=== PATIENT | female | born 1955 | race Caucasian/White ===

== ENCOUNTER 2017-11-13 07:57 | Emergency (ER) | payer MEDICAID, OTHER ==
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
[2017-11-13] MEDS ORDERED: MELOXICAM 7.5 MG TABLET PO STA (08:19)
--- NOTE | 2017-11-13 09:06 | XRAY Preliminary Report ---
Exam: XR KNEE 4 VIEW LT IMPRESSION: Normal knee radiography. [facility] SITE ID: [id number]
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
[2017-11-13 09:41] VITALS: BP 139/68
== END 2017-11-13 09:40 | disposition home or self-care (01) ==
LOC: ED 07:57
DX: S80.02XA Contusion of left knee, initial encounter (principal); V89.2XXA Person injured in unspecified motor-vehicle accident, traffic, initial encounter; F17.200 Nicotine dependence, unspecified, uncomplicated
CPT/HCPCS: 73564; 99283; A9270

== ENCOUNTER 2017-11-13 23:32 | Outpatient (CLI) | payer SELFPAY | END 2017-11-13 23:33 | disposition critical access hospital (66) | LOC: EMS 23:32 | PROVIDERS: ATTEND Surgery | DX: R11.2 Nausea with vomiting, unspecified (principal); R42 Dizziness and giddiness | CPT/HCPCS: A0425; A0429 ==

== ENCOUNTER 2017-11-13 23:51 | Emergency (ER) | payer SELFPAY ==
[2017-11-14] MEDS ORDERED: ONDANSETRON 4 MG/2 ML VIAL IVP STA (00:06)
[2017-11-14] MEDS ORDERED: SODIUM CHLORIDE 0.9% 1,000 ML IV ONE ×2 (00:06→01:03)
--- NOTE | 2017-11-14 00:06 | ED Physician Documentation ---
PD HPI NVD - Stated complaint Stated Complaint: NAUSEA - Chief complaint Chief Complaint: General - History obtained from History obtained from: Patient, EMS - History of Present Illness Timing - onset: Today Timing - details: Abrupt onset Associated symptoms: No: Fever, Abdominal pain Similar symptoms before: No diagnosis Recently seen: Not recently seen - Additonal information Additional information: patient is a 61 year old female brought in by ems for nausea and vomiting. patient states that she had an [facility] of [facility] so someone there called ems. patient had two other episode of vomiting. Patient was unsure if anyone else in the halfway was sick and denies any change in diet. Review of Systems Ten Systems: 10 systems reviewed and negative Constitutional: denies: Fever, Chills GI: reports: Abdominal Pain, Nausea, Vomiting. 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 - Present Medications Home Medications: Ambulatory Orders Medication Instructions Recorded Confirmed Meloxicam [Mobic] 15 mg PO DAILY PRN #20 tablet 11/13/17 Ondansetron Odt [Zofran] 4 mg TL Q6H PRN #14 tablet 11/14/17 - Allergies Allergies/Adverse Reactions: Allergies Allergy/AdvReac Type Severity Reaction Status Date / Time codeine Allergy Unknown Verified 11/13/17 08:06 - Social History Does the pt smoke?: Yes Smoking Status: Current every day smoker Does the pt drink ETOH?: Yes - Immunizations Immunizations are current?: No PD ED PE NORMAL - Vitals Vital signs reviewed: Yes - General General: Alert and oriented X 3 - HEENT HEENT: Atraumatic, PERRL - Neck Neck: Supple, no meningeal sign - Cardiac Cardiac: RRR - Abdomen Abdomen: Soft - Derm Derm: Normal color, Warm and dry - Extremities Extremities: No deformity - Neuro Neuro: Alert and oriented X 3, No motor deficit, Normal speech Eye Opening: Spontaneous PD ED PE EXPANDED - HEENT HEENT: Atraumatic, Dry mucous membranes - Abdomen Abdomen: Tender to palpation, Generalized/diffuse. No: Rebound, Guarding Results - Vitals Vitals: Vital Signs - 24 hr 11/13/17 23:52 Temperature 36.8 C Heart Rate 63 Respiratory 16 Rate Blood Pressure 133/84 H O2 Saturation 93 Oxygen O2 Source Room air - Labs Labs: Laboratory Tests 11/14/17 11/14/17 00:20 00:20 WBC 7.5 RBC 3.35 L Hgb 10.9 L Hct 32.5 L MCV 97.0 MCH 32.6 H MCHC 33.6 RDW 14.7 Plt Count 215 MPV 8.0 Neut # 6.0 Lymph # 0.9 L Keith # 0.5 Eos # 0.1 Baso # 0.0 Absolute Nucleated RBC 0.00 Nucleated RBC % 0.0 Sodium 138 Potassium 3.7 Chloride 96 L Carbon Dioxide 36 H Anion Gap 6.0 BUN 25 H Creatinine 1.2 H Estimated GFR (MDRD) 46 L Glucose 131 H Calcium 9.5 Total Bilirubin 0.4 AST 68 H ALT 28 Alkaline Phosphatase 60 Total Protein 8.4 H Albumin 4.5 Globulin 3.9 Albumin/Globulin Ratio 1.2 Lipase 21 L PD MEDICAL DECISION MAKING - ED course Complexity details: reviewed old records, reviewed results, re-evaluated patient , considered differential, d/w patient ED course: Patient was seen and examined at bedside. Iv access was gained and labs were drawn. Patient was treated with fluid bolus and zofran. patient had mild manas and was treated with a second liter of fluid. Patient had no episodes of emesis while in the emergency department. patient was well appearing at discharge and was stable for discharge with outpatient follow up. Departure - Departure Disposition: 01 Home, Self Care Clinical Impression: Gastroenteritis Condition: Good Instructions: ED Gastroenteritis Viral Follow-Up: primary,care provider [Other] - Within 3 Days Prescriptions: Ondansetron Odt [Zofran] 4 mg TL Q6H PRN #14 tablet PRN Reason: Nausea / Vomiting Comments: Your symptoms today are being caused by gastroenteritis. It is normally self limited meaning it will get better on its own. You should take the zofran for nausea and make sure you stay well hydrated with gatorade or other electrolyte solution. You should introduce food slowly with a bland diet. You should follow up with your doctor if symptoms persist. You may return to the emergency department at any time for new, worsening or uncontrollable symptoms.
[2017-11-14 00:29] LABS: BASOPHILS % (AUTO) 0.4 %; EOSINOPHILS # (AUTO) 0.1 10^3/uL (0.0-0.7); EOSINOPHILS % (AUTO) 1.3 %; HGB - HEMOGLOBIN 10.9 g/dL (12.0-16.0); LYMPHOCYTES # (AUTO) 0.9 10^3/uL (1.5-3.5); LYMPHOCYTES % (AUTO) 11.7 %; MEAN CORPUSCULAR HEMOGLOBIN 32.6 pg (27.0-31.0); MEAN CORPUSCULAR HGB CONC 33.6 g/dL (32.0-36.0); MONOCYTES # (AUTO) 0.5 10^3/uL (0.0-1.0); MONOCYTES % (AUTO) 6.6 %; PLT - PLATELET COUNT 215 10^3/uL (130-450); RED BLOOD COUNT 3.35 10^6/uL (4.20-5.40); RED CELL DISTRIBUTION WIDTH 14.7 % (12.0-15.0); WHITE BLOOD COUNT 7.5 x10^3/uL (4.8-10.8)
[2017-11-14 00:40] LABS: ALBUMIN 4.5 g/dL (3.2-5.5); ALBUMIN/GLOBULIN RATIO 1.2 (1.0-2.2); BILIRUBIN,TOTAL 0.4 mg/dL (0.2-1.0); CALCIUM 9.5 mg/dL (8.5-10.3); CREATININE 1.2 mg/dL (0.4-1.0); TOTAL PROTEIN 8.4 g/dL (6.7-8.2)
[2017-11-14 03:02] VITALS: BP 137/84
== END 2017-11-14 03:09 | disposition home or self-care (01) ==
LOC: EDUNIT# → ED 23:51
DX: K52.9 Noninfective gastroenteritis and colitis, unspecified (principal); N17.9 Acute kidney failure, unspecified; F17.200 Nicotine dependence, unspecified, uncomplicated; Z59.0 Homelessness
CPT/HCPCS: 36415; 80053; 83690; 85025; 96361; 96374; 99283

== ENCOUNTER 2019-01-13 10:25 | Inpatient (IN) | payer SELFPAY ==
[2019-01-13] MEDS ORDERED: IPRATROPIUM/ALBUTEROL 3 ML NEB INH STA (10:34)
--- NOTE | 2019-01-13 10:38 | ED Physician Documentation ---
History of Present Illness - Stated complaint Stated Complaint: GLF - Chief complaint Chief Complaint: Resp - History obtained from History obtained from: Patient, EMS - History of Present Illness Timing: Today Pain level max: 6 Pain level now: 6 Improved by: oxygen Worsened by: movement - Additonal information Additional information: 63 year old female fell off a bench today and hit the concrete. no LOC. no vomiting. no head, neck or back pain. Has had L elbow pain for the past several days, now entire arm is swollen and red. No fevers. nothing makes it better or worse. Denies any drug use. States Td UTD. O2 sat is 81% on RA upon arrival here. 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 - Present Medications Home Medications: Ambulatory Orders Medication Instructions Recorded Confirmed No Known Home Medications 01/13/19 01/13/19 - Allergies Allergies/Adverse Reactions: Allergies Allergy/AdvReac Type Severity Reaction Status Date / Time codeine Allergy Unknown Verified 01/13/19 10:33 - Social History Does the pt smoke?: Yes Smoking Status: Current every day smoker Does the pt drink ETOH?: Yes Does the pt have substance abuse?: No - Immunizations Immunizations are current?: No PD ED PE NORMAL - Vitals Vital signs reviewed: Yes - General General: Alert and oriented X 3, No acute distress, Well developed/nourished - HEENT HEENT: PERRL, Ears normal, Moist mucous membranes, Other (R cheek abrasion) - Neck Neck: Supple, no meningeal sign, No bony TTP, Other (FROM without pain) - Cardiac Cardiac: RRR, Strong equal pulses - Respiratory Respiratory: No respiratory distress, Clear bilaterally - Abdomen Abdomen: Soft, Non tender, Non distended - Derm Derm: Warm and dry - Extremities Extremities: Other (Swelling to the left olecranon bursa. There is also swelling and erythema from the hand to the mid bicep. Tender to palpation around the olecranon process. Also tender over the lateral epicondyle. Neurovascularly intact) - Neuro Neuro: Alert and oriented X 3, application processor 2-12 intact, No motor deficit, No sensory deficit, Normal speech Results - Vitals Vitals: Vital Signs - 24 hr 01/13/19 01/13/19 01/13/19 10:31 10:34 11:30 Temperature 36.3 C L Heart Rate 72 66 Respiratory 22 16 Rate Blood Pressure 121/69 O2 Saturation 81 L 92 01/13/19 01/13/19 01/13/19 11:47 12:27 12:30 Temperature 36.5 C Heart Rate 56 L 63 65 Respiratory 12 17 20 Rate Blood Pressure 118/84 H 130/92 H 132/70 H O2 Saturation 98 92 92 Oxygen O2 Source Nasal cannula Oxygen Flow Rate 6 - Labs Labs: Microbiology 01/13/19 12:00 Wound Culture - Preliminary Elbow - Left Laboratory Tests 01/13/19 01/13/19 01/13/19 01:40 10:48 10:48 WBC 15.4 H RBC 2.78 L Hgb 9.0 L Hct 28.3 L MCV 101.8 H MCH 32.4 H MCHC 31.8 L RDW 14.6 Plt Count 202 MPV 9.8 Neut # (Auto) 13.0 H Lymph # (Auto) 0.8 L Hale # (Auto) 0.9 Eos # (Auto) 0.6 Baso # (Auto) 0.0 Absolute Nucleated RBC 0.00 Nucleated RBC % 0.0 Sodium 139 Potassium 3.9 Chloride 97 L Carbon Dioxide 29 Anion Gap 13.0 BUN 23 H Creatinine 1.2 H Estimated GFR (MDRD) 46 L Glucose 96 Lactic Acid 0.7 Calcium 9.3 Total Bilirubin 0.7 AST 53 H ALT 36 Alkaline Phosphatase 79 Total Protein 7.9 Albumin 3.8 Globulin 4.1 Albumin/Globulin Ratio 0.9 L Lipase 27 - Rads (name of study) cxr Radiology: Prelim report reviewed, EMP read contemporaneously, See rad report (No evidence for acute cardiothoracic process. ) L elbow xray Radiology: Prelim report reviewed, EMP read contemporaneously, See rad report (No visualized fractures. Joint effusion and soft tissue swelling over olecranon process. Consider CT elbow for further evaluation. ) PD MEDICAL DECISION MAKING - ED course Complexity details: reviewed results, re-evaluated patient, considered differential, d/w patient, d/w sustainability consultant ED course: 63-year-old female presents to the emergency department with what appears to be bilateral bursitis of the elbow, much worse on the left. She appears to have attempted to drain this and created a secondary infection and have significant cellulitis over the left upper extremity. Also has COPD and significant hypoxia. Given steroids and IV antibiotics. An 18-gauge needle was placed into the area and purulent material removed. Sent for culture. This was done on the left elbow. Discussed the case with the hospitalist, Dr. Kim who accepts. This document was made in part using voice recognition software. While efforts are made to proofread this document, sound alike and grammatical errors may occur. Departure - Departure Disposition: 66 [facility] DC/Xfer Clinical Impression: Hypoxia, COPD with exacerbation, Left arm cellulitis, Mite infestation Bursitis of left elbow Qualifiers: Elbow bursitis location: olecranon bursitis Qualified Code(s): M70.22 - Olecranon bursitis, left elbow Condition: Stable Discharge Date/Time: 01/13/19 14:07
[2019-01-13 10:51] LABS: BASOPHILS % (AUTO) 0.2 %; EOSINOPHILS # (AUTO) 0.6 10^3/uL (0.0-0.7); EOSINOPHILS % (AUTO) 3.6 %; LYMPHOCYTES # (AUTO) 0.8 10^3/uL (1.5-3.5); LYMPHOCYTES % (AUTO) 4.9 %; MEAN CORPUSCULAR HEMOGLOBIN 32.4 pg (27.0-31.0); MEAN CORPUSCULAR HGB CONC 31.8 g/dL (32.0-36.0); MEAN CORPUSCULAR VOLUME 101.8 fL (81.0-99.0); MEAN PLATELET VOLUME 9.8 fL (7.9-10.8); MONOCYTES # (AUTO) 0.9 10^3/uL (0.0-1.0); MONOCYTES % (AUTO) 5.6 %; NEUTROPHILS % (AUTO) 84.7 %; PLT - PLATELET COUNT 202 10^3/uL (130-450); RED BLOOD COUNT 2.78 10^6/uL (4.20-5.40); RED CELL DISTRIBUTION WIDTH 14.6 % (12.0-15.0); WHITE BLOOD COUNT 15.4 x10^3/uL (4.8-10.8)
[2019-01-13 11:05] LABS: ALBUMIN 3.8 g/dL (3.2-5.5); ALBUMIN/GLOBULIN RATIO 0.9 (1.0-2.2); BILIRUBIN,TOTAL 0.7 mg/dL (0.2-1.0); CALCIUM 9.3 mg/dL (8.5-10.3); CREATININE 1.2 mg/dL (0.4-1.0); TOTAL PROTEIN 7.9 g/dL (6.7-8.2)
[2019-01-13] MEDS ORDERED: LIDOCAINE-EPINEPH-TETRACAINE 3 ML SYRINGE TOP STA (11:38)
--- NOTE | 2019-01-13 11:44 | XRAY Report ---
Reason: fall, L elbow pain Procedure Date: 01/13/2019 Accession Number: [id number] / [id number] Procedure: XR - Elbow 3 View LT CPT Code: FULL RESULT: EXAM: LEFT ELBOW RADIOGRAPHY EXAM DATE: 01/13/2019 11:21 AM. CLINICAL HISTORY: Fall, L elbow pain. COMPARISON: None. TECHNIQUE: 3 views. FINDINGS: Bones: No visualized fractures or bone lesions. Joints: Elevation of the anterior fat pad. No subluxation. Soft Tissues: Soft tissue swelling over olecranon process. IMPRESSION: 1. No visualized fractures. 2. Joint effusion and soft tissue swelling over olecranon process. Consider CT elbow for further evaluation. [facility]
--- NOTE | 2019-01-13 11:46 | XRAY Report ---
Reason: cough Procedure Date: 01/13/2019 Accession Number: [id number] / [id number] Procedure: XR - Chest 2 View X-Ray CPT Code: 80693 FULL RESULT: EXAM: CHEST RADIOGRAPHY EXAM DATE: 01/13/2019 11:21 AM. CLINICAL HISTORY: Cough. COMPARISON: XR CHEST PA AND LAT 07/20/2009 3:40 AM. TECHNIQUE: 2 views. FINDINGS: Lungs/Pleura: No focal opacities evident. No pleural effusion. No pneumothorax. Normal volumes. Mediastinum: Stable cardiomediastinal silhouette. Other: None. IMPRESSION: No evidence for acute cardiothoracic process. [facility]
[2019-01-13] MEDS ORDERED: PIPERACILLIN/TAZOBACTAM 3.375 GM in SODIUM CHLORIDE 0.9% MINIBAG 100 ML IV STA (11:51)
[2019-01-13] MEDS ORDERED: VANCOMYCIN INJ 1 GM in SODIUM CHLORIDE 0.9% 500 ML IV STA (11:51)
[2019-01-13] MEDS ORDERED: methylPREDNISolone SUCCINATE 125 MG/2 ML VIAL IVP STA (11:51)
[2019-01-13] MEDS ORDERED: LIDOCAINE 2%-EPI 1:100000 20 ML MDV SUBQ STA (11:54)
[2019-01-13] MEDS ORDERED: LIDOCAINE MPF 2%-EPI 1:200000 20 ML VIAL ONE (12:05)
[2019-01-13] MEDS ORDERED: oxyCODONE 5 MG TABLET PO PRN (12:52)
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
[2019-01-13] MEDS ORDERED: PERMETHRIN 5% CREAM 60 GM TUBE TOP ONE (14:00)
[2019-01-13] MEDS ORDERED: PERMETHRIN 5% CREAM 60 GM TUBE TOP SCH (14:00)
[2019-01-13 14:45] LABS: BILIRUBIN,URINE NEGATIVE (NEGATIVE); GLUCOSE, URINE (UA) NEGATIVE (NEGATIVE); KETONES,URINE (UA) NEGATIVE (NEGATIVE); LEUKOCYTE ESTERASE, URINE NEGATIVE (NEGATIVE); NITRITE,URINE NEGATIVE (NEGATIVE); OCCULT BLOOD,URINE TRACE-LYSE (NEGATIVE); PROTEIN,URINE 100 mg/dL (NEGATIVE); UROBILINOGEN,URINE 0.2 (NORMAL) E.U./dL (NORMAL)
[2019-01-13 14:46] LABS: CLARITY,URINE CLEAR (CLEAR)
[2019-01-13 14:50] LABS: BACTERIA,URINE None Seen /HPF (None Seen); RBC,URINE None Seen /HPF (0-5); SQUAMOUS EPITHELIAL CELL,UR RARE Squamous (<= Few)
[2019-01-13] MEDS: SODIUM CHLORIDE 0.9% 1,000 ML IV SCH (14:57)
--- NOTE | 2019-01-13 15:49 | CONSULTATION NOTE ---
DATE OF SERVICE: 01/13/2019 Physician: Silver Manjarrez MD REFERRING PROVIDER: Divine Mccarty, Nurse Practitioner, inpatient service. CHIEF COMPLAINT: "My elbow has been swollen for days." HISTORY OF PRESENT ILLNESS: Patient is a 63-year-old, right-hand dominant, female, homeless, who apparently has had bilateral, left worse than right, swollen elbows for several days. She denies any preceding trauma or other situations. She did pick off a scab off her right elbow, however, over the last few days. The left side is worse than the right. She has noted some redness, warmth and swelling. No particularly painful motion to the elbow, however. Associated with the elbow lesion has been diffuse swelling and redness and warmth involving her whole left upper extremity, extending down to her hand. There have been no open lesions or active drainage noted. No distal weakness or numbness has been noted. PHYSICAL EXAMINATION: On exam today, patient was noted to be afebrile in the emergency room. Examination of her left elbow today did show some diffuse swelling, but no real fluctuance overlying her olecranon bursa to the left elbow. She has about 45-50 degrees of easy motion at the elbow today, without any obvious pain, and a soft limit in her range of motion noted. She does have some generalized swelling and erythema involving the majority of her left upper extremity. No fluctuance was noted. Elbow apparently had her olecranon bursa aspirated in the emergency room, so right now there is no big collection at the olecranon bursal area. Patient neurovascularly appears to be intact distally. IMAGING: X-rays of the left elbow were taken and there were no obvious fractures or bony lesions seen. There was a suggestion there might be an anterior fat pad sign. ASSESSMENT: Left olecranon bursitis--does not appear to be septic, though there is associated cellulitis that probably involves the other portions of her left upper extremity. PLAN: So as to be able to follow her cellulitis in her upper extremity more closely, we will just keep her with limited voluntary active motion to her elbow over the next few days while she is started on her antibiotics. If the olecranon bursitis does not seem to be improving after being on antibiotics for a few days, we will suggest having her go in a long-arm posterior splint to the upper extremity to immobilize the elbow. TD: 01/13/2019 14:20 ISABELLA
[2019-01-13 16:14] LABS: MUDS CUTOFF CONCENTRATIONS CUTOFF CONC BELOW:
[2019-01-13] MEDS: SODIUM CHLORIDE FLUSH 0.9% 10 ML SYRINGE IVP SCH (16:16)
[2019-01-13 16:25] LABS: AMPHETAMINE SCREEN,URINE NEGATIVE (NEGATIVE); BENZODIAZEPINES SCREEN, URINE NEGATIVE (NEGATIVE); COCAINE SCREEN URINE NEGATIVE (NEGATIVE); METHADONE SCREEN, URINE NEGATIVE (NEGATIVE); METHAMPHETAMINES SCREEN, URINE NEGATIVE (NEGATIVE); OPIATE SCREEN, URINE NEGATIVE (NEGATIVE); OXYCODONE SCREEN, URINE NEGATIVE (NEGATIVE); PROPOXYPHENE SCREEN, URINE NEGATIVE (NEGATIVE); TRICYCLIC ANTIDEPRESSANT,URINE NEGATIVE (NEGATIVE)
[2019-01-13] MEDS ORDERED: VANCOMYCIN PER PHARMACY 100 GM in SODIUM CHLORIDE 0.9% 250 ML IV SCH (17:00)
[2019-01-13 17:02] LABS: ABG BASE EXCESS 1.9 mmol/L (-2.0-3.0); ABG HCO3 28.5 mmol/L (22.0-26.0); ABG PCO2 55 mmHg (34-45); ABG PH 7.34 (7.35-7.45); ABG PO2 56 mmHg (80-100); ABG TCO2 30.2 MMOL/L (21.0-29.0)
[2019-01-13 17:03] LABS: ALLEN TEST POSITIVE
[2019-01-13 17:06] LABS: ABG OXYGEN SATURATION 84 % (94-98)
[2019-01-13] MEDS: ACETAMINOPHEN 325 MG TABLET PO PRN (20:34)
[2019-01-13] MEDS: CEFEPIME 2 GM in SODIUM CHLORIDE 0.9% MINIBAG 100 ML IV SCH (20:34)
[2019-01-14] MEDS: SODIUM CHLORIDE FLUSH 0.9% 10 ML SYRINGE IVP SCH ×3 (00:12→17:03)
[2019-01-14] MEDS: VANCOMYCIN INJ 1 GM in SODIUM CHLORIDE 0.9% 250 ML IV SCH ×2 (01:02→12:59)
[2019-01-14] MEDS: SODIUM CHLORIDE 0.9% 1,000 ML IV SCH ×2 (01:02→12:16)
[2019-01-14] MEDS: ACETAMINOPHEN 325 MG TABLET PO PRN ×3 (02:27→21:49)
[2019-01-14] MEDS: PANTOPRAZOLE 40 MG TABLET PO SCH (06:31)
[2019-01-14] MEDS: ENOXAPARIN 40 MG/0.4 ML SYRINGE SUBQ SCH (08:34)
[2019-01-14] MEDS: POLYETHYLENE GLYCOL 3350 17 GM PACKET PO SCH (08:34)
[2019-01-14] MEDS: NICOTINE 14 MG PATCH TOP SCH (12:16)
[2019-01-14] MEDS: methylPREDNISolone SUCCINATE 40 MG/ML VIAL IVP SCH ×2 (13:04→21:49)
[2019-01-14] MEDS: SODIUM CHLORIDE FLUSH 0.9% 10 ML SYRINGE IVP PRN ×2 (13:04→21:49)
[2019-01-14] MEDS: guaiFENesin 600 MG TABLET PO SCH ×2 (13:04→20:48)
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
[2019-01-14 19:26] LABS: EOSINOPHILS % (AUTO) 0.2 %; HGB - HEMOGLOBIN 9.5 g/dL (12.0-16.0); MEAN CORPUSCULAR HGB CONC 30.7 g/dL (32.0-36.0)
[2019-01-14 19:29] LABS: BASOPHILS % (AUTO) 0.2 %; MEAN CORPUSCULAR HEMOGLOBIN 32.2 pg (27.0-31.0); MEAN CORPUSCULAR VOLUME 104.7 fL (81.0-99.0); MEAN PLATELET VOLUME 10.1 fL (7.9-10.8); MONOCYTES % (AUTO) 2.4 %; NEUTROPHILS % (AUTO) 92.1 %; PLT - PLATELET COUNT 255 10^3/uL (130-450); RED BLOOD COUNT 2.95 10^6/uL (4.20-5.40); RED CELL DISTRIBUTION WIDTH 14.4 % (12.0-15.0); WHITE BLOOD COUNT 19.9 x10^3/uL (4.8-10.8)
[2019-01-14 19:34] LABS: ABNORMAL LYMPHS % (MANUAL) 0 %
[2019-01-14 19:41] LABS: CREATININE 1.1 mg/dL (0.4-1.0)
[2019-01-14 19:42] LABS: ALBUMIN 3.3 g/dL (3.2-5.5); ALBUMIN/GLOBULIN RATIO 0.7 (1.0-2.2); BILIRUBIN,TOTAL 0.7 mg/dL (0.2-1.0); CALCIUM 8.8 mg/dL (8.5-10.3); MAGNESIUM 2.1 mg/dL (1.7-2.8); TOTAL PROTEIN 7.8 g/dL (6.7-8.2)
[2019-01-14 19:49] LABS: BAND NEUTROPHILS % (MANUAL) 6 %; LYMPHOCYTES # (MANUAL) 0.4 10^3/uL (1.5-3.5); LYMPHOCYTES % (MANUAL) 2 %; MONOCYTES # (MANUAL) 0.4 10^3/uL (0.0-1.0)
[2019-01-14 19:56] LABS: PLATELET ESTIMATE, MANUAL NORMAL (130-450,000) (NORMAL); PLATELET MORPHOLOGY NORMAL APPEARANCE (NORMAL)
[2019-01-14 19:57] LABS: DIFFERENTIAL COMMENT MANUAL DIFFERENTIAL
[2019-01-14] MEDS: CEFEPIME 2 GM in SODIUM CHLORIDE 0.9% MINIBAG 100 ML IV SCH (20:48)
[2019-01-15 01:20] LABS: VANCOMYCIN,TROUGH 18.7 ug/mL (10.0-20.0)
[2019-01-15] MEDS: SODIUM CHLORIDE FLUSH 0.9% 10 ML SYRINGE IVP SCH ×3 (02:09→20:24)
[2019-01-15] MEDS: VANCOMYCIN INJ 1 GM in SODIUM CHLORIDE 0.9% 250 ML IV SCH (02:09)
[2019-01-15] MEDS: PANTOPRAZOLE 40 MG TABLET PO SCH (06:26)
[2019-01-15] MEDS ORDERED: SODIUM CHLORIDE 0.9% 500 ML IV PRN (07:34)
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
[2019-01-15] MEDS: guaiFENesin 600 MG TABLET PO SCH ×2 (09:09→20:26)
[2019-01-15] MEDS: NICOTINE 14 MG PATCH TOP SCH (09:09)
[2019-01-15] MEDS: predniSONE 20 MG TABLET PO SCH (09:09)
[2019-01-15] MEDS: POLYETHYLENE GLYCOL 3350 17 GM PACKET PO SCH (09:09)
[2019-01-15] MEDS: ENOXAPARIN 40 MG/0.4 ML SYRINGE SUBQ SCH (09:09)
[2019-01-15] MEDS ORDERED: ceFAZolin 2 GM in SODIUM CHLORIDE 0.9% 100ML 100 ML IV SCH (10:00)
[2019-01-15] MEDS ORDERED: MULTIVITAMIN W/MINERALS TABLET PO SCH (11:00)
[2019-01-15] MEDS: ASCORBIC ACID CHEW 500 MG TABLET PO SCH (11:01)
--- NOTE | 2019-01-15 11:37 | PROVIDER PROGRESS NOTE ---
Subjective - Prog Note Date Prog Note Date: 01/15/19 Prog Note Time: 11:35 - Subjective Pt reports feeling: Improved (Less swelling and pain. Better motion. No distal weakness or numbness) Objective - Vital Signs/Intake & Output Vital Signs: Vital Signs x48h Temp Pulse Resp BP Pulse Ox 01/15/19 10:58 18 91 L 01/15/19 09:10 18 94 01/15/19 08:27 36.4 C L 62 18 120/72 99 Intake & Output: Intake & Output 01/12/19 01/13/19 01/14/19 01/15/19 23:59 23:59 23:59 23:59 Intake Total 1120 4753.333 1730.0 Output Total 250 1700 2000 Balance 870 3053.333 -270.0 - Lab Results Fish Bones: 01/14/19 19:20 01/14/19 19:20 Other Labs: Lab Results x24hrs 01/15/19 01/14/19 01/14/19 Range/Units 00:50 19:20 19:20 WBC (4.8-10.8) x10^3/uL RBC (4.20-5.40) 10^6/uL Hgb (12.0-16.0) g/dL Hct (37.0-47.0) % MCV (81.0-99.0) fL MCH (27.0-31.0) pg MCHC (32.0-36.0) g/dL RDW (12.0-15.0) % Plt Count (130-450) 10^3/uL MPV (7.9-10.8) fL Neut # (Auto) Lymph # (Auto) [place] # (Auto) Eos # (Auto) Baso # (Auto) Absolute Nucleated RBC Total Counted Band Neuts % (Manual) (0 - 10) % Abnorm Lymph % (Manual) % Nucleated RBC % Neutrophils # (Manual) (1.5-6.6) 10^3/uL Lymphocytes # (Manual) (1.5-3.5) 10^3/uL Monocytes # (Manual) (0.0-1.0) 10^3/uL Eosinophils # (Manual) (0-0.7) 10^3/uL Basophils # (Manual) (0-0.1) 10^3/uL Differential Comment Manual Slide Review Platelet Estimate (NORMAL) Platelet Morphology (NORMAL) RBC Morph Micro Appear (NORMAL) Sodium 139 (135-145) mmol/L Potassium 4.3 (3.5-5.0) mmol/L Chloride 100 L (101-111) mmol/L Carbon Dioxide 27 (21-32) mmol/L Anion Gap 12.0 (6-13) BUN 19 (6-20) mg/dL Creatinine 1.1 H (0.4-1.0) mg/dL Estimated GFR (MDRD) 50 L (>89) Glucose 187 H (70-100) mg/dL Lactic Acid 1.5 (0.5-2.2) mmol/L Calcium 8.8 (8.5-10.3) mg/dL Magnesium 2.1 (1.7-2.8) mg/dL Total Bilirubin 0.7 (0.2-1.0) mg/dL AST 32 (10-42) IU/L ALT 30 (10-60) IU/L Alkaline Phosphatase 74 (42-121) IU/L Total Protein 7.8 (6.7-8.2) g/dL Albumin 3.3 (3.2-5.5) g/dL Globulin 4.5 H (2.1-4.2) g/dL Albumin/Globulin Ratio 0.7 L (1.0-2.2) Last Dose Date UNKNOWN Last Dose Time UNKNOWN Vancomycin Trough 18.7 (10.0-20.0) ug/mL 01/14/19 Range/Units 19:20 WBC 19.9 H (4.8-10.8) x10^3/uL RBC 2.95 L (4.20-5.40) 10^6/uL Hgb 9.5 L (12.0-16.0) g/dL Hct 30.9 L (37.0-47.0) % MCV 104.7 H (81.0-99.0) fL MCH 32.2 H (27.0-31.0) pg MCHC 30.7 L (32.0-36.0) g/dL RDW 14.4 (12.0-15.0) % Plt Count 255 (130-450) 10^3/uL MPV 10.1 (7.9-10.8) fL Neut # (Auto) Not Reportable Lymph # (Auto) Not Reportable [place] # (Auto) Not Reportable Eos # (Auto) Not Reportable Baso # (Auto) Not Reportable Absolute Nucleated RBC Not Reportable Total Counted 100 Band Neuts % (Manual) 6 (0 - 10) % Abnorm Lymph % (Manual) 0 % Nucleated RBC % Not Reportable Neutrophils # (Manual) 19.1 H (1.5-6.6) 10^3/uL Lymphocytes # (Manual) 0.4 L (1.5-3.5) 10^3/uL Monocytes # (Manual) 0.4 (0.0-1.0) 10^3/uL Eosinophils # (Manual) 0.0 (0-0.7) 10^3/uL Basophils # (Manual) 0.0 (0-0.1) 10^3/uL Differential Comment MANUAL DIFFERENTIAL Manual Slide Review Indicated Platelet Estimate NORMAL (130-450,000) (NORMAL) Platelet Morphology NORMAL APPEARANCE (NORMAL) RBC Morph Micro Appear 1+ SCHISTOCYTES (NORMAL) Sodium (135-145) mmol/L Potassium (3.5-5.0) mmol/L Chloride (101-111) mmol/L Carbon Dioxide (21-32) mmol/L Anion Gap (6-13) BUN (6-20) mg/dL Creatinine (0.4-1.0) mg/dL Estimated GFR (MDRD) (>89) Glucose (70-100) mg/dL Lactic Acid (0.5-2.2) mmol/L Calcium (8.5-10.3) mg/dL Magnesium (1.7-2.8) mg/dL Total Bilirubin (0.2-1.0) mg/dL AST (10-42) IU/L ALT (10-60) IU/L Alkaline Phosphatase (42-121) IU/L Total Protein (6.7-8.2) g/dL Albumin (3.2-5.5) g/dL Globulin (2.1-4.2) g/dL Albumin/Globulin Ratio (1.0-2.2) Last Dose Date Last Dose Time Vancomycin Trough (10.0-20.0) ug/mL - Other Results/Comments Other Results/Comments: EXAM: Left arm_ less swelling and minimal erythema. Left olecranon bursa is much less swelling and less tender. Only minimal bursal fluid palpable. Good elbow ROM without pain. N/V ok distally Assessment/Plan - Problem List (1) Bursitis of left elbow Impression: Improved. Cultures are growing MSSA. PLAN: Switch to oral antibiotic, if possible for 2 weeks. Sling prn to limit elbow motion. Follow up with PCP for clinical follow up in 10 days to see if reconsultation or additional antibiotics are indicated. Qualifiers: Elbow bursitis location: olecranon bursitis Qualified Code(s): M70.22 - Olecranon bursitis, left elbow
[2019-01-15] MEDS: diphenhydrAMINE 25 MG CAPSULE PO PRN ×2 (11:44→20:32)
[2019-01-15] MEDS: SULFAMETH/TRIMETH DS 800/160 MG TABLET PO SCH ×2 (11:45→20:30)
[2019-01-15] MEDS ORDERED: SACCHAROMYCES BOULARDII 250 MG CAPSULE PO SCH (17:00)
[2019-01-16] MEDS: SODIUM CHLORIDE FLUSH 0.9% 10 ML SYRINGE IVP SCH ×2 (05:21→09:00)
[2019-01-16] MEDS: PANTOPRAZOLE 40 MG TABLET PO SCH (06:07)
[2019-01-16] MEDS: POLYETHYLENE GLYCOL 3350 17 GM PACKET PO SCH (09:00)
[2019-01-16] MEDS: NICOTINE 14 MG PATCH TOP SCH (09:00)
[2019-01-16] MEDS: SULFAMETH/TRIMETH DS 800/160 MG TABLET PO SCH (09:00)
[2019-01-16] MEDS: ASCORBIC ACID CHEW 500 MG TABLET PO SCH (09:00)
[2019-01-16] MEDS: predniSONE 20 MG TABLET PO SCH (09:00)
[2019-01-16] MEDS: ENOXAPARIN 40 MG/0.4 ML SYRINGE SUBQ SCH (09:00)
[2019-01-16] MEDS: guaiFENesin 600 MG TABLET PO SCH (09:00)
[2019-01-16] MEDS ORDERED: PERMETHRIN 5% CREAM 60 GM TUBE TOP ONE ×2 (09:06→10:15)
[2019-01-16 10:26] LABS: BILIRUBIN,TOTAL 0.6 mg/dL (0.2-1.0)
[2019-01-16 10:27] LABS: ALBUMIN 3.2 g/dL (3.2-5.5); ALBUMIN/GLOBULIN RATIO 0.8 (1.0-2.2); TOTAL PROTEIN 7.3 g/dL (6.7-8.2)
[2019-01-16 10:30] LABS: BASOPHILS % (AUTO) 0.2 %; EOSINOPHILS % (AUTO) 0.1 %; HGB - HEMOGLOBIN 10.1 g/dL (12.0-16.0); LYMPHOCYTES % (AUTO) 5.8 %; MEAN CORPUSCULAR HEMOGLOBIN 32.5 pg (27.0-31.0); MEAN CORPUSCULAR HGB CONC 31.8 g/dL (32.0-36.0); MEAN CORPUSCULAR VOLUME 102.3 fL (81.0-99.0); MEAN PLATELET VOLUME 11.2 fL (7.9-10.8); MONOCYTES % (AUTO) 4.6 %; PLT - PLATELET COUNT 260 10^3/uL (130-450); RED BLOOD COUNT 3.11 10^6/uL (4.20-5.40); RED CELL DISTRIBUTION WIDTH 14.2 % (12.0-15.0); WHITE BLOOD COUNT 14.3 x10^3/uL (4.8-10.8)
[2019-01-16] MEDS ORDERED: PIPERONYL BUTOXIDE/PYRETHRINS 59 ML BOTTLE TOP ONE (10:30)
[2019-01-16 10:35] LABS: ABNORMAL LYMPHS % (MANUAL) 0 %
[2019-01-16 10:36] LABS: BAND NEUTROPHILS % (MANUAL) 4 %; LYMPHOCYTES % (MANUAL) 7 %; METAMYELOCYTES % (MANUAL) 1 %; MONOCYTES # (MANUAL) 1.3 10^3/uL (0.0-1.0); MYELOCYTES % (MANUAL) 1 %; PLATELET ESTIMATE, MANUAL NORMAL (130-450,000) (NORMAL); PLATELET MORPHOLOGY NORMAL APPEARANCE (NORMAL)
[2019-01-16 10:37] LABS: DIFFERENTIAL COMMENT MANUAL DIFFERENTIAL
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
[2019-01-16 16:24] VITALS: BP 150/70
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
== END 2019-01-16 16:25 | disposition home or self-care (01) | DRG 603 ==
LOC: EDBD → EDUNIT# → ED 10:25 → MS2 12:52
PROVIDERS: ADMIT Nurse Practitioner; ATTEND Nurse Practitioner
DX: L03.114 Cellulitis of left upper limb (principal); J44.1 Chronic obstructive pulmonary disease with (acute) exacerbation; B95.61 Methicillin susceptible Staphylococcus aureus infection as the cause of diseases classified elsewhere; R09.02 Hypoxemia; M70.22 Olecranon bursitis, left elbow; M70.21 Olecranon bursitis, right elbow; B85.4 Mixed pediculosis and phthiriasis; L27.1 Localized skin eruption due to drugs and medicaments taken internally; T36.1X5A Adverse effect of cephalosporins and other beta-lactam antibiotics, initial encounter; Y92.230 Patient room in hospital as the place of occurrence of the external cause; S00.83XA Contusion of other part of head, initial encounter; W17.89XA Other fall from one level to another, initial encounter; Y92.511 Restaurant or cafe as the place of occurrence of the external cause; I10 Essential (primary) hypertension; F03.90 Unspecified dementia, unspecified severity, without behavioral disturbance, psychotic disturbance, mood disturbance, and anxiety; F12.280 Cannabis dependence with cannabis-induced anxiety disorder; F12.288 Cannabis dependence with other cannabis-induced disorder; F17.218 Nicotine dependence, cigarettes, with other nicotine-induced disorders; K02.9 Dental caries, unspecified; K08.89 Other specified disorders of teeth and supporting structures; Z59.0 Homelessness
CPT/HCPCS: 10060; 36415; 36600; 71046; 73080; 80053; 80202; 80306; 81001; 82803; 83605; 83690; 83735; 85025; 87040; 87070; 87181; 87205; 94640; 96365; 96375; 99284; 99285; A9270; J1650; J3370; J7512; 20605; 81003; 87086

== ENCOUNTER 2019-01-16 18:49 | Outpatient (CLI) | payer SELFPAY | END 2019-01-16 18:50 | disposition critical access hospital (66) | LOC: EMS 18:49 | PROVIDERS: ATTEND Surgery | DX: Z59.0 Homelessness (principal) | CPT/HCPCS: A0425; A0429 ==

== ENCOUNTER 2019-01-16 19:09 | Emergency (ER) | payer MEDICAID ==
--- NOTE | 2019-01-16 19:15 | ED Physician Documentation ---
PD HPI SKIN - Stated complaint Stated Complaint: HOMELESS - History obtained from History obtained from: Patient, EMS - History of Present Illness Timing - onset: Other (She had a recent admission for fall off a bench without serious injuries but scrapes and was admitted to the hospital for some social issues as well as body lice and olecranon bursitis. They would not take her at the snf tonight and she really does not have any place to go. 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 : Incontinence, Nocturia, Frequency HEENT: Chronic vision loss, Chronic sinusitis, Chronic hearing loss Psych: Depression, Anxiety, Bipolar disorder, Post traumatic stress disorder Musculoskeletal: Chronic back pain Derm: Other (acute scabies infection) - Past Surgical History Past Surgical History: Yes General: Appendectomy /RECREATIONAL VEHICLE REPAIRER: section - Present Medications Home Medications: Ambulatory Orders Medication Instructions Recorded Confirmed Sulfamethox/Trimeth 800/160 1 tab PO BID 10 Days #20 tablet 01/16/19 [Bactrim Ds] - Allergies Allergies/Adverse Reactions: Allergies Allergy/AdvReac Type Severity Reaction Status Date / Time cefazolin Allergy Hives Verified 01/15/19 11:33 codeine Allergy Unknown Verified 01/13/19 10:33 - Social History Does the pt smoke?: Yes Smoking Status: Current every day smoker Does the pt drink ETOH?: Yes Does the pt have substance abuse?: No - Immunizations Immunizations are current?: No - POLST Patient has POLST: No POLST Status: Full Code PD ED PE NORMAL - Vitals Vital signs reviewed: Yes - General General: Alert and oriented X 3, No acute distress - HEENT HEENT: Other (Healing scrapes on the right side of the face) - Neck Neck: Supple, no meningeal sign, No bony TTP - Extremities Extremities: Other (Left arm in sling, full range of motion of right arm, normal gait) - Neuro Neuro: Alert and oriented X 3, Normal speech Results - Vitals Vitals: Oxygen O2 Source Room air PD MEDICAL DECISION MAKING - ED course ED course: This is a 63-year-old woman who presents by ambulance with no medical emergency, but mostly social issues including homelessness. No mental health social worker available at this hour and she is invited to stay in the hospital waiting room until she can get into the snf tomorrow. Departure - Departure Disposition: 01 Home, Self Care Clinical Impression: Homelessness Condition: Good Record reviewed to determine appropriate education?: Yes Comments: Follow the instructions and take the prescriptions were given earlier in the day. You can stay in the hospital waiting room tonight if you would like to be able to get into the snf tomorrow.
[2019-01-16 19:28] VITALS: BP 169/106
== END 2019-01-16 19:50 | disposition home or self-care (01) ==
LOC: EDUNIT# → ED 19:09
DX: Z76.89 Persons encountering health services in other specified circumstances (principal); I10 Essential (primary) hypertension; F03.90 Unspecified dementia, unspecified severity, without behavioral disturbance, psychotic disturbance, mood disturbance, and anxiety; F17.200 Nicotine dependence, unspecified, uncomplicated; Z59.0 Homelessness
CPT/HCPCS: 99281; 99283

== ENCOUNTER 2019-02-05 18:31 | Outpatient (CLI) | payer SELFPAY | END 2019-02-05 18:32 | disposition critical access hospital (66) | LOC: EMS 18:31 | PROVIDERS: ATTEND Surgery | DX: M25.572 Pain in left ankle and joints of left foot (principal); W18.39XA Other fall on same level, initial encounter; Y92.89 Other specified places as the place of occurrence of the external cause | CPT/HCPCS: A0425; A0429 ==

== ENCOUNTER 2019-02-05 18:49 | Inpatient (IN) | payer MEDICAID ==
[2019-02-05] MEDS ORDERED: IBUPROFEN 600 MG TABLET PO STA (20:03)
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
--- NOTE | 2019-02-05 20:55 | XRAY Report ---
Reason: pain; fall Procedure Date: 02/05/2019 Accession Number: [id number] / [id number] Procedure: XR - Wrist 3 View LT CPT Code: FULL RESULT: EXAM: LEFT WRIST RADIOGRAPHY EXAM DATE: 02/05/2019 08:30 PM. CLINICAL HISTORY: Left wrist pain after fall. COMPARISON: None. TECHNIQUE: 3 views. FINDINGS: Bones: No acute fracture. No suspicious osseous lesion. Joints: No dislocation. No significant joint space narrowing. Soft Tissues: Unremarkable. IMPRESSION: No acute osseous abnormality. RADIA
--- NOTE | 2019-02-05 20:58 | XRAY Report ---
Reason: pain; fall Procedure Date: 02/05/2019 Accession Number: [id number] / [id number] Procedure: XR - Ankle 3 View LT CPT Code: FULL RESULT: EXAM: LEFT ANKLE RADIOGRAPHY EXAM DATE: 02/05/2019 08:30 PM. CLINICAL HISTORY: Pain; fall. COMPARISON: None. TECHNIQUE: 3 views. FINDINGS: Bones: --Acute displaced oblique fracture of the lateral malleolus above the level of the tibial plafond. --Acute transverse fracture of the medial malleolus which appears to be slightly comminuted and minimally displaced. --Acute displaced intra-articular vertical fracture of the posterior malleolus. -- No suspicious osseous lesion. Joints: No dislocation. No significant joint space narrowing. Soft Tissues: Diffuse soft tissue swelling. IMPRESSION: 1. Trimalleolar ankle fracture, detailed above. No dislocation. Recommend Orthopedic Surgery consultation. RADIA
[2019-02-05] MEDS ORDERED: oxyCODONE 5 MG TABLET PO STA (21:06)
[2019-02-05] MEDS: LIDOCAINE 2%-EPI 1:100000 20 ML MDV SUBQ STA ×2 (21:53→21:58)
[2019-02-06 01:27] LABS: BASOPHILS % (AUTO) 0.6 %; EOSINOPHILS # (AUTO) 0.4 10^3/uL (0.0-0.7); EOSINOPHILS % (AUTO) 7.3 %; HGB - HEMOGLOBIN 7.7 g/dL (12.0-16.0); LYMPHOCYTES # (AUTO) 0.5 10^3/uL (1.5-3.5); MEAN CORPUSCULAR HEMOGLOBIN 31.7 pg (27.0-31.0); MEAN CORPUSCULAR HGB CONC 30.1 g/dL (32.0-36.0); MEAN CORPUSCULAR VOLUME 105.3 fL (81.0-99.0); MEAN PLATELET VOLUME 9.4 fL (7.9-10.8); MONOCYTES # (AUTO) 0.6 10^3/uL (0.0-1.0); NEUTROPHILS # (AUTO) 3.7 10^3/uL (1.5-6.6); NEUTROPHILS % (AUTO) 70.7 %; PLT - PLATELET COUNT 198 10^3/uL (130-450); RED BLOOD COUNT 2.43 10^6/uL (4.20-5.40); RED CELL DISTRIBUTION WIDTH 15.2 % (12.0-15.0); WHITE BLOOD COUNT 5.2 x10^3/uL (4.8-10.8)
[2019-02-06 01:36] LABS: CALCIUM 8.6 mg/dL (8.5-10.3); CREATININE 3.6 mg/dL (0.4-1.0)
--- NOTE | 2019-02-06 01:44 | XRAY Report ---
Reason: chest pain Procedure Date: 02/06/2019 Accession Number: [id number] / [id number] Procedure: XR - Chest 1 View X-Ray CPT Code: 84450 FULL RESULT: EXAM: CHEST RADIOGRAPHY EXAM DATE: 02/06/2019 01:34 AM. CLINICAL HISTORY: Chest pain. COMPARISON: CHEST 2 VIEW 01/13/2019 10:43 AM. TECHNIQUE: 1 view. FINDINGS: Lungs/Pleura: Bibasilar infiltrates. No effusion or pneumothorax. Mediastinum: Cardiomegaly. Other: None. IMPRESSION: Cardiomegaly and bibasilar infiltrates, new from previous. RADIA
[2019-02-06] MEDS ORDERED: levoFLOXacin 500 MG/100 ML 500 MG/100 ML BAG IV ONE (01:57)
[2019-02-06] MEDS ORDERED: ALBUTEROL NEB 2.5 MG/3 ML INH STA (01:57)
[2019-02-06] MEDS ORDERED: SODIUM CHLORIDE 0.9% 1,000 ML IV SCH (03:00)
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
[2019-02-06 05:33] LABS: BASOPHILS % (AUTO) 0.2 %; EOSINOPHILS # (AUTO) 0.3 10^3/uL (0.0-0.7); EOSINOPHILS % (AUTO) 7.3 %; HGB - HEMOGLOBIN 7.3 g/dL (12.0-16.0); LYMPHOCYTES # (AUTO) 0.5 10^3/uL (1.5-3.5); LYMPHOCYTES % (AUTO) 10.3 %; MEAN CORPUSCULAR HEMOGLOBIN 30.9 pg (27.0-31.0); MEAN CORPUSCULAR HGB CONC 30.2 g/dL (32.0-36.0); MEAN CORPUSCULAR VOLUME 102.5 fL (81.0-99.0); MEAN PLATELET VOLUME 10.4 fL (7.9-10.8); MONOCYTES # (AUTO) 0.6 10^3/uL (0.0-1.0); MONOCYTES % (AUTO) 13.3 %; NEUTROPHILS % (AUTO) 68.4 %; PLT - PLATELET COUNT 163 10^3/uL (130-450); RED BLOOD COUNT 2.36 10^6/uL (4.20-5.40); RED CELL DISTRIBUTION WIDTH 15.3 % (12.0-15.0); WHITE BLOOD COUNT 4.4 x10^3/uL (4.8-10.8)
[2019-02-06 05:41] LABS: CALCIUM 8.4 mg/dL (8.5-10.3); CREATININE 3.5 mg/dL (0.4-1.0)
[2019-02-06 06:01] LABS: % IRON SATURATION 9 % (20-50); IRON 25 ug/dL (28-170); TOTAL IRON BINDING CAPACITY 277 ug/dL (250-450); TRANSFERRIN 198 mg/dL (192-382)
[2019-02-06 06:20] LABS: FOLATE 9.86 ng/mL (5.90 - >24.8)
[2019-02-06] MEDS ORDERED: HEPARIN 5,000 UNIT/ML VIAL SUBQ SCH (09:00)
[2019-02-06] MEDS ORDERED: levoFLOXacin 500 MG/100 ML 500 MG/100 ML BAG IV SCH (09:00)
[2019-02-06] MEDS: POLYETHYLENE GLYCOL 3350 17 GM PACKET PO SCH (09:14)
[2019-02-06] MEDS: FERROUS SULFATE 325 MG TABLET PO SCH (09:14)
[2019-02-06] MEDS: oxyCODONE 5 MG TABLET PO PRN ×2 (09:16→21:24)
[2019-02-06] MEDS: SODIUM CHLORIDE FLUSH 0.9% 10 ML SYRINGE IVP SCH ×2 (09:56→17:24)
[2019-02-06] MEDS: cefTRIAXone 1 GM in SODIUM CHLORIDE 0.9% MINIBAG 100 ML IV SCH (09:56)
[2019-02-06] MEDS ORDERED: AZITHROMYCIN 250 MG TABLET PO ONE (11:00)
[2019-02-06] MEDS: predniSONE 20 MG TABLET PO SCH (12:07)
[2019-02-06] MEDS: MULTIVITAMIN W/MINERALS TABLET PO SCH (12:10)
[2019-02-06] MEDS: SACCHAROMYCES BOULARDII 250 MG CAPSULE PO SCH ×2 (12:10→18:46)
[2019-02-06] MEDS: SODIUM CHLORIDE 0.9% 1,000 ML IV SCH (12:11)
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
[2019-02-06] MEDS: IPRATROPIUM/ALBUTEROL 3 ML NEB INH SCH ×3 (12:23→19:25)
[2019-02-06] MEDS: TAMSULOSIN 0.4 MG CAPSULE PO SCH (18:46)
[2019-02-06 21:43] LABS: BILIRUBIN,URINE NEGATIVE (NEGATIVE); GLUCOSE, URINE (UA) NEGATIVE (NEGATIVE); KETONES,URINE (UA) NEGATIVE (NEGATIVE); LEUKOCYTE ESTERASE, URINE TRACE (NEGATIVE); NITRITE,URINE NEGATIVE (NEGATIVE); OCCULT BLOOD,URINE SMALL (NEGATIVE); PROTEIN,URINE 100 mg/dL (NEGATIVE); UROBILINOGEN,URINE 0.2 (NORMAL) E.U./dL (NORMAL)
[2019-02-06 21:47] LABS: CLARITY,URINE HAZY (CLEAR)
[2019-02-06 21:48] LABS: BACTERIA,URINE Moderate /HPF (None Seen); CASTS, URINE 3-5 Hyaline Casts /LPF; MUCUS,URINE Few Strands; SQUAMOUS EPITHELIAL CELL,UR RARE Squamous (<= Few); WBC CLUMPS,URINE PRESENT
[2019-02-06] MEDS: ACETAMINOPHEN 325 MG TABLET PO PRN (23:46)
[2019-02-07] MEDS: SODIUM CHLORIDE 0.9% 1,000 ML IV SCH ×2 (00:45→15:36)
[2019-02-07] MEDS: SODIUM CHLORIDE FLUSH 0.9% 10 ML SYRINGE IVP SCH ×4 (00:46→16:30)
--- NOTE | 2019-02-07 02:32 | Ultrasound Report ---
Reason: urinary retention, hydronephrosis? Procedure Date: 02/07/2019 Accession Number: [id number] / [id number] Procedure: US - Retroperitoneal CPT Code: FULL RESULT: EXAM: RENAL ULTRASOUND EXAM DATE: 02/07/2019 01:10 AM CLINICAL HISTORY: Urinary retention, hydronephrosis?. COMPARISON: None. TECHNIQUE: Real-time scanning was performed with static images obtained. FINDINGS: Right Kidney: 12.0 x 4.7 x 5.2 cm. Normal parenchymal thickness and echogenicity noted. There is a right mid kidney stone measuring 6.5 mm. There is no hydronephrosis. No definite suspicious renal mass. Nonspecific trace perinephric fluid. Left Kidney: 10.2 x 4.9 x 4.7 cm. There is trace nonspecific amount of perinephric fluid. No suspicious renal mass. Normal parenchymal thickness and echogenicity. No hydronephrosis or kidney stone. Bladder: Decompressed, precluding assessment. Other: None. IMPRESSION: 1. No hydronephrosis. 2. Possible 6.5 mm right mid kidney stone. 3. Nonspecific trace bilateral perinephric fluid. RADIA
[2019-02-07] MEDS: oxyCODONE 5 MG TABLET PO PRN ×4 (03:55→22:34)
[2019-02-07 04:51] LABS: BASOPHILS % (AUTO) 0.2 %; HGB - HEMOGLOBIN 9.4 g/dL (12.0-16.0); LYMPHOCYTES # (AUTO) 0.3 10^3/uL (1.5-3.5); LYMPHOCYTES % (AUTO) 4.5 %; MEAN CORPUSCULAR HEMOGLOBIN 31.2 pg (27.0-31.0); MEAN CORPUSCULAR HGB CONC 31.6 g/dL (32.0-36.0); MEAN CORPUSCULAR VOLUME 98.7 fL (81.0-99.0); MEAN PLATELET VOLUME 10.3 fL (7.9-10.8); MONOCYTES # (AUTO) 0.2 10^3/uL (0.0-1.0); MONOCYTES % (AUTO) 2.8 %; NEUTROPHILS # (AUTO) 5.2 10^3/uL (1.5-6.6); NEUTROPHILS % (AUTO) 91.5 %; PLT - PLATELET COUNT 197 10^3/uL (130-450); RED BLOOD COUNT 3.01 10^6/uL (4.20-5.40); RED CELL DISTRIBUTION WIDTH 17.1 % (12.0-15.0); WHITE BLOOD COUNT 5.7 x10^3/uL (4.8-10.8)
[2019-02-07 05:04] LABS: CALCIUM 8.4 mg/dL (8.5-10.3)
[2019-02-07] MEDS: IPRATROPIUM/ALBUTEROL 3 ML NEB INH SCH ×4 (07:40→20:51)
[2019-02-07] MEDS: ACETAMINOPHEN 325 MG TABLET PO PRN (08:21)
[2019-02-07] MEDS: predniSONE 20 MG TABLET PO SCH (08:22)
[2019-02-07] MEDS: AZITHROMYCIN 250 MG TABLET PO SCH (08:22)
[2019-02-07] MEDS: MULTIVITAMIN W/MINERALS TABLET PO SCH (08:23)
[2019-02-07] MEDS: TAMSULOSIN 0.4 MG CAPSULE PO SCH ×2 (08:23→08:24)
[2019-02-07] MEDS: POLYETHYLENE GLYCOL 3350 17 GM PACKET PO SCH (08:23)
[2019-02-07] MEDS: FERROUS SULFATE 325 MG TABLET PO SCH (08:24)
[2019-02-07] MEDS: cefTRIAXone 1 GM in SODIUM CHLORIDE 0.9% MINIBAG 100 ML IV SCH (08:24)
[2019-02-07] MEDS: SACCHAROMYCES BOULARDII 250 MG CAPSULE PO SCH ×2 (08:25→16:30)
[2019-02-07] MEDS ORDERED: CLINDAMYCIN 600 MG/50 ML 50 ML IV SCH (09:00)
--- NOTE | 2019-02-07 09:07 | ANESTHESIA ---
Pre-Anesthesia VS, & Labs - Diagnosis Left ankle fracture - Procedure ORIF left ankle fracture Vital Signs: Temp Pulse Resp BP Pulse Ox 36.3 C L 62 18 106/72 94 02/07/19 08:06 02/07/19 08:06 02/07/19 08:06 02/07/19 08:06 02/07/19 08:06 Height 5 ft 2 in Weight (kg) 74 kg Body Mass Index 29.8 - NPO >8 hours - Is Patient ?: No - Lab Results Current Lab Results: Laboratory Tests 02/07/19 04:20: Sodium 138, Potassium 4.9, Chloride 103, Carbon Dioxide 25, Anion Gap 10.0, BUN 40 H, Creatinine 3.0 H, Estimated GFR (MDRD) 16 L, Glucose 150 H, Calcium 8.4 L 02/07/19 04:20: WBC 5.7, RBC 3.01 L, Hgb 9.4 L, Hct 29.7 L, MCV 98.7, MCH 31.2 H , MCHC 31.6 L, RDW 17.1 H, Plt Count 197, MPV 10.3, Neut # (Auto) 5.2, Lymph # ( Auto) 0.3 L, [place] # (Auto) 0.2, Eos # (Auto) 0.0, Baso # (Auto) 0.0, Absolute Nucleated RBC 0.00, Nucleated RBC % 0.0 02/06/19 12:12: Blood Type A POSITIVE, Antibody Screen NEGATIVE, Crossmatch IS Only See Detail 02/06/19 08:30: Blood Type Recheck A POSITIVE 02/06/19 08:14: Lactic Acid 0.6 02/06/19 08:14: Magnesium 2.1 02/06/19 08:14: B-Natriuretic Peptide 222 H 02/06/19 04:40: Iron 25 L, TIBC 277, % Saturation 9 L, Transferrin 198 02/06/19 04:40: Vitamin B12 442, Folate 9.86 02/06/19 04:40: Sodium 140, Potassium 4.1, Chloride 101, Carbon Dioxide 29, Anion Gap 10.0, BUN 40 H, Creatinine 3.5 H, Estimated GFR (MDRD) 13 L, Glucose 83, Calcium 8.4 L 02/06/19 04:40: WBC 4.4 L, RBC 2.36 L, Hgb 7.3 L, Hct 24.2 L, MCV 102.5 H, MCH 30.9, MCHC 30.2 L, RDW 15.3 H, Plt Count 163, MPV 10.4, Neut # (Auto) 3.0, Lymph # (Auto) 0.5 L, [place] # (Auto) 0.6, Eos # (Auto) 0.3, Baso # (Auto) 0.0, Absolute Nucleated RBC 0.00, Nucleated RBC % 0.0 02/06/19 01:23: Sodium 136, Potassium 3.8, Chloride 99 L, Carbon Dioxide 26, Anion Gap 11.0, BUN 40 H, Creatinine 3.6 H, Estimated GFR (MDRD) 13 L, Glucose 98, Calcium 8.6 02/06/19 01:23: WBC 5.2, RBC 2.43 L, Hgb 7.7 L, Hct 25.6 L, MCV 105.3 H, MCH 31.7 H, MCHC 30.1 L, RDW 15.2 H, Plt Count 198, MPV 9.4, Neut # (Auto) 3.7, Lymph # (Auto) 0.5 L, [place] # (Auto) 0.6, Eos # (Auto) 0.4, Baso # (Auto) 0.0, Absolute Nucleated RBC 0.00, Nucleated RBC % 0.0 Fish Bones: 02/07/19 04:20 02/07/19 04:20 Home Medications and Allergies Home Medications: Ambulatory Orders No Known Home Medications 02/06/19 Active Medications Acetaminophen (Tylenol) 650 mg PO Q4HR PRN PRN Reason: Pain 1 to 4 Last Admin: 02/07/19 08:21 Dose: 650 mg Albuterol/Ipratropium (Duoneb) 3 ml INH RTQID [facility] Last Admin: 02/07/19 07:40 Dose: 3 ml Azithromycin (Zithromax) 250 mg PO DAILY [facility] Last Admin: 02/07/19 08:22 Dose: 250 mg Ferrous Sulfate (Feosol) 325 mg PO DAILYWM [facility] Last Admin: 02/07/19 08:24 Dose: 325 mg Ceftriaxone Sodium 1 gm/ (Sodium Chloride) 100 mls @ 200 mls/hr IV DAILY [facility] Last Admin: 02/07/19 08:24 Dose: 100 mls/hr Clindamycin Phosphate (Cleocin 600 Mg/50 Ml) 50 mls @ 100 mls/hr IV ONCE [facility] Stop: 02/07/19 11:00 Multivitamins/Minerals (Theragran M) 1 tab PO DAILYWM [facility] Last Admin: 02/07/19 08:23 Dose: 1 tab Oxycodone HCl (Roxicodone) 5 mg PO Q4HR PRN PRN Reason: Pain 5 to 7 Last Admin: 02/07/19 08:23 Dose: 5 mg Polyethylene Glycol (Miralax) 17 gm PO DAILY [facility] Last Admin: 02/07/19 08:23 Dose: 17 gm Prednisone (Deltasone) 30 mg PO DAILYWM [facility] Last Admin: 02/07/19 08:22 Dose: 30 mg Saccharomyces Boulardii (Florastor) 250 mg PO BIDWM [facility] Last Admin: 02/07/19 08:25 Dose: 250 mg Sodium Chloride (Normal Saline Flush 0.9%) 10 ml IVP PRN PRN PRN Reason: NEEDED PER PROVIDER ORDERS Sodium Chloride (Normal Saline Flush 0.9%) 10 ml IVP 0100,0900,1700 [facility] Last Admin: 02/07/19 08:32 Dose: Not Given Tamsulosin HCl (Flomax) 0.4 mg PO DAILY [facility] Last Admin: 02/07/19 08:24 Dose: 0.4 mg No Known Home Medications 02/06/19 Allergies/Adverse Reactions: Allergies Allergy/AdvReac Type Severity Reaction Status Date / Time cefazolin Allergy Hives Verified 01/16/19 19:28 codeine Allergy Unknown Verified 01/16/19 19:28 Anes History & Medical History - Anesthetic History Anesthesia Complications: reports: No previous complications - Medical History Cardiovascular: reports: Hypertension, High cholesterol, Coronary artery disease (patient denies any cardiac history), Peripheral Vascular Disease Pulmonary: reports: COPD, Pneumonia, Shortness of breath, Other (hoarse) Gastrointestinal: reports: GERD, Other Urinary: reports: Incontinence, Renal insuffiency, Nocturia, Frequency Neuro: reports: Dementia, Headaches, Peripheral neuropathy, Tremors, Other (reports she had a brain bleed and was tranfered to [place]) Musculoskeletal: reports: Chronic back pain (Patient reports she was in [place] for fractured back) Endocrine/Autoimmune: reports: None Blood Disorders: reports: None Skin: reports: Other Smoking Status: Current every day smoker - Surgical History General: Appendectomy Gynecologic: section Results - EKG Results EKG Comparison: Reviewed EKG Exam General: Alert, Oriented x3, Cooperative, No acute distress Dental: Poor dentition (multiple loose teeth.) Mouth Openin Fingerbreadth Neck Mobility: Reduced Mallampati classification: III Thyromental Distance: 4-6 cm Respiratory: Lungs clear, Normal breath sounds, No respiratory distress, No accessory muscle use Cardiovascular: Regular rate, Normal S1, Normal S2, No murmurs Mental/Cognitive Status: Alert/Oriented X3, Normal for patient Plan Anesthesia Type: General Consent for Procedure(s) Verified and Reviewed: Yes Code Status: Attempt Resuscitation ASA classification: 3-Severe systemic disease Is this case an emergency?: No
--- NOTE | 2019-02-07 11:31 | PROVIDER PROGRESS NOTE ---
Subjective - Prog Note Date Prog Note Date: 02/07/19 Prog Note Time: 11:30 - Subjective Pt reports feeling: No change Objective - Vital Signs/Intake & Output Vital Signs: Vital Signs x48h Temp Pulse Pulse Resp BP Pulse Ox 02/07/19 08:06 36.3 C L 62 18 106/72 94 02/07/19 07:57 64 16 02/07/19 04:08 36.2 C L 57 L 16 107/64 94 Intake & Output: Intake & Output 02/04/19 02/05/19 02/06/19 02/07/19 23:59 23:59 23:59 23:59 Intake Total 3860 358.333 Output Total 1600 350 Balance 2260 8.333 - Lab Results Fish Bones: 02/07/19 04:20 02/07/19 04:20 Other Labs: Lab Results x24hrs 02/07/19 02/07/19 02/06/19 Range/Units 04:20 04:20 21:13 WBC 5.7 (4.8-10.8) x10^3/uL RBC 3.01 L (4.20-5.40) 10^6/uL Hgb 9.4 L (12.0-16.0) g/dL Hct 29.7 L (37.0-47.0) % MCV 98.7 (81.0-99.0) fL MCH 31.2 H (27.0-31.0) pg MCHC 31.6 L (32.0-36.0) g/dL RDW 17.1 H (12.0-15.0) % Plt Count 197 (130-450) 10^3/uL MPV 10.3 (7.9-10.8) fL Neut # (Auto) 5.2 (1.5-6.6) 10^3/uL Lymph # (Auto) 0.3 L (1.5-3.5) 10^3/uL [place] # (Auto) 0.2 (0.0-1.0) 10^3/uL Eos # (Auto) 0.0 (0.0-0.7) 10^3/uL Baso # (Auto) 0.0 (0.0-0.1) 10^3/uL Absolute Nucleated RBC 0.00 x10^3/uL Nucleated RBC % 0.0 /100WBC Sodium 138 (135-145) mmol/L Potassium 4.9 (3.5-5.0) mmol/L Chloride 103 (101-111) mmol/L Carbon Dioxide 25 (21-32) mmol/L Anion Gap 10.0 (6-13) BUN 40 H (6-20) mg/dL Creatinine 3.0 H (0.4-1.0) mg/dL Estimated GFR (MDRD) 16 L (>89) Glucose 150 H (70-100) mg/dL Calcium 8.4 L (8.5-10.3) mg/dL Urine Color YELLOW Urine Clarity HAZY (CLEAR) Urine pH 6.0 (5.0-7.5) PH Ur Specific [place] 1.020 (1.002-1.030) Urine Protein 100 H (NEGATIVE) mg/dL Urine Glucose (UA) NEGATIVE (NEGATIVE) mg/dL Urine Ketones NEGATIVE (NEGATIVE) mg/dL Urine Occult Blood SMALL H (NEGATIVE) Urine Nitrite NEGATIVE (NEGATIVE) Urine Bilirubin NEGATIVE (NEGATIVE) Urine Urobilinogen 0.2 (NORMAL) (NORMAL) E.U./dL Ur Leukocyte Esterase TRACE H (NEGATIVE) Urine RBC 6-10 H (0-5) /HPF Urine WBC >25 H (0-5) /HPF Urine WBC Clumps PRESENT Ur Squamous Epith Cells RARE Squamous (<= Few) Urine Bacteria Moderate H (None Seen) /HPF Urine Casts 3-5 Hyaline Casts /LPF Urine Mucus Few Strands Urine Culture Comments INDICATED Blood Type Blood Type Recheck Antibody Screen Crossmatch IS Only 02/06/19 02/06/19 Range/Units 12:12 08:30 WBC (4.8-10.8) x10^3/uL RBC (4.20-5.40) 10^6/uL Hgb (12.0-16.0) g/dL Hct (37.0-47.0) % MCV (81.0-99.0) fL MCH (27.0-31.0) pg MCHC (32.0-36.0) g/dL RDW (12.0-15.0) % Plt Count (130-450) 10^3/uL MPV (7.9-10.8) fL Neut # (Auto) (1.5-6.6) 10^3/uL Lymph # (Auto) (1.5-3.5) 10^3/uL [place] # (Auto) (0.0-1.0) 10^3/uL Eos # (Auto) (0.0-0.7) 10^3/uL Baso # (Auto) (0.0-0.1) 10^3/uL Absolute Nucleated RBC x10^3/uL Nucleated RBC % /100WBC Sodium (135-145) mmol/L Potassium (3.5-5.0) mmol/L Chloride (101-111) mmol/L Carbon Dioxide (21-32) mmol/L Anion Gap (6-13) BUN (6-20) mg/dL Creatinine (0.4-1.0) mg/dL Estimated GFR (MDRD) (>89) Glucose (70-100) mg/dL Calcium (8.5-10.3) mg/dL Urine Color Urine Clarity (CLEAR) Urine pH (5.0-7.5) PH Ur Specific [place] (1.002-1.030) Urine Protein (NEGATIVE) mg/dL Urine Glucose (UA) (NEGATIVE) mg/dL Urine Ketones (NEGATIVE) mg/dL Urine Occult Blood (NEGATIVE) Urine Nitrite (NEGATIVE) Urine Bilirubin (NEGATIVE) Urine Urobilinogen (NORMAL) E.U./dL Ur Leukocyte Esterase (NEGATIVE) Urine RBC (0-5) /HPF Urine WBC (0-5) /HPF Urine WBC Clumps Ur Squamous Epith Cells (<= Few) Urine Bacteria (None Seen) /HPF Urine Casts /LPF Urine Mucus Urine Culture Comments Blood Type A POSITIVE Blood Type Recheck A POSITIVE Antibody Screen NEGATIVE Crossmatch IS Only See Detail Assessment/Plan - Problem List (1) Trimalleolar fracture of left ankle Impression: Stable PLAN: no change in exam or indications. Will proceed with ORIF of left ankle fracture later today, as planned. Qualifiers: Encounter type: initial encounter Fracture type: closed Qualified Code(s): S82.852A - Displaced trimalleolar fracture of left lower leg, initial encounter for closed fracture
[2019-02-07] MEDS ORDERED: BUPIVACAINE 0.25% PF 30 ML VIAL ONE (11:37)
[2019-02-07] MEDS ORDERED: MIDAZOLAM 2 MG/2 ML VIAL IVP ONE (11:45)
[2019-02-07] MEDS ORDERED: LIDOCAINE-MPF 2% 5 ML VIAL IM ONE (11:45)
[2019-02-07] MEDS ORDERED: fentaNYL 100 MCG/2 ML VIAL IVP ONE (11:45)
[2019-02-07] MEDS ORDERED: SEVOFLURANE 250 ML LIQUID INH ONE (11:45)
[2019-02-07] MEDS ORDERED: ONDANSETRON 4 MG/2 ML VIAL IVP ONE (11:45)
[2019-02-07] MEDS ORDERED: PROPOFOL 200 MG/20 ML VIAL IVP ONE (11:45)
[2019-02-07] MEDS ORDERED: ePHEDrine 50 MG/ML VIAL IVP ONE (11:45)
[2019-02-07] MEDS ORDERED: DEXAMETHASONE 4 MG/ML VIAL IVP ONE (11:45)
[2019-02-07] MEDS ORDERED: BUPIVACAINE 0.25% PF 30 ML VIAL SUBQ ONE (12:17)
[2019-02-07] MEDS ORDERED: LACTATED RINGERS 1,000 ML IV ONE (12:21)
--- NOTE | 2019-02-07 13:59 | PROVIDER PROGRESS NOTE ---
Subjective - Subjective Pt reports feeling: Improved Subjective: pt report she feel better. she denies fever, chill, chest pain. she agreed to have Guidry for urinary retention. she will have surgery today. Current Medications - Current Medications Current Medications: Active Medications Acetaminophen (Tylenol) 650 mg PO Q4HR PRN PRN Reason: Pain 1 to 4 Last Admin: 02/07/19 08:21 Dose: 650 mg Albuterol/Ipratropium (Duoneb) 3 ml INH RTQID [facility] Last Admin: 02/07/19 07:40 Dose: 3 ml Azithromycin (Zithromax) 250 mg PO DAILY [facility] Last Admin: 02/07/19 08:22 Dose: 250 mg Ferrous Sulfate (Feosol) 325 mg PO DAILYWM [facility] Last Admin: 02/07/19 08:24 Dose: 325 mg Ceftriaxone Sodium 1 gm/ (Sodium Chloride) 100 mls @ 200 mls/hr IV DAILY [facility] Last Infusion: 02/07/19 09:00 Dose: 0 mls/hr Multivitamins/Minerals (Theragran M) 1 tab PO DAILYWM [facility] Last Admin: 02/07/19 08:23 Dose: 1 tab Oxycodone HCl (Roxicodone) 5 mg PO Q4HR PRN PRN Reason: Pain 5 to 7 Last Admin: 02/07/19 08:23 Dose: 5 mg Polyethylene Glycol (Miralax) 17 gm PO DAILY [facility] Last Admin: 02/07/19 08:23 Dose: 17 gm Prednisone (Deltasone) 30 mg PO DAILYWM [facility] Last Admin: 02/07/19 08:22 Dose: 30 mg Saccharomyces Boulardii (Florastor) 250 mg PO BIDWM [facility] Last Admin: 02/07/19 08:25 Dose: 250 mg Sodium Chloride (Normal Saline Flush 0.9%) 10 ml IVP PRN PRN PRN Reason: NEEDED PER PROVIDER ORDERS Sodium Chloride (Normal Saline Flush 0.9%) 10 ml IVP 0100,0900,1700 [facility] Last Admin: 02/07/19 08:32 Dose: Not Given Tamsulosin HCl (Flomax) 0.4 mg PO DAILY [facility] Last Admin: 02/07/19 08:24 Dose: 0.4 mg No Known Home Medications 02/06/19 Objective - Vital Signs/Intake & Output Reviewed Vital Signs: Yes Vital Signs: Vital Signs x48h Temp Pulse Pulse Resp BP Pulse Ox 02/07/19 08:06 36.3 C L 62 18 106/72 94 02/07/19 07:57 64 16 Intake & Output: Intake & Output 02/04/19 02/05/19 02/06/19 02/07/19 23:59 23:59 23:59 23:59 Intake Total 3860 1358.333 Output Total 1600 350 Balance 2260 1008.333 - Objective General Appearance: positive: No acute distress, Alert. negative: Lethargic Eyes Bilateral: positive: Normal inspection, PERRL, No lid inflammation, Conjunctivae nml ENT: positive: ENT inspection nml, Pharynx nml, No signs of dehydration. ne gative: Purulent nasal drainage, Pharyngeal erythema, Oral lesions Neck: positive: Nml inspection, Thyroid nml, No JVD, Trachea midline. negative: Thyromegaly, Lymphadenopathy (R), Lymphadenopathy (L), Stiff neck, Swelling/bruising, Tracheal deviation Respiratory: positive: Chest non-tender, No respiratory distress. negative: Wheezes, Rales, Rhonchi Cardiovascular: positive: Regular rate & rhythm, No murmur, No gallop. negative: Irregularly irregular, Extrasystoles, Tachycardia, Bradycardia, JVD present, Systolic murmur, Diastolic murmur Peripheral Pulses: 2+ Radial (R), 2+ Radial (L), 2+ Dorsalis pedis (R), 2+ Dorsalis pedis (L) Abdomen: positive: Non-tender, No organomegaly, Nml bowel sounds, No distention. negative: Tenderness, Guarding, Rebound Back: positive: Nml inspection. negative: CVA tenderness (R), CVA tenderness (L) Skin: positive: Color nml, No rash, Warm, Dry. negative: Cyanosis, Diaphoresis, Pallor Extremities: positive: Non-tender. negative: Calf tenderness, Joint swelling, Rashaad's sign/cords Neurologic/Psychiatric: positive: Sensation nml, Mood/affect nml. negative: Weakness, Sensory loss, Facial droop, Slurred/abnml speech, Depressed mood/affect - Lab Results Fish Bones: 02/07/19 04:20 02/07/19 04:20 Other Labs: Lab Results x24hrs 02/07/19 02/07/19 02/06/19 Range/Units 04:20 04:20 21:13 WBC 5.7 (4.8-10.8) x10^3/uL RBC 3.01 L (4.20-5.40) 10^6/uL Hgb 9.4 L (12.0-16.0) g/dL Hct 29.7 L (37.0-47.0) % MCV 98.7 (81.0-99.0) fL MCH 31.2 H (27.0-31.0) pg MCHC 31.6 L (32.0-36.0) g/dL RDW 17.1 H (12.0-15.0) % Plt Count 197 (130-450) 10^3/uL MPV 10.3 (7.9-10.8) fL Neut # (Auto) 5.2 (1.5-6.6) 10^3/uL Lymph # (Auto) 0.3 L (1.5-3.5) 10^3/uL [place] # (Auto) 0.2 (0.0-1.0) 10^3/uL Eos # (Auto) 0.0 (0.0-0.7) 10^3/uL Baso # (Auto) 0.0 (0.0-0.1) 10^3/uL Absolute Nucleated RBC 0.00 x10^3/uL Nucleated RBC % 0.0 /100WBC Sodium 138 (135-145) mmol/L Potassium 4.9 (3.5-5.0) mmol/L Chloride 103 (101-111) mmol/L Carbon Dioxide 25 (21-32) mmol/L Anion Gap 10.0 (6-13) BUN 40 H (6-20) mg/dL Creatinine 3.0 H (0.4-1.0) mg/dL Estimated GFR (MDRD) 16 L (>89) Glucose 150 H (70-100) mg/dL Calcium 8.4 L (8.5-10.3) mg/dL Urine Color YELLOW Urine Clarity HAZY (CLEAR) Urine pH 6.0 (5.0-7.5) PH Ur Specific [place] 1.020 (1.002-1.030) Urine Protein 100 H (NEGATIVE) mg/dL Urine Glucose (UA) NEGATIVE (NEGATIVE) mg/dL Urine Ketones NEGATIVE (NEGATIVE) mg/dL Urine Occult Blood SMALL H (NEGATIVE) Urine Nitrite NEGATIVE (NEGATIVE) Urine Bilirubin NEGATIVE (NEGATIVE) Urine Urobilinogen 0.2 (NORMAL) (NORMAL) E.U./dL Ur Leukocyte Esterase TRACE H (NEGATIVE) Urine RBC 6-10 H (0-5) /HPF Urine WBC >25 H (0-5) /HPF Urine WBC Clumps PRESENT Ur Squamous Epith Cells RARE Squamous (<= Few) Urine Bacteria Moderate H (None Seen) /HPF Urine Casts 3-5 Hyaline Casts /LPF Urine Mucus Few Strands Urine Culture Comments INDICATED Blood Type Antibody Screen Crossmatch IS Only 02/06/19 Range/Units 12:12 WBC (4.8-10.8) x10^3/uL RBC (4.20-5.40) 10^6/uL Hgb (12.0-16.0) g/dL Hct (37.0-47.0) % MCV (81.0-99.0) fL MCH (27.0-31.0) pg MCHC (32.0-36.0) g/dL RDW (12.0-15.0) % Plt Count (130-450) 10^3/uL MPV (7.9-10.8) fL Neut # (Auto) (1.5-6.6) 10^3/uL Lymph # (Auto) (1.5-3.5) 10^3/uL [place] # (Auto) (0.0-1.0) 10^3/uL Eos # (Auto) (0.0-0.7) 10^3/uL Baso # (Auto) (0.0-0.1) 10^3/uL Absolute Nucleated RBC x10^3/uL Nucleated RBC % /100WBC Sodium (135-145) mmol/L Potassium (3.5-5.0) mmol/L Chloride (101-111) mmol/L Carbon Dioxide (21-32) mmol/L Anion Gap (6-13) BUN (6-20) mg/dL Creatinine (0.4-1.0) mg/dL Estimated GFR (MDRD) (>89) Glucose (70-100) mg/dL Calcium (8.5-10.3) mg/dL Urine Color Urine Clarity (CLEAR) Urine pH (5.0-7.5) PH Ur Specific [place] (1.002-1.030) Urine Protein (NEGATIVE) mg/dL Urine Glucose (UA) (NEGATIVE) mg/dL Urine Ketones (NEGATIVE) mg/dL Urine Occult Blood (NEGATIVE) Urine Nitrite (NEGATIVE) Urine Bilirubin (NEGATIVE) Urine Urobilinogen (NORMAL) E.U./dL Ur Leukocyte Esterase (NEGATIVE) Urine RBC (0-5) /HPF Urine WBC (0-5) /HPF Urine WBC Clumps Ur Squamous Epith Cells (<= Few) Urine Bacteria (None Seen) /HPF Urine Casts /LPF Urine Mucus Urine Culture Comments Blood Type A POSITIVE Antibody Screen NEGATIVE Crossmatch IS Only See Detail ABX Reporting Has patient been on IV antibiotics over the past 48 hours?: Yes Sepsis Event Note (H) - Evaluation Current Stage of Sepsis: Ruled out Assessment/Plan - Problem List (1) Respiratory failure with hypoxia Impression: 02/07 pt need 4 liter of O2 to remain 94% sats now. pt has likely PNA, COPD continue antibiotics continue albuterol and Duoneb PRN supplement of O2 PRN (2) Acute kidney injury 02/07 improved. creatinine is down to 3.0 from 3.5 continue hydration, daily lab monitor hold nephrological toxical agents (3) Trimalleolar fracture of left ankle 02/07 pt had Closed left trimalleolar ankle fracture Dr. Manjarrez plan to have surgery for pt continue pain control PT/OT after surgery (4) COPD (chronic obstructive pulmonary disease) Conclusion/Plan: continue albuterol and Duoneb PRN supplement of O2 PRN (5) History of scabies Conclusion/Plan: Patient was placed on permetrin cream during last admission Non seen currently (6) Macrocytic anemia Conclusion/Plan: 02/07 pt had one unit of blood. her HGB is 9.4 after one unit of blood before operation. iron is low, pt is prescribed iron pill (7) pneumonia pt present respiratory failure, cough, CXR reveals bibasilar pneumonia treat with Azithyomycin and Rocephin continue breath treatment supplement of O2 (8) UTI UA analysis is positive continue Rocephin UA culture is pending (9) urinary retention pt present urinary retention, she can not urinate and nurse let pt try and pt is prescribed Flomax, but pt is still unsuccessful. Guidry is prescribed for pt.
[2019-02-07] MEDS ORDERED: MORPHINE 2 MG/ML CARPUJECT IVP PRN (14:13)
[2019-02-07] MEDS ORDERED: SODIUM CHLORIDE FLUSH 0.9% 10 ML SYRINGE IVP PRN (14:13)
[2019-02-07] MEDS ORDERED: PROCHLORPERAZINE 10 MG/2 ML VIAL IVP PRN (14:13)
--- NOTE | 2019-02-07 14:13 | OPERATIVE REPORT ---
Operative Report - General Admit Date: 02/06/19 Procedure Date: 02/07/19 Planned Procedure: ORIF left ankle fracture Pre-Op Diagnosis: Closed left trimalleolar ankle fracture Procedure Performed: ORIF of left ankle fracture Post Op Diagnosis: Same - Procedure Note Primary Surgeon: Anoop Manjarrez MD Anesthesia Provider: Max Adams CRNA Anesthesia Technique: General ET tube IV Fluids (mL): 800 Estimated Blood Loss (mL): 75 Complications: None
[2019-02-07] MEDS ORDERED: SENNA 8.6 MG TABLET PO PRN (14:33)
[2019-02-07] MEDS ORDERED: SODIUM CHLORIDE 0.9% 1,000 ML IV SCH ×2 (15:00)
--- NOTE | 2019-02-07 15:25 | XRAY Report ---
Reason: FX ANKLE Procedure Date: 02/07/2019 Accession Number: [id number] / [id number] Procedure: [place] - OR C-Arm Procedure CPT Code: FULL RESULT: EXAM: FLUOROSCOPIC GUIDANCE EXAM DATE: 02/07/2019 01:55 PM. CLINICAL HISTORY: ORIF of left ankle fracture COMPARISON: ANKLE 2 VIEW LT 02/07/2019 1:01 PM ANKLE 3 VIEW LT 02/05/2019 8:08 PM. TECHNIQUE: 2 fluoroscopic spot images were submitted. FINDINGS/ IMPRESSION: Videofluoroscopic guidance provided for the patient's ankle ORIF. Fluoroscopy time was approximately 0.5 minutes. The procedure is reported by the patient's physician/surgeon in the procedure report, included in the patient's medical record. Briefly, ORIF of a lateral malleolar fracture with partially imaged plate and screw fixation. ORIF of a medial malleolar fracture with 2 cannulated screws and K wires extending through the screws. There is a screw posterior to the lower aspect of the plate at the level of the 6-7 hole from the bottom which may be within the fibula. The posterior malleolus fracture is not well seen on this study. RADIA
--- NOTE | 2019-02-07 15:25 | XRAY Report ---
Reason: LEFT ANKLE ORIF Procedure Date: 02/07/2019 Accession Number: [id number] / [id number] Procedure: XR - Ankle 2 View LT CPT Code: FULL RESULT: EXAM: FLUOROSCOPIC GUIDANCE EXAM DATE: 02/07/2019 01:55 PM. CLINICAL HISTORY: ORIF of left ankle fracture COMPARISON: ANKLE 2 VIEW LT 02/07/2019 1:01 PM ANKLE 3 VIEW LT 02/05/2019 8:08 PM. TECHNIQUE: 2 fluoroscopic spot images were submitted. FINDINGS/ IMPRESSION: Videofluoroscopic guidance provided for the patient's ankle ORIF. Fluoroscopy time was approximately 0.5 minutes. The procedure is reported by the patient's physician/surgeon in the procedure report, included in the patient's medical record. Briefly, ORIF of a lateral malleolar fracture with partially imaged plate and screw fixation. ORIF of a medial malleolar fracture with 2 cannulated screws and K wires extending through the screws. There is a screw posterior to the lower aspect of the plate at the level of the 6-7 hole from the bottom which may be within the fibula. The posterior malleolus fracture is not well seen on this study. [facility]
[2019-02-07] MEDS: ASPIRIN 325 MG TABLET PO SCH (16:30)
[2019-02-07] MEDS ORDERED: HEPARIN 5,000 UNIT/ML VIAL SUBQ SCH (21:00)
[2019-02-08] MEDS: SODIUM CHLORIDE FLUSH 0.9% 10 ML SYRINGE IVP SCH ×4 (00:52→17:22)
[2019-02-08] MEDS: SODIUM CHLORIDE 0.9% 1,000 ML IV SCH ×2 (01:10→09:27)
[2019-02-08 05:50] LABS: BASOPHILS % (AUTO) 0.1 %; HGB - HEMOGLOBIN 8.6 g/dL (12.0-16.0); LYMPHOCYTES # (AUTO) 0.5 10^3/uL (1.5-3.5); LYMPHOCYTES % (AUTO) 5.2 %; MEAN CORPUSCULAR HEMOGLOBIN 30.7 pg (27.0-31.0); MEAN CORPUSCULAR HGB CONC 30.4 g/dL (32.0-36.0); MEAN CORPUSCULAR VOLUME 101.1 fL (81.0-99.0); MONOCYTES # (AUTO) 0.4 10^3/uL (0.0-1.0); MONOCYTES % (AUTO) 4.9 %; NEUTROPHILS # (AUTO) 7.4 10^3/uL (1.5-6.6); NEUTROPHILS % (AUTO) 85.3 %; PLT - PLATELET COUNT 201 10^3/uL (130-450); RED CELL DISTRIBUTION WIDTH 16.5 % (12.0-15.0); WHITE BLOOD COUNT 8.7 x10^3/uL (4.8-10.8)
[2019-02-08 06:00] LABS: CALCIUM 8.2 mg/dL (8.5-10.3); CREATININE 2.7 mg/dL (0.4-1.0)
[2019-02-08] MEDS: IPRATROPIUM/ALBUTEROL 3 ML NEB INH SCH ×4 (07:30→19:49)
[2019-02-08] MEDS: SACCHAROMYCES BOULARDII 250 MG CAPSULE PO SCH ×2 (09:25→17:21)
[2019-02-08] MEDS: oxyCODONE 5 MG TABLET PO PRN ×2 (09:25→21:58)
[2019-02-08] MEDS: AZITHROMYCIN 250 MG TABLET PO SCH (09:26)
[2019-02-08] MEDS: predniSONE 20 MG TABLET PO SCH (09:26)
[2019-02-08] MEDS: ASPIRIN 325 MG TABLET PO SCH ×2 (09:26→17:21)
[2019-02-08] MEDS: MULTIVITAMIN W/MINERALS TABLET PO SCH (09:26)
[2019-02-08] MEDS: DOCUSATE SODIUM 100 MG CAPSULE PO PRN (09:26)
[2019-02-08] MEDS: SENNA 8.6 MG TABLET PO SCH (09:26)
[2019-02-08] MEDS: TAMSULOSIN 0.4 MG CAPSULE PO SCH (09:26)
[2019-02-08] MEDS: FERROUS SULFATE 325 MG TABLET PO SCH (09:26)
[2019-02-08] MEDS: cefTRIAXone 1 GM in SODIUM CHLORIDE 0.9% MINIBAG 100 ML IV SCH (09:27)
[2019-02-08] MEDS: POLYETHYLENE GLYCOL 3350 17 GM PACKET PO SCH (09:27)
--- NOTE | 2019-02-08 10:00 | XRAY Report ---
Reason: SOB, hypoxia Procedure Date: 02/08/2019 Accession Number: [id number] / [id number] Procedure: XR - Chest 1 View X-Ray CPT Code: 01875 FULL RESULT: EXAM: CHEST RADIOGRAPHY EXAM DATE: 02/08/2019 09:48 AM. CLINICAL HISTORY: SOB, hypoxia. COMPARISON: CHEST 1 VIEW 02/06/2019 1:20 AM. TECHNIQUE: 1 view. FINDINGS: Lungs/Pleura: Mild edema. Lung volumes are low. Progression of bibasilar opacities. There are small pleural effusions. No pneumothorax. Mediastinum: Cardiomegaly. Mild aortic tortuosity. Other: Gaseous distention of bowel in the upper abdomen. IMPRESSION: 1. Vascular congestion. 2. Progression of bibasilar consolidation/atelectasis and pleural effusions. RADIA
[2019-02-08] MEDS ORDERED: PERMETHRIN 5% CREAM 60 GM TUBE TOP PRN (10:41)
[2019-02-08] MEDS ORDERED: [UNRECOGNIZED DRUG - OTHER] TOP SCH (12:30)
--- NOTE | 2019-02-08 12:48 | PROVIDER PROGRESS NOTE ---
Subjective - Prog Note Date Prog Note Date: 02/08/19 Prog Note Time: 12:47 - Subjective Pt reports feeling: Improved Objective - Vital Signs/Intake & Output Vital Signs: Vital Signs x48h Temp Pulse Pulse Resp BP Pulse Ox 02/08/19 11:45 35.8 C L 61 18 93/48 L 92 02/08/19 11:10 64 16 02/08/19 08:13 36.2 C L 59 L 18 101/59 L 92 02/08/19 07:36 88 16 02/08/19 05:00 35.6 C L 54 L 18 98/55 L 93 Intake & Output: Intake & Output 02/05/19 02/06/19 02/07/19 02/08/19 23:59 23:59 23:59 23:59 Intake Total 3860 2352.794 6067.000 Output Total 1600 800 300 Balance 2260 604.221 5154.000 - Lab Results Fish Bones: 02/08/19 05:20 02/08/19 05:20 Other Labs: Lab Results x24hrs 02/08/19 02/08/19 Range/Units 05:20 05:20 WBC 8.7 (4.8-10.8) x10^3/uL RBC 2.80 L (4.20-5.40) 10^6/uL Hgb 8.6 L (12.0-16.0) g/dL Hct 28.3 L (37.0-47.0) % MCV 101.1 H (81.0-99.0) fL MCH 30.7 (27.0-31.0) pg MCHC 30.4 L (32.0-36.0) g/dL RDW 16.5 H (12.0-15.0) % Plt Count 201 (130-450) 10^3/uL MPV 10.0 (7.9-10.8) fL Neut # (Auto) 7.4 H (1.5-6.6) 10^3/uL Lymph # (Auto) 0.5 L (1.5-3.5) 10^3/uL [place] # (Auto) 0.4 (0.0-1.0) 10^3/uL Eos # (Auto) 0.0 (0.0-0.7) 10^3/uL Baso # (Auto) 0.0 (0.0-0.1) 10^3/uL Absolute Nucleated RBC 0.00 x10^3/uL Nucleated RBC % 0.0 /100WBC Sodium 138 (135-145) mmol/L Potassium 4.8 (3.5-5.0) mmol/L Chloride 103 (101-111) mmol/L Carbon Dioxide 25 (21-32) mmol/L Anion Gap 10.0 (6-13) BUN 40 H (6-20) mg/dL Creatinine 2.7 H (0.4-1.0) mg/dL Estimated GFR (MDRD) 18 L (>89) Glucose 121 H (70-100) mg/dL Calcium 8.2 L (8.5-10.3) mg/dL - Other Results/Comments Other Results/Comments: EXAM: Splint ok. N/V ok distally. Moving toes ok Sepsis Event Note (H) - Evaluation Current Stage of Sepsis: Ruled out Assessment/Plan - Problem List (1) Trimalleolar fracture of left ankle Impression: Satis post op PLAN: Mobilize as tolerated. Transfers bed to chair - NWB on left. Qualifiers: Encounter type: initial encounter Fracture type: closed Qualified Code(s): S82.852A - Displaced trimalleolar fracture of left lower leg, initial encounter for closed fracture
[2019-02-08] MEDS: FUROSEMIDE 20 MG TABLET PO SCH (12:50)
[2019-02-08] MEDS: SODIUM CHLORIDE FLUSH 0.9% 10 ML SYRINGE IVP PRN (12:52)
--- NOTE | 2019-02-08 17:04 | PROVIDER PROGRESS NOTE ---
Subjective - Prog Note Date Prog Note Date: 02/08/19 - Subjective Pt reports feeling: Improved Subjective: pt report she feel better. her ankle's pain is better. she denies fever, chill, chest pain, shortness of breath. Current Medications - Current Medications Current Medications: Active Medications Acetaminophen (Tylenol) 650 - 975 mg PO Q4HR PRN PRN Reason: PAIN Albuterol/Ipratropium (Duoneb) 3 ml INH RTQID [facility] Last Admin: 02/08/19 15:39 Dose: 3 ml Aspirin (Levi) 325 mg PO BIDWM [facility] Last Admin: 02/08/19 09:26 Dose: 325 mg Azithromycin (Zithromax) 250 mg PO DAILY [facility] Last Admin: 02/08/19 09:26 Dose: 250 mg Docusate Sodium (Colace 100mg Capsule) 100 mg PO BID PRN PRN Reason: Constipation Last Admin: 02/08/19 09:26 Dose: 100 mg Ferrous Sulfate (Feosol) 325 mg PO DAILYWM [facility] Last Admin: 02/08/19 09:26 Dose: 325 mg Furosemide (Lasix) 20 mg PO DAILY [facility] Last Admin: 02/08/19 12:50 Dose: 20 mg Ceftriaxone Sodium 1 gm/ (Sodium Chloride) 100 mls @ 200 mls/hr IV DAILY [facility] Last Infusion: 02/08/19 10:44 Dose: Infused Morphine Sulfate (Morphine (Carpuject)) 2 mg IVP Q2HR PRN PRN Reason: PAIN Multivitamins/Minerals (Theragran M) 1 tab PO DAILYWM [facility] Last Admin: 02/08/19 09:26 Dose: 1 tab Oxycodone HCl (Roxicodone) 5 mg PO Q4HR PRN PRN Reason: PAIN Last Admin: 02/08/19 09:25 Dose: 5 mg Permethrin () 60 applic TOP ONCE PRN PRN Reason: lice and scabies Stop: 02/08/19 23:00 Polyethylene Glycol (Miralax) 17 gm PO DAILY [facility] Last Admin: 02/08/19 09:27 Dose: 17 gm Prednisone (Deltasone) 30 mg PO DAILYWM [facility] Last Admin: 02/08/19 09:26 Dose: 30 mg Prochlorperazine Edisylate (Compazine Inj) 10 mg IVP Q6HR PRN PRN Reason: Nausea / Vomiting Last Admin: 02/08/19 09:26 Dose: 10 mg Saccharomyces Boulardii (Florastor) 250 mg PO BIDWM [facility] Last Admin: 02/08/19 09:25 Dose: 250 mg Senna (Senokot) 8.6 - 17.2 mg PO DAILY [facility] Last Admin: 02/08/19 09:26 Dose: 8.6 mg Sodium Chloride (Normal Saline Flush 0.9%) 10 ml IVP PRN PRN PRN Reason: NEEDED PER PROVIDER ORDERS Last Admin: 02/08/19 12:52 Dose: 10 ml Sodium Chloride (Normal Saline Flush 0.9%) 10 ml IVP 0100,0900,1700 [facility] Last Admin: 02/08/19 09:27 Dose: 10 ml Sodium Chloride (Normal Saline Flush 0.9%) 10 ml IVP PRN PRN PRN Reason: NEEDED PER PROVIDER ORDERS Tamsulosin HCl (Flomax) 0.4 mg PO DAILY [facility] Last Admin: 02/08/19 09:26 Dose: 0.4 mg No Known Home Medications 02/06/19 Objective - Vital Signs/Intake & Output Vital Signs: Vital Signs x48h Temp Pulse Pulse Resp BP Pulse Ox 02/08/19 15:40 68 16 02/08/19 11:45 35.8 C L 61 18 93/48 L 92 02/08/19 11:10 64 16 Intake & Output: Intake & Output 02/05/19 02/06/19 02/07/19 02/08/19 23:59 23:59 23:59 23:59 Intake Total 3860 2540.806 2695.000 Output Total 1600 800 750 Balance 2260 144.920 0354.000 - Objective General Appearance: positive: No acute distress, Alert. negative: Lethargic Eyes Bilateral: positive: Normal inspection, PERRL, No lid inflammation, Con junctivae nml ENT: positive: ENT inspection nml, Pharynx nml, No signs of dehydration. negative: Purulent nasal drainage, Pharyngeal erythema, Oral lesions Neck: positive: Nml inspection, Thyroid nml, No JVD, Trachea midline. negative: Thyromegaly, Lymphadenopathy (R), Lymphadenopathy (L), Stiff neck, Swelling/bruising, Tracheal deviation Respiratory: positive: Chest non-tender, No respiratory distress. negative: Wheezes, Rales, Rhonchi Cardiovascular: positive: Regular rate & rhythm, No murmur, No gallop. negative: Irregularly irregular, Extrasystoles, Tachycardia, Bradycardia, JVD present, Systolic murmur, Diastolic murmur Peripheral Pulses: 2+ Radial (R), 2+ Radial (L), 2+ Dorsalis pedis (R), 2+ Dorsalis pedis (L) Abdomen: positive: Non-tender, No organomegaly, Nml bowel sounds, No distention. negative: Tenderness, Guarding, Rebound Back: positive: Nml inspection. negative: CVA tenderness (R), CVA tenderness (L) Skin: positive: Color nml, No rash, Warm, Dry. negative: Cyanosis, Diaphoresis, Pallor Extremities: positive: Non-tender. negative: Calf tenderness, Rashaad's sign/cords Neurologic/Psychiatric: positive: Oriented x3, Sensation nml, Mood/affect nml. negative: Weakness, Sensory loss, Facial droop, Slurred/abnml speech, Depressed mood/affect - Lab Results Fish Bones: 02/08/19 05:20 02/08/19 05:20 Other Labs: Lab Results x24hrs 02/08/19 02/08/19 Range/Units 05:20 05:20 WBC 8.7 (4.8-10.8) x10^3/uL RBC 2.80 L (4.20-5.40) 10^6/uL Hgb 8.6 L (12.0-16.0) g/dL Hct 28.3 L (37.0-47.0) % MCV 101.1 H (81.0-99.0) fL MCH 30.7 (27.0-31.0) pg MCHC 30.4 L (32.0-36.0) g/dL RDW 16.5 H (12.0-15.0) % Plt Count 201 (130-450) 10^3/uL MPV 10.0 (7.9-10.8) fL Neut # (Auto) 7.4 H (1.5-6.6) 10^3/uL Lymph # (Auto) 0.5 L (1.5-3.5) 10^3/uL [place] # (Auto) 0.4 (0.0-1.0) 10^3/uL Eos # (Auto) 0.0 (0.0-0.7) 10^3/uL Baso # (Auto) 0.0 (0.0-0.1) 10^3/uL Absolute Nucleated RBC 0.00 x10^3/uL Nucleated RBC % 0.0 /100WBC Sodium 138 (135-145) mmol/L Potassium 4.8 (3.5-5.0) mmol/L Chloride 103 (101-111) mmol/L Carbon Dioxide 25 (21-32) mmol/L Anion Gap 10.0 (6-13) BUN 40 H (6-20) mg/dL Creatinine 2.7 H (0.4-1.0) mg/dL Estimated GFR (MDRD) 18 L (>89) Glucose 121 H (70-100) mg/dL Calcium 8.2 L (8.5-10.3) mg/dL ABX Reporting Has patient been on IV antibiotics over the past 48 hours?: Yes Sepsis Event Note (H) - Evaluation Current Stage of Sepsis: Ruled out Assessment/Plan - Problem List (1) Respiratory failure with hypoxia Impression: pt report she's breath improved. new CXR reveals vascular congestion, prog ression of consolidation and pleural effusion continue antibiotics continue albuterol and Duoneb PRN supplement of O2 PRN start on low dosage of lasix 02/07 pt need 4 liter of O2 to remain 94% sats now. pt has likely PNA, COPD continue antibiotics continue albuterol and Duoneb PRN supplement of O2 PRN (2) Acute kidney injury 02/08 improved, creatinine is 2.7 today continue gently IVF, and lab monitor 02/07 improved. creatinine is down to 3.0 from 3.5 continue hydration, daily lab monitor hold nephrological toxical agents (3) Trimalleolar fracture of left ankle 02/08, pt is s/p of operation, day1, continue PT/OT followup orthopedics 02/07 pt had Closed left trimalleolar ankle fracture Dr. Manjarrez plan to have surgery for pt continue pain control PT/OT after surgery (4) COPD (chronic obstructive pulmonary disease) Conclusion/Plan: continue albuterol and Duoneb PRN supplement of O2 PRN (5) History of scabies Conclusion/Plan: 8/15 pr is on isolation until proved not continue TOP permetrin Patient was placed on permetrin cream during last admission Non seen currently (6) Macrocytic anemia Conclusion/Plan: 02/07 pt had one unit of blood. her HGB is 9.4 after one unit of blood before operation. iron is low, pt is prescribed iron pill (7) pneumonia pt present respiratory failure, cough, CXR reveals bibasilar pneumonia treat with Azithyomycin and Rocephin continue breath treatment supplement of O2 (8) UTI UA analysis is positive continue Rocephin UA culture is pending (9) urinary retention pt present urinary retention, she can not urinate and nurse let pt try and pt is prescribed Flomax, but pt is still unsuccessful. Guidry is prescribed for pt.
[2019-02-09] MEDS: SODIUM CHLORIDE FLUSH 0.9% 10 ML SYRINGE IVP SCH ×3 (00:23→17:14)
[2019-02-09] MEDS: IPRATROPIUM/ALBUTEROL 3 ML NEB INH SCH ×4 (07:44→19:30)
[2019-02-09] MEDS ORDERED: predniSONE 20 MG TABLET PO SCH (08:00)
[2019-02-09] MEDS: MULTIVITAMIN W/MINERALS TABLET PO SCH (08:17)
[2019-02-09] MEDS: ASPIRIN 325 MG TABLET PO SCH ×2 (08:17→17:14)
[2019-02-09] MEDS: FERROUS SULFATE 325 MG TABLET PO SCH (08:17)
[2019-02-09] MEDS: SACCHAROMYCES BOULARDII 250 MG CAPSULE PO SCH ×2 (08:17→17:14)
[2019-02-09] MEDS ORDERED: PIPERONYL BUTOXIDE/PYRETHRINS 59 ML BOTTLE TOP ONE (09:15)
[2019-02-09] MEDS: SENNA 8.6 MG TABLET PO SCH (10:03)
[2019-02-09] MEDS: FUROSEMIDE 20 MG TABLET PO SCH (10:03)
[2019-02-09] MEDS: oxyCODONE 5 MG TABLET PO PRN ×3 (10:03→21:04)
[2019-02-09] MEDS: cefTRIAXone 1 GM in SODIUM CHLORIDE 0.9% MINIBAG 100 ML IV SCH (10:03)
[2019-02-09] MEDS: POLYETHYLENE GLYCOL 3350 17 GM PACKET PO SCH (10:03)
[2019-02-09] MEDS: AZITHROMYCIN 250 MG TABLET PO SCH (10:04)
[2019-02-09] MEDS: ACETAMINOPHEN 325 MG TABLET PO PRN ×3 (10:04→21:04)
--- NOTE | 2019-02-09 11:22 | PROVIDER PROGRESS NOTE ---
Subjective - Prog Note Date Prog Note Date: 02/09/19 Prog Note Time: 11:21 - Subjective Pt reports feeling: Improved (Less pain today) Objective - Vital Signs/Intake & Output Vital Signs: Vital Signs x48h Temp Pulse Pulse Resp BP Pulse Ox 02/09/19 08:00 35.8 C L 62 15 98/53 L 95 02/09/19 07:48 60 18 Intake & Output: Intake & Output 02/06/19 02/07/19 02/08/19 02/09/19 23:59 23:59 23:59 23:59 Intake Total 3860 4623.647 2416.000 300 Output Total 3945 218 7040 500 Balance 2260 071.577 3647.000 -200 - Lab Results Fish Bones: 02/08/19 05:20 02/08/19 05:20 - Other Results/Comments Other Results/Comments: EXAM: Splint ok. Moves toes well. N/V ok distally. Sitting up in chair without problems Sepsis Event Note (H) - Evaluation Current Stage of Sepsis: Ruled out Assessment/Plan - Problem List (1) Trimalleolar fracture of left ankle Qualifiers: Encounter type: initial encounter Fracture type: closed Qualified Code(s): S82.852A - Displaced trimalleolar fracture of left lower leg, initial encounter for closed fracture
--- NOTE | 2019-02-09 11:46 | PROVIDER PROGRESS NOTE ---
Subjective - Prog Note Date Prog Note Date: 02/09/19 Prog Note Time: 10:30 - Subjective Pt reports feeling: Improved Subjective: Genet complains of positional pain near her surgical LLE ankle. She denies chest pain, nausea, vomiting, rashes, itching, or increased shortness of breath. She remains on supplemental oxygen with no changes in her cough. Current Medications - Current Medications Current Medications: Active Medications: Acetaminophen (Tylenol) 650 - 975 mg PO Q4HR PRN Albuterol/Ipratropium (Duoneb) 3 ml INH RTQID [facility] Aspirin (Levi) 325 mg PO BIDWM [facility] Azithromycin (Zithromax) 250 mg PO DAILY [facility] Docusate Sodium ([id number] Capsule) 100 mg PO BID PRN Ferrous Sulfate (Feosol) 325 mg PO DAILYWM [facility] Furosemide (Lasix) 20 mg PO DAILY [facility] Ceftriaxone Sodium 1 gm/ (Sodium Chloride) 100 mls @ 200 mls/hr IV DAILY [facility] Morphine Sulfate (Morphine (Carpuject) 2 mg IVP Q2HR PRN Multivitamins/Minerals (Theragran M) 1 tab PO DAILYWM [facility] Oxycodone HCl (Roxicodone) 5 mg PO Q4HR PRN Polyethylene Glycol (Miralax) 17 gm PO DAILY [facility] Prednisone (Deltasone) 20 mg PO DAILYWM [facility] Prochlorperazine Edisylate (Compazine Inj) 10 mg IVP Q6HR PRN Saccharomyces Boulardii (Florastor) 250 mg PO BIDWM [facility] Senna (Senokot) 8.6 - 17.2 mg PO DAILY [facility] Tamsulosin HCl (Flomax) 0.4 mg PO DAILY [facility] HOME meds: No Known Home Medications 02/06/19 Objective - Vital Signs/Intake & Output Vital Signs: Vital Signs x48h Temp Pulse Pulse Resp BP Pulse Ox 02/09/19 08:00 35.8 C L 62 15 98/53 L 95 02/09/19 07:48 60 18 Intake & Output: Intake & Output 02/06/19 02/07/19 02/08/19 02/09/19 23:59 23:59 23:59 23:59 Intake Total 3860 4919.099 0806.000 300 Output Total 9782 504 7457 500 Balance 2260 519.677 4285.000 -200 - Objective General Appearance: positive: Alert, Mild distress, Lethargic Eyes Bilateral: positive: PERRL Eyes: OU Conjunctivae pale ENT: positive: Pharynx nml, Dry mucous membranes Neck: positive: No JVD, Trachea midline, Lymphadenopathy (R), Lymphadenopathy (L) Respiratory: positive: Chest non-tender, No respiratory distress, Breath sounds nml Cardiovascular: positive: Regular rate & rhythm, No gallop, Systolic murmur, Decreased pulse(s) Peripheral Pulses: 1+ Radial (R), 1+ Radial (L), 1+ Popliteal (R), 1+ Popliteal (L) Abdomen: positive: Non-tender, Nml bowel sounds, Hepatomegaly (rounded, soft) Back: positive: Nml inspection Skin: positive: No rash, Warm, Dry, Other (bronze toned skin from the sun) Neurologic/Psychiatric: positive: Oriented x3, CN's nml (2-12), Weakness, Sensory loss, Slurred/abnml speech (due to poor dentitian), Depressed mood/affect Reflexes: 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 IMPRESSION: No acute osseous abnormality. EXAM: LEFT ANKLE RADIOGRAPHY EXAM DATE: 02/05/2019 08:30 PM. IMPRESSION: 1. Trimalleolar ankle fracture, detailed above. No dislocation. Recommend Orthopedic Surgery consultation. EXAM: CHEST RADIOGRAPHY EXAM DATE: 02/06/2019 01:34 AM IMPRESSION: Cardiomegaly and bibasilar infiltrates, new from previous. EXAM: RENAL ULTRASOUND EXAM DATE: 02/07/2019 01:10 AM FINDINGS: Right Kidney: 12.0 x 4.7 x 5.2 cm. Normal parenchymal thickness and echogenicity noted. There is a right mid kidney stone measuring 6.5 mm. There is no hydronephrosis. No definite suspicious renal mass. Nonspecific trace perinephric fluid. Left Kidney: 10.2 x 4.9 x 4.7 cm. There is trace nonspecific amount of perinephric fluid. No suspicious renal mass. Normal parenchymal thickness and echogenicity. No hydronephrosis or kidney stone. Bladder: Decompressed, precluding assessment. Other: None. IMPRESSION: 1. No hydronephrosis. 2. Possible 6.5 mm right mid kidney stone. 3. Nonspecific trace bilateral perinephric fluid. EXAM: FLUOROSCOPIC GUIDANCE EXAM DATE: 02/07/2019 01:55 PM. IMPRESSION: Videofluoroscopic guidance provided for the patient's ankle ORIF. Fluoroscopy time was approximately 0.5 minutes. The procedure is reported by the patient's physician/surgeon in the procedure report, included in the patient's medical record. Briefly, ORIF of a lateral malleolar fracture with partially imaged plate and screw fixation. ORIF of a medial malleolar fracture with 2 cannulated screws and K wires extending through the screws. There is a screw posterior to the lower aspect of the plate at the level of the 6-7 hole from the bottom which may be within the fibula. The posterior malleolus fracture is not well seen on this study. EXAM: CHEST RADIOGRAPHY EXAM DATE: 02/08/2019 09:48 AM. IMPRESSION: 1. Vascular congestion. 2. Progression of bibasilar consolidation/atelectasis and pleural effusions. Echocardiogram 02/07/2019 Final read by Adal Orr MD: 1. The LV is normal. LV wall thickness is normal. Overall LV systolic function is normal with an EF of 65-70%. 2. The RV is normal in size and function. 3. There is mild mitral regurgitation. ABX Reporting Has patient been on IV antibiotics over the past 48 hours?: Yes Assessment/Plan - Problem List (1) Trimalleolar fracture of left ankle Impression: - Initial reports of the patient walking on street, tripped over her walker, then subsequently had pain to her left ankle and left wrist Qualifiers: Encounter type: initial encounter Fracture type: closed Qualified Code(s): S82.852A - Displaced trimalleolar fracture of left lower leg, initial encounter for closed fracture (2) Fall Impression: - Multiple falls since being homeless Qualifiers: Encounter type: subsequent encounter Qualified Code(s): W19.XXXD - Unspecified fall, subsequent encounter (3) UTI (urinary tract infection) Impression: - Initial urinalysis was positive for acute UTI - No hydronephrosis on imaging, but 6.2 mm right stone is likely - Patient admits to prior kidney stones Plan: Continue IV rocephin, await final culture results Qualifiers: Encounter type: subsequent encounter (4) Pneumonia Impression: - Imaging shows bilateral infiltrates with a chest x-ray - Patient continues to be hypoxic- requiring 2-3L nasal cannula - Underlying COPD- not treated with long acting inhalers at home, no prior oxygen at home Plan: Continue treatment of Azithromycin and Rocephin, continue oxygen supplementation Qualifiers: Pneumonia type: due to unspecified organism Laterality: right Lung locat ion: lower lobe of lung Qualified Code(s): J18.1 - Lobar pneumonia, unspecified organism (5) Acute kidney injury Impression: - Baseline creatinine was 1.2 - Admission creatinine was 3.6, now down to 2.7 - Status post IVFs, still treating UTI - Since having surgery, has had an indwelling smith for her known urinary re tention - Orders to remove today, also for post void residual bladder scans Plan: continue to monitor labs, I/O, and IV antibiotics, avoid hypotension, NSAIDs, and nephrotoxins (6) Urinary retention Impression: - Risk factors include; aging, neurological disorder, and new narcotics being used post-op - Started on Flomax ( a grade 2C recommendation), smith has remained in since surgical repair of left ankle - Patient also notes that 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 in the past - This probably contributed to her JENNIFER during this hospital stay Plan: Orders to remove the smith, post void residuals, today (7) COPD (chronic obstructive pulmonary disease) Impression: - The patient has had recurrent pneumonia and now has bilateral pneumonia - She is prescribed no long acting inhalers Plan: Continue respiratory care, monitor for improvement, anticipate transfer to SNF with supplemental oxygen (8) Homelessness Impression: - The patient admits to at least 2 years of homelessness Plan: Anticipate discharge to SNF for this injury, which may lead to permanent placement at a later date (9) Edema of both upper extremities Impression: - 3rd spacing to BUEs on exam - Also with JENNIFER - Echo shows no HF or pulmonary hypertension Plan: Resume lasix when JENNIFER is improved, elevate extremities (10) Macrocytic anemia Impression: - H/H is reduced from 9.4/29.7 to 8.6/28.3 today - Likely JENNIFER is a contributing factor Plan: Continue to trend labs, evaluate iron studies
[2019-02-09] MEDS: DOCUSATE SODIUM 250 MG CAPSULE PO SCH (17:16)
[2019-02-10] MEDS: MORPHINE 2 MG/ML CARPUJECT IVP PRN (00:16)
[2019-02-10] MEDS: SODIUM CHLORIDE FLUSH 0.9% 10 ML SYRINGE IVP SCH ×3 (00:18→16:31)
[2019-02-10] MEDS: SODIUM CHLORIDE FLUSH 0.9% 10 ML SYRINGE IVP PRN ×3 (00:18→11:14)
[2019-02-10 05:11] LABS: BASOPHILS % (AUTO) 0.2 %; HGB - HEMOGLOBIN 9.8 g/dL (12.0-16.0); LYMPHOCYTES % (AUTO) 7.9 %; MEAN CORPUSCULAR HEMOGLOBIN 31.9 pg (27.0-31.0); MEAN CORPUSCULAR HGB CONC 31.4 g/dL (32.0-36.0); MEAN CORPUSCULAR VOLUME 101.6 fL (81.0-99.0); MEAN PLATELET VOLUME 10.4 fL (7.9-10.8); MONOCYTES % (AUTO) 7.2 %; NEUTROPHILS % (AUTO) 73.2 %; PLT - PLATELET COUNT 271 10^3/uL (130-450); RED BLOOD COUNT 3.07 10^6/uL (4.20-5.40); WHITE BLOOD COUNT 9.2 x10^3/uL (4.8-10.8)
[2019-02-10 05:17] LABS: ABNORMAL LYMPHS % (MANUAL) 0 %
[2019-02-10 05:22] LABS: ALBUMIN 2.7 g/dL (3.2-5.5); ALBUMIN/GLOBULIN RATIO 0.7 (1.0-2.2); BILIRUBIN,TOTAL 0.5 mg/dL (0.2-1.0); CALCIUM 8.7 mg/dL (8.5-10.3); CREATININE 2.1 mg/dL (0.4-1.0); MAGNESIUM 2.4 mg/dL (1.7-2.8); TOTAL PROTEIN 6.6 g/dL (6.7-8.2)
[2019-02-10 05:38] LABS: BAND NEUTROPHILS % (MANUAL) 3 %; DIFFERENTIAL COMMENT MANUAL DIFFERENTIAL; LYMPHOCYTES # (MANUAL) 1.1 10^3/uL (1.5-3.5); LYMPHOCYTES % (MANUAL) 12 %; METAMYELOCYTES % (MANUAL) 3 %; MONOCYTES # (MANUAL) 0.5 10^3/uL (0.0-1.0); MYELOCYTES % (MANUAL) 3 %; PLATELET ESTIMATE, MANUAL NORMAL (130-450,000) (NORMAL); RBC MORPHOLOGY (MULTIPLE) NORMAL APPEARANCE (NORMAL)
[2019-02-10] MEDS: IPRATROPIUM/ALBUTEROL 3 ML NEB INH SCH ×4 (07:34→19:17)
[2019-02-10] MEDS ORDERED: SODIUM CHLORIDE 0.65% NASAL SPRAY NAS PRN (08:12)
[2019-02-10] MEDS ORDERED: FUROSEMIDE 40 MG/4 ML VIAL IVP SCH (10:04)
--- NOTE | 2019-02-10 10:04 | PROVIDER PROGRESS NOTE ---
Subjective - Prog Note Date Prog Note Date: 02/10/19 Prog Note Time: 10:01 - Subjective Pt reports feeling: Improved Subjective: Genet complains of ongoing pain to her LLE, which becomes worse with ambulation. She also complains of feeling more tired today, but not because she is being kept up at night. She admits to mild improvement in her nasal congestion since starting her nasal sprays today. She denies chest pain, naus ea, vomiting, a new rash or a worsening productive cough. She has increased abdominal distension. Current Medications - Current Medications Current Medications: Active Medications: Acetaminophen (Tylenol) 650 - 975 mg PO Q4HR PRN Albuterol/Ipratropium (Duoneb) 3 ml INH RTQID [facility] Aspirin (Levi) 325 mg PO BIDWM BILLIE Docusate Sodium (Colace 100mg Capsule) 100 mg PO BID PRN Docusate Sodium (Colace 250mg Capsule) 250 - 500 mg PO DAILY BILLIE Ferrous Sulfate (Feosol) 325 mg PO DAILYWM [facility] Furosemide 40 mg IV x1 Morphine Sulfate (Morphine (Carpuject)) 2 mg IVP Q2HR PRN Multivitamins/Minerals (Theragran M) 1 tab PO DAILYWM [facility] Oxycodone HCl (Roxicodone) 5 mg PO Q4HR PRN Oxymetazoline HCl (Afrin) 1 sprays ELINOR BID BILLIE Polyethylene Glycol (Miralax) 17 gm PO DAILY BILLIE Prednisone (Deltasone) 20 mg PO DAILYWM [facility] Prochlorperazine Edisylate (Compazine Inj) 10 mg IVP Q6HR PRN Saccharomyces Boulardii (Florastor) 250 mg PO BIDWM [facility] Senna (Senokot) 8.6 - 17.2 mg PO DAILY [facility] Sodium Chloride (Harrison) 2 sprays ELINOR Q4HR PRN Tamsulosin HCl (Flomax) 0.4 mg PO DAILY [facility] Mag citrate 296 mL PO x1 billie Zosyn IV 3.75 Q6H scheduled HOME meds: No Known Home Medications 02/06/19 Objective - Vital Signs/Intake & Output Reviewed Vital Signs: Yes Vital Signs: Vital Signs x48h Temp Pulse Pulse Resp BP Pulse Ox 02/10/19 08:21 36.3 C L 60 16 119/69 91 L 02/10/19 07:34 54 L 12 Intake & Output: Intake & Output 02/07/19 02/08/19 02/09/19 02/10/19 23:59 23:59 23:59 23:59 Intake Total 3133.185 5993.000 540 200 Output Total 800 1100 1700 1200 Balance 381.911 5701.000 -1160 -1000 - Objective General Appearance: positive: No acute distress Eyes Bilateral: positive: PERRL ENT: positive: Pharynx nml, No signs of dehydration Neck: positive: Thyroid nml, No JVD Respiratory: positive: Chest non-tender, Rhonchi Cardiovascular: positive: Regular rate & rhythm, No gallop, Systolic murmur, Decreased pulse(s) Peripheral Pulses: 1+ Radial (R), 1+ Radial (L) Abdomen: positive: Non-tender, Nml bowel sounds, Hepatomegaly Back: positive: Nml inspection Skin: positive: No rash, Warm, Dry, Pallor, Other (bronze toned skin from the sun, no rashes or scabies lesions) Extremities: positive: Non-tender, Pedal edema (BLE chronic, dependent), Joint swelling Neurologic/Psychiatric: positive: Oriented x3, CN's nml (2-12), Motor nml, We akness, Sensory loss, Slurred/abnml speech (due to poor dentitian), Depressed mood/affect Reflexes: Bicep (R): 2+, Bicep (L): 2+ - Lab Results Fish Bones: 02/10/19 04:35 02/10/19 04:35 Other Labs: Lab Results x24hrs 02/10/19 02/10/19 Range/Units 04:35 04:35 WBC 9.2 (4.8-10.8) x10^3/uL RBC 3.07 L (4.20-5.40) 10^6/uL Hgb 9.8 L (12.0-16.0) g/dL Hct 31.2 L (37.0-47.0) % MCV 101.6 H (81.0-99.0) fL MCH 31.9 H (27.0-31.0) pg MCHC 31.4 L (32.0-36.0) g/dL RDW 16.0 H (12.0-15.0) % Plt Count 271 (130-450) 10^3/uL MPV 10.4 (7.9-10.8) fL Neut # (Auto) Not Reportable Lymph # (Auto) Not Reportable [place] # (Auto) Not Reportable Eos # (Auto) Not Reportable Baso # (Auto) Not Reportable Absolute Nucleated RBC Not Reportable Total Counted 100 Band Neuts % (Manual) 3 (0 - 10) % Abnorm Lymph % (Manual) 0 % Metamyelocytes % 3 H ( - 0) % Myelocytes % 3 H ( - 0) % Nucleated RBC % Not Reportable Neutrophils # (Manual) 7.1 H (1.5-6.6) 10^3/uL Lymphocytes # (Manual) 1.1 L (1.5-3.5) 10^3/uL Monocytes # (Manual) 0.5 (0.0-1.0) 10^3/uL Eosinophils # (Manual) 0.0 (0-0.7) 10^3/uL Basophils # (Manual) 0.0 (0-0.1) 10^3/uL Differential Comment MANUAL DIFFERENTIAL Platelet Estimate NORMAL (130-450,000) (NORMAL) RBC Morph Micro Appear NORMAL APPEARANCE (NORMAL) Sodium 136 (135-145) mmol/L Potassium 5.4 H (3.5-5.0) mmol/L Chloride 99 L (101-111) mmol/L Carbon Dioxide 28 (21-32) mmol/L Anion Gap 9.0 (6-13) BUN 44 H (6-20) mg/dL Creatinine 2.1 H (0.4-1.0) mg/dL Estimated GFR (MDRD) 24 L (>89) Glucose 99 (70-100) mg/dL Calcium 8.7 (8.5-10.3) mg/dL Magnesium 2.4 (1.7-2.8) mg/dL Total Bilirubin 0.5 (0.2-1.0) mg/dL AST 17 (10-42) IU/L ALT 15 (10-60) IU/L Alkaline Phosphatase 88 (42-121) IU/L Total Protein 6.6 L (6.7-8.2) g/dL Albumin 2.7 L (3.2-5.5) g/dL Globulin 3.9 (2.1-4.2) g/dL Albumin/Globulin Ratio 0.7 L (1.0-2.2) ABX Reporting Has patient been on IV antibiotics over the past 48 hours?: Yes Sepsis Event Note (H) - Evaluation Current Stage of Sepsis: Ruled out Assessment/Plan - Problem List (1) Trimalleolar fracture of left ankle Impression: - Initial reports of the patient walking on street, tripped over her walker, th en subsequently had pain to her left ankle and left wrist - Now post-op day #[address] Manjarrez from an ORIF left ankle fracture for her Closed left trimalleolar ankle fracture - NO surgical complications, still treating PNA and JENNIFER - Orders for non-weight bearing to LLE - Using IV morphine with some pain control Plan: Continue daily PT, anticipate discharge to rehab Qualifiers: Encounter type: initial encounter Fracture type: closed Qualified Code(s): S82.852A - Displaced trimalleolar fracture of left lower leg, initial encounter for closed fracture (2) Fall Impression: - Multiple falls since being homeless - Continued on fall precautions - Activity restrictions are non-weight bearing to LLE Plan: Continue to treat illnesses, and PT for daily sessions Qualifiers: Encounter type: subsequent encounter Qualified Code(s): W19.XXXD - Unspecified fall, subsequent encounter (3) UTI (urinary tract infection) Impression: - Initial urinalysis was positive for acute UTI- NGTD for urine culture - Ongoing urinary retention- so remains with an indwelling smith - No hydronephrosis on imaging, but 6.2 mm right stone is likely - Patient admits to prior kidney stones Plan: Continue IV Zosyn, maintain indwelling smith, await final culture results Qualifiers: Encounter type: subsequent encounter (4) Pneumonia Impression: - Imaging shows bilateral infiltrates with a chest x-ray - Patient continues to be hypoxic- requiring 2-3L nasal cannula - Underlying COPD- not treated with long acting inhalers at home, no prior oxygen at home - No sputum sample- now ordered - Keep oxygen between 88-90% per orders - Titrating oxygen based on spot checking oxygen - Nasal congestion was preventing the patient from breathing through her nose- started on Afrin x6 doses scheduled BID - Chest x-ray now to evaluate for improvement of her PNA - Status post Azithromycin and Rocephin Plan: Start Zosyn in exchange for previous treatment for lack of improvement, continue oxygen supplementation, obtain a sputum sample, continue nasal sprays Qualifiers: Pneumonia type: due to unspecified organism Laterality: right Lung location: lower lobe of lung Qualified Code(s): J18.1 - Lobar pneumonia, unspecified organism (5) Acute kidney injury Impression: - Baseline creatinine was 1.2 - Admission creatinine was 3.6, now down to 2.0 - Status post IVFs, still treating UTI & PNA - Since having surgery, has had an indwelling smith for her known urinary retention - Patient failed a voiding trail yesterday, so indwelling smith was replaced to ensure good kidney function - IV lasix x1 today Plan: continue to monitor labs, I/O, and IV antibiotics, avoid hypotension, NSA IDs, and nephrotoxins (6) Urinary retention Impression: - Risk factors include; aging, neurological disorder, and new narcotics being used post-op - Started on Flomax ( a grade 2C recommendation), smith has remained in since surgical repair of left ankle - Also with a known kidney stone - Patient also notes that 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 in the past - This probably contributed to her JENNIFER during this hospital stay - Failed a voiding trial yesterday (02/09) Plan: Continue indwelling smith (7) COPD (chronic obstructive pulmonary disease) Impression: - The patient has had recurrent pneumonia and now has bilateral pneumonia - She is prescribed no long acting inhalers - Last day of oral steroid - Starting in Zosyn for lack of improvement, stopped Azithromycin and Rocephin Plan: Continue respiratory care, monitor for improvement, anticipate transfer to SNF with supplemental oxygen (8) Homelessness Impression: - The patient admits to at least 2 years of homelessness Plan: Anticipate discharge to SNF for this injury, which may lead to permanent placement at a later date (9) Edema of both upper extremities Impression: - 3rd spacing to BUEs on exam - Also with JENNIFER - IV lasix x1 given today - Echo shows no HF or pulmonary hypertension Plan: Resume lasix when JENNIFER is improved, elevate extremities (10) Macrocytic anemia Impression: - H/H is reduced from 9.4/29.7 to 8.6/28.3 - Likely JENNIFER is a contributing factor Plan: Continue to trend labs, evaluate iron studies (11) Constipation by delayed colonic transit Impression: - No charted BM since 02/05 - Daily meds; dejan powell, now adding mag citrate Plan: continue to monitor, give suppository if no improvement
[2019-02-10] MEDS: cefTRIAXone 1 GM in SODIUM CHLORIDE 0.9% MINIBAG 100 ML IV SCH (10:06)
[2019-02-10] MEDS: POLYETHYLENE GLYCOL 3350 17 GM PACKET PO SCH (10:07)
[2019-02-10] MEDS: SENNA 8.6 MG TABLET PO SCH (10:08)
[2019-02-10] MEDS: DOCUSATE SODIUM 250 MG CAPSULE PO SCH (10:08)
[2019-02-10] MEDS: TAMSULOSIN 0.4 MG CAPSULE PO SCH (10:08)
[2019-02-10] MEDS: SACCHAROMYCES BOULARDII 250 MG CAPSULE PO SCH ×2 (10:08→16:30)
[2019-02-10] MEDS: MULTIVITAMIN W/MINERALS TABLET PO SCH (10:08)
[2019-02-10] MEDS: ASPIRIN 325 MG TABLET PO SCH ×2 (10:09→16:30)
[2019-02-10] MEDS: AZITHROMYCIN 250 MG TABLET PO SCH (10:09)
[2019-02-10] MEDS: FERROUS SULFATE 325 MG TABLET PO SCH (10:09)
[2019-02-10] MEDS: OXYMETAZOLINE HCL 100 SPRAYS BOTTLE NAS SCH ×2 (10:12→20:48)
[2019-02-10] MEDS: oxyCODONE 5 MG TABLET PO PRN ×3 (11:08→20:48)
--- NOTE | 2019-02-10 14:16 | PROVIDER PROGRESS NOTE ---
Subjective - Prog Note Date Prog Note Date: 02/10/19 Prog Note Time: 14:15 - Subjective Pt reports feeling: Improved (Less pain) Objective - Vital Signs/Intake & Output Vital Signs: Vital Signs x48h Temp Pulse Pulse Resp BP Pulse Ox 02/10/19 11:39 36.3 C L 61 12 92 02/10/19 11:31 61 12 02/10/19 08:21 36.3 C L 60 16 119/69 91 L 02/10/19 07:34 54 L 12 Intake & Output: Intake & Output 02/07/19 02/08/19 02/09/19 02/10/19 23:59 23:59 23:59 23:59 Intake Total 5404.733 4996.000 540 780 Output Total 800 1100 1700 2325 Balance 682.805 0553.000 -1160 -1545 - Lab Results Fish Bones: 02/10/19 04:35 02/10/19 04:35 Other Labs: Lab Results x24hrs 02/10/19 02/10/19 Range/Units 04:35 04:35 WBC 9.2 (4.8-10.8) x10^3/uL RBC 3.07 L (4.20-5.40) 10^6/uL Hgb 9.8 L (12.0-16.0) g/dL Hct 31.2 L (37.0-47.0) % MCV 101.6 H (81.0-99.0) fL MCH 31.9 H (27.0-31.0) pg MCHC 31.4 L (32.0-36.0) g/dL RDW 16.0 H (12.0-15.0) % Plt Count 271 (130-450) 10^3/uL MPV 10.4 (7.9-10.8) fL Neut # (Auto) Not Reportable Lymph # (Auto) Not Reportable [place] # (Auto) Not Reportable Eos # (Auto) Not Reportable Baso # (Auto) Not Reportable Absolute Nucleated RBC Not Reportable Total Counted 100 Band Neuts % (Manual) 3 (0 - 10) % Abnorm Lymph % (Manual) 0 % Metamyelocytes % 3 H ( - 0) % Myelocytes % 3 H ( - 0) % Nucleated RBC % Not Reportable Neutrophils # (Manual) 7.1 H (1.5-6.6) 10^3/uL Lymphocytes # (Manual) 1.1 L (1.5-3.5) 10^3/uL Monocytes # (Manual) 0.5 (0.0-1.0) 10^3/uL Eosinophils # (Manual) 0.0 (0-0.7) 10^3/uL Basophils # (Manual) 0.0 (0-0.1) 10^3/uL Differential Comment MANUAL DIFFERENTIAL Platelet Estimate NORMAL (130-450,000) (NORMAL) RBC Morph Micro Appear NORMAL APPEARANCE (NORMAL) Sodium 136 (135-145) mmol/L Potassium 5.4 H (3.5-5.0) mmol/L Chloride 99 L (101-111) mmol/L Carbon Dioxide 28 (21-32) mmol/L Anion Gap 9.0 (6-13) BUN 44 H (6-20) mg/dL Creatinine 2.1 H (0.4-1.0) mg/dL Estimated GFR (MDRD) 24 L (>89) Glucose 99 (70-100) mg/dL Calcium 8.7 (8.5-10.3) mg/dL Magnesium 2.4 (1.7-2.8) mg/dL Total Bilirubin 0.5 (0.2-1.0) mg/dL AST 17 (10-42) IU/L ALT 15 (10-60) IU/L Alkaline Phosphatase 88 (42-121) IU/L Total Protein 6.6 L (6.7-8.2) g/dL Albumin 2.7 L (3.2-5.5) g/dL Globulin 3.9 (2.1-4.2) g/dL Albumin/Globulin Ratio 0.7 L (1.0-2.2) - Other Results/Comments Other Results/Comments: EXAM: Left posterior splint: ok. N/V ok distally Sepsis Event Note (H) - Evaluation Current Stage of Sepsis: Ruled out Assessment/Plan - Problem List (1) Trimalleolar fracture of left ankle Impression: Satis post op PLAN: Mobilize as tolerated. Qualifiers: Encounter type: initial encounter Fracture type: closed Qualified Code(s): S82.852A - Displaced trimalleolar fracture of left lower leg, initial encounter for closed fracture
[2019-02-10] MEDS ORDERED: MAGNESIUM CITRATE 296 ML BOTTLE PO SCH (16:19)
[2019-02-10] MEDS: ACETAMINOPHEN 325 MG TABLET PO PRN (16:30)
[2019-02-10] MEDS: PIPERACILLIN/TAZOBACTAM 3.375 GM in SODIUM CHLORIDE 0.9% MINIBAG 100 ML IV SCH ×2 (16:48→23:56)
--- NOTE | 2019-02-10 17:26 | XRAY Report ---
Reason: hypoxia, Pneumonia Procedure Date: 02/10/2019 Accession Number: [id number] / [id number] Procedure: XR - Chest 1 View X-Ray CPT Code: 75455 FULL RESULT: EXAM: CHEST RADIOGRAPHY EXAM DATE: 02/10/2019 04:27 PM. CLINICAL HISTORY: Hypoxia, Pneumonia. COMPARISON: CHEST 1 VIEW 02/08/2019 9:27 AM. TECHNIQUE: 1 view. FINDINGS: LUNGS: The lungs are hypoventilatory with compressive changes. Retrocardiac opacity and haziness of the right lower lung zone. PLEURA: No significant pleural effusion. No clinically significant pneumothorax. MEDIASTINUM: The cardiomediastinal silhouette is unremarkable. BONES: No displaced acute fracture. No suspicious osseous lesions. Other: Several gas-filled segments of bowel in the upper abdomen. IMPRESSION: Expiratory chest x-ray. Retrocardiac opacity may represent compressive atelectasis, infection or aspiration. RADIA
[2019-02-10 17:32] LABS: ABG BASE EXCESS 5.4 mmol/L (-2.0-3.0); ABG HCO3 31.4 mmol/L (22.0-26.0); ABG OXYGEN SATURATION 91 % (94-98); ABG PCO2 53 mmHg (34-45); ABG PH 7.39 (7.35-7.45); ABG PO2 64 mmHg (80-100); ALLEN TEST POSITIVE
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
[2019-02-10] MEDS ORDERED: METHYLNALTREXONE 12 MG/0.6 ML VIAL SUBQ ONE (17:54)
[2019-02-10 18:18] LABS: BASOPHILS % (AUTO) 0.3 %; EOSINOPHILS % (AUTO) 0.1 %; HGB - HEMOGLOBIN 9.9 g/dL (12.0-16.0); LYMPHOCYTES % (AUTO) 5.6 %; MEAN CORPUSCULAR HEMOGLOBIN 30.8 pg (27.0-31.0); MEAN CORPUSCULAR HGB CONC 30.7 g/dL (32.0-36.0); MEAN CORPUSCULAR VOLUME 100.3 fL (81.0-99.0); MONOCYTES % (AUTO) 5.9 %; NEUTROPHILS % (AUTO) 76.8 %; PLT - PLATELET COUNT 302 10^3/uL (130-450); RED BLOOD COUNT 3.21 10^6/uL (4.20-5.40); WHITE BLOOD COUNT 9.8 x10^3/uL (4.8-10.8)
[2019-02-10] MEDS ORDERED: BISACODYL 10 MG SUPP PR PRN (18:23)
[2019-02-10 18:25] LABS: CALCIUM 9.1 mg/dL (8.5-10.3); CREATININE 2.1 mg/dL (0.4-1.0)
[2019-02-10 18:41] LABS: ABNORMAL LYMPHS % (MANUAL) 0 %
[2019-02-10 18:44] LABS: BAND NEUTROPHILS % (MANUAL) 14 %; LYMPHOCYTES # (MANUAL) 0.6 10^3/uL (1.5-3.5); LYMPHOCYTES % (MANUAL) 6 %; METAMYELOCYTES % (MANUAL) 1 %; MONOCYTES # (MANUAL) 0.6 10^3/uL (0.0-1.0)
[2019-02-10 18:46] LABS: DIFFERENTIAL COMMENT MANUAL DIFFERENTIAL; PLATELET ESTIMATE, MANUAL NORMAL (130-450,000) (NORMAL); PLATELET MORPHOLOGY NORMAL APPEARANCE (NORMAL); RBC MORPHOLOGY (MULTIPLE) NORMAL APPEARANCE (NORMAL)
[2019-02-10] MEDS ORDERED: guaiFENesin 600 MG TABLET PO SCH (21:00)
[2019-02-11] MEDS: oxyCODONE 5 MG TABLET PO PRN ×2 (01:19→18:05)
[2019-02-11] MEDS: ACETAMINOPHEN 325 MG TABLET PO PRN ×3 (01:20→22:30)
[2019-02-11] MEDS: SODIUM CHLORIDE FLUSH 0.9% 10 ML SYRINGE IVP PRN ×3 (01:24→06:16)
[2019-02-11] MEDS: SODIUM CHLORIDE FLUSH 0.9% 10 ML SYRINGE IVP SCH ×3 (01:24→22:30)
[2019-02-11] MEDS: PIPERACILLIN/TAZOBACTAM 3.375 GM in SODIUM CHLORIDE 0.9% MINIBAG 100 ML IV SCH ×4 (05:23→23:39)
[2019-02-11] MEDS: IPRATROPIUM/ALBUTEROL 3 ML NEB INH SCH ×4 (07:38→19:39)
[2019-02-11 09:38] LABS: BASOPHILS % (AUTO) 0.2 %; EOSINOPHILS % (AUTO) 0.8 %; HGB - HEMOGLOBIN 9.4 g/dL (12.0-16.0); LYMPHOCYTES % (AUTO) 10.4 %; MEAN CORPUSCULAR HEMOGLOBIN 31.4 pg (27.0-31.0); MEAN CORPUSCULAR VOLUME 101.3 fL (81.0-99.0); MEAN PLATELET VOLUME 9.8 fL (7.9-10.8); MONOCYTES % (AUTO) 7.5 %; NEUTROPHILS % (AUTO) 67.5 %; PLT - PLATELET COUNT 290 10^3/uL (130-450); RED BLOOD COUNT 2.99 10^6/uL (4.20-5.40); RED CELL DISTRIBUTION WIDTH 15.9 % (12.0-15.0); WHITE BLOOD COUNT 8.8 x10^3/uL (4.8-10.8)
[2019-02-11 09:44] LABS: ABNORMAL LYMPHS % (MANUAL) 0 %
[2019-02-11 09:50] LABS: ALBUMIN 2.8 g/dL (3.2-5.5); ALBUMIN/GLOBULIN RATIO 0.7 (1.0-2.2); BILIRUBIN,TOTAL 0.3 mg/dL (0.2-1.0); CALCIUM 8.9 mg/dL (8.5-10.3); CREATININE 1.8 mg/dL (0.4-1.0); MAGNESIUM 2.5 mg/dL (1.7-2.8); TOTAL PROTEIN 6.8 g/dL (6.7-8.2)
[2019-02-11] MEDS: TAMSULOSIN 0.4 MG CAPSULE PO SCH (10:20)
[2019-02-11] MEDS: MULTIVITAMIN W/MINERALS TABLET PO SCH (10:20)
[2019-02-11] MEDS: ASPIRIN 325 MG TABLET PO SCH ×2 (10:20→17:02)
[2019-02-11] MEDS: SACCHAROMYCES BOULARDII 250 MG CAPSULE PO SCH ×2 (10:20→17:03)
[2019-02-11 10:26] LABS: BAND NEUTROPHILS % (MANUAL) 3 %; EOSINOPHILS # (MANUAL) 0.2 10^3/uL (0-0.7); LYMPHOCYTES # (MANUAL) 2.1 10^3/uL (1.5-3.5); LYMPHOCYTES % (MANUAL) 17 %; MONOCYTES # (MANUAL) 0.3 10^3/uL (0.0-1.0); MYELOCYTES % (MANUAL) 2 %; PROMYELOCYTES % (MANUAL) 3 %
[2019-02-11 10:27] LABS: PLATELET MORPHOLOGY NORMAL APPEARANCE (NORMAL)
[2019-02-11 10:28] LABS: DIFFERENTIAL COMMENT MANUAL DIFFERENTIAL; PLATELET ESTIMATE, MANUAL NORMAL (130-450,000) (NORMAL)
[2019-02-11] MEDS: DOCUSATE SODIUM 250 MG CAPSULE PO SCH (10:32)
[2019-02-11] MEDS: SENNA 8.6 MG TABLET PO SCH (10:33)
[2019-02-11] MEDS: OXYMETAZOLINE HCL 100 SPRAYS BOTTLE NAS SCH ×2 (10:33→22:31)
[2019-02-11] MEDS: POLYETHYLENE GLYCOL 3350 17 GM PACKET PO SCH (10:33)
[2019-02-11] MEDS: LACTULOSE 10 GM /15 ML UDC PO SCH (11:36)
--- NOTE | 2019-02-11 11:53 | PROVIDER PROGRESS NOTE ---
Subjective - Prog Note Date Prog Note Date: 02/11/19 Prog Note Time: 11:52 - Subjective Pt reports feeling: Improved (Less complaints) Objective - Vital Signs/Intake & Output Vital Signs: Vital Signs x48h Temp Pulse Pulse Resp BP Pulse Ox 02/11/19 11:12 63 14 02/11/19 08:51 36.4 C L 60 16 114/62 93 02/11/19 07:38 59 L 12 02/11/19 05:35 16 95 02/11/19 05:30 16 100 Intake & Output: Intake & Output 02/08/19 02/09/19 02/10/19 02/11/19 23:59 23:59 23:59 23:59 Intake Total 4178.167 753 3234 300 Output Total 1100 1700 3425 1300 Balance 3078.000 -1160 -1945 -1000 - Lab Results Fish Bones: 02/11/19 09:28 02/11/19 09:28 Other Labs: Lab Results x24hrs 02/11/19 02/11/19 02/11/19 Range/Units 09:28 09:28 09:28 WBC 8.8 (4.8-10.8) x10^3/uL RBC 2.99 L (4.20-5.40) 10^6/uL Hgb 9.4 L (12.0-16.0) g/dL Hct 30.3 L (37.0-47.0) % MCV 101.3 H (81.0-99.0) fL MCH 31.4 H (27.0-31.0) pg MCHC 31.0 L (32.0-36.0) g/dL RDW 15.9 H (12.0-15.0) % Plt Count 290 (130-450) 10^3/uL MPV 9.8 (7.9-10.8) fL Neut # (Auto) Not Reportable Lymph # (Auto) Not Reportable [place] # (Auto) Not Reportable Eos # (Auto) Not Reportable Baso # (Auto) Not Reportable Absolute Nucleated RBC Not Reportable Total Counted 100 Band Neuts % (Manual) 3 (0 - 10) % Reactive Lymphs % (Man) 7 % Abnorm Lymph % (Manual) 0 % Metamyelocytes % ( - 0) % Myelocytes % 2 H ( - 0) % Promyelocytes % 3 H ( - 0) % Nucleated RBC % Not Reportable Neutrophils # (Manual) 5.8 (1.5-6.6) 10^3/uL Lymphocytes # (Manual) 2.1 (1.5-3.5) 10^3/uL Monocytes # (Manual) 0.3 (0.0-1.0) 10^3/uL Eosinophils # (Manual) 0.2 (0-0.7) 10^3/uL Basophils # (Manual) 0.0 (0-0.1) 10^3/uL Nucleated RBCs 1 % Differential Comment MANUAL DIFFERENTIAL WBC Morphology 1+ REACTIVE LYMPHS (NORMAL) Platelet Estimate NORMAL (130-450,000) (NORMAL) Platelet Morphology NORMAL APPEARANCE (NORMAL) RBC Morph Micro Appear 1+ OVALOCYTES (NORMAL) Bld Gas Analysis Time Sample Site ABG pH (7.35-7.45) ABG pCO2 (34-45) mmHg ABG pO2 (80-100) mmHg ABG HCO3 (22.0-26.0) mmol/L ABG Total CO2 (21.0-29.0) MMOL/L ABG O2 Saturation (94-98) % ABG Oximetry Spot Check % ABG Base Excess (-2.0-3.0) mmol/L Lon Test Respiration Rate b/min O2 Delivery Device O2 Liters/Min LPM Sodium 137 (135-145) mmol/L Potassium 4.7 (3.5-5.0) mmol/L Chloride 95 L (101-111) mmol/L Carbon Dioxide 30 (21-32) mmol/L Anion Gap 12.0 (6-13) BUN 43 H (6-20) mg/dL Creatinine 1.8 H (0.4-1.0) mg/dL Estimated GFR (MDRD) 29 L (>89) Glucose 83 (70-100) mg/dL Calcium 8.9 (8.5-10.3) mg/dL Magnesium 2.5 (1.7-2.8) mg/dL Total Bilirubin 0.3 (0.2-1.0) mg/dL AST 19 (10-42) IU/L ALT 16 (10-60) IU/L Alkaline Phosphatase 80 (42-121) IU/L Troponin I High Sens (2.3-14.8) pg/mL B-Natriuretic Peptide 148 H (5-100) pg/mL Total Protein 6.8 (6.7-8.2) g/dL Albumin 2.8 L (3.2-5.5) g/dL Globulin 4.0 (2.1-4.2) g/dL Albumin/Globulin Ratio 0.7 L (1.0-2.2) Stl Occult Blood (IFOB) (NEGATIVE) 02/10/19 02/10/19 02/10/19 Range/Units 20:30 18:08 18:08 WBC 9.8 (4.8-10.8) x10^3/uL RBC 3.21 L (4.20-5.40) 10^6/uL Hgb 9.9 L (12.0-16.0) g/dL Hct 32.2 L (37.0-47.0) % MCV 100.3 H (81.0-99.0) fL MCH 30.8 (27.0-31.0) pg MCHC 30.7 L (32.0-36.0) g/dL RDW 16.0 H (12.0-15.0) % Plt Count 302 (130-450) 10^3/uL MPV 10.0 (7.9-10.8) fL Neut # (Auto) Not Reportable Lymph # (Auto) Not Reportable [place] # (Auto) Not Reportable Eos # (Auto) Not Reportable Baso # (Auto) Not Reportable Absolute Nucleated RBC Not Reportable Total Counted 100 Band Neuts % (Manual) 14 H (0 - 10) % Reactive Lymphs % (Man) % Abnorm Lymph % (Manual) 0 % Metamyelocytes % 1 H ( - 0) % Myelocytes % ( - 0) % Promyelocytes % ( - 0) % Nucleated RBC % Not Reportable Neutrophils # (Manual) 8.5 H (1.5-6.6) 10^3/uL Lymphocytes # (Manual) 0.6 L (1.5-3.5) 10^3/uL Monocytes # (Manual) 0.6 (0.0-1.0) 10^3/uL Eosinophils # (Manual) 0.0 (0-0.7) 10^3/uL Basophils # (Manual) 0.0 (0-0.1) 10^3/uL Nucleated RBCs % Differential Comment MANUAL DIFFERENTIAL WBC Morphology (NORMAL) Platelet Estimate NORMAL (130-450,000) (NORMAL) Platelet Morphology NORMAL APPEARANCE (NORMAL) RBC Morph Micro Appear NORMAL APPEARANCE (NORMAL) Bld Gas Analysis Time Sample Site ABG pH (7.35-7.45) ABG pCO2 (34-45) mmHg ABG pO2 (80-100) mmHg ABG HCO3 (22.0-26.0) mmol/L ABG Total CO2 (21.0-29.0) MMOL/L ABG O2 Saturation (94-98) % ABG Oximetry Spot Check % ABG Base Excess (-2.0-3.0) mmol/L Lon Test Respiration Rate b/min O2 Delivery Device O2 Liters/Min LPM Sodium (135-145) mmol/L Potassium (3.5-5.0) mmol/L Chloride (101-111) mmol/L Carbon Dioxide (21-32) mmol/L Anion Gap (6-13) BUN (6-20) mg/dL Creatinine (0.4-1.0) mg/dL Estimated GFR (MDRD) (>89) Glucose (70-100) mg/dL Calcium (8.5-10.3) mg/dL Magnesium (1.7-2.8) mg/dL Total Bilirubin (0.2-1.0) mg/dL AST (10-42) IU/L ALT (10-60) IU/L Alkaline Phosphatase (42-121) IU/L Troponin I High Sens 5.9 (2.3-14.8) pg/mL B-Natriuretic Peptide (5-100) pg/mL Total Protein (6.7-8.2) g/dL Albumin (3.2-5.5) g/dL Globulin (2.1-4.2) g/dL Albumin/Globulin Ratio (1.0-2.2) Stl Occult Blood (IFOB) NEGATIVE (NEGATIVE) 02/10/19 02/10/19 Range/Units 18:08 17:24 WBC (4.8-10.8) x10^3/uL RBC (4.20-5.40) 10^6/uL Hgb (12.0-16.0) g/dL Hct (37.0-47.0) % MCV (81.0-99.0) fL MCH (27.0-31.0) pg MCHC (32.0-36.0) g/dL RDW (12.0-15.0) % Plt Count (130-450) 10^3/uL MPV (7.9-10.8) fL Neut # (Auto) Lymph # (Auto) [place] # (Auto) Eos # (Auto) Baso # (Auto) Absolute Nucleated RBC Total Counted Band Neuts % (Manual) (0 - 10) % Reactive Lymphs % (Man) % Abnorm Lymph % (Manual) % Metamyelocytes % ( - 0) % Myelocytes % ( - 0) % Promyelocytes % ( - 0) % Nucleated RBC % Neutrophils # (Manual) (1.5-6.6) 10^3/uL Lymphocytes # (Manual) (1.5-3.5) 10^3/uL Monocytes # (Manual) (0.0-1.0) 10^3/uL Eosinophils # (Manual) (0-0.7) 10^3/uL Basophils # (Manual) (0-0.1) 10^3/uL Nucleated RBCs % Differential Comment WBC Morphology (NORMAL) Platelet Estimate (NORMAL) Platelet Morphology (NORMAL) RBC Morph Micro Appear (NORMAL) Bld Gas Analysis Time 1732 Sample Site LEFT RADIAL ABG pH 7.39 (7.35-7.45) ABG pCO2 53 H (34-45) mmHg ABG pO2 64 L (80-100) mmHg ABG HCO3 31.4 H (22.0-26.0) mmol/L ABG Total CO2 33.0 H (21.0-29.0) MMOL/L ABG O2 Saturation 91 L (94-98) % ABG Oximetry Spot Check 93 % ABG Base Excess 5.4 H (-2.0-3.0) mmol/L Lon Test POSITIVE Respiration Rate 14 b/min O2 Delivery Device OXYMIZER O2 Liters/Min 12.00 LPM Sodium 138 (135-145) mmol/L Potassium 5.3 H (3.5-5.0) mmol/L Chloride 95 L (101-111) mmol/L Carbon Dioxide 30 (21-32) mmol/L Anion Gap 13.0 (6-13) BUN 47 H (6-20) mg/dL Creatinine 2.1 H (0.4-1.0) mg/dL Estimated GFR (MDRD) 24 L (>89) Glucose 141 H (70-100) mg/dL Calcium 9.1 (8.5-10.3) mg/dL Magnesium (1.7-2.8) mg/dL Total Bilirubin (0.2-1.0) mg/dL AST (10-42) IU/L ALT (10-60) IU/L Alkaline Phosphatase (42-121) IU/L Troponin I High Sens (2.3-14.8) pg/mL B-Natriuretic Peptide (5-100) pg/mL Total Protein (6.7-8.2) g/dL Albumin (3.2-5.5) g/dL Globulin (2.1-4.2) g/dL Albumin/Globulin Ratio (1.0-2.2) Stl Occult Blood (IFOB) (NEGATIVE) - Other Results/Comments Other Results/Comments: EXAM: Splint ok. N/V ok distally Up in chair Sepsis Event Note (H) - Evaluation Current Stage of Sepsis: Ruled out Assessment/Plan - Problem List (1) Trimalleolar fracture of left ankle Impression: satis post op PLAN: NWB on left in splint or cast x 6 weeks. Follow up in clinic in 2 weeks for charlie out and xr plus cast. Qualifiers: Encounter type: initial encounter Fracture type: closed Qualified Code(s): S82.852A - Displaced trimalleolar fracture of left lower leg, initial encounter for closed fracture
--- NOTE | 2019-02-11 12:21 | PROVIDER PROGRESS NOTE ---
Subjective - Prog Note Date Prog Note Date: 02/11/19 Prog Note Time: 12:19 - Subjective Pt reports feeling: Improved Subjective: Genet states that she is not hungry but has had more relief of her abdominal distension since moving her bowels last evening. She denies chest pain, nausea, vomiting, a new rash, itching, itchy scalp, or a worsening cough. She notes improvement in her nasal passage clearance since starting the nasal sprays. Current Medications - Current Medications Current Medications: Active Medications: Acetaminophen (Tylenol) 650 - 975 mg PO Q4HR PRN Albuterol/Ipratropium (Duoneb) 3 ml INH RTQID ADAN Aspirin (Levi) 325 mg PO BIDWM ADAN Bisacodyl (Dulcolax Supp) 10 mg MA DAILY PRN Docusate Sodium (Colace 100mg Capsule) 100 mg PO BID PRN Docusate Sodium (Colace 250mg Capsule) 250 - 500 mg PO DAILY ADAN Ferrous Gluconate (Fergon) 324 mg PO DAILYWM ADAN Furosemide (Lasix) 40 mg PO BIDWM ADAN Guaifenesin (Mucinex) 300 mg PO BID ADAN Piperacillin Sod/Tazobactam (Sod 3.375 gm/ Sodium Chloride) 100 mls @ 200 mls/hr IV Q6H ADAN Lactulose (Enulose) 10 gm PO DAILY ADAN Morphine Sulfate (Morphine (Carpuject) 2 mg IVP Q2HR PRN Multivitamins/Minerals (Theragran M) 1 tab PO DAILYWM ADAN Oxycodone HCl (Roxicodone) 5 mg PO Q4HR PRN Oxymetazoline HCl (Afrin) 1 sprays ELINOR BID ADAN Polyethylene Glycol (Miralax) 17 gm PO DAILY ADAN Prochlorperazine Edisylate (Compazine Inj) 10 mg IVP Q6HR PRN Saccharomyces Boulardii (Florastor) 250 mg PO BIDWM ADAN Senna (Senokot) 8.6 - 17.2 mg PO DAILY ADAN Sodium Chloride (Parmer) 2 sprays ELINOR Q4HR PRN Spironolactone (Aldactone) 25 mg PO DAILY ADAN Tamsulosin HCl (Flomax) 0.4 mg PO DAILY ADAN No Known Home Medications 02/06/19 Objective - Vital Signs/Intake & Output Reviewed Vital Signs: Yes Vital Signs: Vital Signs x48h Temp Pulse Pulse Resp BP Pulse Ox 02/11/19 11:12 63 14 02/11/19 08:51 36.4 C L 60 16 114/62 93 02/11/19 07:38 59 L 12 02/11/19 05:35 16 95 02/11/19 05:30 16 100 Intake & Output: Intake & Output 02/08/19 02/09/19 02/10/19 02/11/19 23:59 23:59 23:59 23:59 Intake Total 4178.838 334 7434 300 Output Total 1100 1700 3425 1300 Balance 3078.000 -1160 -1945 -1000 - Objective General Appearance: positive: Alert, Mild distress, Anxious, Lethargic Eyes Bilateral: positive: PERRL Eyes: OU Lid inflammation (chronic, stable) ENT: positive: Pharyngeal erythema, Dry mucous membranes Neck: positive: Thyroid nml, No JVD, Trachea midline, Lymphadenopathy (R), Lymphadenopathy (L), Stiff neck Respiratory: positive: Chest non-tender, No respiratory distress, Rhonchi Cardiovascular: positive: Regular rate & rhythm, No gallop, Systolic murmur, Decreased pulse(s) Peripheral Pulses: 1+ Radial (R), 1+ Radial (L), 1+ Popliteal (R), 1+ Popliteal (L) Abdomen: positive: Nml bowel sounds, Hepatomegaly, Other (rounded, soft) Back: positive: Nml inspection Skin: positive: Color nml, No rash, Warm, Dry, Other (tanned to sun exposed skin) Extremities: positive: Pedal edema, Joint swelling (bilateral knee swelling, probable left ankle swelling) Neurologic/Psychiatric: positive: Oriented x3, CN's nml (2-12), Motor nml, Weakness, Sensory loss, Slurred/abnml speech (due to poor dentitian), Depressed mood/affect Reflexes: Bicep (R): 3+, Bicep (L): 3+ - Lab Results Fish Bones: 02/11/19 09:28 02/11/19 09:28 Other Labs: Lab Results x24hrs 02/11/19 02/11/19 02/11/19 Range/Units 09:28 09:28 09:28 WBC 8.8 (4.8-10.8) x10^3/uL RBC 2.99 L (4.20-5.40) 10^6/uL Hgb 9.4 L (12.0-16.0) g/dL Hct 30.3 L (37.0-47.0) % MCV 101.3 H (81.0-99.0) fL MCH 31.4 H (27.0-31.0) pg MCHC 31.0 L (32.0-36.0) g/dL RDW 15.9 H (12.0-15.0) % Plt Count 290 (130-450) 10^3/uL MPV 9.8 (7.9-10.8) fL Neut # (Auto) Not Reportable Lymph # (Auto) Not Reportable [place] # (Auto) Not Reportable Eos # (Auto) Not Reportable Baso # (Auto) Not Reportable Absolute Nucleated RBC Not Reportable Total Counted 100 Band Neuts % (Manual) 3 (0 - 10) % Reactive Lymphs % (Man) 7 % Abnorm Lymph % (Manual) 0 % Metamyelocytes % ( - 0) % Myelocytes % 2 H ( - 0) % Promyelocytes % 3 H ( - 0) % Nucleated RBC % Not Reportable Neutrophils # (Manual) 5.8 (1.5-6.6) 10^3/uL Lymphocytes # (Manual) 2.1 (1.5-3.5) 10^3/uL Monocytes # (Manual) 0.3 (0.0-1.0) 10^3/uL Eosinophils # (Manual) 0.2 (0-0.7) 10^3/uL Basophils # (Manual) 0.0 (0-0.1) 10^3/uL Nucleated RBCs 1 % Differential Comment MANUAL DIFFERENTIAL WBC Morphology 1+ REACTIVE LYMPHS (NORMAL) Platelet Estimate NORMAL (130-450,000) (NORMAL) Platelet Morphology NORMAL APPEARANCE (NORMAL) RBC Morph Micro Appear 1+ OVALOCYTES (NORMAL) Bld Gas Analysis Time Sample Site ABG pH (7.35-7.45) ABG pCO2 (34-45) mmHg ABG pO2 (80-100) mmHg ABG HCO3 (22.0-26.0) mmol/L ABG Total CO2 (21.0-29.0) MMOL/L ABG O2 Saturation (94-98) % ABG Oximetry Spot Check % ABG Base Excess (-2.0-3.0) mmol/L Lon Test Respiration Rate b/min O2 Delivery Device O2 Liters/Min LPM Sodium 137 (135-145) mmol/L Potassium 4.7 (3.5-5.0) mmol/L Chloride 95 L (101-111) mmol/L Carbon Dioxide 30 (21-32) mmol/L Anion Gap 12.0 (6-13) BUN 43 H (6-20) mg/dL Creatinine 1.8 H (0.4-1.0) mg/dL Estimated GFR (MDRD) 29 L (>89) Glucose 83 (70-100) mg/dL Calcium 8.9 (8.5-10.3) mg/dL Magnesium 2.5 (1.7-2.8) mg/dL Total Bilirubin 0.3 (0.2-1.0) mg/dL AST 19 (10-42) IU/L ALT 16 (10-60) IU/L Alkaline Phosphatase 80 (42-121) IU/L Troponin I High Sens (2.3-14.8) pg/mL B-Natriuretic Peptide 148 H (5-100) pg/mL Total Protein 6.8 (6.7-8.2) g/dL Albumin 2.8 L (3.2-5.5) g/dL Globulin 4.0 (2.1-4.2) g/dL Albumin/Globulin Ratio 0.7 L (1.0-2.2) Stl Occult Blood (IFOB) (NEGATIVE) 02/10/19 02/10/19 02/10/19 Range/Units 20:30 18:08 18:08 WBC 9.8 (4.8-10.8) x10^3/uL RBC 3.21 L (4.20-5.40) 10^6/uL Hgb 9.9 L (12.0-16.0) g/dL Hct 32.2 L (37.0-47.0) % MCV 100.3 H (81.0-99.0) fL MCH 30.8 (27.0-31.0) pg MCHC 30.7 L (32.0-36.0) g/dL RDW 16.0 H (12.0-15.0) % Plt Count 302 (130-450) 10^3/uL MPV 10.0 (7.9-10.8) fL Neut # (Auto) Not Reportable Lymph # (Auto) Not Reportable [place] # (Auto) Not Reportable Eos # (Auto) Not Reportable Baso # (Auto) Not Reportable Absolute Nucleated RBC Not Reportable Total Counted 100 Band Neuts % (Manual) 14 H (0 - 10) % Reactive Lymphs % (Man) % Abnorm Lymph % (Manual) 0 % Metamyelocytes % 1 H ( - 0) % Myelocytes % ( - 0) % Promyelocytes % ( - 0) % Nucleated RBC % Not Reportable Neutrophils # (Manual) 8.5 H (1.5-6.6) 10^3/uL Lymphocytes # (Manual) 0.6 L (1.5-3.5) 10^3/uL Monocytes # (Manual) 0.6 (0.0-1.0) 10^3/uL Eosinophils # (Manual) 0.0 (0-0.7) 10^3/uL Basophils # (Manual) 0.0 (0-0.1) 10^3/uL Nucleated RBCs % Differential Comment MANUAL DIFFERENTIAL WBC Morphology (NORMAL) Platelet Estimate NORMAL (130-450,000) (NORMAL) Platelet Morphology NORMAL APPEARANCE (NORMAL) RBC Morph Micro Appear NORMAL APPEARANCE (NORMAL) Bld Gas Analysis Time Sample Site ABG pH (7.35-7.45) ABG pCO2 (34-45) mmHg ABG pO2 (80-100) mmHg ABG HCO3 (22.0-26.0) mmol/L ABG Total CO2 (21.0-29.0) MMOL/L ABG O2 Saturation (94-98) % ABG Oximetry Spot Check % ABG Base Excess (-2.0-3.0) mmol/L Lon Test Respiration Rate b/min O2 Delivery Device O2 Liters/Min LPM Sodium (135-145) mmol/L Potassium (3.5-5.0) mmol/L Chloride (101-111) mmol/L Carbon Dioxide (21-32) mmol/L Anion Gap (6-13) BUN (6-20) mg/dL Creatinine (0.4-1.0) mg/dL Estimated GFR (MDRD) (>89) Glucose (70-100) mg/dL Calcium (8.5-10.3) mg/dL Magnesium (1.7-2.8) mg/dL Total Bilirubin (0.2-1.0) mg/dL AST (10-42) IU/L ALT (10-60) IU/L Alkaline Phosphatase (42-121) IU/L Troponin I High Sens 5.9 (2.3-14.8) pg/mL B-Natriuretic Peptide (5-100) pg/mL Total Protein (6.7-8.2) g/dL Albumin (3.2-5.5) g/dL Globulin (2.1-4.2) g/dL Albumin/Globulin Ratio (1.0-2.2) Stl Occult Blood (IFOB) NEGATIVE (NEGATIVE) 02/10/19 02/10/19 Range/Units 18:08 17:24 WBC (4.8-10.8) x10^3/uL RBC (4.20-5.40) 10^6/uL Hgb (12.0-16.0) g/dL Hct (37.0-47.0) % MCV (81.0-99.0) fL MCH (27.0-31.0) pg MCHC (32.0-36.0) g/dL RDW (12.0-15.0) % Plt Count (130-450) 10^3/uL MPV (7.9-10.8) fL Neut # (Auto) Lymph # (Auto) [place] # (Auto) Eos # (Auto) Baso # (Auto) Absolute Nucleated RBC Total Counted Band Neuts % (Manual) (0 - 10) % Reactive Lymphs % (Man) % Abnorm Lymph % (Manual) % Metamyelocytes % ( - 0) % Myelocytes % ( - 0) % Promyelocytes % ( - 0) % Nucleated RBC % Neutrophils # (Manual) (1.5-6.6) 10^3/uL Lymphocytes # (Manual) (1.5-3.5) 10^3/uL Monocytes # (Manual) (0.0-1.0) 10^3/uL Eosinophils # (Manual) (0-0.7) 10^3/uL Basophils # (Manual) (0-0.1) 10^3/uL Nucleated RBCs % Differential Comment WBC Morphology (NORMAL) Platelet Estimate (NORMAL) Platelet Morphology (NORMAL) RBC Morph Micro Appear (NORMAL) Bld Gas Analysis Time 1732 Sample Site LEFT RADIAL ABG pH 7.39 (7.35-7.45) ABG pCO2 53 H (34-45) mmHg ABG pO2 64 L (80-100) mmHg ABG HCO3 31.4 H (22.0-26.0) mmol/L ABG Total CO2 33.0 H (21.0-29.0) MMOL/L ABG O2 Saturation 91 L (94-98) % ABG Oximetry Spot Check 93 % ABG Base Excess 5.4 H (-2.0-3.0) mmol/L Lon Test POSITIVE Respiration Rate 14 b/min O2 Delivery Device OXYMIZER O2 Liters/Min 12.00 LPM Sodium 138 (135-145) mmol/L Potassium 5.3 H (3.5-5.0) mmol/L Chloride 95 L (101-111) mmol/L Carbon Dioxide 30 (21-32) mmol/L Anion Gap 13.0 (6-13) BUN 47 H (6-20) mg/dL Creatinine 2.1 H (0.4-1.0) mg/dL Estimated GFR (MDRD) 24 L (>89) Glucose 141 H (70-100) mg/dL Calcium 9.1 (8.5-10.3) mg/dL Magnesium (1.7-2.8) mg/dL Total Bilirubin (0.2-1.0) mg/dL AST (10-42) IU/L ALT (10-60) IU/L Alkaline Phosphatase (42-121) IU/L Troponin I High Sens (2.3-14.8) pg/mL B-Natriuretic Peptide (5-100) pg/mL Total Protein (6.7-8.2) g/dL Albumin (3.2-5.5) g/dL Globulin (2.1-4.2) g/dL Albumin/Globulin Ratio (1.0-2.2) Stl Occult Blood (IFOB) (NEGATIVE) ABX Reporting Has patient been on IV antibiotics over the past 48 hours?: Yes Assessment/Plan - Problem List (1) Trimalleolar fracture of left ankle Impression: - Initial reports of the patient walking on street, tripped over her walker, then subsequently had pain to her left ankle and left wrist - Now post-op day #[address] Manjarrez from an ORIF left ankle fracture for her Closed left trimalleolar ankle fracture - NO surgical complications, still treating PNA and JENNIFER - Orders for non-weight bearing to LLE - Using IV morphine or PO oxycodone with some pain control Plan: Continue daily PT, anticipate discharge to rehab Qualifiers: Encounter type: initial encounter Fracture type: closed Qualified Code(s): S82.852A - Displaced trimalleolar fracture of left lower leg, initial encounter for closed fracture (2) Fall Impression: - Multiple falls since being homeless - Continued on fall precautions - Activity restrictions are non-weight bearing to LLE Plan: Continue to treat illnesses, and PT for daily sessions Qualifiers: Encounter type: subsequent encounter Qualified Code(s): W19.XXXD - Unspecified fall, subsequent encounter (3) UTI (urinary tract infection) Impression: - Initial urinalysis was positive for acute UTI- NGTD for urine culture - Ongoing urinary retention- so remains with an indwelling smith - No hydronephrosis on imaging, but 6.2 mm right stone is likely - Patient admits to prior kidney stones Plan: Continue IV Zosyn, maintain indwelling smtih, await final culture results Qualifiers: Encounter type: subsequent encounter (4) Pneumonia Impression: - Imaging shows bilateral infiltrates with a chest x-ray - Patient continues to be hypoxic- requiring 2-3L nasal cannula - Underlying COPD- not treated with long acting inhalers at home, no prior oxygen at home - No sputum sample- now ordered - Keep oxygen between 88-90% per orders - Titrating oxygen based on spot checking oxygen - Nasal congestion was preventing the patient from breathing through her nose- started on Afrin x6 doses scheduled BID - Chest x-ray now to evaluate for improvement of her PNA- shows hypoventilation due to bowel impingement - Status post Azithromycin and Rocephin - Continue expectorants - Still requires oxygen at 2-3L per oxymask verses nasal cannula Plan: Continue Zosyn in exchange for previous treatment for lack of improvement, continue oxygen supplementation, obtain a sputum sample, continue nasal sprays Qualifiers: Pneumonia type: due to unspecified organism Laterality: right Lung location: lower lobe of lung Qualified Code(s): J18.1 - Lobar pneumonia, unspecified organism (5) Acute kidney injury Impression: - Baseline creatinine was 1.2 - Admission creatinine was 3.6, now down to 1.8, current GFR is 29 - Status post IVFs, still treating UTI & PNA - Since having surgery, has had an indwelling smith for her known urinary retention - Patient failed a voiding trail on 02/09, so indwelling smith was replaced to ensure good kidney function - Starting PO lasix/spironolactone today - BNP was 148 today Plan: continue to monitor labs, I/O, and IV antibiotics, treat acute illnesses, avoid hypotension, NSAIDs, and nephrotoxins (6) COPD (chronic obstructive pulmonary disease) Impression: - The patient has had recurrent pneumonia and now has bilateral pneumonia - She is prescribed no long acting inhalers - Status post oral steroids - Continues on Zosyn for lack of improvement, stopped Azithromycin and Rocephin - Also on scheduled expectorants Plan: Continue respiratory care, monitor for improvement, anticipate transfer to SNF with supplemental oxygen (7) Constipation by delayed colonic transit Impression: - No charted BM since 02/05- now had a moderate BM late last night 02/10 - Daily meds; miralax, senna, now lactulose - Was given mag citrate x1 last night Plan: continue to monitor, give suppository if no improvement (8) Edema of both upper extremities Impression: - 3rd spacing to BUEs on exam - Also with JENNIFER - IV lasix x1 given 02/11 - Echo shows no HF or pulmonary hypertension Plan: Resumed lasix & spironolactone since JENNIFER is improved, elevate extremities (9) Homelessness Impression: - The patient admits to at least 2 years of homelessness Plan: Anticipate discharge to SNF for this injury, which may lead to permanent placement at a later date (10) Macrocytic anemia Impression: - H/H is stable at 9.4/30.3, MCV 101.3 - Likely JENNIFER is a contributing factor - Iron studies were done on 02/06 showing low iron, low iron % - Starting iron supplement today - Poor PO intake, refusing meals but likely due to slow transit constipation Plan: Continue to trend labs, give iron supplement (11) Urinary retention Impression: - Risk factors include; aging, neurological disorder, and new narcotics being used post-op - Started on Flomax ( a grade 2C recommendation), smith has remained in since surgical repair of left ankle - Also with a known kidney stone - Patient also notes that 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 in the past - This probably contributed to her JENNIFER during this hospital stay - Failed a voiding trial (02/09) Plan: Continue indwelling smith
[2019-02-11] MEDS: SPIRONOLACTONE 25 MG TABLET PO SCH (13:09)
[2019-02-11] MEDS: FUROSEMIDE 40 MG TABLET PO SCH ×2 (13:10→17:03)
[2019-02-11] MEDS: DOCUSATE SODIUM 100 MG CAPSULE PO PRN (18:05)
[2019-02-11] MEDS: guaiFENesin 600 MG TABLET PO SCH (22:28)
[2019-02-12] MEDS: SODIUM CHLORIDE FLUSH 0.9% 10 ML SYRINGE IVP SCH ×3 (01:53→17:19)
[2019-02-12] MEDS: PIPERACILLIN/TAZOBACTAM 3.375 GM in SODIUM CHLORIDE 0.9% MINIBAG 100 ML IV SCH ×4 (04:25→22:02)
[2019-02-12] MEDS: IPRATROPIUM/ALBUTEROL 3 ML NEB INH SCH ×3 (07:20→15:19)
[2019-02-12] MEDS: LACTULOSE 10 GM /15 ML UDC PO SCH (08:24)
[2019-02-12] MEDS: MULTIVITAMIN W/MINERALS TABLET PO SCH (08:24)
[2019-02-12] MEDS: FERROUS GLUCONATE 324 MG TABLET PO SCH (08:24)
[2019-02-12] MEDS: TAMSULOSIN 0.4 MG CAPSULE PO SCH (08:26)
[2019-02-12] MEDS: SACCHAROMYCES BOULARDII 250 MG CAPSULE PO SCH ×2 (08:26→16:56)
[2019-02-12] MEDS: guaiFENesin 600 MG TABLET PO SCH ×2 (08:26→21:55)
[2019-02-12] MEDS: DOCUSATE SODIUM 250 MG CAPSULE PO SCH (08:27)
[2019-02-12] MEDS: POLYETHYLENE GLYCOL 3350 17 GM PACKET PO SCH (08:27)
[2019-02-12] MEDS: SENNA 8.6 MG TABLET PO SCH (08:27)
[2019-02-12] MEDS: OXYMETAZOLINE HCL 100 SPRAYS BOTTLE NAS SCH ×2 (08:28→21:56)
[2019-02-12] MEDS: ASPIRIN 325 MG TABLET PO SCH ×2 (08:29→16:57)
[2019-02-12 09:31] LABS: BASOPHILS % (AUTO) 0.4 %; EOSINOPHILS % (AUTO) 2.4 %; HGB - HEMOGLOBIN 9.2 g/dL (12.0-16.0); LYMPHOCYTES % (AUTO) 8.3 %; MEAN CORPUSCULAR HEMOGLOBIN 30.6 pg (27.0-31.0); MEAN CORPUSCULAR HGB CONC 30.5 g/dL (32.0-36.0); MEAN CORPUSCULAR VOLUME 100.3 fL (81.0-99.0); MEAN PLATELET VOLUME 9.7 fL (7.9-10.8); MONOCYTES % (AUTO) 4.3 %; NEUTROPHILS % (AUTO) 72.3 %; PLT - PLATELET COUNT 269 10^3/uL (130-450); RED BLOOD COUNT 3.01 10^6/uL (4.20-5.40); RED CELL DISTRIBUTION WIDTH 15.9 % (12.0-15.0)
[2019-02-12 09:45] LABS: CALCIUM 9.1 mg/dL (8.5-10.3); CREATININE 1.8 mg/dL (0.4-1.0); MAGNESIUM 2.2 mg/dL (1.7-2.8)
[2019-02-12 10:16] LABS: ABNORMAL LYMPHS % (MANUAL) 0 %
[2019-02-12 10:17] LABS: BAND NEUTROPHILS % (MANUAL) 3 %; EOSINOPHILS # (MANUAL) 0.2 10^3/uL (0-0.7); LYMPHOCYTES # (MANUAL) 1.4 10^3/uL (1.5-3.5); LYMPHOCYTES % (MANUAL) 13 %; METAMYELOCYTES % (MANUAL) 3 %; MONOCYTES # (MANUAL) 0.4 10^3/uL (0.0-1.0)
[2019-02-12 10:19] LABS: DIFFERENTIAL COMMENT MANUAL DIFFERENTIAL; PLATELET ESTIMATE, MANUAL NORMAL (130-450,000) (NORMAL)
[2019-02-12] MEDS: SPIRONOLACTONE 25 MG TABLET PO SCH (10:24)
[2019-02-12] MEDS: FUROSEMIDE 40 MG TABLET PO SCH ×2 (10:24→16:57)
[2019-02-12] MEDS: oxyCODONE 5 MG TABLET PO PRN (12:19)
[2019-02-12] MEDS: SODIUM CHLORIDE FLUSH 0.9% 10 ML SYRINGE IVP PRN (12:19)
--- NOTE | 2019-02-12 12:42 | PROVIDER PROGRESS NOTE ---
Subjective - Prog Note Date Prog Note Date: 02/12/19 Prog Note Time: 12:42 - Subjective Pt reports feeling: Improved Subjective: Genet complains of food textures being troublesome. She otherwise notes no new symptoms and notes her breathing to be easier. She states that her ankle pain is still intolerable and the IV morphine has helped. Current Medications - Current Medications Current Medications: Active Medications: Acetaminophen (Tylenol) 650 - 975 mg PO Q4HR PRN Albuterol/Ipratropium (Duoneb) 3 ml INH RTQID [facility] Aspirin (Levi) 325 mg PO BIDWM [facility] Bisacodyl (Dulcolax Supp) 10 mg [place] DAILY PRN Docusate Sodium (Colace 100mg Capsule) 100 mg PO BID PRN Docusate Sodium (Colace 250mg Capsule) 250 - 500 mg PO DAILY [facility] Ferrous Gluconate (Fergon) 324 mg PO DAILYWM [facility] Furosemide (Lasix) 40 mg PO BIDWM [facility] Guaifenesin (Mucinex) 300 mg PO BID [facility] Piperacillin Sod/Tazobactam (Sod 3.375 gm/ Sodium Chloride) 100 mls @ 200 mls/hr IV Q6H [facility] Lactulose (Enulose) 10 gm PO DAILY [facility] Morphine Sulfate (Morphine (Carpuject) 2 mg IVP Q2HR PRN Multivitamins/Minerals (Theragran M) 1 tab PO DAILYWM [facility] Oxycodone HCl (Roxicodone) 5 mg PO Q4HR PRN Oxymetazoline HCl (Afrin) 1 sprays [place]OR BID [facility] Polyethylene Glycol (Miralax) 17 gm PO DAILY [facility] Prochlorperazine Edisylate (Compazine Inj) 10 mg IVP Q6HR PRN Saccharomyces Boulardii (Florastor) 250 mg PO BIDWM [facility] Senna (Senokot) 8.6 - 17.2 mg PO DAILY [facility] Sodium Chloride ([place]) 2 sprays ELINOR Q4HR PRN Spironolactone (Aldactone) 25 mg PO DAILY [facility] Tamsulosin HCl (Flomax) 0.4 mg PO DAILY [facility] No Known Home Medications 02/06/19 Objective - Vital Signs/Intake & Output Reviewed Vital Signs: Yes Vital Signs: Vital Signs x48h Temp Pulse Pulse Resp BP BP Pulse Ox 02/12/19 11:20 66 16 02/12/19 10:23 103/57 L 02/12/19 08:15 36.3 C L 67 16 86/53 L 89 L 02/12/19 07:22 64 16 Intake & Output: Intake & Output 02/09/19 02/10/19 02/11/19 02/12/19 23:59 23:59 23:59 23:59 Intake Total 540 9706 064 6838 Output Total 1700 3425 3610 3850 Balance -1160 -1945 -3610 -2585 - Objective General Appearance: positive: Alert, Mild distress, Lethargic Eyes Bilateral: positive: PERRL Eyes: OU Lid inflammation ENT: positive: Pharynx nml, Dry mucous membranes Neck: positive: Thyroid nml, No JVD, Trachea midline, Lymphadenopathy (R), Lymphadenopathy (L), Stiff neck Respiratory: positive: Chest non-tender, No respiratory distress, Wheezes, Rhonchi Cardiovascular: positive: Regular rate & rhythm, No gallop, Systolic murmur, Decreased pulse(s) Peripheral Pulses: 1+ Radial (R), 1+ Radial (L) Abdomen: positive: Nml bowel sounds, Hepatomegaly, Other (rounded, soft) Back: positive: Nml inspection Skin: positive: No rash, Warm, Dry, Pallor, Other (dry scalp with flaking, fragile skin overall, tanned sun exposed skin) Neurologic/Psychiatric: positive: Oriented x3, CN's nml (2-12), Motor nml, Sen sation nml, Weakness, Sensory loss, Slurred/abnml speech (baseline due to poor dentitian), Depressed mood/affect Reflexes: Bicep (R): 2+, Bicep (L): 2+, Ankle (R): 2+, Ankle (L): 0 - Lab Results Fish Bones: 02/12/19 09:22 02/12/19 09:22 Other Labs: Lab Results x24hrs 02/12/19 02/12/19 Range/Units 09:22 09:22 WBC 11.0 H (4.8-10.8) x10^3/uL RBC 3.01 L (4.20-5.40) 10^6/uL Hgb 9.2 L (12.0-16.0) g/dL Hct 30.2 L (37.0-47.0) % MCV 100.3 H (81.0-99.0) fL MCH 30.6 (27.0-31.0) pg MCHC 30.5 L (32.0-36.0) g/dL RDW 15.9 H (12.0-15.0) % Plt Count 269 (130-450) 10^3/uL MPV 9.7 (7.9-10.8) fL Neut # (Auto) Not Reportable Lymph # (Auto) Not Reportable [place] # (Auto) Not Reportable Eos # (Auto) Not Reportable Baso # (Auto) Not Reportable Absolute Nucleated RBC Not Reportable Total Counted 100 Band Neuts % (Manual) 3 (0 - 10) % Abnorm Lymph % (Manual) 0 % Metamyelocytes % 3 H ( - 0) % Nucleated RBC % Not Reportable Neutrophils # (Manual) 8.6 H (1.5-6.6) 10^3/uL Lymphocytes # (Manual) 1.4 L (1.5-3.5) 10^3/uL Monocytes # (Manual) 0.4 (0.0-1.0) 10^3/uL Eosinophils # (Manual) 0.2 (0-0.7) 10^3/uL Basophils # (Manual) 0.0 (0-0.1) 10^3/uL Differential Comment MANUAL DIFFERENTIAL Manual Slide Review Indicated Platelet Estimate NORMAL (130-450,000) (NORMAL) Platelet Morphology (NORMAL) RBC Morph Micro Appear 1+ HYPOCHROMASIA (NORMAL) Sodium 138 (135-145) mmol/L Potassium 4.1 (3.5-5.0) mmol/L Chloride 88 L (101-111) mmol/L Carbon Dioxide 37 H (21-32) mmol/L Anion Gap 13.0 (6-13) BUN 41 H (6-20) mg/dL Creatinine 1.8 H (0.4-1.0) mg/dL Estimated GFR (MDRD) 29 L (>89) Glucose 131 H (70-100) mg/dL Calcium 9.1 (8.5-10.3) mg/dL Magnesium 2.2 (1.7-2.8) mg/dL ABX Reporting Has patient been on IV antibiotics over the past 48 hours?: Yes Assessment/Plan - Problem List (1) Respiratory failure with hypoxia Impression: - Contributing factors of moderate to severe COPD -Takes no home inhalers or Singular -Requires up to 8L oxymask with lying flat or with activity -Currently on 2-4L oxymizer Plan: Continue respiratory cares, continue treatment of pneumonia, nebulizers, expectorants, nasal sprays for 6 doses, then Flonase, anticipate walking oxygen desaturation test prior to discharge Qualifiers: Chronicity: acute on chronic Qualified Code(s): J96.21 - Acute and chronic respiratory failure with hypoxia (2) Trimalleolar fracture of left ankle Impression: - Initial reports of the patient walking on street, tripped over her walker, then subsequently had pain to her left ankle and left wrist - Now post-op day #[address] Manjarrez from an ORIF left ankle fracture for her Closed left trimalleolar ankle fracture - NO surgical complications, still treating PNA and JENNIFER - Orders for non-weight bearing to LLE - Using IV morphine or PO oxycodone with some pain control Plan: Continue daily PT, anticipate discharge to rehab Qualifiers: Encounter type: initial encounter Fracture type: closed Qualified Code(s): S82.852A - Displaced trimalleolar fracture of left lower leg, initial encounter for closed fracture (3) Fall Impression: - Multiple falls since being homeless - Continued on fall precautions - Activity restrictions are non-weight bearing to LLE Plan: Continue to treat illnesses, and PT for daily sessions Qualifiers: Encounter type: subsequent encounter Qualified Code(s): W19.XXXD - Unspecified fall, subsequent encounter (4) UTI (urinary tract infection) Impression: - Initial urinalysis was positive for acute UTI- NGTD for urine culture - Ongoing urinary retention- so remains with an indwelling smith - No hydronephrosis on imaging, but 6.2 mm right stone is likely - Patient admits to prior kidney stones Plan: Continue IV Zosyn, maintain indwelling smith, await final culture results Qualifiers: Encounter type: subsequent encounter (5) Pneumonia Impression: - Imaging shows bilateral infiltrates with a chest x-ray - Patient continues to be hypoxic- requiring 2-3L nasal cannula - Underlying COPD- not treated with long acting inhalers at home, no prior oxygen at home - No sputum sample- now ordered - Keep oxygen between 88-90% per orders - Titrating oxygen based on spot checking oxygen - Nasal congestion was preventing the patient from breathing through her nose- started on Afrin x6 doses scheduled BID - Chest x-ray now to evaluate for improvement of her PNA- shows hypoventilation due to bowel impingement - Status post Azithromycin and Rocephin - Continue expectorants - Still requires oxygen at 2-3L per oxymask verses nasal cannula - Now with an elevated WBC count of 11 on 02/12 - Anticipate transition to oral antibiotics tomorrow Plan: Continue Zosyn in exchange for previous treatment for lack of improvement, continue oxygen supplementation, obtain a sputum sample, continue nasal sprays Qualifiers: Pneumonia type: due to unspecified organism Laterality: right Lung location: lower lobe of lung Qualified Code(s): J18.1 - Lobar pneumonia, unspecified organism (6) Acute kidney injury Impression: - Baseline creatinine was 1.2 - Admission creatinine was 3.6, now down to 1.8, current GFR is 29 - Status post IVFs, still treating UTI & PNA - Since having surgery, has had an indwelling smith for her known urinary retention - Patient failed a voiding trail on 02/09, so indwelling smith was replaced to ensure good kidney function - Continue PO lasix/spironolactone - BNP was 148 Plan: continue to monitor labs, I/O, and IV antibiotics, treat acute illnesses, avoid hypotension, NSAIDs, and nephrotoxins (7) COPD (chronic obstructive pulmonary disease) Impression: - The patient has had recurrent pneumonia and now has bilateral pneumonia - She is prescribed no long acting inhalers - Status post oral steroids - Continues on Zosyn for lack of improvement, stopped Azithromycin and Rocephin - Also on scheduled expectorants Plan: Continue respiratory care, monitor for improvement, anticipate transfer to SNF with supplemental oxygen (8) Constipation by delayed colonic transit Impression: - No charted BM since 02/05- now had a moderate improvement in her daily BMs - Daily meds; miralax, senna, now lactulose - Was given mag citrate x1 last night Plan: continue to monitor, give suppository if no improvement (9) Edema of both upper extremities Impression: - 3rd spacing to BUEs on exam - Also with JENNIFER - IV lasix x1 given 02/11, now on oral lasix/spironolactone - Echo shows no HF or pulmonary hypertension Plan: Continue lasix & spironolactone since JENNIFER is improved, elevate extremities (10) Homelessness Impression: - The patient admits to at least 2 years of homelessness Plan: Anticipate discharge to SNF for this injury, which may lead to permanent placement at a later date (11) Macrocytic anemia Impression: - H/H is stable at 9.4/30.3, MCV 101.3 - Likely JENNIFER is a contributing factor - Iron studies were done on 02/06 showing low iron, low iron % - Continues on daily iron supplement - Poor PO intake, refusing meals but likely due to slow transit constipation Plan: Continue to trend labs, give iron supplement (12) Urinary retention Impression: - Risk factors include; aging, neurological disorder, and new narcotics being used post-op - Started on Flomax ( a grade 2C recommendation), smith has remained in since surgical repair of left ankle - Also with a known kidney stone - Patient also notes that she has had spinal cord impingement leading to BUE num bness and tingling in the past - This probably contributed to her JENNIFER during this hospital stay - Failed a voiding trial (02/09) Plan: Continue indwelling smith
[2019-02-13] MEDS: SODIUM CHLORIDE FLUSH 0.9% 10 ML SYRINGE IVP SCH ×3 (00:37→17:16)
[2019-02-13] MEDS: PIPERACILLIN/TAZOBACTAM 3.375 GM in SODIUM CHLORIDE 0.9% MINIBAG 100 ML IV SCH ×4 (04:22→22:25)
[2019-02-13] MEDS: SODIUM CHLORIDE FLUSH 0.9% 10 ML SYRINGE IVP PRN (04:23)
[2019-02-13] MEDS: oxyCODONE 5 MG TABLET PO PRN ×4 (04:28→20:13)
[2019-02-13 05:41] LABS: BASOPHILS % (AUTO) 0.3 %; EOSINOPHILS # (AUTO) 0.3 10^3/uL (0.0-0.7); EOSINOPHILS % (AUTO) 2.6 %; HGB - HEMOGLOBIN 8.8 g/dL (12.0-16.0); LYMPHOCYTES # (AUTO) 0.8 10^3/uL (1.5-3.5); LYMPHOCYTES % (AUTO) 7.6 %; MEAN CORPUSCULAR HEMOGLOBIN 31.5 pg (27.0-31.0); MEAN CORPUSCULAR HGB CONC 31.2 g/dL (32.0-36.0); MEAN CORPUSCULAR VOLUME 101.1 fL (81.0-99.0); MEAN PLATELET VOLUME 9.5 fL (7.9-10.8); MONOCYTES # (AUTO) 0.6 10^3/uL (0.0-1.0); MONOCYTES % (AUTO) 5.5 %; NEUTROPHILS # (AUTO) 7.4 10^3/uL (1.5-6.6); NEUTROPHILS % (AUTO) 70.5 %; PLT - PLATELET COUNT 253 10^3/uL (130-450); RED BLOOD COUNT 2.79 10^6/uL (4.20-5.40); RED CELL DISTRIBUTION WIDTH 15.7 % (12.0-15.0); WHITE BLOOD COUNT 10.5 x10^3/uL (4.8-10.8)
[2019-02-13 05:54] LABS: ALBUMIN 2.9 g/dL (3.2-5.5); ALBUMIN/GLOBULIN RATIO 0.8 (1.0-2.2); BILIRUBIN,TOTAL 0.3 mg/dL (0.2-1.0); CREATININE 1.6 mg/dL (0.4-1.0); MAGNESIUM 2.2 mg/dL (1.7-2.8); TOTAL PROTEIN 6.6 g/dL (6.7-8.2)
[2019-02-13] MEDS: IPRATROPIUM/ALBUTEROL 3 ML NEB INH SCH ×5 (06:48→20:05)
[2019-02-13] MEDS ORDERED: FUROSEMIDE 40 MG TABLET PO SCH (08:00)
[2019-02-13] MEDS: FERROUS GLUCONATE 324 MG TABLET PO SCH (10:46)
[2019-02-13] MEDS: ASPIRIN 325 MG TABLET PO SCH ×2 (10:46→17:16)
[2019-02-13] MEDS: PANTOPRAZOLE 40 MG TABLET PO SCH (10:50)
[2019-02-13] MEDS: DOCUSATE SODIUM 250 MG CAPSULE PO SCH (10:50)
[2019-02-13] MEDS: SACCHAROMYCES BOULARDII 250 MG CAPSULE PO SCH ×2 (10:50→17:15)
[2019-02-13] MEDS: MULTIVITAMIN W/MINERALS TABLET PO SCH (10:50)
[2019-02-13] MEDS: LACTULOSE 10 GM /15 ML UDC PO SCH (10:50)
[2019-02-13] MEDS: guaiFENesin 600 MG TABLET PO SCH ×2 (10:50→20:17)
[2019-02-13] MEDS: POLYETHYLENE GLYCOL 3350 17 GM PACKET PO SCH (10:51)
[2019-02-13] MEDS: SENNA 8.6 MG TABLET PO SCH (10:51)
[2019-02-13] MEDS: SPIRONOLACTONE 25 MG TABLET PO SCH (10:52)
[2019-02-13] MEDS: TAMSULOSIN 0.4 MG CAPSULE PO SCH (10:52)
--- NOTE | 2019-02-13 14:53 | PROVIDER PROGRESS NOTE ---
Subjective - Prog Note Date Prog Note Date: 02/13/19 - Subjective Pt reports feeling: No change Subjective: pt feel a little dizziness in the morning, otherwise she did not have complaints. pt is comfortable laying at bed. pt is pending with placement Current Medications - Current Medications Current Medications: Active Medications Acetaminophen (Tylenol) 650 - 975 mg PO Q4HR PRN PRN Reason: PAIN Last Admin: 02/11/19 22:30 Dose: 325 mg Albuterol/Ipratropium (Duoneb) 3 ml INH RTQID [facility] Last Admin: 02/13/19 13:20 Dose: 3 ml Aspirin (Levi) 325 mg PO BIDWM [facility] Last Admin: 02/13/19 10:46 Dose: 325 mg Bisacodyl (Dulcolax Supp) 10 mg IN DAILY PRN PRN Reason: Constipation Last Admin: 02/10/19 19:47 Dose: 10 mg Docusate Sodium (Colace 250mg Capsule) 250 - 500 mg PO DAILY [facility] Last Admin: 02/13/19 10:50 Dose: 250 mg Ferrous Gluconate (Fergon) 324 mg PO DAILYWM [facility] Last Admin: 02/13/19 10:46 Dose: 324 mg Furosemide (Lasix) 20 mg PO DAILY [facility] Guaifenesin (Mucinex) 300 mg PO BID [facility] Last Admin: 02/13/19 10:50 Dose: 300 mg Piperacillin Sod/Tazobactam (Sod 3.375 gm/ Sodium Chloride) 100 mls @ 200 mls/hr IV Q6H [facility] Last Admin: 02/13/19 12:04 Dose: 200 mls/hr Lactulose (Enulose) 10 gm PO DAILY [facility] Last Admin: 02/13/19 10:50 Dose: 10 gm Morphine Sulfate (Morphine (Carpuject)) 2 mg IVP Q2HR PRN PRN Reason: PAIN Last Admin: 02/10/19 00:16 Dose: 2 mg Multivitamins/Minerals (Theragran M) 1 tab PO DAILYWM [facility] Last Admin: 02/13/19 10:50 Dose: 1 tab Oxycodone HCl (Roxicodone) 5 mg PO Q4HR PRN PRN Reason: PAIN Last Admin: 02/13/19 12:03 Dose: 5 mg Pantoprazole Sodium (Protonix) 40 mg PO QDAC [facility] Last Admin: 02/13/19 10:50 Dose: 40 mg Polyethylene Glycol (Miralax) 17 gm PO DAILY [facility] Last Admin: 02/13/19 10:51 Dose: 17 gm Prochlorperazine Edisylate (Compazine Inj) 10 mg IVP Q6HR PRN PRN Reason: Nausea / Vomiting Last Admin: 02/08/19 09:26 Dose: 10 mg Saccharomyces Boulardii (Florastor) 250 mg PO BIDWM [facility] Last Admin: 02/13/19 10:50 Dose: 250 mg Senna (Senokot) 8.6 - 17.2 mg PO DAILY [facility] Last Admin: 02/13/19 10:51 Dose: 8.6 mg Sodium Chloride (Normal Saline Flush 0.9%) 10 ml IVP PRN PRN PRN Reason: NEEDED PER PROVIDER ORDERS Last Admin: 02/13/19 04:23 Dose: 10 ml Sodium Chloride (Normal Saline Flush 0.9%) 10 ml IVP 0100,0900,1700 [facility] Last Admin: 02/13/19 10:52 Dose: 10 ml Sodium Chloride (Normal Saline Flush 0.9%) 10 ml IVP PRN PRN PRN Reason: NEEDED PER PROVIDER ORDERS Sodium Chloride ([place]) 2 sprays ELINOR Q4HR PRN PRN Reason: Nasal Congestion Spironolactone (Aldactone) 12.5 mg PO DAILY [facility] Last Admin: 02/13/19 10:52 Dose: 12.5 mg Tamsulosin HCl (Flomax) 0.4 mg PO DAILY [facility] Last Admin: 02/13/19 10:52 Dose: 0.4 mg No Known Home Medications 02/06/19 Objective - Vital Signs/Intake & Output Reviewed Vital Signs: Yes Vital Signs: Vital Signs x48h Temp Pulse Pulse Resp BP Pulse Ox 02/13/19 14:46 71 16 101/59 L 02/13/19 13:20 70 12 02/13/19 09:30 67 16 02/13/19 08:00 36.1 C L 63 16 82/42 L 93 Intake & Output: Intake & Output 02/10/19 02/11/19 02/12/19 02/13/19 23:59 23:59 23:59 23:59 Intake Total 9225 139 9157 440 Output Total 9225 3930 6118 1000 Balance -6634 -3690 -4225 -560 - Objective General Appearance: positive: No acute distress, Alert. negative: Lethargic Eyes Bilateral: positive: Normal inspection, PERRL, No lid inflammation, Conjunctivae nml ENT: positive: ENT inspection nml, Pharynx nml, No signs of dehydration. negative: Purulent nasal drainage, Pharyngeal erythema, Oral lesions Neck: positive: Nml inspection, Thyroid nml, No JVD, Trachea midline. negative: Thyromegaly, Lymphadenopathy (R), Lymphadenopathy (L), Stiff neck, Swelling/br uising, Tracheal deviation Respiratory: positive: Chest non-tender, No respiratory distress. negative: Wheezes, Rales, Rhonchi Cardiovascular: positive: Regular rate & rhythm, No murmur, No gallop. negative: Irregularly irregular, Extrasystoles, Tachycardia, Bradycardia, JVD present, Systolic murmur, Diastolic murmur Peripheral Pulses: 2+ Radial (R), 2+ Radial (L), 2+ Dorsalis pedis (R), 2+ Dorsalis pedis (L) Abdomen: positive: Non-tender, No organomegaly, Nml bowel sounds, No distention. negative: Tenderness, Guarding, Rebound Back: positive: Nml inspection. negative: CVA tenderness (R), CVA tenderness (L) Skin: positive: Color nml, No rash, Warm, Dry. negative: Cyanosis, Diaphoresis, Pallor Extremities: positive: Non-tender. negative: Calf tenderness, Joint swelling, Rashaad's sign/cords Neurologic/Psychiatric: positive: Oriented x3, Sensation nml, Mood/affect nml. negative: Weakness, Sensory loss, Facial droop, Slurred/abnml speech, Depressed mood/affect - Lab Results Fish Bones: 02/13/19 05:25 02/13/19 05:25 Other Labs: Lab Results x24hrs 02/13/19 02/13/19 Range/Units 05:25 05:25 WBC 10.5 (4.8-10.8) x10^3/uL RBC 2.79 L (4.20-5.40) 10^6/uL Hgb 8.8 L (12.0-16.0) g/dL Hct 28.2 L (37.0-47.0) % MCV 101.1 H (81.0-99.0) fL MCH 31.5 H (27.0-31.0) pg MCHC 31.2 L (32.0-36.0) g/dL RDW 15.7 H (12.0-15.0) % Plt Count 253 (130-450) 10^3/uL MPV 9.5 (7.9-10.8) fL Neut # (Auto) 7.4 H (1.5-6.6) 10^3/uL Lymph # (Auto) 0.8 L (1.5-3.5) 10^3/uL [place] # (Auto) 0.6 (0.0-1.0) 10^3/uL Eos # (Auto) 0.3 (0.0-0.7) 10^3/uL Baso # (Auto) 0.0 (0.0-0.1) 10^3/uL Absolute Nucleated RBC 0.04 x10^3/uL Nucleated RBC % 0.4 /100WBC Sodium 138 (135-145) mmol/L Potassium 4.0 (3.5-5.0) mmol/L Chloride 86 L (101-111) mmol/L Carbon Dioxide 37 H (21-32) mmol/L Anion Gap 15.0 H (6-13) BUN 43 H (6-20) mg/dL Creatinine 1.6 H (0.4-1.0) mg/dL Estimated GFR (MDRD) 33 L (>89) Glucose 96 (70-100) mg/dL Calcium 9.0 (8.5-10.3) mg/dL Magnesium 2.2 (1.7-2.8) mg/dL Total Bilirubin 0.3 (0.2-1.0) mg/dL AST 22 (10-42) IU/L ALT 21 (10-60) IU/L Alkaline Phosphatase 75 (42-121) IU/L Total Protein 6.6 L (6.7-8.2) g/dL Albumin 2.9 L (3.2-5.5) g/dL Globulin 3.7 (2.1-4.2) g/dL Albumin/Globulin Ratio 0.8 L (1.0-2.2) ABX Reporting Has patient been on IV antibiotics over the past 48 hours?: Yes Sepsis Event Note (H) - Evaluation Current Stage of Sepsis: Ruled out Assessment/Plan - Problem List (1) Respiratory failure with hypoxia Impression: (1) Respiratory failure with hypoxia Impression: 02/13 main contribute to her hypoxia, seems COPD. pt has historic interpreter hx of smoking, pt is homeless status. pt took 4 liter of o2 to remain of 90-92 sats. clinically pt has no acute respiratory distress continue breath treatment supplement of O2 PRN (2) Trimalleolar fracture of left ankle Impression: 02/13 pt tripped over her walker, then she had pain to her left ankle and had injury pt is P/S day #[address] Manjarrez from an ORIF left ankle fracture for her Closed left trimalleolar ankle fracture continue the orders for non-weight bearing to LLE Using IV morphine plus PO oxycodone for pain control Continue daily PT discharge is pending (3) Fall Impression: Multiple falls since being homeless, Continued on fall precautions and non- weight bearing to LLE continue PT for daily sessions (4) UTI (urinary tract infection) Continue IV Zosyn, maintain indwelling smith (5) Pneumonia Impression: CXR reveals bilateral infiltrate, pt present hypoxia and need O2 support. Pt had no sputum for culture. pt's WBC is slight elevated. continue Zosyn, will switch to oral after she is stable (6) Acute kidney injury Impression: great improved. today her creatinine is 1.6 from 3.6 at the admission continue to monitor labs, I/O, treat acute illnesses, avoid hypotension, NSAIDs, and nephrotoxins (7) COPD (chronic obstructive pulmonary disease) Impression: Status post oral steroids, continue breath treatment Continue respiratory care, anticipate transfer to SNF with supplemental oxygen (8) Constipation by delayed colonic transit Impression: had improvement in her daily BMs continue: miralax, senna, now lactulose (9) Edema of both upper extremities Impression: Improved edema, 3rd spacing to BUEs on exam. Because of low BP, now lasix and Spironolactone dosage are reduced (10) Homelessness Impression: Anticipate discharge to SNF or nurse facility for this injury, which may lead to permanent placement at a later date. (11) Macrocytic anemia Impression: Poor PO intake, refusing meals.Iron studies were done on 02/06 showing low iron, low iron %. pt has normal B12/folic acid Continues on daily iron supplement (12) Urinary retention pt was prescribed flomax but pt still Failed a voiding trial (02/09), Continue indwelling smith, Anticipate discharge to SNF or nurse facility for smith care as well
[2019-02-13] MEDS: ACETAMINOPHEN 325 MG TABLET PO PRN (15:53)
[2019-02-13] MEDS ORDERED: A & D OINTMENT 5 GM PACKET TOP PRN (16:01)
[2019-02-14] MEDS: oxyCODONE 5 MG TABLET PO PRN ×5 (00:30→20:34)
[2019-02-14] MEDS: SODIUM CHLORIDE FLUSH 0.9% 10 ML SYRINGE IVP SCH ×3 (01:18→16:19)
[2019-02-14] MEDS: PIPERACILLIN/TAZOBACTAM 3.375 GM in SODIUM CHLORIDE 0.9% MINIBAG 100 ML IV SCH ×4 (05:31→22:00)
[2019-02-14 05:41] LABS: BASOPHILS % (AUTO) 0.3 %; EOSINOPHILS % (AUTO) 2.1 %; HGB - HEMOGLOBIN 8.5 g/dL (12.0-16.0); MEAN CORPUSCULAR HEMOGLOBIN 31.4 pg (27.0-31.0); MEAN CORPUSCULAR HGB CONC 30.8 g/dL (32.0-36.0); MEAN CORPUSCULAR VOLUME 101.8 fL (81.0-99.0); MEAN PLATELET VOLUME 9.7 fL (7.9-10.8); MONOCYTES % (AUTO) 6.1 %; NEUTROPHILS % (AUTO) 68.8 %; PLT - PLATELET COUNT 242 10^3/uL (130-450); RED BLOOD COUNT 2.71 10^6/uL (4.20-5.40); RED CELL DISTRIBUTION WIDTH 15.7 % (12.0-15.0); WHITE BLOOD COUNT 10.1 x10^3/uL (4.8-10.8)
[2019-02-14 05:53] LABS: CALCIUM 8.9 mg/dL (8.5-10.3); CREATININE 1.6 mg/dL (0.4-1.0)
[2019-02-14 05:55] LABS: ABNORMAL LYMPHS % (MANUAL) 0 %; BAND NEUTROPHILS % (MANUAL) 0 %
[2019-02-14] MEDS: PANTOPRAZOLE 40 MG TABLET PO SCH (06:18)
[2019-02-14 06:28] LABS: EOSINOPHILS # (MANUAL) 0.3 10^3/uL (0-0.7); LYMPHOCYTES # (MANUAL) 1.5 10^3/uL (1.5-3.5); LYMPHOCYTES % (MANUAL) 15 %; MONOCYTES # (MANUAL) 0.4 10^3/uL (0.0-1.0); MYELOCYTES % (MANUAL) 7 %
[2019-02-14 06:31] LABS: DIFFERENTIAL COMMENT MANUAL DIFFERENTIAL; PLATELET ESTIMATE, MANUAL NORMAL (130-450,000) (NORMAL); PLATELET MORPHOLOGY NORMAL APPEARANCE (NORMAL); RBC MORPHOLOGY (MULTIPLE) 1+ HYPOCHROMASIA (NORMAL)
[2019-02-14] MEDS ORDERED: ALBUTEROL NEB 2.5 MG/3 ML INH PRN (07:24)
[2019-02-14] MEDS: SODIUM CHLORIDE FLUSH 0.9% 10 ML SYRINGE IVP PRN (08:32)
[2019-02-14] MEDS: MORPHINE 2 MG/ML CARPUJECT IVP PRN (08:32)
[2019-02-14] MEDS: FERROUS GLUCONATE 324 MG TABLET PO SCH (09:11)
[2019-02-14] MEDS: MULTIVITAMIN W/MINERALS TABLET PO SCH (09:11)
[2019-02-14] MEDS: FUROSEMIDE 20 MG TABLET PO SCH (09:11)
[2019-02-14] MEDS: SPIRONOLACTONE 25 MG TABLET PO SCH (09:11)
[2019-02-14] MEDS: ASPIRIN 325 MG TABLET PO SCH ×2 (09:11→16:18)
[2019-02-14] MEDS: SACCHAROMYCES BOULARDII 250 MG CAPSULE PO SCH ×2 (09:11→16:18)
[2019-02-14] MEDS: guaiFENesin 600 MG TABLET PO SCH ×2 (09:12→20:33)
[2019-02-14] MEDS: SENNA 8.6 MG TABLET PO SCH (09:12)
[2019-02-14] MEDS: POLYETHYLENE GLYCOL 3350 17 GM PACKET PO SCH (09:12)
[2019-02-14] MEDS: DOCUSATE SODIUM 250 MG CAPSULE PO SCH (09:12)
[2019-02-14] MEDS: IPRATROPIUM/ALBUTEROL 3 ML NEB INH SCH ×4 (09:33→19:31)
--- NOTE | 2019-02-14 15:16 | PROVIDER PROGRESS NOTE ---
Subjective - Prog Note Date Prog Note Date: 02/14/19 - Subjective Pt reports feeling: No change Subjective: pt report she has no complaints. she is comfort to set at bed for breakfast. pt is pending for placement. Current Medications - Current Medications Current Medications: Active Medications Acetaminophen (Tylenol) 650 - 975 mg PO Q4HR PRN PRN Reason: PAIN Last Admin: 02/13/19 15:53 Dose: 650 mg Albuterol () 2.5 mg INH RTQ4H PRN PRN Reason: Wheezing Albuterol/Ipratropium (Duoneb) 3 ml INH RTQID [facility] Last Admin: 02/14/19 16:02 Dose: 3 ml Aspirin (Levi) 325 mg PO BIDWM [facility] Last Admin: 02/14/19 16:18 Dose: 325 mg Bisacodyl (Dulcolax Supp) 10 mg [place] DAILY PRN PRN Reason: Constipation Last Admin: 02/10/19 19:47 Dose: 10 mg Docusate Sodium (Colace 250mg Capsule) 250 - 500 mg PO DAILY [facility] Last Admin: 02/14/19 09:12 Dose: Not Given Ferrous Gluconate (Fergon) 324 mg PO DAILYWM [facility] Last Admin: 02/14/19 09:11 Dose: 324 mg Furosemide (Lasix) 20 mg PO DAILY [facility] Last Admin: 02/14/19 09:11 Dose: 20 mg Guaifenesin (Mucinex) 300 mg PO BID [facility] Last Admin: 02/14/19 09:12 Dose: 300 mg Piperacillin Sod/Tazobactam (Sod 3.375 gm/ Sodium Chloride) 100 mls @ 200 mls/hr IV Q6H [facility] Last Admin: 02/14/19 16:19 Dose: 200 mls/hr Morphine Sulfate (Morphine (Carpuject)) 2 mg IVP Q2HR PRN PRN Reason: PAIN Last Admin: 02/14/19 08:32 Dose: 2 mg Multivitamins/Minerals (Theragran M) 1 tab PO DAILYWM [facility] Last Admin: 02/14/19 09:11 Dose: 1 tab Oxycodone HCl (Roxicodone) 5 mg PO Q4HR PRN PRN Reason: PAIN Last Admin: 02/14/19 16:18 Dose: 5 mg Pantoprazole Sodium (Protonix) 40 mg PO QDAC [facility] Last Admin: 02/14/19 06:18 Dose: 40 mg Polyethylene Glycol (Miralax) 17 gm PO DAILY [facility] Last Admin: 02/14/19 09:12 Dose: Not Given Prochlorperazine Edisylate (Compazine Inj) 10 mg IVP Q6HR PRN PRN Reason: Nausea / Vomiting Last Admin: 02/08/19 09:26 Dose: 10 mg Saccharomyces Boulardii (Florastor) 250 mg PO BIDWM [facility] Last Admin: 02/14/19 16:18 Dose: 250 mg Senna (Senokot) 8.6 - 17.2 mg PO DAILY [facility] Last Admin: 02/14/19 09:12 Dose: Not Given Sodium Chloride (Normal Saline Flush 0.9%) 10 ml IVP PRN PRN PRN Reason: NEEDED PER PROVIDER ORDERS Last Admin: 02/14/19 08:32 Dose: 10 ml Sodium Chloride (Normal Saline Flush 0.9%) 10 ml IVP 0100,0900,1700 [facility] Last Admin: 02/14/19 16:19 Dose: 10 ml Sodium Chloride (Normal Saline Flush 0.9%) 10 ml IVP PRN PRN PRN Reason: NEEDED PER PROVIDER ORDERS Sodium Chloride (Fallon) 2 sprays ELINOR Q4HR PRN PRN Reason: Nasal Congestion Spironolactone (Aldactone) 12.5 mg PO DAILY [facility] Last Admin: 02/14/19 09:11 Dose: 12.5 mg Vitamin A/Vitamin D (Vitamin A & D Ointment) 1 applic TOP PRN PRN PRN Reason: Skin Care Last Admin: 02/13/19 16:25 Dose: 1 applic No Known Home Medications 02/06/19 Objective - Vital Signs/Intake & Output Reviewed Vital Signs: Yes Vital Signs: Vital Signs x48h Temp Pulse Pulse Resp BP Pulse Ox 02/14/19 11:34 60 14 02/14/19 11:19 36.4 C L 58 L 16 103/62 93 Intake & Output: Intake & Output 02/11/19 02/12/19 02/13/19 02/14/19 23:59 23:59 23:59 23:59 Intake Total 640 1925 1090 450 Output Total 3610 6150 1600 2900 Balance -4596 -4225 -510 -8810 - Objective General Appearance: positive: No acute distress, Alert. negative: Lethargic Eyes Bilateral: positive: Normal inspection, PERRL, No lid inflammation, Conjunctivae nml ENT: positive: ENT inspection nml, Pharynx nml, No signs of dehydration. negative: Purulent nasal drainage, Pharyngeal erythema, Oral lesions Neck: positive: Nml inspection, Thyroid nml, No JVD, Trachea midline. negative: Thyromegaly, Lymphadenopathy (R), Lymphadenopathy (L), Stiff neck, Swelling/bruising, Tracheal deviation Respiratory: positive: Chest non-tender, No respiratory distress, Breath sounds nml. negative: Wheezes, Rales, Rhonchi Cardiovascular: positive: Regular rate & rhythm, No murmur, No gallop. negative: Irregularly irregular, Extrasystoles, Tachycardia, Bradycardia, JVD present, Systolic murmur, Diastolic murmur Peripheral Pulses: 2+ Radial (R), 2+ Radial (L), 2+ Dorsalis pedis (R), 2+ Dorsalis pedis (L) Abdomen: positive: Non-tender, No organomegaly, Nml bowel sounds, No distention. negative: Tenderness, Guarding, Rebound Back: positive: Nml inspection. negative: CVA tenderness (R), CVA tenderness (L) Skin: positive: Color nml, No rash, Warm, Dry. negative: Cyanosis, Diaphoresis, Pallor Extremities: positive: Other (intact neurovascular examination on left distal toes). negative: Calf tenderness, Joint swelling, Rashaad's sign/cords Neurologic/Psychiatric: positive: Sensation nml, Mood/affect nml. negative: Weakness, Sensory loss, Facial droop, Slurred/abnml speech, Depressed mood/affec t - Lab Results Fish Bones: 02/14/19 05:25 02/14/19 05:25 Other Labs: Lab Results x24hrs 02/14/19 02/14/19 Range/Units 05:25 05:25 WBC 10.1 (4.8-10.8) x10^3/uL RBC 2.71 L (4.20-5.40) 10^6/uL Hgb 8.5 L (12.0-16.0) g/dL Hct 27.6 L (37.0-47.0) % MCV 101.8 H (81.0-99.0) fL MCH 31.4 H (27.0-31.0) pg MCHC 30.8 L (32.0-36.0) g/dL RDW 15.7 H (12.0-15.0) % Plt Count 242 (130-450) 10^3/uL MPV 9.7 (7.9-10.8) fL Neut # (Auto) Not Reportable Lymph # (Auto) Not Reportable Spink # (Auto) Not Reportable Eos # (Auto) Not Reportable Baso # (Auto) Not Reportable Absolute Nucleated RBC Not Reportable Total Counted 100 Band Neuts % (Manual) 0 (0 - 10) % Abnorm Lymph % (Manual) 0 % Myelocytes % 7 H ( - 0) % Nucleated RBC % Not Reportable Neutrophils # (Manual) 7.2 H (1.5-6.6) 10^3/uL Lymphocytes # (Manual) 1.5 (1.5-3.5) 10^3/uL Monocytes # (Manual) 0.4 (0.0-1.0) 10^3/uL Eosinophils # (Manual) 0.3 (0-0.7) 10^3/uL Basophils # (Manual) 0.0 (0-0.1) 10^3/uL Differential Comment MANUAL DIFFERENTIAL WBC Morphology NORMAL APPEARANCE (NORMAL) Platelet Estimate NORMAL (130-450,000) (NORMAL) Platelet Morphology NORMAL APPEARANCE (NORMAL) RBC Morph Micro Appear 1+ HYPOCHROMASIA (NORMAL) Sodium 134 L (135-145) mmol/L Potassium 3.9 (3.5-5.0) mmol/L Chloride 86 L (101-111) mmol/L Carbon Dioxide 36 H (21-32) mmol/L Anion Gap 12.0 (6-13) BUN 41 H (6-20) mg/dL Creatinine 1.6 H (0.4-1.0) mg/dL Estimated GFR (MDRD) 33 L (>89) Glucose 84 (70-100) mg/dL Calcium 8.9 (8.5-10.3) mg/dL ABX Reporting Has patient been on IV antibiotics over the past 48 hours?: Yes Sepsis Event Note (H) - Evaluation Current Stage of Sepsis: Ruled out Assessment/Plan - Problem List (1) Respiratory failure with hypoxia Impression: 02/14, stable, pt continue request 5-6 liter of O2 support, continue breath treatment 02/13 main contribute to her hypoxia, seems COPD. pt has detention hx of smoking, pt is homeless status. pt took 4 liter of o2 to remain of 90-92 sats. clinically pt has no acute respiratory distress continue breath treatment supplement of O2 PRN Pt is pending for placement (2) Trimalleolar fracture of left ankle Impression: 02/14, intact distal neurovascular examination on left toe 02/13 pt tripped over her walker, then she had pain to her left ankle and had in jury pt is P/S day #[address] Manjarrez from an ORIF left ankle fracture for her Closed left trimalleolar ankle fracture continue the orders for non-weight bearing to LLE Using IV morphine plus PO oxycodone for pain control Continue daily PT discharge is pending (3) Fall Impression: Multiple falls since being homeless, Continued on fall precautions and non- weight bearing to LLE continue PT for daily sessions (4) UTI (urinary tract infection) Continue IV Zosyn, maintain indwelling smith (5) Pneumonia Impression: 02/14 plan switch to oral antibiotics on tomorrow since pt had fiver days of IV of antibiotics CXR reveals bilateral infiltrate, pt present hypoxia and need O2 support. Pt had no sputum for culture. pt's WBC is slight elevated. continue Zosyn, will switch to oral after she is stable (6) Acute kidney injury Impression: great improved. today her creatinine is 1.6 from 3.6 at the admission continue to monitor labs, I/O, treat acute illnesses, avoid hypotension, NSAIDs, and nephrotoxins (7) COPD (chronic obstructive pulmonary disease) Impression: Status post oral steroids, continue breath treatment Continue respiratory care, anticipate transfer to SNF with supplemental oxygen (8) Constipation by delayed colonic transit Impression: had improvement in her daily BMs continue: miralax, senna, now lactulose (9) Edema of both upper extremities Impression: Improved edema, 3rd spacing to BUEs on exam. Because of low BP, now lasix and Spironolactone dosage are reduced (10) Homelessness Impression: Anticipate discharge to SNF or nurse facility for this injury, which may lead to permanent placement at a later date. (11) Macrocytic anemia Impression: Poor PO intake, refusing meals.Iron studies were done on 02/06 showing low iron, low iron %. pt has normal B12/folic acid Continues on daily iron supplement (12) Urinary retention 02/14, pt still has smith, she can not urinate by her self. pt was prescribed flomax but pt still Failed a voiding trial (02/09), Continue indwelling smith, Anticipate discharge to SNF or nurse facility for smith care as well
[2019-02-15] MEDS: oxyCODONE 5 MG TABLET PO PRN ×5 (00:16→20:50)
[2019-02-15] MEDS: SODIUM CHLORIDE FLUSH 0.9% 10 ML SYRINGE IVP SCH ×4 (01:22→23:58)
[2019-02-15] MEDS: PIPERACILLIN/TAZOBACTAM 3.375 GM in SODIUM CHLORIDE 0.9% MINIBAG 100 ML IV SCH (04:54)
[2019-02-15 05:21] LABS: BASOPHILS % (AUTO) 0.4 %; EOSINOPHILS % (AUTO) 2.3 %; HGB - HEMOGLOBIN 8.1 g/dL (12.0-16.0); LYMPHOCYTES % (AUTO) 9.2 %; MEAN CORPUSCULAR HEMOGLOBIN 30.2 pg (27.0-31.0); MEAN CORPUSCULAR HGB CONC 29.6 g/dL (32.0-36.0); MEAN CORPUSCULAR VOLUME 102.2 fL (81.0-99.0); MEAN PLATELET VOLUME 9.7 fL (7.9-10.8); MONOCYTES % (AUTO) 5.8 %; NEUTROPHILS % (AUTO) 68.1 %; PLT - PLATELET COUNT 232 10^3/uL (130-450); RED BLOOD COUNT 2.68 10^6/uL (4.20-5.40); RED CELL DISTRIBUTION WIDTH 15.8 % (12.0-15.0); WHITE BLOOD COUNT 9.8 x10^3/uL (4.8-10.8)
[2019-02-15 05:28] LABS: CALCIUM 9.1 mg/dL (8.5-10.3); CREATININE 1.5 mg/dL (0.4-1.0)
[2019-02-15 05:37] LABS: ABNORMAL LYMPHS % (MANUAL) 0 %
[2019-02-15 05:58] LABS: BAND NEUTROPHILS % (MANUAL) 5 %; DIFFERENTIAL COMMENT MANUAL DIFFERENTIAL; LYMPHOCYTES # (MANUAL) 1.7 10^3/uL (1.5-3.5); LYMPHOCYTES % (MANUAL) 17 %; METAMYELOCYTES % (MANUAL) 3 %; MONOCYTES # (MANUAL) 0.6 10^3/uL (0.0-1.0); MYELOCYTES % (MANUAL) 3 %; PLATELET ESTIMATE, MANUAL NORMAL (130-450,000) (NORMAL); RBC MORPHOLOGY (MULTIPLE) NORMAL APPEARANCE (NORMAL)
[2019-02-15] MEDS: PANTOPRAZOLE 40 MG TABLET PO SCH (06:38)
[2019-02-15] MEDS: IPRATROPIUM/ALBUTEROL 3 ML NEB INH SCH ×4 (07:17→19:28)
[2019-02-15] MEDS ORDERED: AMOX/CLAV 875 MG/125 MG TABLET PO SCH (09:00)
[2019-02-15] MEDS: ASPIRIN 325 MG TABLET PO SCH ×2 (09:04→18:05)
[2019-02-15] MEDS: FERROUS GLUCONATE 324 MG TABLET PO SCH (09:05)
[2019-02-15] MEDS: FUROSEMIDE 20 MG TABLET PO SCH (09:05)
[2019-02-15] MEDS: guaiFENesin 600 MG TABLET PO SCH ×2 (09:05→20:46)
[2019-02-15] MEDS: SACCHAROMYCES BOULARDII 250 MG CAPSULE PO SCH ×2 (09:06→18:05)
[2019-02-15] MEDS: MULTIVITAMIN W/MINERALS TABLET PO SCH (09:06)
[2019-02-15] MEDS: SPIRONOLACTONE 25 MG TABLET PO SCH (09:06)
[2019-02-15] MEDS: AMOX/CLAV 875 MG/125 MG TABLET PO SCH ×2 (09:06→20:46)
[2019-02-15] MEDS: SENNA 8.6 MG TABLET PO SCH (09:07)
[2019-02-15] MEDS: POLYETHYLENE GLYCOL 3350 17 GM PACKET PO SCH (09:07)
[2019-02-15] MEDS: DOCUSATE SODIUM 250 MG CAPSULE PO SCH (09:07)
--- NOTE | 2019-02-15 11:35 | PROVIDER PROGRESS NOTE ---
Subjective - Prog Note Date Prog Note Date: 02/15/19 - Subjective Pt reports feeling: Improved Subjective: pt is comfortable siting at the bed, has no complaint. pt is pending for placement. Current Medications - Current Medications Current Medications: Active Medications Acetaminophen (Tylenol) 650 - 975 mg PO Q4HR PRN PRN Reason: PAIN Last Admin: 02/13/19 15:53 Dose: 650 mg Albuterol () 2.5 mg INH RTQ4H PRN PRN Reason: Wheezing Albuterol/Ipratropium (Duoneb) 3 ml INH RTQID [facility] Last Admin: 02/15/19 07:17 Dose: 3 ml Amoxicillin/Clavulanate Potassium (Augmentin 875/125) 1 tab PO BID [facility] Last Admin: 02/15/19 09:06 Dose: 1 tab Aspirin (Levi) 325 mg PO BIDWM [facility] Last Admin: 02/15/19 09:04 Dose: 325 mg Bisacodyl (Dulcolax Supp) 10 mg [place] DAILY PRN PRN Reason: Constipation Last Admin: 02/10/19 19:47 Dose: 10 mg Docusate Sodium (Colace 250mg Capsule) 250 - 500 mg PO DAILY [facility] Last Admin: 02/15/19 09:07 Dose: Not Given Ferrous Gluconate (Fergon) 324 mg PO DAILYWM [facility] Last Admin: 02/15/19 09:05 Dose: 324 mg Furosemide (Lasix) 20 mg PO DAILY [facility] Last Admin: 02/15/19 09:05 Dose: 20 mg Guaifenesin (Mucinex) 300 mg PO BID [facility] Last Admin: 02/15/19 09:05 Dose: 300 mg Morphine Sulfate (Morphine (Carpuject)) 2 mg IVP Q2HR PRN PRN Reason: PAIN Last Admin: 02/14/19 08:32 Dose: 2 mg Multivitamins/Minerals (Theragran M) 1 tab PO DAILYWM [facility] Last Admin: 02/15/19 09:06 Dose: 1 tab Oxycodone HCl (Roxicodone) 5 mg PO Q4HR PRN PRN Reason: PAIN Last Admin: 02/15/19 09:04 Dose: 5 mg Pantoprazole Sodium (Protonix) 40 mg PO QDAC [facility] Last Admin: 02/15/19 06:38 Dose: 40 mg Polyethylene Glycol (Miralax) 17 gm PO DAILY [facility] Last Admin: 02/15/19 09:07 Dose: Not Given Prochlorperazine Edisylate (Compazine Inj) 10 mg IVP Q6HR PRN PRN Reason: Nausea / Vomiting Last Admin: 02/08/19 09:26 Dose: 10 mg Saccharomyces Boulardii (Florastor) 250 mg PO BIDWM [facility] Last Admin: 02/15/19 09:06 Dose: 250 mg Senna (Senokot) 8.6 - 17.2 mg PO DAILY [facility] Last Admin: 02/15/19 09:07 Dose: Not Given Sodium Chloride (Normal Saline Flush 0.9%) 10 ml IVP PRN PRN PRN Reason: NEEDED PER PROVIDER ORDERS Last Admin: 02/14/19 08:32 Dose: 10 ml Sodium Chloride (Normal Saline Flush 0.9%) 10 ml IVP 0100,0900,1700 [facility] Last Admin: 02/15/19 09:04 Dose: 10 ml Sodium Chloride (Normal Saline Flush 0.9%) 10 ml IVP PRN PRN PRN Reason: NEEDED PER PROVIDER ORDERS Last Admin: 02/15/19 05:33 Dose: 10 ml Sodium Chloride (Gonzales) 2 sprays ELINOR Q4HR PRN PRN Reason: Nasal Congestion Spironolactone (Aldactone) 12.5 mg PO DAILY [facility] Last Admin: 02/15/19 09:06 Dose: 12.5 mg Vitamin A/Vitamin D (Vitamin A & D Ointment) 1 applic TOP PRN PRN PRN Reason: Skin Care Last Admin: 02/13/19 16:25 Dose: 1 applic No Known Home Medications 02/06/19 Objective - Vital Signs/Intake & Output Reviewed Vital Signs: Yes Vital Signs: Vital Signs x48h Temp Pulse Resp BP Pulse Ox 02/15/19 08:42 36.3 C L 58 L 16 113/64 96 Intake & Output: Intake & Output 02/12/19 02/13/19 02/14/19 02/15/19 23:59 23:59 23:59 23:59 Intake Total 1925 1090 890 340 Output Total 6122 8759 4050 1575 Balance -4225 -510 -3160 -1235 - Objective General Appearance: positive: No acute distress, Alert. negative: Lethargic Eyes Bilateral: positive: Normal inspection, PERRL, No lid inflammation, Conjunctivae nml ENT: positive: ENT inspection nml, Pharynx nml, No signs of dehydration. negative: Purulent nasal drainage, Pharyngeal erythema, Oral lesions Neck: positive: Nml inspection, Thyroid nml, No JVD, Trachea midline. negative: Thyromegaly, Lymphadenopathy (R), Lymphadenopathy (L), Stiff neck, Swelling/bruising, Tracheal deviation Respiratory: positive: Chest non-tender, No respiratory distress. negative: Wheezes, Rales, Rhonchi Cardiovascular: positive: Regular rate & rhythm, No murmur, No gallop. negative: Irregularly irregular, Extrasystoles, Tachycardia Peripheral Pulses: 2+ Radial (R), 2+ Radial (L), 2+ Dorsalis pedis (R), 2+ Dorsalis pedis (L) Abdomen: positive: Non-tender, No organomegaly, No distention. negative: Tenderness, Guarding, Rebound Back: positive: Nml inspection. negative: CVA tenderness (R), CVA tenderness (L) Skin: positive: Color nml, No rash, Warm, Dry. negative: Cyanosis, Diaphoresis, Pallor Extremities: positive: Non-tender, Other (intact neurovascular status on left distal toes). negative: Calf tenderness, Joint swelling, Rashaad's sign/cords Neurologic/Psychiatric: positive: Sensation nml. negative: Weakness, Sensory loss, Facial droop, Slurred/abnml speech, Depressed mood/affect - Lab Results Fish Bones: 02/15/19 04:45 02/15/19 04:45 Other Labs: Lab Results x24hrs 02/15/19 02/15/19 Range/Units 04:45 04:45 WBC 9.8 (4.8-10.8) x10^3/uL RBC 2.68 L (4.20-5.40) 10^6/uL Hgb 8.1 L (12.0-16.0) g/dL Hct 27.4 L (37.0-47.0) % MCV 102.2 H (81.0-99.0) fL MCH 30.2 (27.0-31.0) pg MCHC 29.6 L (32.0-36.0) g/dL RDW 15.8 H (12.0-15.0) % Plt Count 232 (130-450) 10^3/uL MPV 9.7 (7.9-10.8) fL Neut # (Auto) Not Reportable Lymph # (Auto) Not Reportable Bennett # (Auto) Not Reportable Eos # (Auto) Not Reportable Baso # (Auto) Not Reportable Absolute Nucleated RBC Not Reportable Total Counted 100 Band Neuts % (Manual) 5 (0 - 10) % Abnorm Lymph % (Manual) 0 % Metamyelocytes % 3 H ( - 0) % Myelocytes % 3 H ( - 0) % Nucleated RBC % Not Reportable Neutrophils # (Manual) 7.0 H (1.5-6.6) 10^3/uL Lymphocytes # (Manual) 1.7 (1.5-3.5) 10^3/uL Monocytes # (Manual) 0.6 (0.0-1.0) 10^3/uL Eosinophils # (Manual) 0.0 (0-0.7) 10^3/uL Basophils # (Manual) 0.0 (0-0.1) 10^3/uL Differential Comment MANUAL DIFFERENTIAL Platelet Estimate NORMAL (130-450,000) (NORMAL) RBC Morph Micro Appear NORMAL APPEARANCE (NORMAL) Sodium 136 (135-145) mmol/L Potassium 4.5 (3.5-5.0) mmol/L Chloride 90 L (101-111) mmol/L Carbon Dioxide 37 H (21-32) mmol/L Anion Gap 9.0 (6-13) BUN 35 H (6-20) mg/dL Creatinine 1.5 H (0.4-1.0) mg/dL Estimated GFR (MDRD) 35 L (>89) Glucose 73 (70-100) mg/dL Calcium 9.1 (8.5-10.3) mg/dL ABX Reporting Has patient been on IV antibiotics over the past 48 hours?: Yes Sepsis Event Note (H) - Evaluation Current Stage of Sepsis: Ruled out Assessment/Plan - Problem List (1) Respiratory failure with hypoxia Impression: 02/15 stable, continue O2 supplement as needed, and breath treatment PRN 02/14, stable, pt continue request 5-6 liter of O2 support, continue breath treatment 02/13 main contribute to her hypoxia, seems COPD. 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 pt took 4 liter of o2 to remain of 90-92 sats. clinically pt has no acute respiratory distress continue breath treatment supplement of O2 PRN Pt is pending for placement (2) Trimalleolar fracture of left ankle Impression: 02/15 followup orthopedics, and pt has intact distal neurovascular examination on left toes in my examination. 02/14, intact distal neurovascular examination on left toe 02/13 pt tripped over her walker, then she had pain to her left ankle and had injury pt is P/S day #[address] Manjarrez from an ORIF left ankle fracture for her Closed left trimalleolar ankle fracture continue the orders for non-weight bearing to LLE Using IV morphine plus PO oxycodone for pain control Continue daily PT discharge is pending (3) Fall Impression: Multiple falls since being homeless, Continued on fall precautions and non- weight bearing to LLE continue PT for daily sessions (4) UTI (urinary tract infection) Continue IV Zosyn, maintain indwelling smith (5) Pneumonia Impression: 02/15 pt had 6 days IV of antibiotics for pneumonia in hospital, stable now, WBC is normal, no fever. Switch to oral antibiotics 02/14 plan switch to oral antibiotics on tomorrow since pt had fiver days of IV of antibiotics CXR reveals bilateral infiltrate, pt present hypoxia and need O2 support. Pt had no sputum for culture. pt's WBC is slight elevated. continue Zosyn, will switch to oral after she is stable (6) Acute kidney injury Impression: great improved. today her creatinine is 1.6 from 3.6 at the admission continue to monitor labs, I/O, treat acute illnesses, avoid hypotension, NSAIDs, and nephrotoxins (7) COPD (chronic obstructive pulmonary disease) Impression: Status post oral steroids, continue breath treatment Continue respiratory care, anticipate transfer to SNF with supplemental oxygen (8) Constipation by delayed colonic transit Impression: had improvement in her daily BMs continue: miralax, senna, now lactulose (9) Edema of both upper extremities Impression: Improved edema, 3rd spacing to BUEs on exam. Because of low BP, now lasix and Spironolactone dosage are reduced (10) Homelessness Impression: Anticipate discharge to SNF or nurse facility for this injury, which may lead to permanent placement at a later date. (11) Macrocytic anemia Impression: Poor PO intake, refusing meals.Iron studies were done on 02/06 showing low iron, low iron %. pt has normal B12/folic acid Continues on daily iron supplement (12) Urinary retention 02/15, stable, continue [facility] care. 02/14, pt still has smith, she can not urinate by her self. pt was prescribed flomax but pt still Failed a voiding trial (02/09), Continue indwelling smith, Anticipate discharge to SNF or nurse facility for smith care as well
[2019-02-15] MEDS: MORPHINE 2 MG/ML CARPUJECT IVP PRN (16:04)
[2019-02-16 05:09] LABS: BASOPHILS % (AUTO) 0.4 %; EOSINOPHILS % (AUTO) 2.4 %; HGB - HEMOGLOBIN 8.1 g/dL (12.0-16.0); LYMPHOCYTES % (AUTO) 8.3 %; MEAN CORPUSCULAR HEMOGLOBIN 30.5 pg (27.0-31.0); MEAN CORPUSCULAR HGB CONC 29.6 g/dL (32.0-36.0); MEAN PLATELET VOLUME 10.1 fL (7.9-10.8); MONOCYTES % (AUTO) 5.3 %; NEUTROPHILS % (AUTO) 70.4 %; PLT - PLATELET COUNT 223 10^3/uL (130-450); RED BLOOD COUNT 2.66 10^6/uL (4.20-5.40); RED CELL DISTRIBUTION WIDTH 15.7 % (12.0-15.0); WHITE BLOOD COUNT 10.2 x10^3/uL (4.8-10.8)
[2019-02-16 05:19] LABS: ABNORMAL LYMPHS % (MANUAL) 0 %
[2019-02-16 05:20] LABS: CALCIUM 9.3 mg/dL (8.5-10.3); CREATININE 1.5 mg/dL (0.4-1.0)
[2019-02-16 05:34] LABS: BAND NEUTROPHILS % (MANUAL) 10 %; DIFFERENTIAL COMMENT MANUAL DIFFERENTIAL; LYMPHOCYTES # (MANUAL) 1.2 10^3/uL (1.5-3.5); LYMPHOCYTES % (MANUAL) 12 %; METAMYELOCYTES % (MANUAL) 3 %; MONOCYTES # (MANUAL) 1.2 10^3/uL (0.0-1.0); MYELOCYTES % (MANUAL) 3 %; PLATELET ESTIMATE, MANUAL NORMAL (130-450,000) (NORMAL); RBC MORPHOLOGY (MULTIPLE) NORMAL APPEARANCE (NORMAL)
[2019-02-16] MEDS: PANTOPRAZOLE 40 MG TABLET PO SCH (06:07)
[2019-02-16] MEDS: ASPIRIN 325 MG TABLET PO SCH ×2 (08:26→16:42)
[2019-02-16] MEDS: SODIUM CHLORIDE FLUSH 0.9% 10 ML SYRINGE IVP SCH ×2 (08:26→16:43)
[2019-02-16] MEDS: guaiFENesin 600 MG TABLET PO SCH ×2 (08:26→20:37)
[2019-02-16] MEDS: SPIRONOLACTONE 25 MG TABLET PO SCH (08:26)
[2019-02-16] MEDS: SACCHAROMYCES BOULARDII 250 MG CAPSULE PO SCH ×2 (08:26→16:42)
[2019-02-16] MEDS: MULTIVITAMIN W/MINERALS TABLET PO SCH (08:26)
[2019-02-16] MEDS: FUROSEMIDE 20 MG TABLET PO SCH (08:27)
[2019-02-16] MEDS: FERROUS GLUCONATE 324 MG TABLET PO SCH (08:27)
[2019-02-16] MEDS: AMOX/CLAV 875 MG/125 MG TABLET PO SCH ×2 (08:28→20:37)
[2019-02-16] MEDS: oxyCODONE 5 MG TABLET PO PRN ×4 (08:38→20:38)
[2019-02-16] MEDS: POLYETHYLENE GLYCOL 3350 17 GM PACKET PO SCH (08:47)
[2019-02-16] MEDS: SENNA 8.6 MG TABLET PO SCH (08:47)
[2019-02-16] MEDS: DOCUSATE SODIUM 250 MG CAPSULE PO SCH (08:47)
--- NOTE | 2019-02-16 10:49 | PROVIDER PROGRESS NOTE ---
Subjective - Subjective Pt reports feeling: No change Subjective: pt is stable, is ready for D/C. she has no complaints. pt is pending on placement Current Medications - Current Medications Current Medications: Active Medications Acetaminophen (Tylenol) 650 - 975 mg PO Q4HR PRN PRN Reason: PAIN Last Admin: 02/13/19 15:53 Dose: 650 mg Albuterol () 2.5 mg INH RTQ4H PRN PRN Reason: Wheezing Albuterol/Ipratropium (Duoneb) 3 ml INH Q4HR PRN PRN Reason: Wheezing Amoxicillin/Clavulanate Potassium (Augmentin 875/125) 1 tab PO BID [facility] Last Admin: 02/16/19 08:28 Dose: 1 tab Aspirin (Levi) 325 mg PO BIDWM [facility] Last Admin: 02/16/19 08:26 Dose: 325 mg Bisacodyl (Dulcolax Supp) 10 mg ID DAILY PRN PRN Reason: Constipation Last Admin: 02/10/19 19:47 Dose: 10 mg Docusate Sodium (Colace 250mg Capsule) 250 - 500 mg PO DAILY [facility] Last Admin: 02/16/19 08:47 Dose: Not Given Ferrous Gluconate (Fergon) 324 mg PO DAILYWM [facility] Last Admin: 02/16/19 08:27 Dose: 324 mg Furosemide (Lasix) 20 mg PO DAILY [facility] Last Admin: 02/16/19 08:27 Dose: 20 mg Guaifenesin (Mucinex) 300 mg PO BID [facility] Last Admin: 02/16/19 08:26 Dose: 300 mg Morphine Sulfate (Morphine (Carpuject)) 2 mg IVP Q2HR PRN PRN Reason: PAIN Last Admin: 02/15/19 16:04 Dose: 2 mg Multivitamins/Minerals (Theragran M) 1 tab PO DAILYWM [facility] Last Admin: 02/16/19 08:26 Dose: 1 tab Oxycodone HCl (Roxicodone) 5 mg PO Q4HR PRN PRN Reason: PAIN Last Admin: 02/16/19 08:38 Dose: 5 mg Pantoprazole Sodium (Protonix) 40 mg PO QDAC [facility] Last Admin: 02/16/19 06:07 Dose: 40 mg Polyethylene Glycol (Miralax) 17 gm PO DAILY [facility] Last Admin: 02/16/19 08:47 Dose: Not Given Prochlorperazine Edisylate (Compazine Inj) 10 mg IVP Q6HR PRN PRN Reason: Nausea / Vomiting Last Admin: 02/08/19 09:26 Dose: 10 mg Saccharomyces Boulardii (Florastor) 250 mg PO BIDWM [facility] Last Admin: 02/16/19 08:26 Dose: 250 mg Senna (Senokot) 8.6 - 17.2 mg PO DAILY [facility] Last Admin: 02/16/19 08:47 Dose: Not Given Sodium Chloride (Normal Saline Flush 0.9%) 10 ml IVP PRN PRN PRN Reason: NEEDED PER PROVIDER ORDERS Last Admin: 02/14/19 08:32 Dose: 10 ml Sodium Chloride (Normal Saline Flush 0.9%) 10 ml IVP 0100,0900,1700 [facility] Last Admin: 02/16/19 08:26 Dose: 10 ml Sodium Chloride (Normal Saline Flush 0.9%) 10 ml IVP PRN PRN PRN Reason: NEEDED PER PROVIDER ORDERS Last Admin: 02/15/19 05:33 Dose: 10 ml Sodium Chloride (Sublette) 2 sprays ELINOR Q4HR PRN PRN Reason: Nasal Congestion Spironolactone (Aldactone) 12.5 mg PO DAILY [facility] Last Admin: 02/16/19 08:26 Dose: 12.5 mg Vitamin A/Vitamin D (Vitamin A & D Ointment) 1 applic TOP PRN PRN PRN Reason: Skin Care Last Admin: 02/13/19 16:25 Dose: 1 applic No Known Home Medications 02/06/19 Objective - Vital Signs/Intake & Output Vital Signs: Vital Signs x48h Temp Pulse Resp BP Pulse Ox 02/16/19 07:41 36.3 C L 57 L 18 94/53 L 95 Intake & Output: Intake & Output 02/13/19 02/14/19 02/15/19 02/16/19 23:59 23:59 23:59 23:59 Intake Total 3523 152 6662 350 Output Total 1600 4050 2225 250 Balance -179 -3160 -1056 100 - Objective General Appearance: positive: No acute distress, Alert. negative: Lethargic Eyes Bilateral: positive: Normal inspection, PERRL, No lid inflammation, Conjunctivae nml ENT: positive: ENT inspection nml, Pharynx nml, No signs of dehydration. negative: Purulent nasal drainage, Pharyngeal erythema, Oral lesions Neck: positive: Nml inspection, Thyroid nml, No JVD, Trachea midline. negative: Thyromegaly, Lymphadenopathy (R), Lymphadenopathy (L), Stiff neck, Swelling/bruising, Tracheal deviation Respiratory: positive: Chest non-tender, No respiratory distress, Breath sounds nml. negative: Wheezes, Rales, Rhonchi Cardiovascular: positive: Regular rate & rhythm, No murmur, No gallop. negative: Irregularly irregular, Extrasystoles, Tachycardia, Bradycardia, JVD present, Systolic murmur, Diastolic murmur Peripheral Pulses: 2+ Radial (R), 2+ Radial (L), 2+ Dorsalis pedis (R), 2+ Dorsalis pedis (L) Abdomen: positive: Non-tender, No organomegaly, Nml bowel sounds, No distention. negative: Tenderness, Guarding, Rebound Back: positive: Nml inspection. negative: CVA tenderness (R), CVA tenderness (L) Skin: positive: Color nml, No rash, Warm, Dry. negative: Cyanosis, Diaphoresis, Pallor Extremities: positive: Non-tender, Other (intact neurovasclar examination on left distal toes). negative: Calf tenderness, Joint swelling, Rashaad's sign/cords Neurologic/Psychiatric: positive: Sensation nml, Mood/affect nml. negative: Weakness, Sensory loss, Facial droop, Slurred/abnml speech, Depressed mood/affect - Lab Results Fish Bones: 02/16/19 04:50 02/16/19 04:50 Other Labs: Lab Results x24hrs 02/16/19 02/16/19 Range/Units 04:50 04:50 WBC 10.2 (4.8-10.8) x10^3/uL RBC 2.66 L (4.20-5.40) 10^6/uL Hgb 8.1 L (12.0-16.0) g/dL Hct 27.4 L (37.0-47.0) % MCV 103.0 H (81.0-99.0) fL MCH 30.5 (27.0-31.0) pg MCHC 29.6 L (32.0-36.0) g/dL RDW 15.7 H (12.0-15.0) % Plt Count 223 (130-450) 10^3/uL MPV 10.1 (7.9-10.8) fL Neut # (Auto) Not Reportable Lymph # (Auto) Not Reportable [place] # (Auto) Not Reportable Eos # (Auto) Not Reportable Baso # (Auto) Not Reportable Absolute Nucleated RBC Not Reportable Total Counted 100 Band Neuts % (Manual) 10 (0 - 10) % Abnorm Lymph % (Manual) 0 % Metamyelocytes % 3 H ( - 0) % Myelocytes % 3 H ( - 0) % Nucleated RBC % Not Reportable Neutrophils # (Manual) 7.1 H (1.5-6.6) 10^3/uL Lymphocytes # (Manual) 1.2 L (1.5-3.5) 10^3/uL Monocytes # (Manual) 1.2 H (0.0-1.0) 10^3/uL Eosinophils # (Manual) 0.0 (0-0.7) 10^3/uL Basophils # (Manual) 0.0 (0-0.1) 10^3/uL Differential Comment MANUAL DIFFERENTIAL Platelet Estimate NORMAL (130-450,000) (NORMAL) RBC Morph Micro Appear NORMAL APPEARANCE (NORMAL) Sodium 135 (135-145) mmol/L Potassium 4.7 (3.5-5.0) mmol/L Chloride 90 L (101-111) mmol/L Carbon Dioxide 38 H (21-32) mmol/L Anion Gap 7.0 (6-13) BUN 33 H (6-20) mg/dL Creatinine 1.5 H (0.4-1.0) mg/dL Estimated GFR (MDRD) 35 L (>89) Glucose 92 (70-100) mg/dL Calcium 9.3 (8.5-10.3) mg/dL ABX Reporting Has patient been on IV antibiotics over the past 48 hours?: Yes Sepsis Event Note (H) - Evaluation Current Stage of Sepsis: Ruled out Assessment/Plan - Problem List (1) Respiratory failure with hypoxia Impression: 02/16. pt is stable, no respiratory distress. continue O2 supplement as needed, and breath treatment PRN 02/15 stable, continue O2 supplement as needed, and breath treatment PRN 02/14, stable, pt continue request 5-6 liter of O2 support, continue breath treatment 02/13 main contribute to her hypoxia, seems COPD. 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 pt took 4 liter of o2 to remain of 90-92 sats. clinically pt has no acute respiratory distress continue breath treatment supplement of O2 PRN Pt is pending for placement (2) Trimalleolar fracture of left ankle Impression: 02/16 followup orthopedics, and pt has intact distal neurovascular on the examination on left toes. 02/15 followup orthopedics, and pt has intact distal neurovascular examination on left toes in my examination. 02/14, intact distal neurovascular examination on left toe 02/13 pt tripped over her walker, then she had pain to her left ankle and had injury pt is P/S day #[address] Manjarrez from an ORIF left ankle fracture for her Closed left trimalleolar ankle fracture continue the orders for non-weight bearing to LLE Using IV morphine plus PO oxycodone for pain control Continue daily PT discharge is pending (3) Fall Impression: Multiple falls since being homeless, Continued on fall precautions and non- weight bearing to LLE continue PT for daily sessions (4) UTI (urinary tract infection) Continue IV Zosyn, maintain indwelling smith (5) Pneumonia Impression: 02/15 pt had 6 days IV of antibiotics for pneumonia in hospital, stable now, WBC is normal, no fever. Switch to oral antibiotics 02/14 plan switch to oral antibiotics on tomorrow since pt had fiver days of IV of antibiotics CXR reveals bilateral infiltrate, pt present hypoxia and need O2 support. Pt had no sputum for culture. pt's WBC is slight elevated. continue Zosyn, will switch to oral after she is stable (6) Acute kidney injury Impression: great improved. today her creatinine is 1.6 from 3.6 at the admission continue to monitor labs, I/O, treat acute illnesses, avoid hypotension, NSAIDs, and nephrotoxins (7) COPD (chronic obstructive pulmonary disease) Impression: Status post oral steroids, continue breath treatment Continue respiratory care, anticipate transfer to SNF with supplemental oxygen (8) Constipation by delayed colonic transit Impression: had improvement in her daily BMs continue: miralax, senna, now lactulose (9) Edema of both upper extremities Impression: Improved edema, 3rd spacing to BUEs on exam. Because of low BP, now lasix and Spironolactone dosage are reduced (10) Homelessness Impression: Anticipate discharge to SNF or nurse facility for this injury, which may lead to permanent placement at a later date. (11) Macrocytic anemia Impression: Poor PO intake, refusing meals.Iron studies were done on 02/06 showing low iron, low iron %. pt has normal B12/folic acid Continues on daily iron supplement (12) Urinary retention 02/15, stable, continue Smith and Smith care. 02/14, pt still has smith, she can not urinate by her self. pt was prescribed flomax but pt still Failed a voiding trial (02/09), Continue indwelling smith, Anticipate discharge to SNF or nurse facility for smith care as well
[2019-02-16] MEDS: ACETAMINOPHEN 325 MG TABLET PO PRN (11:55)
[2019-02-17] MEDS: SODIUM CHLORIDE FLUSH 0.9% 10 ML SYRINGE IVP SCH ×3 (01:11→15:49)
[2019-02-17 05:45] LABS: BASOPHILS % (AUTO) 0.4 %; EOSINOPHILS # (AUTO) 0.3 10^3/uL (0.0-0.7); EOSINOPHILS % (AUTO) 2.5 %; HGB - HEMOGLOBIN 8.7 g/dL (12.0-16.0); LYMPHOCYTES # (AUTO) 0.9 10^3/uL (1.5-3.5); LYMPHOCYTES % (AUTO) 8.6 %; MEAN CORPUSCULAR HEMOGLOBIN 31.8 pg (27.0-31.0); MEAN CORPUSCULAR HGB CONC 30.7 g/dL (32.0-36.0); MEAN CORPUSCULAR VOLUME 103.3 fL (81.0-99.0); MEAN PLATELET VOLUME 10.5 fL (7.9-10.8); MONOCYTES # (AUTO) 0.7 10^3/uL (0.0-1.0); MONOCYTES % (AUTO) 6.6 %; NEUTROPHILS # (AUTO) 7.4 10^3/uL (1.5-6.6); NEUTROPHILS % (AUTO) 70.3 %; PLT - PLATELET COUNT 209 10^3/uL (130-450); RED BLOOD COUNT 2.74 10^6/uL (4.20-5.40); RED CELL DISTRIBUTION WIDTH 15.6 % (12.0-15.0); WHITE BLOOD COUNT 10.5 x10^3/uL (4.8-10.8)
[2019-02-17 05:51] LABS: CALCIUM 9.5 mg/dL (8.5-10.3); CREATININE 1.2 mg/dL (0.4-1.0)
[2019-02-17] MEDS: PANTOPRAZOLE 40 MG TABLET PO SCH (06:33)
[2019-02-17] MEDS: SPIRONOLACTONE 25 MG TABLET PO SCH (08:36)
[2019-02-17] MEDS: FERROUS GLUCONATE 324 MG TABLET PO SCH (08:36)
[2019-02-17] MEDS: FUROSEMIDE 20 MG TABLET PO SCH (08:36)
[2019-02-17] MEDS: MULTIVITAMIN W/MINERALS TABLET PO SCH (08:36)
[2019-02-17] MEDS: ASPIRIN 325 MG TABLET PO SCH (08:37)
[2019-02-17] MEDS: POLYETHYLENE GLYCOL 3350 17 GM PACKET PO SCH (08:37)
[2019-02-17] MEDS: SENNA 8.6 MG TABLET PO SCH (08:37)
[2019-02-17] MEDS: DOCUSATE SODIUM 250 MG CAPSULE PO SCH (08:37)
[2019-02-17] MEDS: guaiFENesin 600 MG TABLET PO SCH ×2 (08:37→20:19)
[2019-02-17] MEDS: AMOX/CLAV 875 MG/125 MG TABLET PO SCH ×2 (08:37→20:20)
[2019-02-17] MEDS: SACCHAROMYCES BOULARDII 250 MG CAPSULE PO SCH ×2 (08:37→15:49)
[2019-02-17] MEDS: oxyCODONE 5 MG TABLET PO PRN ×3 (08:41→20:19)
--- NOTE | 2019-02-17 09:37 | PROVIDER PROGRESS NOTE ---
Subjective - General Admit Date: 02/08/19 Procedure Date: 02/07/19 Post Op Days: 10 - Review of Systems Wound/Incisions: positive: Healing well Musculoskeletal: positive: Joint pain Psychiatric: positive: Confusion Objective - Patient Data Reviewed Vital Signs: Yes Vital Signs: Vital Signs x48h Temp Pulse Resp BP Pulse Ox 02/17/19 07:35 36.3 C L 61 18 98/55 L 95 Intake & Output: Intake and Output Totals x24h 02/15/19 02/16/19 02/17/19 23:59 23:59 23:59 Intake Total 1170 1450 Output Total 2225 1900 725 Balance -1055 -450 -725 - Lab Results Lab Results: 02/17/19 05:18 02/17/19 05:18 Other Lab Results: Lab Results x24hrs 02/17/19 02/17/19 Range/Units 05:18 05:18 WBC 10.5 (4.8-10.8) x10^3/uL RBC 2.74 L (4.20-5.40) 10^6/uL Hgb 8.7 L (12.0-16.0) g/dL Hct 28.3 L (37.0-47.0) % MCV 103.3 H (81.0-99.0) fL MCH 31.8 H (27.0-31.0) pg MCHC 30.7 L (32.0-36.0) g/dL RDW 15.6 H (12.0-15.0) % Plt Count 209 (130-450) 10^3/uL MPV 10.5 (7.9-10.8) fL Neut # (Auto) 7.4 H (1.5-6.6) 10^3/uL Lymph # (Auto) 0.9 L (1.5-3.5) 10^3/uL [place] # (Auto) 0.7 (0.0-1.0) 10^3/uL Eos # (Auto) 0.3 (0.0-0.7) 10^3/uL Baso # (Auto) 0.0 (0.0-0.1) 10^3/uL Absolute Nucleated RBC 0.00 x10^3/uL Nucleated RBC % 0.0 /100WBC Sodium 137 (135-145) mmol/L Potassium 4.9 (3.5-5.0) mmol/L Chloride 91 L (101-111) mmol/L Carbon Dioxide 37 H (21-32) mmol/L Anion Gap 9.0 (6-13) BUN 36 H (6-20) mg/dL Creatinine 1.2 H (0.4-1.0) mg/dL Estimated GFR (MDRD) 46 L (>89) Glucose 90 (70-100) mg/dL Calcium 9.5 (8.5-10.3) mg/dL - Current Medications Current Medications: Current Medications Generic Name Dose Route Start Last Admin Trade Name Freq PRN Reason Stop Dose Admin Acetaminophen 650 - 975 mg 02/07/19 14:28 02/16/19 11:55 Tylenol PO 650 mg Q4HR PRN Administration PAIN Amoxicillin/Clavulanate Potassium 1 tab 02/15/19 09:00 02/17/19 08:37 Augmentin 875/125 PO 1 tab BID ADAN Administration Aspirin 325 mg 02/07/19 17:00 02/17/19 08:37 Levi PO 325 mg BIDWM ADAN Administration Bisacodyl 10 mg 02/10/19 18:23 02/10/19 19:47 Dulcolax Supp [place] 10 mg DAILY PRN Administration Constipation Docusate Sodium 250 - 500 mg 02/09/19 16:16 02/17/19 08:37 Colace 250mg Capsule PO Not Given DAILY ADAN Ferrous Gluconate 324 mg 02/12/19 08:00 02/17/19 08:36 Fergon PO 324 mg DAILYWM ADAN Administration Furosemide 20 mg 02/14/19 09:00 02/17/19 08:36 Lasix PO 20 mg DAILY ADAN Administration Guaifenesin 300 mg 02/11/19 21:00 02/17/19 08:37 Mucinex PO 300 mg BID ADAN Administration Morphine Sulfate 2 mg 02/09/19 13:30 02/15/19 16:04 Morphine (Carpuject) IVP 2 mg Q2HR PRN Administration PAIN Multivitamins/Minerals 1 tab 02/06/19 12:00 02/17/19 08:36 Theragran M PO 1 tab DAILYWM ADAN Administration Oxycodone HCl 5 mg 02/07/19 15:59 02/17/19 08:41 Roxicodone PO 5 mg Q4HR PRN Administration PAIN Pantoprazole Sodium 40 mg 02/13/19 08:00 02/17/19 06:33 Protonix PO 40 mg QDAC ADAN Administration Polyethylene Glycol 17 gm 02/06/19 09:00 02/17/19 08:37 Miralax PO Not Given DAILY ADAN Prochlorperazine Edisylate 10 mg 02/07/19 14:13 02/08/19 09:26 Compazine Inj IVP 10 mg Q6HR PRN Administration Nausea / Vomiting Saccharomyces Boulardii 250 mg 02/06/19 12:00 02/17/19 08:37 Florastor PO 250 mg BIDWM ADAN Administration Senna 8.6 - 17.2 mg 02/08/19 09:00 02/17/19 08:37 Senokot PO Not Given DAILY ADAN Sodium Chloride 10 ml 02/06/19 02:53 02/14/19 08:32 Normal Saline Flush 0.9% IVP 10 ml PRN PRN Administration NEEDED PER PROVIDER ORDERS Sodium Chloride 10 ml 02/06/19 09:00 02/17/19 08:38 Normal Saline Flush 0.9% IVP 10 ml 0100,0900,1700 ADAN Administration Sodium Chloride 10 ml 02/07/19 14:13 02/15/19 05:33 Normal Saline Flush 0.9% IVP 10 ml PRN PRN Administration NEEDED PER PROVIDER ORDERS Spironolactone 12.5 mg 02/13/19 09:00 02/17/19 08:36 Aldactone PO 12.5 mg DAILY ADAN Administration Vitamin A/Vitamin D 1 applic 02/13/19 16:01 02/13/19 16:25 Vitamin A & D Ointment TOP 1 applic PRN PRN Administration Skin Care - Physical Exam Wound/Incisions: positive: Healing well Extremities: positive: Joint swelling (mild) Neurologic/Psychiatric: positive: Motor nml, Sensation nml, Slurred/abnml speech Impression/Plan - Problem List Problem List: POD #10. Pt's charlie removed from incisions that are healed. Silver dressings applied and to be left untouched for next 10 days. To be kept dry. Pt. will be fitted into [employer]. She will remain NWB on the LLE. Office f/u to be in 3 weeks with xray. Care center can receive further care orders by calling the office.
--- NOTE | 2019-02-17 12:02 | PROVIDER PROGRESS NOTE ---
Subjective - Prog Note Date Prog Note Date: 02/17/19 - Subjective Pt reports feeling: Improved Subjective: pt is comfortable siting for her breakfast. pt's staple was removed by Dr. Mchugh. Per Jeison's note, pt's incision is healed. D/c pt's Aspirin 325mg bid, instead of Lovenox. Current Medications - Current Medications Current Medications: Active Medications Acetaminophen (Tylenol) 650 - 975 mg PO Q4HR PRN PRN Reason: PAIN Last Admin: 02/16/19 11:55 Dose: 650 mg Albuterol () 2.5 mg INH RTQ4H PRN PRN Reason: Wheezing Albuterol/Ipratropium (Duoneb) 3 ml INH Q4HR PRN PRN Reason: Wheezing Amoxicillin/Clavulanate Potassium (Augmentin 875/125) 1 tab PO BID [facility] Last Admin: 02/17/19 08:37 Dose: 1 tab Bisacodyl (Dulcolax Supp) 10 mg [place] DAILY PRN PRN Reason: Constipation Last Admin: 02/10/19 19:47 Dose: 10 mg Docusate Sodium (Colace 250mg Capsule) 250 - 500 mg PO DAILY [facility] Last Admin: 02/17/19 08:37 Dose: Not Given Enoxaparin Sodium (Lovenox) 40 mg SUBQ DAILY [facility] Ferrous Gluconate (Fergon) 324 mg PO DAILYWM [facility] Last Admin: 02/17/19 08:36 Dose: 324 mg Furosemide (Lasix) 20 mg PO DAILY [facility] Last Admin: 02/17/19 08:36 Dose: 20 mg Guaifenesin (Mucinex) 300 mg PO BID [facility] Last Admin: 02/17/19 08:37 Dose: 300 mg Morphine Sulfate (Morphine (Carpuject)) 2 mg IVP Q2HR PRN PRN Reason: PAIN Last Admin: 02/15/19 16:04 Dose: 2 mg Multivitamins/Minerals (Theragran M) 1 tab PO DAILYWM [facility] Last Admin: 02/17/19 08:36 Dose: 1 tab Oxycodone HCl (Roxicodone) 5 mg PO Q4HR PRN PRN Reason: PAIN Last Admin: 02/17/19 08:41 Dose: 5 mg Pantoprazole Sodium (Protonix) 40 mg PO QDAC [facility] Last Admin: 02/17/19 06:33 Dose: 40 mg Polyethylene Glycol (Miralax) 17 gm PO DAILY [facility] Last Admin: 02/17/19 08:37 Dose: Not Given Prochlorperazine Edisylate (Compazine Inj) 10 mg IVP Q6HR PRN PRN Reason: Nausea / Vomiting Last Admin: 02/08/19 09:26 Dose: 10 mg Saccharomyces Boulardii (Florastor) 250 mg PO BIDWM [facility] Last Admin: 02/17/19 08:37 Dose: 250 mg Senna (Senokot) 8.6 - 17.2 mg PO DAILY [facility] Last Admin: 02/17/19 08:37 Dose: Not Given Sodium Chloride (Normal Saline Flush 0.9%) 10 ml IVP PRN PRN PRN Reason: NEEDED PER PROVIDER ORDERS Last Admin: 02/14/19 08:32 Dose: 10 ml Sodium Chloride (Normal Saline Flush 0.9%) 10 ml IVP 0100,0900,1700 [facility] Last Admin: 02/17/19 08:38 Dose: 10 ml Sodium Chloride (Normal Saline Flush 0.9%) 10 ml IVP PRN PRN PRN Reason: NEEDED PER PROVIDER ORDERS Last Admin: 02/15/19 05:33 Dose: 10 ml Sodium Chloride ([place]) 2 sprays ELINOR Q4HR PRN PRN Reason: Nasal Congestion Spironolactone (Aldactone) 12.5 mg PO DAILY [facility] Last Admin: 02/17/19 08:36 Dose: 12.5 mg Vitamin A/Vitamin D (Vitamin A & D Ointment) 1 applic TOP PRN PRN PRN Reason: Skin Care Last Admin: 02/13/19 16:25 Dose: 1 applic No Known Home Medications 02/06/19 Objective - Vital Signs/Intake & Output Reviewed Vital Signs: Yes Vital Signs: Vital Signs x48h Temp Pulse Resp BP Pulse Ox 02/17/19 07:35 36.3 C L 61 18 98/55 L 95 Intake & Output: Intake & Output 02/14/19 02/15/19 02/16/19 02/17/19 23:59 23:59 23:59 23:59 Intake Total 890 1170 1450 720 Output Total 4050 2225 1900 1325 Balance -3160 -1055 -450 -605 - Objective General Appearance: positive: No acute distress, Alert. negative: Lethargic Eyes Bilateral: positive: Normal inspection, PERRL, No lid inflammation, Con junctivae nml ENT: positive: ENT inspection nml, Pharynx nml, No signs of dehydration. negative: Purulent nasal drainage, Pharyngeal erythema, Oral lesions Neck: positive: Nml inspection, Thyroid nml, No JVD, Trachea midline. negative: Thyromegaly, Lymphadenopathy (R), Lymphadenopathy (L), Stiff neck, Swelling/bruising, Tracheal deviation Respiratory: positive: Chest non-tender, No respiratory distress, Breath sounds nml. negative: Wheezes, Rales, Rhonchi Cardiovascular: positive: Regular rate & rhythm, No murmur, No gallop. negative: Irregularly irregular, Extrasystoles, Tachycardia, Bradycardia, JVD present, Systolic murmur, Diastolic murmur Peripheral Pulses: 2+ Radial (R), 2+ Radial (L), 2+ Dorsalis pedis (R), 2+ Dorsalis pedis (L) Abdomen: positive: Non-tender, No organomegaly, Nml bowel sounds, No distention. negative: Tenderness, Guarding, Rebound Back: positive: Nml inspection. negative: CVA tenderness (R), CVA tenderness (L) Skin: positive: Color nml, No rash, Warm, Dry. negative: Cyanosis, Diaphoresis, Pallor Extremities: positive: Non-tender. negative: Calf tenderness, Rashaad's sign/cords Neurologic/Psychiatric: positive: Sensation nml, Mood/affect nml. negative: Weakness, Sensory loss, Facial droop, Slurred/abnml speech, Depressed mood/affect - Lab Results Fish Bones: 02/17/19 05:18 02/17/19 05:18 Other Labs: Lab Results x24hrs 02/17/19 02/17/19 Range/Units 05:18 05:18 WBC 10.5 (4.8-10.8) x10^3/uL RBC 2.74 L (4.20-5.40) 10^6/uL Hgb 8.7 L (12.0-16.0) g/dL Hct 28.3 L (37.0-47.0) % MCV 103.3 H (81.0-99.0) fL MCH 31.8 H (27.0-31.0) pg MCHC 30.7 L (32.0-36.0) g/dL RDW 15.6 H (12.0-15.0) % Plt Count 209 (130-450) 10^3/uL MPV 10.5 (7.9-10.8) fL Neut # (Auto) 7.4 H (1.5-6.6) 10^3/uL Lymph # (Auto) 0.9 L (1.5-3.5) 10^3/uL [place] # (Auto) 0.7 (0.0-1.0) 10^3/uL Eos # (Auto) 0.3 (0.0-0.7) 10^3/uL Baso # (Auto) 0.0 (0.0-0.1) 10^3/uL Absolute Nucleated RBC 0.00 x10^3/uL Nucleated RBC % 0.0 /100WBC Sodium 137 (135-145) mmol/L Potassium 4.9 (3.5-5.0) mmol/L Chloride 91 L (101-111) mmol/L Carbon Dioxide 37 H (21-32) mmol/L Anion Gap 9.0 (6-13) BUN 36 H (6-20) mg/dL Creatinine 1.2 H (0.4-1.0) mg/dL Estimated GFR (MDRD) 46 L (>89) Glucose 90 (70-100) mg/dL Calcium 9.5 (8.5-10.3) mg/dL ABX Reporting Has patient been on IV antibiotics over the past 48 hours?: Yes Sepsis Event Note (H) - Evaluation Current Stage of Sepsis: Ruled out Assessment/Plan - Problem List (1) Respiratory failure with hypoxia Impression: 02/17 stable, she still use 6 liter of O2 to remain 95% sats. continue O2 supplement as needed, and breath treatment PRN 02/16. pt is stable, no respiratory distress. continue O2 supplement as needed, and breath treatment PRN 02/15 stable, continue O2 supplement as needed, and breath treatment PRN 02/14, stable, pt continue request 5-6 liter of O2 support, continue breath treatment 02/13 main contribute to her hypoxia, seems COPD. 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 pt took 4 liter of o2 to remain of 90-92 sats. clinically pt has no acute respiratory distress continue breath treatment supplement of O2 PRN Pt is pending for placement (2) Trimalleolar fracture of left ankle Impression: 02/17 Dr. Mchugh remove the staple, the incision is healed. D/C Aspirin 325bid , add Lovenox for DVT prophylaxis. pt only took very a few times of pain meds, continue the schedule for PRN 02/16 followup orthopedics, and pt has intact distal neurovascular on the examination on left toes. 02/15 followup orthopedics, and pt has intact distal neurovascular examination on left toes in my examination. 02/14, intact distal neurovascular examination on left toe 02/13 pt tripped over her walker, then she had pain to her left ankle and had injury pt is P/S day #[address] Manjarrez from an ORIF left ankle fracture for her Closed left trimalleolar ankle fracture continue the orders for non-weight bearing to LLE Using IV morphine plus PO oxycodone for pain control Continue daily PT discharge is pending (3) Fall Impression: Multiple falls since being homeless, Continued on fall precautions and non- weight bearing to LLE continue PT for daily sessions (4) UTI (urinary tract infection) 02/17 change to PO Augmentin Continue IV Zosyn, maintain indwelling smith (5) Pneumonia Impression: 02/17 continue Augmentin until 2 weeks, continue incentive Spirometry 02/15 pt had 6 days IV of antibiotics for pneumonia in hospital, stable now, WBC is normal, no fever. Switch to oral antibiotics 02/14 plan switch to oral antibiotics on tomorrow since pt had fiver days of IV of antibiotics CXR reveals bilateral infiltrate, pt present hypoxia and need O2 support. Pt had no sputum for culture. pt's WBC is slight elevated. continue Zosyn, will switch to oral after she is stable (6) Acute kidney injury Impression: great improved. today her creatinine is 1.6 from 3.6 at the admission continue to monitor labs, I/O, treat acute illnesses, avoid hypotension, NSAIDs, and nephrotoxins (7) COPD (chronic obstructive pulmonary disease) Impression: Status post oral steroids, continue breath treatment Continue respiratory care, anticipate transfer to SNF with supplemental oxygen (8) Constipation by delayed colonic transit Impression: had improvement in her daily BMs continue: miralax, senna, now lactulose (9) Edema of both upper extremities Impression: Improved edema, 3rd spacing to BUEs on exam. Because of low BP, now lasix and Spironolactone dosage are reduced (10) Homelessness Impression: Anticipate discharge to SNF or nurse facility for this injury, which may lead to permanent placement at a later date. (11) Macrocytic anemia Impression: Poor PO intake, refusing meals.Iron studies were done on 02/06 showing low iron, low iron %. pt has normal B12/folic acid Continues on daily iron supplement (12) Urinary retention 02/15, stable, continue Smith and Smith care. 02/14, pt still has smith, she can not urinate by her self. pt was prescribed flomax but pt still Failed a voiding trial (02/09), Continue indwelling smith, Anticipate discharge to SNF or nurse facility for smith care as well
[2019-02-18] MEDS: oxyCODONE 5 MG TABLET PO PRN ×2 (00:13→09:32)
[2019-02-18] MEDS: SODIUM CHLORIDE FLUSH 0.9% 10 ML SYRINGE IVP SCH ×4 (00:14→23:47)
[2019-02-18 06:04] LABS: BASOPHILS % (AUTO) 0.4 %; EOSINOPHILS % (AUTO) 1.6 %; HGB - HEMOGLOBIN 8.7 g/dL (12.0-16.0); LYMPHOCYTES % (AUTO) 7.9 %; MEAN CORPUSCULAR HEMOGLOBIN 31.6 pg (27.0-31.0); MEAN CORPUSCULAR HGB CONC 30.5 g/dL (32.0-36.0); MEAN CORPUSCULAR VOLUME 103.6 fL (81.0-99.0); MEAN PLATELET VOLUME 10.2 fL (7.9-10.8); MONOCYTES % (AUTO) 7.6 %; NEUTROPHILS % (AUTO) 72.3 %; PLT - PLATELET COUNT 196 10^3/uL (130-450); RED BLOOD COUNT 2.75 10^6/uL (4.20-5.40); RED CELL DISTRIBUTION WIDTH 15.7 % (12.0-15.0); WHITE BLOOD COUNT 11.1 x10^3/uL (4.8-10.8)
[2019-02-18 06:09] LABS: CALCIUM 9.8 mg/dL (8.5-10.3); CREATININE 1.2 mg/dL (0.4-1.0)
[2019-02-18] MEDS: PANTOPRAZOLE 40 MG TABLET PO SCH (06:19)
[2019-02-18 06:23] LABS: ABNORMAL LYMPHS % (MANUAL) 0 %; BAND NEUTROPHILS % (MANUAL) 0 %
[2019-02-18 06:47] LABS: EOSINOPHILS # (MANUAL) 0.1 10^3/uL (0-0.7); LYMPHOCYTES # (MANUAL) 0.8 10^3/uL (1.5-3.5); LYMPHOCYTES % (MANUAL) 7 %; METAMYELOCYTES % (MANUAL) 5 %; MONOCYTES # (MANUAL) 1.1 10^3/uL (0.0-1.0); MYELOCYTES % (MANUAL) 5 %
[2019-02-18 06:49] LABS: PLATELET MORPHOLOGY NORMAL APPEARANCE (NORMAL); RBC MORPHOLOGY (MULTIPLE) 1+ HYPOCHROMASIA (NORMAL)
[2019-02-18 06:50] LABS: DIFFERENTIAL COMMENT MANUAL DIFFERENTIAL; PLATELET ESTIMATE, MANUAL NORMAL (130-450,000) (NORMAL)
[2019-02-18] MEDS: ENOXAPARIN 40 MG/0.4 ML SYRINGE SUBQ SCH (09:25)
[2019-02-18] MEDS: SACCHAROMYCES BOULARDII 250 MG CAPSULE PO SCH ×2 (09:25→16:19)
[2019-02-18] MEDS: guaiFENesin 600 MG TABLET PO SCH ×2 (09:26→20:16)
[2019-02-18] MEDS: AMOX/CLAV 875 MG/125 MG TABLET PO SCH ×2 (09:26→20:16)
[2019-02-18] MEDS: MULTIVITAMIN W/MINERALS TABLET PO SCH (09:27)
[2019-02-18] MEDS: ACETAMINOPHEN 325 MG TABLET PO PRN ×3 (09:29→20:16)
[2019-02-18] MEDS: POLYETHYLENE GLYCOL 3350 17 GM PACKET PO SCH (09:31)
[2019-02-18] MEDS: SENNA 8.6 MG TABLET PO SCH (09:34)
[2019-02-18] MEDS: FUROSEMIDE 20 MG TABLET PO SCH (09:34)
[2019-02-18] MEDS: DOCUSATE SODIUM 250 MG CAPSULE PO SCH (09:34)
[2019-02-18] MEDS: FERROUS GLUCONATE 324 MG TABLET PO SCH (09:35)
[2019-02-18] MEDS ORDERED: SODIUM CHLORIDE 0.9% 500 ML IV ONE (10:05)
[2019-02-18] MEDS ORDERED: SODIUM CHLORIDE 0.9% 1,000 ML IV ONE (10:16)
--- NOTE | 2019-02-18 11:02 | PROVIDER PROGRESS NOTE ---
Subjective - Prog Note Date Prog Note Date: 02/18/19 - Subjective Pt reports feeling: No change Subjective: After nurse reported pt's SBP is 71, pt was immediately assessed. pt is alert and oriented to person, place and time. Pt had Oxycodone around 9:30. 500 ml NS bolus was immediately ordered for pt. pt is closely monitored. Current Medications - Current Medications Current Medications: Active Medications Acetaminophen (Tylenol) 650 - 975 mg PO Q4HR PRN PRN Reason: PAIN Last Admin: 02/18/19 09:29 Dose: 650 mg Albuterol () 2.5 mg INH RTQ4H PRN PRN Reason: Wheezing Albuterol/Ipratropium (Duoneb) 3 ml INH Q4HR PRN PRN Reason: Wheezing Amoxicillin/Clavulanate Potassium (Augmentin 875/125) 1 tab PO BID [facility] Last Admin: 02/18/19 09:26 Dose: 1 tab Bisacodyl (Dulcolax Supp) 10 mg [place] DAILY PRN PRN Reason: Constipation Last Admin: 02/10/19 19:47 Dose: 10 mg Docusate Sodium (Colace 250mg Capsule) 250 - 500 mg PO DAILY [facility] Last Admin: 02/18/19 09:34 Dose: Not Given Enoxaparin Sodium (Lovenox) 40 mg SUBQ DAILY [facility] Last Admin: 02/18/19 09:25 Dose: 40 mg Ferrous Gluconate (Fergon) 324 mg PO DAILYWM [facility] Last Admin: 02/18/19 09:35 Dose: 324 mg Guaifenesin (Mucinex) 300 mg PO BID [facility] Last Admin: 02/18/19 09:26 Dose: 300 mg Multivitamins/Minerals (Theragran M) 1 tab PO DAILYWM [facility] Last Admin: 02/18/19 09:27 Dose: 1 tab Pantoprazole Sodium (Protonix) 40 mg PO QDAC [facility] Last Admin: 02/18/19 06:19 Dose: 40 mg Polyethylene Glycol (Miralax) 17 gm PO DAILY [facility] Last Admin: 02/18/19 09:31 Dose: 17 gm Prochlorperazine Edisylate (Compazine Inj) 10 mg IVP Q6HR PRN PRN Reason: Nausea / Vomiting Last Admin: 02/08/19 09:26 Dose: 10 mg Saccharomyces Boulardii (Florastor) 250 mg PO BIDWM [facility] Last Admin: 02/18/19 09:25 Dose: 250 mg Senna (Senokot) 8.6 - 17.2 mg PO DAILY [facility] Last Admin: 02/18/19 09:34 Dose: Not Given Sodium Chloride (Normal Saline Flush 0.9%) 10 ml IVP PRN PRN PRN Reason: NEEDED PER PROVIDER ORDERS Last Admin: 02/14/19 08:32 Dose: 10 ml Sodium Chloride (Normal Saline Flush 0.9%) 10 ml IVP 0100,0900,1700 [facility] Last Admin: 02/18/19 09:25 Dose: 10 ml Sodium Chloride (Normal Saline Flush 0.9%) 10 ml IVP PRN PRN PRN Reason: NEEDED PER PROVIDER ORDERS Last Admin: 02/15/19 05:33 Dose: 10 ml Sodium Chloride ([place]) 2 sprays ELINOR Q4HR PRN PRN Reason: Nasal Congestion Vitamin A/Vitamin D (Vitamin A & D Ointment) 1 applic TOP PRN PRN PRN Reason: Skin Care Last Admin: 02/13/19 16:25 Dose: 1 applic No Known Home Medications 02/06/19 Objective - Vital Signs/Intake & Output Reviewed Vital Signs: Yes Vital Signs: Vital Signs x48h Temp Pulse Resp BP Pulse Ox 02/18/19 09:36 36.3 C L 62 18 71/41 L 94 02/18/19 07:16 36.3 C L 64 14 106/55 L 98 Intake & Output: Intake & Output 02/15/19 02/16/19 02/17/19 02/18/19 23:59 23:59 23:59 23:59 Intake Total 1170 1450 1660 360 Output Total 2225 1900 2200 1025 Balance -1055 -450 -540 -665 - Objective General Appearance: positive: No acute distress, Alert. negative: Lethargic Eyes Bilateral: positive: Normal inspection, PERRL, No lid inflammation, Conjunctivae nml ENT: positive: ENT inspection nml, Pharynx nml, No signs of dehydration. negative: Purulent nasal drainage, Pharyngeal erythema, Oral lesions Neck: positive: Nml inspection, Thyroid nml, No JVD, Trachea midline. negative: Thyromegaly, Lymphadenopathy (R), Lymphadenopathy (L), Stiff neck, Swel ling/bruising, Tracheal deviation Respiratory: positive: Chest non-tender, No respiratory distress. negative: Wheezes, Rales, Rhonchi Cardiovascular: positive: Regular rate & rhythm, No murmur, No gallop. negative: Irregularly irregular, Extrasystoles, Tachycardia, Bradycardia, JVD present, Systolic murmur, Diastolic murmur Peripheral Pulses: 2+ Radial (R), 2+ Radial (L), 2+ Dorsalis pedis (R), 2+ Dorsalis pedis (L) Abdomen: positive: Non-tender, No organomegaly, Nml bowel sounds, No distention. negative: Tenderness, Guarding, Rebound Back: positive: Nml inspection. negative: CVA tenderness (R), CVA tenderness (L) Skin: positive: Color nml, No rash, Warm, Dry. negative: Cyanosis, Diaphoresis, Pallor Extremities: positive: Non-tender. negative: Calf tenderness, Rashaad's sign/cords Neurologic/Psychiatric: positive: Oriented x3, Sensation nml, Mood/affect nml. negative: Weakness, Sensory loss, Facial droop, Slurred/abnml speech, Depressed mood/affect - Lab Results Fish Bones: 02/18/19 05:55 02/18/19 05:55 Other Labs: Lab Results x24hrs 02/18/19 02/18/19 Range/Units 05:55 05:55 WBC 11.1 H (4.8-10.8) x10^3/uL RBC 2.75 L (4.20-5.40) 10^6/uL Hgb 8.7 L (12.0-16.0) g/dL Hct 28.5 L (37.0-47.0) % MCV 103.6 H (81.0-99.0) fL MCH 31.6 H (27.0-31.0) pg MCHC 30.5 L (32.0-36.0) g/dL RDW 15.7 H (12.0-15.0) % Plt Count 196 (130-450) 10^3/uL MPV 10.2 (7.9-10.8) fL Neut # (Auto) Not Reportable Lymph # (Auto) Not Reportable [place] # (Auto) Not Reportable Eos # (Auto) Not Reportable Baso # (Auto) Not Reportable Absolute Nucleated RBC Not Reportable Total Counted 100 Band Neuts % (Manual) 0 (0 - 10) % Abnorm Lymph % (Manual) 0 % Metamyelocytes % 5 H ( - 0) % Myelocytes % 5 H ( - 0) % Nucleated RBC % Not Reportable Neutrophils # (Manual) 8.0 H (1.5-6.6) 10^3/uL Lymphocytes # (Manual) 0.8 L (1.5-3.5) 10^3/uL Monocytes # (Manual) 1.1 H (0.0-1.0) 10^3/uL Eosinophils # (Manual) 0.1 (0-0.7) 10^3/uL Basophils # (Manual) 0.0 (0-0.1) 10^3/uL Differential Comment MANUAL DIFFERENTIAL WBC Morphology NORMAL APPEARANCE (NORMAL) Platelet Estimate NORMAL (130-450,000) (NORMAL) Platelet Morphology NORMAL APPEARANCE (NORMAL) RBC Morph Micro Appear 1+ HYPOCHROMASIA (NORMAL) Sodium 137 (135-145) mmol/L Potassium 5.2 H (3.5-5.0) mmol/L Chloride 92 L (101-111) mmol/L Carbon Dioxide 38 H (21-32) mmol/L Anion Gap 7.0 (6-13) BUN 32 H (6-20) mg/dL Creatinine 1.2 H (0.4-1.0) mg/dL Estimated GFR (MDRD) 46 L (>89) Glucose 85 (70-100) mg/dL Calcium 9.8 (8.5-10.3) mg/dL ABX Reporting Has patient been on IV antibiotics over the past 48 hours?: Yes Sepsis Event Note (H) - Evaluation Current Stage of Sepsis: Ruled out Assessment/Plan - Problem List (1) Respiratory failure with hypoxia Impression: 02/18 stable, use 6 liter of O2 to remain 95% sats. pt appears no respiratory distress. 02/17 stable, she still use 6 liter of O2 to remain 95% sats. continue O2 supplement as needed, and breath treatment PRN 02/16. pt is stable, no respiratory distress. continue O2 supplement as needed, and breath treatment PRN 02/15 stable, continue O2 supplement as needed, and breath treatment PRN 02/14, stable, pt continue request 5-6 liter of O2 support, continue breath treatment 02/13 main contribute to her hypoxia, seems COPD. 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 pt took 4 liter of o2 to remain of 90-92 sats. clinically pt has no acute respiratory distress continue breath treatment supplement of O2 PRN Pt is pending for placement (2) hypotension 02/18 pt present SBP 71 but pt seems asymptomatic, pt is alert and oriented. it was likely caused by narcotics pain meds hold pt's narcotics hold pt's BP meds IV of NS 500 ml Bolus vital closely monitor CXR to r/o other causes (3) Trimalleolar fracture of left ankle Impression: 02/18 stable, distal left toes with normal intact neurovascular 02/17 Dr. Mchugh remove the staple, the incision is healed. D/C Aspirin 325bid , add Lovenox for DVT prophylaxis. pt only took very a few times of pain meds, continue the schedule for PRN 02/16 followup orthopedics, and pt has intact distal neurovascular on the examination on left toes. 02/15 followup orthopedics, and pt has intact distal neurovascular examination on left toes in my examination. 02/14, intact distal neurovascular examination on left toe 02/13 pt tripped over her walker, then she had pain to her left ankle and had injury pt is P/S day #[address] Manjarrez from an ORIF left ankle fracture for her Closed left trimalleolar ankle fracture continue the orders for non-weight bearing to LLE Using IV morphine plus PO oxycodone for pain control Continue daily PT discharge is pending (4) Fall Impression: Multiple falls since being homeless, Continued on fall precautions and non- weight bearing to LLE continue PT for daily sessions (5) UTI (urinary tract infection) 02/17 change to PO Augmentin Continue IV Zosyn, maintain indwelling smith (6) Pneumonia Impression: 02/17 continue Augmentin until 2 weeks, continue incentive Spirometry 02/15 pt had 6 days IV of antibiotics for pneumonia in hospital, stable now, WBC is normal, no fever. Switch to oral antibiotics 02/14 plan switch to oral antibiotics on tomorrow since pt had fiver days of IV of antibiotics CXR reveals bilateral infiltrate, pt present hypoxia and need O2 support. Pt had no sputum for culture. pt's WBC is slight elevated. continue Zosyn, will switch to oral after she is stable (7) Acute kidney injury Impression: great improved. today her creatinine is 1.6 from 3.6 at the admission continue to monitor labs, I/O, treat acute illnesses, avoid hypotension, NSAIDs, and nephrotoxins (8) COPD (chronic obstructive pulmonary disease) Impression: Status post oral steroids, continue breath treatment Continue respiratory care, anticipate transfer to SNF with supplemental oxygen (9) Constipation by delayed colonic transit Impression: had improvement in her daily BMs continue: miralax, senna, now lactulose (10) Edema of both upper extremities Impression: Improved edema, 3rd spacing to BUEs on exam. Because of low BP, now lasix and Spironolactone dosage are reduced (11) Homelessness Impression: Anticipate discharge to SNF or nurse facility for this injury, which may lead to permanent placement at a later date. (12) Macrocytic anemia Impression: Poor PO intake, refusing meals.Iron studies were done on 02/06 showing low iron, low iron %. pt has normal B12/folic acid Continues on daily iron supplement (13) Urinary retention 02/15, stable, continue Smith and Smith care. 02/14, pt still has smith, she can not urinate by her self. pt was prescribed flomax but pt still Failed a voiding trial (02/09), Continue indwelling smith, Anticipate discharge to SNF or nurse facility for smith care as well
--- NOTE | 2019-02-18 11:06 | XRAY Report ---
Reason: SOB Procedure Date: 02/18/2019 Accession Number: [id number] / [id number] Procedure: XR - Chest 1 View X-Ray CPT Code: 05181 FULL RESULT: EXAM: CHEST RADIOGRAPHY EXAM DATE: 02/18/2019 10:29 AM. CLINICAL HISTORY: Shortness of breath. COMPARISON: Chest radiograph from 02/10/2019. TECHNIQUE: 1 view. FINDINGS: Lungs/Pleura: Lung volumes are diminished. There are mild hazy linear opacities in the lung bases, is compatible with atelectasis. No other focal airspace opacities. No pleural effusion or pneumothorax. Mediastinum: There is prominence of the cardiac silhouette, likely accentuated by technique and diminished lung volumes. Mediastinal contour and pulmonary vasculature are within normal limits. Other: None. IMPRESSION: Diminished lung volumes with probable mild bibasilar atelectasis. Otherwise no acute cardiopulmonary abnormality. RADIA
[2019-02-19 06:00] LABS: BASOPHILS % (AUTO) 0.5 %; EOSINOPHILS % (AUTO) 2.2 %; HGB - HEMOGLOBIN 8.4 g/dL (12.0-16.0); LYMPHOCYTES % (AUTO) 9.2 %; MEAN CORPUSCULAR HEMOGLOBIN 30.5 pg (27.0-31.0); MEAN CORPUSCULAR HGB CONC 29.9 g/dL (32.0-36.0); MEAN CORPUSCULAR VOLUME 102.2 fL (81.0-99.0); MEAN PLATELET VOLUME 10.3 fL (7.9-10.8); MONOCYTES % (AUTO) 8.7 %; NEUTROPHILS % (AUTO) 71.3 %; PLT - PLATELET COUNT 178 10^3/uL (130-450); RED BLOOD COUNT 2.75 10^6/uL (4.20-5.40); RED CELL DISTRIBUTION WIDTH 15.6 % (12.0-15.0); WHITE BLOOD COUNT 10.7 x10^3/uL (4.8-10.8)
[2019-02-19 06:03] LABS: ABNORMAL LYMPHS % (MANUAL) 0 %
[2019-02-19 06:11] LABS: CALCIUM 9.8 mg/dL (8.5-10.3); CREATININE 1.2 mg/dL (0.4-1.0)
[2019-02-19 06:31] LABS: BAND NEUTROPHILS % (MANUAL) 2 %; EOSINOPHILS # (MANUAL) 0.3 10^3/uL (0-0.7); LYMPHOCYTES # (MANUAL) 0.9 10^3/uL (1.5-3.5); LYMPHOCYTES % (MANUAL) 8 %; METAMYELOCYTES % (MANUAL) 1 %; MONOCYTES # (MANUAL) 0.7 10^3/uL (0.0-1.0); MYELOCYTES % (MANUAL) 4 %
[2019-02-19] MEDS: PANTOPRAZOLE 40 MG TABLET PO SCH (06:31)
[2019-02-19 06:38] LABS: DIFFERENTIAL COMMENT MANUAL DIFFERENTIAL; PLATELET ESTIMATE, MANUAL NORMAL (130-450,000) (NORMAL); PLATELET MORPHOLOGY NORMAL APPEARANCE (NORMAL); RBC MORPHOLOGY (MULTIPLE) NORMAL APPEARANCE (NORMAL)
[2019-02-19] MEDS: IPRATROPIUM/ALBUTEROL 3 ML NEB INH PRN (07:06)
--- NOTE | 2019-02-19 11:06 | PROVIDER PROGRESS NOTE ---
Subjective - Prog Note Date Prog Note Date: 02/19/19 - Subjective Pt reports feeling: No change Subjective: pt has no complaints. pt is pending on placement. Current Medications - Current Medications Current Medications: Active Medications Acetaminophen (Tylenol) 650 - 975 mg PO Q4HR PRN PRN Reason: PAIN Last Admin: 02/18/19 20:16 Dose: 975 mg Albuterol () 2.5 mg INH RTQ4H PRN PRN Reason: Wheezing Albuterol/Ipratropium (Duoneb) 3 ml INH Q4HR PRN PRN Reason: Wheezing Last Admin: 02/19/19 07:06 Dose: 3 ml Amoxicillin/Clavulanate Potassium (Augmentin 875/125) 1 tab PO BID [facility] [place] Last Admin: 02/18/19 20:16 Dose: 1 tab Bisacodyl (Dulcolax Supp) 10 mg [place] DAILY PRN PRN Reason: Constipation Last Admin: 02/10/19 19:47 Dose: 10 mg Docusate Sodium (Colace 250mg Capsule) 250 - 500 mg PO DAILY [facility] [place] Last Admin: 02/18/19 09:34 Dose: Not Given Enoxaparin Sodium (Lovenox) 40 mg SUBQ DAILY [facility] [place] Last Admin: 02/18/19 09:25 Dose: 40 mg Ferrous Gluconate (Fergon) 324 mg PO DAILYWM [facility] [place] Last Admin: 02/18/19 09:35 Dose: 324 mg Guaifenesin (Mucinex) 300 mg PO BID [facility] [place] Last Admin: 02/18/19 20:16 Dose: 300 mg Multivitamins/Minerals (Theragran M) 1 tab PO DAILYWM [facility] [place] Last Admin: 02/18/19 09:27 Dose: 1 tab Pantoprazole Sodium (Protonix) 40 mg PO QDAC [facility] [place] Last Admin: 02/19/19 06:31 Dose: 40 mg Polyethylene Glycol (Miralax) 17 gm PO DAILY [facility] [place] Last Admin: 02/18/19 09:31 Dose: 17 gm Prochlorperazine Edisylate (Compazine Inj) 10 mg IVP Q6HR PRN PRN Reason: Nausea / Vomiting Last Admin: 02/08/19 09:26 Dose: 10 mg Saccharomyces Boulardii (Florastor) 250 mg PO BIDWM [facility] [place] Last Admin: 02/18/19 16:19 Dose: Not Given Senna (Senokot) 8.6 - 17.2 mg PO DAILY [facility] [place] Last Admin: 02/18/19 09:34 Dose: Not Given Sodium Chloride (Normal Saline Flush 0.9%) 10 ml IVP PRN PRN PRN Reason: NEEDED PER PROVIDER ORDERS Last Admin: 02/14/19 08:32 Dose: 10 ml Sodium Chloride (Normal Saline Flush 0.9%) 10 ml IVP 0100,0900,1700 [facility] [place] Last Admin: 02/18/19 23:47 Dose: 10 ml Sodium Chloride (Normal Saline Flush 0.9%) 10 ml IVP PRN PRN PRN Reason: NEEDED PER PROVIDER ORDERS Last Admin: 02/15/19 05:33 Dose: 10 ml Sodium Chloride (Story) 2 sprays ELINOR Q4HR PRN PRN Reason: Nasal Congestion Vitamin A/Vitamin D (Vitamin A & D Ointment) 1 applic TOP PRN PRN PRN Reason: Skin Care Last Admin: 02/13/19 16:25 Dose: 1 applic No Known Home Medications 02/06/19 Objective - Vital Signs/Intake & Output Reviewed Vital Signs: Yes Vital Signs: Vital Signs x48h Temp Pulse Pulse Resp BP Pulse Ox 02/19/19 07:08 36.5 C 62 18 101/53 L 91 L 02/19/19 07:06 59 L 13 Intake & Output: Intake & Output 02/16/19 02/17/19 02/18/19 02/19/19 23:59 23:59 23:59 23:59 Intake Total 1450 1660 2160 370 Output Total 1900 2200 1735 1125 Balance -450 -540 425 755 - Objective General Appearance: positive: No acute distress, Alert. negative: Lethargic Eyes Bilateral: positive: Normal inspection, PERRL, No lid inflammation, Co njunctivae nml ENT: positive: ENT inspection nml, Pharynx nml, No signs of dehydration. negative: Purulent nasal drainage, Pharyngeal erythema, Oral lesions Neck: positive: Nml inspection, Thyroid nml, No JVD, Trachea midline. negative: Thyromegaly, Lymphadenopathy (R), Lymphadenopathy (L), Stiff neck, Swelling/bruising, Tracheal deviation Respiratory: positive: Chest non-tender, No respiratory distress. negative: Wheezes, Rales, Rhonchi Cardiovascular: positive: Regular rate & rhythm, No murmur, No gallop. negative: Irregularly irregular, Extrasystoles, Tachycardia, Bradycardia, JVD present, Systolic murmur, Diastolic murmur Peripheral Pulses: 2+ Radial (R), 2+ Radial (L), 2+ Dorsalis pedis (R), 2+ Dorsalis pedis (L) Abdomen: positive: Non-tender, No organomegaly, Nml bowel sounds, No distention. negative: Tenderness, Guarding, Rebound Back: positive: Nml inspection. negative: CVA tenderness (R), CVA tenderness (L) Skin: positive: Color nml, No rash, Warm. negative: Cyanosis, Diaphoresis, Pallor Extremities: positive: Non-tender. negative: Calf tenderness, Joint swelling, Rashaad's sign/cords Neurologic/Psychiatric: positive: Sensation nml. negative: Weakness, Sensory loss, Facial droop, Slurred/abnml speech, Depressed mood/affect - Lab Results Fish Bones: 02/19/19 05:22 02/19/19 05:22 Other Labs: Lab Results x24hrs 02/19/19 02/19/19 Range/Units 05:22 05:22 WBC 10.7 (4.8-10.8) x10^3/uL RBC 2.75 L (4.20-5.40) 10^6/uL Hgb 8.4 L (12.0-16.0) g/dL Hct 28.1 L (37.0-47.0) % MCV 102.2 H (81.0-99.0) fL MCH 30.5 (27.0-31.0) pg MCHC 29.9 L (32.0-36.0) g/dL RDW 15.6 H (12.0-15.0) % Plt Count 178 (130-450) 10^3/uL MPV 10.3 (7.9-10.8) fL Neut # (Auto) Not Reportable Lymph # (Auto) Not Reportable [place] # (Auto) Not Reportable Eos # (Auto) Not Reportable Baso # (Auto) Not Reportable Absolute Nucleated RBC Not Reportable Total Counted 100 Band Neuts % (Manual) 2 (0 - 10) % Abnorm Lymph % (Manual) 0 % Metamyelocytes % 1 H ( - 0) % Myelocytes % 4 H ( - 0) % Nucleated RBC % Not Reportable Neutrophils # (Manual) 8.2 H (1.5-6.6) 10^3/uL Lymphocytes # (Manual) 0.9 L (1.5-3.5) 10^3/uL Monocytes # (Manual) 0.7 (0.0-1.0) 10^3/uL Eosinophils # (Manual) 0.3 (0-0.7) 10^3/uL Basophils # (Manual) 0.0 (0-0.1) 10^3/uL Differential Comment MANUAL DIFFERENTIAL WBC Morphology NORMAL APPEARANCE (NORMAL) Platelet Estimate NORMAL (130-450,000) (NORMAL) Platelet Morphology NORMAL APPEARANCE (NORMAL) RBC Morph Micro Appear NORMAL APPEARANCE (NORMAL) Sodium 137 (135-145) mmol/L Potassium 5.0 (3.5-5.0) mmol/L Chloride 93 L (101-111) mmol/L Carbon Dioxide 36 H (21-32) mmol/L Anion Gap 8.0 (6-13) BUN 30 H (6-20) mg/dL Creatinine 1.2 H (0.4-1.0) mg/dL Estimated GFR (MDRD) 46 L (>89) Glucose 88 (70-100) mg/dL Calcium 9.8 (8.5-10.3) mg/dL ABX Reporting Has patient been on IV antibiotics over the past 48 hours?: No Sepsis Event Note (H) - Evaluation Current Stage of Sepsis: Ruled out Assessment/Plan - Problem List (1) Respiratory failure with hypoxia Impression: 02/19, stable, pt appears no respiratory distress 02/18 stable, use 6 liter of O2 to remain 95% sats. pt appears no respiratory distress. 02/17 stable, she still use 6 liter of O2 to remain 95% sats. continue O2 supplement as needed, and breath treatment PRN 02/16. pt is stable, no respiratory distress. continue O2 supplement as needed, and breath treatment PRN 02/15 stable, continue O2 supplement as needed, and breath treatment PRN 02/14, stable, pt continue request 5-6 liter of O2 support, continue breath treatment 02/13 main contribute to her hypoxia, seems COPD. pt has shelter hx of smoking, pt is homeless status. pt took 4 liter of o2 to remain of 90-92 sats. clinically pt has no acute respiratory distress continue breath treatment supplement of O2 PRN Pt is pending for placement (2) hypotension 02/19 resolved. continue hydration 02/18 pt present SBP 71 but pt seems asymptomatic, pt is alert and oriented. it was likely caused by narcotics pain meds hold pt's narcotics hold pt's BP meds IV of NS 500 ml Bolus vital closely monitor CXR to r/o other causes (3) Trimalleolar fracture of left ankle Impression: 02/19 stable, followup orthopedis, continue PT/OT, and pain control pt had intact neurovascular examination at his distal toes 02/18 stable, distal left toes with normal intact neurovascular 02/17 Dr. Mchugh remove the staple, the incision is healed. D/C Aspirin 325bid , add Lovenox for DVT prophylaxis. pt only took very a few times of pain meds, continue the schedule for PRN 02/16 followup orthopedics, and pt has intact distal neurovascular on the examination on left toes. 02/15 followup orthopedics, and pt has intact distal neurovascular examination on left toes in my examination. 02/14, intact distal neurovascular examination on left toe 02/13 pt tripped over her walker, then she had pain to her left ankle and had injury pt is P/S day #[address] Manjarrez from an ORIF left ankle fracture for her Closed left trimalleolar ankle fracture continue the orders for non-weight bearing to LLE Using IV morphine plus PO oxycodone for pain control Continue daily PT discharge is pending (4) Fall Impression: Multiple falls since being homeless, Continued on fall precautions and non- weight bearing to LLE continue PT for daily sessions (5) UTI (urinary tract infection) 02/17 change to PO Augmentin Continue IV Zosyn, maintain indwelling smith (6) Pneumonia Impression: 02/17 continue Augmentin until 2 weeks, continue incentive Spirometry 02/15 pt had 6 days IV of antibiotics for pneumonia in hospital, stable now, WBC is normal, no fever. Switch to oral antibiotics 02/14 plan switch to oral antibiotics on tomorrow since pt had fiver days of IV of antibiotics CXR reveals bilateral infiltrate, pt present hypoxia and need O2 support. Pt had no sputum for culture. pt's WBC is slight elevated. continue Zosyn, will switch to oral after she is stable (7) Acute kidney injury Impression: great improved. today her creatinine is 1.6 from 3.6 at the admission continue to monitor labs, I/O, treat acute illnesses, avoid hypotension, NSAIDs, and nephrotoxins (8) COPD (chronic obstructive pulmonary disease) Impression: Status post oral steroids, continue breath treatment Continue respiratory care, anticipate transfer to SNF with supplemental oxygen (9) Constipation by delayed colonic transit Impression: had improvement in her daily BMs continue: miralax, senna, now lactulose (10) Edema of both upper extremities Impression: Improved edema, 3rd spacing to BUEs on exam. Because of low BP, now lasix and Spironolactone dosage are reduced (11) Homelessness Impression: Anticipate discharge to SNF or nurse facility for this injury, which may lead to permanent placement at a later date. (12) Macrocytic anemia Impression: 02/19 stable, but pt has Poor PO intake, refusing meals. Iron studies were done on 02/06 showing low iron, low iron %. pt has normal B12/folic acid Continues on daily iron supplement (13) Urinary retention 02/15, stable, continue Smith and Smith care. 02/14, pt still has smith, she can not urinate by her self. pt was prescribed flomax but pt still Failed a voiding trial (02/09), Continue indwelling smith, Anticipate discharge to SNF or nurse facility for smith care as well
[2019-02-19] MEDS: guaiFENesin 600 MG TABLET PO SCH ×2 (12:49→20:35)
[2019-02-19] MEDS: FERROUS GLUCONATE 324 MG TABLET PO SCH (12:49)
[2019-02-19] MEDS: SACCHAROMYCES BOULARDII 250 MG CAPSULE PO SCH ×2 (12:50→17:53)
[2019-02-19] MEDS: AMOX/CLAV 875 MG/125 MG TABLET PO SCH ×2 (12:50→20:35)
[2019-02-19] MEDS: MULTIVITAMIN W/MINERALS TABLET PO SCH (12:50)
[2019-02-19] MEDS: ENOXAPARIN 40 MG/0.4 ML SYRINGE SUBQ SCH (12:51)
[2019-02-19] MEDS: ACETAMINOPHEN 325 MG TABLET PO PRN ×2 (12:51→17:54)
[2019-02-19] MEDS: POLYETHYLENE GLYCOL 3350 17 GM PACKET PO SCH (12:52)
[2019-02-19] MEDS: SENNA 8.6 MG TABLET PO SCH (12:52)
[2019-02-19] MEDS: SODIUM CHLORIDE FLUSH 0.9% 10 ML SYRINGE IVP SCH ×2 (12:52→17:54)
[2019-02-19] MEDS: DOCUSATE SODIUM 250 MG CAPSULE PO SCH (12:52)
[2019-02-19] MEDS: traMADol 50 MG TABLET PO PRN (18:03)
[2019-02-20] MEDS: SODIUM CHLORIDE FLUSH 0.9% 10 ML SYRINGE IVP SCH ×3 (01:12→17:05)
[2019-02-20 05:35] LABS: BASOPHILS % (AUTO) 0.5 %; EOSINOPHILS % (AUTO) 1.5 %; LYMPHOCYTES % (AUTO) 9.5 %; MEAN CORPUSCULAR HEMOGLOBIN 30.5 pg (27.0-31.0); MEAN CORPUSCULAR HGB CONC 29.7 g/dL (32.0-36.0); MEAN CORPUSCULAR VOLUME 102.7 fL (81.0-99.0); MEAN PLATELET VOLUME 11.1 fL (7.9-10.8); MONOCYTES % (AUTO) 9.1 %; NEUTROPHILS % (AUTO) 72.6 %; PLT - PLATELET COUNT 169 10^3/uL (130-450); RED BLOOD COUNT 2.62 10^6/uL (4.20-5.40); RED CELL DISTRIBUTION WIDTH 15.9 % (12.0-15.0); WHITE BLOOD COUNT 9.5 x10^3/uL (4.8-10.8)
[2019-02-20 05:40] LABS: ABNORMAL LYMPHS % (MANUAL) 0 %; BAND NEUTROPHILS % (MANUAL) 0 %
[2019-02-20 05:41] LABS: CREATININE 1.2 mg/dL (0.4-1.0)
[2019-02-20 05:56] LABS: BASOPHILS # (MANUAL) 0.1 10^3/uL (0-0.1); BASOPHILS % (MANUAL) 1 %; EOSINOPHILS # (MANUAL) 0.2 10^3/uL (0-0.7); LYMPHOCYTES # (MANUAL) 0.9 10^3/uL (1.5-3.5); LYMPHOCYTES % (MANUAL) 9 %; MONOCYTES # (MANUAL) 0.8 10^3/uL (0.0-1.0); MYELOCYTES % (MANUAL) 6 %
[2019-02-20 06:10] LABS: DIFFERENTIAL COMMENT MANUAL DIFFERENTIAL; PLATELET ESTIMATE, MANUAL NORMAL (130-450,000) (NORMAL); PLATELET MORPHOLOGY NORMAL APPEARANCE (NORMAL); RBC MORPHOLOGY (MULTIPLE) NORMAL APPEARANCE (NORMAL)
[2019-02-20] MEDS: PANTOPRAZOLE 40 MG TABLET PO SCH (06:10)
[2019-02-20] MEDS: IPRATROPIUM/ALBUTEROL 3 ML NEB INH PRN ×2 (07:30→14:19)
[2019-02-20] MEDS: POLYETHYLENE GLYCOL 3350 17 GM PACKET PO SCH (08:06)
[2019-02-20] MEDS: SACCHAROMYCES BOULARDII 250 MG CAPSULE PO SCH ×2 (08:08→17:05)
[2019-02-20] MEDS: FERROUS GLUCONATE 324 MG TABLET PO SCH (08:08)
[2019-02-20] MEDS: guaiFENesin 600 MG TABLET PO SCH ×2 (08:08→20:24)
[2019-02-20] MEDS: AMOX/CLAV 875 MG/125 MG TABLET PO SCH ×2 (08:10→20:24)
[2019-02-20] MEDS: MULTIVITAMIN W/MINERALS TABLET PO SCH (08:10)
[2019-02-20] MEDS: SENNA 8.6 MG TABLET PO SCH (08:11)
[2019-02-20] MEDS: ENOXAPARIN 40 MG/0.4 ML SYRINGE SUBQ SCH (08:11)
[2019-02-20] MEDS: DOCUSATE SODIUM 250 MG CAPSULE PO SCH (08:11)
[2019-02-20] MEDS: traMADol 50 MG TABLET PO PRN ×3 (08:11→20:24)
--- NOTE | 2019-02-20 11:00 | PROVIDER PROGRESS NOTE ---
Subjective - Prog Note Date Prog Note Date: 02/20/19 - Subjective Pt reports feeling: Improved Subjective: pt is stable and comfortable in the bed. Dr. Mchugh report he may discuss with Dr. Manjarrez who did the surgery for pt, to see if pt bear weight on her left leg Current Medications - Current Medications Current Medications: Active Medications Acetaminophen (Tylenol) 650 - 975 mg PO Q4HR PRN PRN Reason: PAIN Last Admin: 02/19/19 17:54 Dose: 650 mg Albuterol () 2.5 mg INH RTQ4H PRN PRN Reason: Wheezing Albuterol/Ipratropium (Duoneb) 3 ml INH Q4HR PRN PRN Reason: Wheezing Last Admin: 02/20/19 07:30 Dose: 3 ml Amoxicillin/Clavulanate Potassium (Augmentin 875/125) 1 tab PO BID [facility] Last Admin: 02/20/19 08:10 Dose: 1 tab Bisacodyl (Dulcolax Supp) 10 mg [place] DAILY PRN PRN Reason: Constipation Last Admin: 02/10/19 19:47 Dose: 10 mg Docusate Sodium (Colace 250mg Capsule) 250 - 500 mg PO DAILY [facility] Last Admin: 02/20/19 08:11 Dose: Not Given Enoxaparin Sodium (Lovenox) 40 mg SUBQ DAILY [facility] Last Admin: 02/20/19 08:11 Dose: 40 mg Ferrous Gluconate (Fergon) 324 mg PO DAILYWM [facility] Last Admin: 02/20/19 08:08 Dose: 324 mg Guaifenesin (Mucinex) 300 mg PO BID [facility] Last Admin: 02/20/19 08:08 Dose: 300 mg Multivitamins/Minerals (Theragran M) 1 tab PO DAILYWM [facility] Last Admin: 02/20/19 08:10 Dose: 1 tab Pantoprazole Sodium (Protonix) 40 mg PO QDAC [facility] Last Admin: 02/20/19 06:10 Dose: 40 mg Polyethylene Glycol (Miralax) 17 gm PO DAILY [facility] Last Admin: 02/20/19 08:06 Dose: 17 gm Saccharomyces Boulardii (Florastor) 250 mg PO BIDWM [facility] Last Admin: 02/20/19 08:08 Dose: 250 mg Senna (Senokot) 8.6 - 17.2 mg PO DAILY [facility] Last Admin: 02/20/19 08:11 Dose: Not Given Sodium Chloride (Normal Saline Flush 0.9%) 10 ml IVP PRN PRN PRN Reason: NEEDED PER PROVIDER ORDERS Last Admin: 02/14/19 08:32 Dose: 10 ml Sodium Chloride (Normal Saline Flush 0.9%) 10 ml IVP 0100,0900,1700 [facility] Last Admin: 02/20/19 08:11 Dose: 10 ml Sodium Chloride (Normal Saline Flush 0.9%) 10 ml IVP PRN PRN PRN Reason: NEEDED PER PROVIDER ORDERS Last Admin: 02/15/19 05:33 Dose: 10 ml Sodium Chloride ([place]) 2 sprays ELINOR Q4HR PRN PRN Reason: Nasal Congestion Tramadol HCl (Ultram) 50 mg PO Q4HR PRN PRN Reason: PAIN Last Admin: 02/20/19 08:11 Dose: 50 mg Vitamin A/Vitamin D (Vitamin A & D Ointment) 1 applic TOP PRN PRN PRN Reason: Skin Care Last Admin: 02/13/19 16:25 Dose: 1 applic No Known Home Medications 02/06/19 Objective - Vital Signs/Intake & Output Reviewed Vital Signs: Yes Vital Signs: Vital Signs x48h Temp Pulse Pulse Resp BP Pulse Ox 02/20/19 10:55 91 L 02/20/19 09:05 64 108/62 02/20/19 08:00 36.5 C 63 16 90/50 L 91 L 02/20/19 07:34 61 14 Intake & Output: Intake & Output 02/17/19 02/18/19 02/19/19 02/20/19 23:59 23:59 23:59 23:59 Intake Total 1660 2160 1050 1300 Output Total 2200 1735 1975 875 Balance -540 425 -925 425 - Objective General Appearance: positive: No acute distress, Alert. negative: Lethargic Eyes Bilateral: positive: Normal inspection, PERRL, No lid inflammation, Conjunctivae nml ENT: positive: ENT inspection nml, Pharynx nml, No signs of dehydration. negative: Purulent nasal drainage, Pharyngeal erythema, Oral lesions Neck: positive: Nml inspection, Thyroid nml, No JVD, Trachea midline. negative: Thyromegaly, Lymphadenopathy (R), Lymphadenopathy (L), Stiff neck, Swelling/bruising, Tracheal deviation Respiratory: positive: Chest non-tender, No respiratory distress. negative: Wheezes, Rales, Rhonchi Cardiovascular: positive: Regular rate & rhythm, No murmur, No gallop. negative: Irregularly irregular, Extrasystoles, Tachycardia, Bradycardia, JVD present, Systolic murmur, Diastolic murmur Peripheral Pulses: 2+ Radial (R), 2+ Radial (L), 2+ Dorsalis pedis (R), 2+ Dorsalis pedis (L) Abdomen: positive: Non-tender, No organomegaly, Nml bowel sounds, No distention. negative: Tenderness, Guarding, Rebound Back: positive: Nml inspection. negative: CVA tenderness (R), CVA tenderness (L) Skin: positive: Color nml, No rash, Warm, Dry. negative: Cyanosis, Diaphoresis, Pallor Extremities: positive: Non-tender, Other. negative: Calf tenderness, Joint swelling, Rashaad's sign/cords Neurologic/Psychiatric: positive: Sensation nml, Mood/affect nml. negative: Weakness, Sensory loss, Facial droop, Slurred/abnml speech, Depressed mood/affect - Lab Results Fish Bones: 02/20/19 04:47 02/20/19 04:47 Other Labs: Lab Results x24hrs 02/20/19 02/20/19 Range/Units 04:47 04:47 WBC 9.5 (4.8-10.8) x10^3/uL RBC 2.62 L (4.20-5.40) 10^6/uL Hgb 8.0 L (12.0-16.0) g/dL Hct 26.9 L (37.0-47.0) % MCV 102.7 H (81.0-99.0) fL MCH 30.5 (27.0-31.0) pg MCHC 29.7 L (32.0-36.0) g/dL RDW 15.9 H (12.0-15.0) % Plt Count 169 (130-450) 10^3/uL MPV 11.1 H (7.9-10.8) fL Neut # (Auto) Not Reportable Lymph # (Auto) Not Reportable [place] # (Auto) Not Reportable Eos # (Auto) Not Reportable Baso # (Auto) Not Reportable Absolute Nucleated RBC Not Reportable Total Counted 100 Band Neuts % (Manual) 0 (0 - 10) % Abnorm Lymph % (Manual) 0 % Myelocytes % 6 H ( - 0) % Nucleated RBC % Not Reportable Neutrophils # (Manual) 7.0 H (1.5-6.6) 10^3/uL Lymphocytes # (Manual) 0.9 L (1.5-3.5) 10^3/uL Monocytes # (Manual) 0.8 (0.0-1.0) 10^3/uL Eosinophils # (Manual) 0.2 (0-0.7) 10^3/uL Basophils # (Manual) 0.1 (0-0.1) 10^3/uL Differential Comment MANUAL DIFFERENTIAL WBC Morphology NORMAL APPEARANCE (NORMAL) Platelet Estimate NORMAL (130-450,000) (NORMAL) Platelet Morphology NORMAL APPEARANCE (NORMAL) RBC Morph Micro Appear NORMAL APPEARANCE (NORMAL) Sodium 139 (135-145) mmol/L Potassium 5.0 (3.5-5.0) mmol/L Chloride 95 L (101-111) mmol/L Carbon Dioxide 36 H (21-32) mmol/L Anion Gap 8.0 (6-13) BUN 32 H (6-20) mg/dL Creatinine 1.2 H (0.4-1.0) mg/dL Estimated GFR (MDRD) 46 L (>89) Glucose 85 (70-100) mg/dL Calcium 10.0 (8.5-10.3) mg/dL ABX Reporting Has patient been on IV antibiotics over the past 48 hours?: Yes Sepsis Event Note (H) - Evaluation Current Stage of Sepsis: Ruled out Assessment/Plan - Problem List (1) Respiratory failure with hypoxia Impression: 02/20, stable, RT and nurse tried to wane off pt's O2 gradually if pt tolerate. Now pt need 2.5 liter of O2 to remain 91% sats 02/19, stable, pt appears no respiratory distress 02/18 stable, use 6 liter of O2 to remain 95% sats. pt appears no respiratory distress. 02/17 stable, she still use 6 liter of O2 to remain 95% sats. continue O2 supplement as needed, and breath treatment PRN 02/16. pt is stable, no respiratory distress. continue O2 supplement as needed, and breath treatment PRN 02/15 stable, continue O2 supplement as needed, and breath treatment PRN 02/14, stable, pt continue request 5-6 liter of O2 support, continue breath treatment 02/13 main contribute to her hypoxia, seems COPD. pt has [facility] hx of smoking, pt is homeless status. pt took 4 liter of o2 to remain of 90-92 sats. clinically pt has no acute respiratory distress continue breath treatment supplement of O2 PRN Pt is pending for placement (2) hypotension 02/19 resolved. continue hydration 02/18 pt present SBP 71 but pt seems asymptomatic, pt is alert and oriented. it was likely caused by narcotics pain meds hold pt's narcotics hold pt's BP meds IV of NS 500 ml Bolus vital closely monitor CXR to r/o other causes (3) Trimalleolar fracture of left ankle Impression: 02/20 followup orthopedics, to see if pt can bear weight on surgery leg 02/19 stable, followup orthopedis, continue PT/OT, and pain control pt had intact neurovascular examination at his distal toes 02/18 stable, distal left toes with normal intact neurovascular 02/17 Dr. Mchugh remove the staple, the incision is healed. D/C Aspirin 325bid , add Lovenox for DVT prophylaxis. pt only took very a few times of pain meds, continue the schedule for PRN 02/16 followup orthopedics, and pt has intact distal neurovascular on the examination on left toes. 02/15 followup orthopedics, and pt has intact distal neurovascular examination on left toes in my examination. 02/14, intact distal neurovascular examination on left toe 02/13 pt tripped over her walker, then she had pain to her left ankle and had injury pt is P/S day #[address] Manjarrez from an ORIF left ankle fracture for her Closed left trimalleolar ankle fracture continue the orders for non-weight bearing to LLE Using IV morphine plus PO oxycodone for pain control Continue daily PT discharge is pending (4) Fall Impression: Multiple falls since being homeless, Continued on fall precautions and non- weight bearing to LLE continue PT for daily sessions (5) UTI (urinary tract infection) 02/17 change to PO Augmentin Continue IV Zosyn, maintain indwelling smith (6) Pneumonia Impression: 02/17 continue Augmentin until 2 weeks, continue incentive Spirometry 02/15 pt had 6 days IV of antibiotics for pneumonia in hospital, stable now, WBC is normal, no fever. Switch to oral antibiotics 02/14 plan switch to oral antibiotics on tomorrow since pt had fiver days of IV of antibiotics CXR reveals bilateral infiltrate, pt present hypoxia and need O2 support. Pt had no sputum for culture. pt's WBC is slight elevated. continue Zosyn, will switch to oral after she is stable (7) Acute kidney injury Impression: great improved. today her creatinine is 1.6 from 3.6 at the admission continue to monitor labs, I/O, treat acute illnesses, avoid hypotension, NSAIDs, and nephrotoxins (8) COPD (chronic obstructive pulmonary disease) Impression: Status post oral steroids, continue breath treatment Continue respiratory care, anticipate transfer to SNF with supplemental oxygen (9) Constipation by delayed colonic transit Impression: had improvement in her daily BMs continue: miralax, senna, now lactulose (10) Edema of both upper extremities Impression: Improved edema, 3rd spacing to BUEs on exam. Because of low BP, now lasix and Spironolactone dosage are reduced (11) Homelessness Impression: Anticipate discharge to SNF or nurse facility for this injury, which may lead to permanent placement at a later date. (12) Macrocytic anemia Impression: 02/19 stable, but pt has Poor PO intake, refusing meals. Iron studies were done on 02/06 showing low iron, low iron %. pt has normal B12/folic acid Continues on daily iron supplement (13) Urinary retention 02/15, stable, continue Smith and Smith care. 02/14, pt still has smith, she can not urinate by her self. pt was prescribed flomax but pt still Failed a voiding trial (02/09), Continue indwelling smith, Anticipate discharge to SNF or nurse facility for smith care as well
[2019-02-21] MEDS: SODIUM CHLORIDE FLUSH 0.9% 10 ML SYRINGE IVP SCH ×4 (00:53→23:41)
[2019-02-21] MEDS: traMADol 50 MG TABLET PO PRN ×2 (01:00→08:46)
[2019-02-21 05:32] LABS: BASOPHILS % (AUTO) 0.5 %; EOSINOPHILS # (AUTO) 0.1 10^3/uL (0.0-0.7); EOSINOPHILS % (AUTO) 1.4 %; LYMPHOCYTES # (AUTO) 0.8 10^3/uL (1.5-3.5); LYMPHOCYTES % (AUTO) 9.7 %; MEAN CORPUSCULAR HEMOGLOBIN 30.8 pg (27.0-31.0); MEAN CORPUSCULAR HGB CONC 29.7 g/dL (32.0-36.0); MEAN CORPUSCULAR VOLUME 103.5 fL (81.0-99.0); MONOCYTES % (AUTO) 11.2 %; NEUTROPHILS # (AUTO) 6.3 10^3/uL (1.5-6.6); NEUTROPHILS % (AUTO) 72.3 %; PLT - PLATELET COUNT 166 10^3/uL (130-450); RED CELL DISTRIBUTION WIDTH 15.9 % (12.0-15.0); WHITE BLOOD COUNT 8.7 x10^3/uL (4.8-10.8)
[2019-02-21 05:33] LABS: CREATININE 1.1 mg/dL (0.4-1.0)
[2019-02-21] MEDS: PANTOPRAZOLE 40 MG TABLET PO SCH (06:19)
[2019-02-21] MEDS: IPRATROPIUM/ALBUTEROL 3 ML NEB INH PRN (07:12)
[2019-02-21] MEDS: SENNA 8.6 MG TABLET PO SCH (08:46)
[2019-02-21] MEDS: POLYETHYLENE GLYCOL 3350 17 GM PACKET PO SCH (08:46)
[2019-02-21] MEDS: MULTIVITAMIN W/MINERALS TABLET PO SCH (08:46)
[2019-02-21] MEDS: guaiFENesin 600 MG TABLET PO SCH ×2 (08:47→20:51)
[2019-02-21] MEDS: DOCUSATE SODIUM 250 MG CAPSULE PO SCH (08:47)
[2019-02-21] MEDS: FERROUS GLUCONATE 324 MG TABLET PO SCH (08:47)
[2019-02-21] MEDS: ENOXAPARIN 40 MG/0.4 ML SYRINGE SUBQ SCH (08:48)
[2019-02-21] MEDS: SACCHAROMYCES BOULARDII 250 MG CAPSULE PO SCH ×2 (08:49→16:27)
[2019-02-21] MEDS: AMOX/CLAV 875 MG/125 MG TABLET PO SCH (08:53)
--- NOTE | 2019-02-21 11:03 | PROVIDER PROGRESS NOTE ---
Subjective - Prog Note Date Prog Note Date: 02/21/19 - Subjective Pt reports feeling: Improved Subjective: pt is comfortably sitting in the chair to wash her teeth. she has no complaints today. pt is pending for placement. Current Medications - Current Medications Current Medications: Active Medications Acetaminophen (Tylenol) 650 - 975 mg PO Q4HR PRN PRN Reason: PAIN Last Admin: 02/19/19 17:54 Dose: 650 mg Albuterol () 2.5 mg INH RTQ4H PRN PRN Reason: Wheezing Albuterol/Ipratropium (Duoneb) 3 ml INH Q4HR PRN PRN Reason: Wheezing Last Admin: 02/21/19 07:12 Dose: 3 ml Bisacodyl (Dulcolax Supp) 10 mg [place] DAILY PRN PRN Reason: Constipation Last Admin: 02/10/19 19:47 Dose: 10 mg Docusate Sodium (Colace 250mg Capsule) 250 - 500 mg PO DAILY [facility] Last Admin: 02/21/19 08:47 Dose: 250 mg Enoxaparin Sodium (Lovenox) 40 mg SUBQ DAILY [facility] Last Admin: 02/21/19 08:48 Dose: 40 mg Ferrous Gluconate (Fergon) 324 mg PO DAILYWM [facility] Last Admin: 02/21/19 08:47 Dose: 324 mg Guaifenesin (Mucinex) 300 mg PO BID [facility] Last Admin: 02/21/19 08:47 Dose: 300 mg Multivitamins/Minerals (Theragran M) 1 tab PO DAILYWM [facility] Last Admin: 02/21/19 08:46 Dose: 1 tab Pantoprazole Sodium (Protonix) 40 mg PO QDAC [facility] Last Admin: 02/21/19 06:19 Dose: 40 mg Polyethylene Glycol (Miralax) 17 gm PO DAILY [facility] Last Admin: 02/21/19 08:46 Dose: 17 gm Saccharomyces Boulardii (Florastor) 250 mg PO BIDWM [facility] Last Admin: 02/21/19 08:49 Dose: 250 mg Senna (Senokot) 8.6 - 17.2 mg PO DAILY [facility] Last Admin: 02/21/19 08:46 Dose: 8.6 mg Sodium Chloride (Normal Saline Flush 0.9%) 10 ml IVP PRN PRN PRN Reason: NEEDED PER PROVIDER ORDERS Last Admin: 02/14/19 08:32 Dose: 10 ml Sodium Chloride (Normal Saline Flush 0.9%) 10 ml IVP 0100,0900,1700 [facility] Last Admin: 02/21/19 08:54 Dose: 10 ml Sodium Chloride (Normal Saline Flush 0.9%) 10 ml IVP PRN PRN PRN Reason: NEEDED PER PROVIDER ORDERS Last Admin: 02/15/19 05:33 Dose: 10 ml Sodium Chloride ([place]) 2 sprays ELINOR Q4HR PRN PRN Reason: Nasal Congestion Tramadol HCl (Ultram) 50 mg PO Q4HR PRN PRN Reason: PAIN Last Admin: 02/21/19 08:46 Dose: 50 mg Vitamin A/Vitamin D (Vitamin A & D Ointment) 1 applic TOP PRN PRN PRN Reason: Skin Care Last Admin: 02/13/19 16:25 Dose: 1 applic No Known Home Medications 02/06/19 Objective - Vital Signs/Intake & Output Reviewed Vital Signs: Yes Vital Signs: Vital Signs x48h Temp Pulse Pulse Resp BP BP Pulse Ox 02/21/19 07:20 36.7 C 84 18 94/51 L 79/56 L 90 L 02/21/19 07:16 58 L 16 Intake & Output: Intake & Output 02/18/19 02/19/19 02/20/19 02/21/19 23:59 23:59 23:59 23:59 Intake Total 2160 1050 2240 730 Output Total 1735 1975 1525 550 Balance 425 -925 715 180 - Objective General Appearance: positive: No acute distress, Alert. negative: Lethargic Eyes Bilateral: positive: Normal inspection, PERRL, No lid inflammation, Conjunctivae nml ENT: positive: ENT inspection nml, Pharynx nml, No signs of dehydration. negative: Purulent nasal drainage, Pharyngeal erythema, Oral lesions Neck: positive: Nml inspection, Thyroid nml, No JVD, Trachea midline. negative: Thyromegaly, Lymphadenopathy (R), Lymphadenopathy (L), Stiff neck, Swelling/bruising, Tracheal deviation Respiratory: positive: Chest non-tender, No respiratory distress. negative: Wheezes, Rales, Rhonchi Cardiovascular: positive: Regular rate & rhythm, No murmur, No gallop. negative: Irregularly irregular, Extrasystoles, Tachycardia, Bradycardia, JVD present, Systolic murmur, Diastolic murmur Peripheral Pulses: 2+ Radial (R), 2+ Radial (L), 2+ Dorsalis pedis (R), 2+ Dorsalis pedis (L) Abdomen: positive: Non-tender, No organomegaly, Nml bowel sounds, No distention. negative: Tenderness, Guarding, Rebound Back: positive: Nml inspection. negative: CVA tenderness (R), CVA tenderness (L) Skin: positive: Color nml, No rash, Warm, Dry. negative: Cyanosis, Diaphoresis, Pallor Extremities: positive: Non-tender. negative: Calf tenderness, Joint swelling, Rashaad's sign/cords Neurologic/Psychiatric: positive: Mood/affect nml. negative: Weakness, Sensory loss, Facial droop, Slurred/abnml speech, Depressed mood/affect - Lab Results Fish Bones: 02/21/19 04:55 02/21/19 04:55 Other Labs: Lab Results x24hrs 02/21/19 02/21/19 Range/Units 04:55 04:55 WBC 8.7 (4.8-10.8) x10^3/uL RBC 2.60 L (4.20-5.40) 10^6/uL Hgb 8.0 L (12.0-16.0) g/dL Hct 26.9 L (37.0-47.0) % MCV 103.5 H (81.0-99.0) fL MCH 30.8 (27.0-31.0) pg MCHC 29.7 L (32.0-36.0) g/dL RDW 15.9 H (12.0-15.0) % Plt Count 166 (130-450) 10^3/uL MPV 11.0 H (7.9-10.8) fL Neut # (Auto) 6.3 (1.5-6.6) 10^3/uL Lymph # (Auto) 0.8 L (1.5-3.5) 10^3/uL [place] # (Auto) 1.0 (0.0-1.0) 10^3/uL Eos # (Auto) 0.1 (0.0-0.7) 10^3/uL Baso # (Auto) 0.0 (0.0-0.1) 10^3/uL Absolute Nucleated RBC 0.00 x10^3/uL Nucleated RBC % 0.0 /100WBC Sodium 137 (135-145) mmol/L Potassium 5.0 (3.5-5.0) mmol/L Chloride 92 L (101-111) mmol/L Carbon Dioxide 38 H (21-32) mmol/L Anion Gap 7.0 (6-13) BUN 32 H (6-20) mg/dL Creatinine 1.1 H (0.4-1.0) mg/dL Estimated GFR (MDRD) 50 L (>89) Glucose 87 (70-100) mg/dL Calcium 10.0 (8.5-10.3) mg/dL ABX Reporting Has patient been on IV antibiotics over the past 48 hours?: No Sepsis Event Note (H) - Evaluation Current Stage of Sepsis: Ruled out Assessment/Plan - Problem List (1) Respiratory failure with hypoxia Impression: 02/21 respiratory status is stable, pt is still need 3 liter of O2 to remain pt's sats. pt has no respiratory distress. 02/20, stable, RT and nurse tried to wane off pt's O2 gradually if pt tolerate. Now pt need 2.5 liter of O2 to remain 91% sats 02/19, stable, pt appears no respiratory distress 02/18 stable, use 6 liter of O2 to remain 95% sats. pt appears no respiratory distress. 02/17 stable, she still use 6 liter of O2 to remain 95% sats. continue O2 supplement as needed, and breath treatment PRN 02/16. pt is stable, no respiratory distress. continue O2 supplement as needed, and breath treatment PRN 02/15 stable, continue O2 supplement as needed, and breath treatment PRN 02/14, stable, pt continue request 5-6 liter of O2 support, continue breath treatment 02/13 main contribute to her hypoxia, seems COPD. 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 pt took 4 liter of o2 to remain of 90-92 sats. clinically pt has no acute respiratory distress continue breath treatment supplement of O2 PRN Pt is pending for placement (2) hypotension 02/21 nurse report pt has hypotension at SBP 79 again. but pt was asymptomatic. recheck pt's SBP was 94. pt has been on low BP in this admission. 02/19 resolved. continue hydration 02/18 pt present SBP 71 but pt seems asymptomatic, pt is alert and oriented. it was likely caused by narcotics pain meds hold pt's narcotics hold pt's BP meds IV of NS 500 ml Bolus vital closely monitor CXR to r/o other causes (3) Trimalleolar fracture of left ankle Impression: 02/20 followup orthopedics, to see if pt can bear weight on surgery leg 02/19 stable, followup orthopedis, continue PT/OT, and pain control pt had intact neurovascular examination at his distal toes 02/18 stable, distal left toes with normal intact neurovascular 02/17 Dr. Mchugh remove the staple, the incision is healed. D/C Aspirin 325bid , add Lovenox for DVT prophylaxis. pt only took very a few times of pain meds, continue the schedule for PRN 02/16 followup orthopedics, and pt has intact distal neurovascular on the examination on left toes. 02/15 followup orthopedics, and pt has intact distal neurovascular examination on left toes in my examination. 02/14, intact distal neurovascular examination on left toe 02/13 pt tripped over her walker, then she had pain to her left ankle and had injury pt is P/S day #[address] Manjarrez from an ORIF left ankle fracture for her Closed left trimalleolar ankle fracture continue the orders for non-weight bearing to LLE Using IV morphine plus PO oxycodone for pain control Continue daily PT discharge is pending (4) Fall Impression: Multiple falls since being homeless, Continued on fall precautions and non- weight bearing to LLE continue PT for daily sessions (5) UTI (urinary tract infection) 02/17 change to PO Augmentin Continue IV Zosyn, maintain indwelling smith (6) Pneumonia Impression: 02/17 continue Augmentin until 2 weeks, continue incentive Spirometry 02/15 pt had 6 days IV of antibiotics for pneumonia in hospital, stable now, WBC is normal, no fever. Switch to oral antibiotics 02/14 plan switch to oral antibiotics on tomorrow since pt had fiver days of IV of antibiotics CXR reveals bilateral infiltrate, pt present hypoxia and need O2 support. Pt had no sputum for culture. pt's WBC is slight elevated. continue Zosyn, will switch to oral after she is stable (7) Acute kidney injury Impression: great improved. today her creatinine is 1.6 from 3.6 at the admission continue to monitor labs, I/O, treat acute illnesses, avoid hypotension, NSAIDs, and nephrotoxins (8) COPD (chronic obstructive pulmonary disease) Impression: Status post oral steroids, continue breath treatment Continue respiratory care, anticipate transfer to SNF with supplemental oxygen (9) Constipation by delayed colonic transit Impression: had improvement in her daily BMs continue: miralax, senna, now lactulose (10) Edema of both upper extremities Impression: Improved edema, 3rd spacing to BUEs on exam. Because of low BP, now lasix and Sp ironolactone dosage are reduced (11) Homelessness Impression: Anticipate discharge to SNF or nurse facility for this injury, which may lead to permanent placement at a later date. (12) Macrocytic anemia Impression: 02/19 stable, but pt has Poor PO intake, refusing meals. Iron studies were done on 02/06 showing low iron, low iron %. pt has normal B12/folic acid Continues on daily iron supplement (13) Urinary retention 02/15, stable, continue Smith and Smith care. 02/14, pt still has smith, she can not urinate by her self. pt was prescribed flomax but pt still Failed a voiding trial (02/09), Continue indwelling smith, Anticipate discharge to SNF or nurse facility for smith care as well
[2019-02-21] MEDS: ACETAMINOPHEN 325 MG TABLET PO PRN (16:27)
[2019-02-21 16:41] LABS: BILIRUBIN,URINE NEGATIVE (NEGATIVE); GLUCOSE, URINE (UA) NEGATIVE (NEGATIVE); KETONES,URINE (UA) NEGATIVE (NEGATIVE); LEUKOCYTE ESTERASE, URINE TRACE (NEGATIVE); NITRITE,URINE NEGATIVE (NEGATIVE); OCCULT BLOOD,URINE LARGE (NEGATIVE); PH,URINE 6.5 PH (5.0-7.5); PROTEIN,URINE 30 mg/dL (NEGATIVE); UROBILINOGEN,URINE 0.2 (NORMAL) E.U./dL (NORMAL)
[2019-02-21 16:47] LABS: CLARITY,URINE CLOUDY (CLEAR)
[2019-02-21 16:49] LABS: RBC,URINE TNTC /HPF (0-5)
[2019-02-21 16:50] LABS: BACTERIA,URINE None Seen /HPF (None Seen); SQUAMOUS EPITHELIAL CELL,UR NONE SEEN (<= Few); YEAST,URINE PRESENT
[2019-02-22 04:59] LABS: BASOPHILS % (AUTO) 0.5 %; EOSINOPHILS # (AUTO) 0.2 10^3/uL (0.0-0.7); HGB - HEMOGLOBIN 8.3 g/dL (12.0-16.0); LYMPHOCYTES # (AUTO) 0.7 10^3/uL (1.5-3.5); LYMPHOCYTES % (AUTO) 8.6 %; MEAN CORPUSCULAR HEMOGLOBIN 31.7 pg (27.0-31.0); MEAN CORPUSCULAR HGB CONC 30.5 g/dL (32.0-36.0); MEAN CORPUSCULAR VOLUME 103.8 fL (81.0-99.0); MEAN PLATELET VOLUME 10.9 fL (7.9-10.8); MONOCYTES % (AUTO) 11.5 %; NEUTROPHILS # (AUTO) 6.1 10^3/uL (1.5-6.6); NEUTROPHILS % (AUTO) 72.6 %; PLT - PLATELET COUNT 178 10^3/uL (130-450); RED BLOOD COUNT 2.62 10^6/uL (4.20-5.40); RED CELL DISTRIBUTION WIDTH 15.9 % (12.0-15.0); WHITE BLOOD COUNT 8.3 x10^3/uL (4.8-10.8)
[2019-02-22 05:06] LABS: CREATININE 1.1 mg/dL (0.4-1.0)
[2019-02-22] MEDS: PANTOPRAZOLE 40 MG TABLET PO SCH (07:11)
[2019-02-22] MEDS: IPRATROPIUM/ALBUTEROL 3 ML NEB INH PRN (07:49)
[2019-02-22] MEDS: SENNA 8.6 MG TABLET PO SCH (08:46)
[2019-02-22] MEDS: guaiFENesin 600 MG TABLET PO SCH ×2 (08:46→21:35)
[2019-02-22] MEDS: DOCUSATE SODIUM 250 MG CAPSULE PO SCH (08:46)
[2019-02-22] MEDS: MULTIVITAMIN W/MINERALS TABLET PO SCH (08:46)
[2019-02-22] MEDS: FERROUS GLUCONATE 324 MG TABLET PO SCH (08:47)
[2019-02-22] MEDS: ENOXAPARIN 40 MG/0.4 ML SYRINGE SUBQ SCH (08:47)
[2019-02-22] MEDS: POLYETHYLENE GLYCOL 3350 17 GM PACKET PO SCH (08:47)
[2019-02-22] MEDS: traMADol 50 MG TABLET PO PRN (08:47)
[2019-02-22] MEDS: SACCHAROMYCES BOULARDII 250 MG CAPSULE PO SCH ×2 (08:47→17:25)
[2019-02-22] MEDS: SODIUM CHLORIDE FLUSH 0.9% 10 ML SYRINGE IVP SCH ×3 (08:48→23:41)
--- NOTE | 2019-02-22 10:15 | PROVIDER PROGRESS NOTE ---
Subjective - Prog Note Date Prog Note Date: 02/22/19 - Subjective Pt reports feeling: No change Subjective: pt's BP is at the low side SBP is 88 today. pt's BP has been at low side frequently. pt is asymptomatic, she is alert and oriented to person, location and time. Pt's ECHO study found unremarkable. will check TSH, cortisol, give 500ml NS in bolus. pt can urinate by her own. urinary retention is resolved now. Current Medications - Current Medications Current Medications: Active Medications Acetaminophen (Tylenol) 650 - 975 mg PO Q4HR PRN PRN Reason: PAIN Last Admin: 02/21/19 16:27 Dose: 650 mg Albuterol () 2.5 mg INH RTQ4H PRN PRN Reason: Wheezing Albuterol/Ipratropium (Duoneb) 3 ml INH Q4HR PRN PRN Reason: Wheezing Last Admin: 02/22/19 07:49 Dose: 3 ml Bisacodyl (Dulcolax Supp) 10 mg [place] DAILY PRN PRN Reason: Constipation Last Admin: 02/10/19 19:47 Dose: 10 mg Docusate Sodium (Colace 250mg Capsule) 250 - 500 mg PO DAILY [facility] Last Admin: 02/22/19 08:46 Dose: 250 mg Enoxaparin Sodium (Lovenox) 40 mg SUBQ DAILY [facility] Last Admin: 02/22/19 08:47 Dose: 40 mg Ferrous Gluconate (Fergon) 324 mg PO DAILYWM [facility] Last Admin: 02/22/19 08:47 Dose: 324 mg Guaifenesin (Mucinex) 300 mg PO BID [facility] Last Admin: 02/22/19 08:46 Dose: 300 mg Sodium Chloride (Normal Saline 0.9%) 500 mls @ 999 mls/hr IV ONCE ONE Stop: 02/22/19 10:47 Multivitamins/Minerals (Theragran M) 1 tab PO DAILYWM [facility] Last Admin: 02/22/19 08:46 Dose: 1 tab Pantoprazole Sodium (Protonix) 40 mg PO QDAC [facility] Last Admin: 02/22/19 07:11 Dose: Not Given Polyethylene Glycol (Miralax) 17 gm PO DAILY [facility] Last Admin: 02/22/19 08:47 Dose: 17 gm Saccharomyces Boulardii (Florastor) 250 mg PO BIDWM [facility] Last Admin: 02/22/19 08:47 Dose: 250 mg Senna (Senokot) 8.6 - 17.2 mg PO DAILY [facility] Last Admin: 02/22/19 08:46 Dose: 8.6 mg Sodium Chloride (Normal Saline Flush 0.9%) 10 ml IVP PRN PRN PRN Reason: NEEDED PER PROVIDER ORDERS Last Admin: 02/14/19 08:32 Dose: 10 ml Sodium Chloride (Normal Saline Flush 0.9%) 10 ml IVP 0100,0900,1700 [facility] Last Admin: 02/22/19 08:48 Dose: 10 ml Sodium Chloride (Normal Saline Flush 0.9%) 10 ml IVP PRN PRN PRN Reason: NEEDED PER PROVIDER ORDERS Last Admin: 02/15/19 05:33 Dose: 10 ml Sodium Chloride ([place]) 2 sprays ELINOR Q4HR PRN PRN Reason: Nasal Congestion Tramadol HCl (Ultram) 50 mg PO Q4HR PRN PRN Reason: PAIN Last Admin: 02/22/19 08:47 Dose: 50 mg Vitamin A/Vitamin D (Vitamin A & D Ointment) 1 applic TOP PRN PRN PRN Reason: Skin Care Last Admin: 02/13/19 16:25 Dose: 1 applic No Known Home Medications 02/06/19 Objective - Vital Signs/Intake & Output Reviewed Vital Signs: Yes Vital Signs: Vital Signs x48h Temp Pulse Pulse Resp BP BP Pulse Ox 02/22/19 08:00 36.3 C L 64 18 88/47 L 82/51 L 92 02/22/19 07:49 62 18 02/22/19 06:33 91 L 02/22/19 05:19 92 02/22/19 03:26 90 L Intake & Output: Intake & Output 02/19/19 02/20/19 02/21/19 02/22/19 23:59 23:59 23:59 23:59 Intake Total 1050 2240 1730 1020 Output Total 1975 1525 1020 800 Balance -925 715 710 220 - Objective General Appearance: positive: No acute distress, Alert. negative: Lethargic Eyes Bilateral: positive: Normal inspection, PERRL, No lid inflammation, Conjunc tivae nml ENT: positive: ENT inspection nml, Pharynx nml, No signs of dehydration. negative: Purulent nasal drainage, Pharyngeal erythema, Oral lesions Neck: positive: Nml inspection, Thyroid nml, No JVD, Trachea midline. negative: Thyromegaly, Lymphadenopathy (R), Lymphadenopathy (L), Stiff neck, Swelling/bruising, Tracheal deviation Respiratory: positive: Chest non-tender, No respiratory distress, Breath sounds nml. negative: Wheezes, Rales, Rhonchi Cardiovascular: positive: Regular rate & rhythm, No murmur, No gallop. negative: Irregularly irregular, Extrasystoles, Tachycardia, Bradycardia, JVD present, Systolic murmur, Diastolic murmur Peripheral Pulses: 2+ Radial (R), 2+ Radial (L), 2+ Dorsalis pedis (R), 2+ Dorsalis pedis (L) Abdomen: positive: Non-tender, No organomegaly, Nml bowel sounds, No distention. negative: Tenderness, Guarding, Rebound Back: positive: Nml inspection. negative: CVA tenderness (R), CVA tenderness (L) Skin: positive: Color nml, No rash, Warm, Dry. negative: Cyanosis, Diaphoresis, Pallor Extremities: positive: Non-tender. negative: Calf tenderness, Rashaad's sign/cords Neurologic/Psychiatric: positive: Oriented x3, Sensation nml, Mood/affect nml. negative: Weakness, Sensory loss, Facial droop, Slurred/abnml speech, Depressed mood/affect - Lab Results Fish Bones: 02/22/19 04:40 02/22/19 04:40 Other Labs: Lab Results x24hrs 02/22/19 02/22/19 02/21/19 Range/Units 04:40 04:40 16:30 WBC 8.3 (4.8-10.8) x10^3/uL RBC 2.62 L (4.20-5.40) 10^6/uL Hgb 8.3 L (12.0-16.0) g/dL Hct 27.2 L (37.0-47.0) % MCV 103.8 H (81.0-99.0) fL MCH 31.7 H (27.0-31.0) pg MCHC 30.5 L (32.0-36.0) g/dL RDW 15.9 H (12.0-15.0) % Plt Count 178 (130-450) 10^3/uL MPV 10.9 H (7.9-10.8) fL Neut # (Auto) 6.1 (1.5-6.6) 10^3/uL Lymph # (Auto) 0.7 L (1.5-3.5) 10^3/uL [place] # (Auto) 1.0 (0.0-1.0) 10^3/uL Eos # (Auto) 0.2 (0.0-0.7) 10^3/uL Baso # (Auto) 0.0 (0.0-0.1) 10^3/uL Absolute Nucleated RBC 0.03 x10^3/uL Nucleated RBC % 0.4 /100WBC Sodium 137 (135-145) mmol/L Potassium 4.9 (3.5-5.0) mmol/L Chloride 91 L (101-111) mmol/L Carbon Dioxide 40 H* (21-32) mmol/L Anion Gap 6.0 (6-13) BUN 32 H (6-20) mg/dL Creatinine 1.1 H (0.4-1.0) mg/dL Estimated GFR (MDRD) 50 L (>89) Glucose 93 (70-100) mg/dL Calcium 10.0 (8.5-10.3) mg/dL Urine Color YELLOW Urine Clarity CLOUDY (CLEAR) Urine pH 6.5 (5.0-7.5) PH Ur Specific [place] 1.020 (1.002-1.030) Urine Protein 30 H (NEGATIVE) mg/dL Urine Glucose (UA) NEGATIVE (NEGATIVE) mg/dL Urine Ketones NEGATIVE (NEGATIVE) mg/dL Urine Occult Blood LARGE H (NEGATIVE) Urine Nitrite NEGATIVE (NEGATIVE) Urine Bilirubin NEGATIVE (NEGATIVE) Urine Urobilinogen 0.2 (NORMAL) (NORMAL) E.U./dL Ur Leukocyte Esterase TRACE H (NEGATIVE) Urine RBC TNTC H (0-5) /HPF Urine WBC 0-3 (0-5) /HPF Ur Squamous Epith Cells NONE SEEN (<= Few) Urine Bacteria None Seen (None Seen) /HPF Urine Yeast PRESENT Urine Culture Comments INDICATED ABX Reporting Has patient been on IV antibiotics over the past 48 hours?: No Sepsis Event Note (H) - Evaluation Current Stage of Sepsis: Ruled out Assessment/Plan - Problem List (1) Respiratory failure with hypoxia Impression: 02/22 pt has no respiratory distress and comfortable on 2 liter of O2, Sats remain 92% 02/21 respiratory status is stable, pt is still need 3 liter of O2 to remain pt's sats. pt has no respiratory distress. 02/20, stable, RT and nurse tried to wane off pt's O2 gradually if pt tolerate. Now pt need 2.5 liter of O2 to remain 91% sats 02/19, stable, pt appears no respiratory distress 02/18 stable, use 6 liter of O2 to remain 95% sats. pt appears no respiratory distress. 02/17 stable, she still use 6 liter of O2 to remain 95% sats. continue O2 supplement as needed, and breath treatment PRN 02/16. pt is stable, no respiratory distress. continue O2 supplement as needed, and breath treatment PRN 02/15 stable, continue O2 supplement as needed, and breath treatment PRN 02/14, stable, pt continue request 5-6 liter of O2 support, continue breath treatment 02/13 main contribute to her hypoxia, seems COPD. 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 pt took 4 liter of o2 to remain of 90-92 sats. clinically pt has no acute respiratory distress continue breath treatment supplement of O2 PRN Pt is pending for placement (2) hypotension 02/22 pt's BP is still at low side SBP is 88. pt has frequent low SBP. ECHO revealed unremarkable 500ml NS bolus is order check Cortisol, and TSH, will followup. 02/21 nurse report pt has hypotension at SBP 79 again. but pt was asymptomatic. recheck pt's SBP was 94. pt has been on low BP in this admission. 02/19 resolved. continue hydration 02/18 pt present SBP 71 but pt seems asymptomatic, pt is alert and oriented. it was likely caused by narcotics pain meds hold pt's narcotics hold pt's BP meds IV of NS 500 ml Bolus vital closely monitor CXR to r/o other causes (3) Trimalleolar fracture of left ankle Impression: 02/20 followup orthopedics, to see if pt can bear weight on surgery leg 02/19 stable, followup orthopedis, continue PT/OT, and pain control pt had intact neurovascular examination at his distal toes 02/18 stable, distal left toes with normal intact neurovascular 02/17 Dr. Mchugh remove the staple, the incision is healed. D/C Aspirin 325bid , add Lovenox for DVT prophylaxis. pt only took very a few times of pain meds, continue the schedule for PRN 02/16 followup orthopedics, and pt has intact distal neurovascular on the examination on left toes. 02/15 followup orthopedics, and pt has intact distal neurovascular examination on left toes in my examination. 02/14, intact distal neurovascular examination on left toe 02/13 pt tripped over her walker, then she had pain to her left ankle and had injury pt is P/S day #[address] Manjarrez from an ORIF left ankle fracture for her Closed left trimalleolar ankle fracture continue the orders for non-weight bearing to LLE Using IV morphine plus PO oxycodone for pain control Continue daily PT discharge is pending (4) Fall Impression: Multiple falls since being homeless, Continued on fall precautions and non- weight bearing to LLE continue PT for daily sessions (5) UTI (urinary tract infection) 02/17 change to PO Augmentin Continue IV Zosyn, maintain indwelling smith (6) Pneumonia Impression: 02/17 continue Augmentin until 2 weeks, continue incentive Spirometry 02/15 pt had 6 days IV of antibiotics for pneumonia in hospital, stable now, WBC is normal, no fever. Switch to oral antibiotics 02/14 plan switch to oral antibiotics on tomorrow since pt had fiver days of IV of antibiotics CXR reveals bilateral infiltrate, pt present hypoxia and need O2 support. Pt had no sputum for culture. pt's WBC is slight elevated. continue Zosyn, will switch to oral after she is stable (7) Acute kidney injury Impression: great improved. today her creatinine is 1.6 from 3.6 at the admission continue to monitor labs, I/O, treat acute illnesses, avoid hypotension, NSAIDs, and nephrotoxins (8) COPD (chronic obstructive pulmonary disease) Impression: Status post oral steroids, continue breath treatment Continue respiratory care, anticipate transfer to SNF with supplemental oxygen (9) Constipation by delayed colonic transit Impression: had improvement in her daily BMs continue: miralax, senna, now lactulose (10) Edema of both upper extremities Impression: Improved edema, 3rd spacing to BUEs on exam. Because of low BP, now lasix and Spironolactone dosage are reduced (11) Homelessness Impression: Anticipate discharge to SNF or nurse facility for this injury, which may lead to permanent placement at a later date. (12) Macrocytic anemia Impression: 02/19 stable, but pt has Poor PO intake, refusing meals. Iron studies were done on 02/06 showing low iron, low iron %. pt has normal B12/folic acid Continues on daily iron supplement (13) Urinary retention 02/22 resolved. pt can urinate by her own now. 02/15, stable, continue Smith and Smith care. 02/14, pt still has smith, she can not urinate by her self. pt was prescribed flomax but pt still Failed a voiding trial (02/09), Continue indwelling smith, Anticipate discharge to SNF or nurse facility for smith care as well
[2019-02-22] MEDS ORDERED: SODIUM CHLORIDE 0.9% 500 ML IV ONE (10:17)
[2019-02-22] MEDS: SODIUM CHLORIDE FLUSH 0.9% 10 ML SYRINGE IVP PRN (10:35)
[2019-02-22] MEDS: ACETAMINOPHEN 325 MG TABLET PO PRN (21:34)
[2019-02-23 05:06] LABS: CALCIUM 10.1 mg/dL (8.5-10.3); CREATININE 1.1 mg/dL (0.4-1.0)
[2019-02-23 05:15] LABS: BASOPHILS % (AUTO) 0.4 %; EOSINOPHILS # (AUTO) 0.2 10^3/uL (0.0-0.7); EOSINOPHILS % (AUTO) 2.5 %; LYMPHOCYTES # (AUTO) 0.8 10^3/uL (1.5-3.5); LYMPHOCYTES % (AUTO) 9.7 %; MEAN CORPUSCULAR HEMOGLOBIN 31.3 pg (27.0-31.0); MEAN CORPUSCULAR HGB CONC 30.5 g/dL (32.0-36.0); MEAN CORPUSCULAR VOLUME 102.3 fL (81.0-99.0); MEAN PLATELET VOLUME 11.1 fL (7.9-10.8); MONOCYTES # (AUTO) 0.9 10^3/uL (0.0-1.0); MONOCYTES % (AUTO) 10.8 %; NEUTROPHILS # (AUTO) 5.7 10^3/uL (1.5-6.6); NEUTROPHILS % (AUTO) 72.4 %; PLT - PLATELET COUNT 184 10^3/uL (130-450); RED BLOOD COUNT 2.56 10^6/uL (4.20-5.40); RED CELL DISTRIBUTION WIDTH 15.9 % (12.0-15.0); WHITE BLOOD COUNT 7.9 x10^3/uL (4.8-10.8)
[2019-02-23] MEDS: PANTOPRAZOLE 40 MG TABLET PO SCH (06:34)
[2019-02-23] MEDS: IPRATROPIUM/ALBUTEROL 3 ML NEB INH PRN (07:40)
[2019-02-23] MEDS: FERROUS GLUCONATE 324 MG TABLET PO SCH (08:08)
[2019-02-23] MEDS: traMADol 50 MG TABLET PO PRN ×2 (08:08→13:27)
[2019-02-23] MEDS: guaiFENesin 600 MG TABLET PO SCH ×2 (08:08→20:29)
[2019-02-23] MEDS: SACCHAROMYCES BOULARDII 250 MG CAPSULE PO SCH ×2 (08:09→17:10)
[2019-02-23] MEDS: MULTIVITAMIN W/MINERALS TABLET PO SCH (08:09)
[2019-02-23] MEDS: POLYETHYLENE GLYCOL 3350 17 GM PACKET PO SCH (08:10)
[2019-02-23] MEDS: ENOXAPARIN 40 MG/0.4 ML SYRINGE SUBQ SCH (08:10)
[2019-02-23] MEDS: DOCUSATE SODIUM 250 MG CAPSULE PO SCH (08:12)
[2019-02-23] MEDS: SODIUM CHLORIDE FLUSH 0.9% 10 ML SYRINGE IVP SCH ×2 (08:12→17:10)
[2019-02-23] MEDS: SENNA 8.6 MG TABLET PO SCH (08:12)
[2019-02-23] MEDS: LEVOTHYROXINE 100 MCG TABLET PO SCH (12:16)
--- NOTE | 2019-02-23 15:49 | PROVIDER PROGRESS NOTE ---
Subjective - Prog Note Date Prog Note Date: 02/23/19 Prog Note Time: 15:46 - Subjective Pt reports feeling: Improved Subjective: Genet states that she is more sleepy today, has continued abdominal swelling, and complains of continued left ankle pain. She has no new symptoms and denies previous problems with her thyroid. Current Medications - Current Medications Current Medications: Active Medications: Acetaminophen (Tylenol) 650 - 975 mg PO Q4HR PRN Albuterol 2.5 mg INH RTQ4H PRN Albuterol/Ipratropium (Duoneb) 3 ml INH Q4HR PRN Bisacodyl (Dulcolax Supp) 10 mg PA DAILY PRN Docusate Sodium (Colace 250mg Capsule) 250 - 500 mg PO DAILY ADAN Enoxaparin Sodium (Lovenox) 40 mg SUBQ DAILY ADAN Ferrous Gluconate (Fergon) 324 mg PO DAILYWM ADAN Guaifenesin (Mucinex) 300 mg PO BID ADAN Levothyroxine Sodium (Synthroid) 100 mcg PO QDAC ADAN Multivitamins/Minerals (Theragran M) 1 tab PO DAILYWM ADAN Pantoprazole Sodium (Protonix) 40 mg PO QDAC ADAN Polyethylene Glycol (Miralax) 17 gm PO DAILY ADAN Saccharomyces Boulardii (Florastor) 250 mg PO BIDWM ADAN Senna (Senokot) 8.6 - 17.2 mg PO DAILY ADAN Sodium Chloride (Cardwell) 2 sprays ELINOR Q4HR PRN Tramadol HCl (Ultram) 50 mg PO Q4HR PRN Vitamin A/Vitamin D (Vitamin A & D Ointment) 1 applic TOP PRN PRN No Known Home Medications 02/06/19 Objective - Vital Signs/Intake & Output Reviewed Vital Signs: Yes Vital Signs: Vital Signs x48h Temp Pulse Pulse Resp BP Pulse Ox 02/23/19 10:20 36 C L 64 14 92 02/23/19 08:00 36.0 C L 63 18 132/81 H 100 Intake & Output: Intake & Output 02/20/19 02/21/19 02/22/19 02/23/19 23:59 23:59 23:59 23:59 Intake Total 2240 1730 2540 470 Output Total 1525 1020 2450 950 Balance 715 710 90 -480 - Objective General Appearance: positive: No acute distress, Alert Eyes Bilateral: positive: No lid inflammation Eyes: OU Conjunctivae pale ENT: positive: ENT inspection nml, Pharynx nml Neck: positive: Thyroid nml, No JVD, Trachea midline, Lymphadenopathy (R), Lymphadenopathy (L), Stiff neck Respiratory: positive: Chest non-tender, No respiratory distress, Breath sounds nml Cardiovascular: positive: Regular rate & rhythm, No gallop, Systolic murmur, Decreased pulse(s) Peripheral Pulses: 1+ Radial (R), 1+ Radial (L) Abdomen: positive: Non-tender, Nml bowel sounds, Hepatomegaly Back: positive: Nml inspection Skin: positive: Color nml, No rash, Warm, Dry, Other (tanned skin to sun exposed areas) Extremities: positive: Non-tender, Full ROM, Pedal edema, Joint swelling Neurologic/Psychiatric: positive: Oriented x3, CN's nml (2-12), Motor nml, Weakness, Sensory loss, Slurred/abnml speech (due to poor dentation), Depressed mood/affect Reflexes: Bicep (R): 3+, Bicep (L): 3+ - Lab Results Fish Bones: 02/23/19 04:35 02/23/19 04:35 Other Labs: Lab Results x24hrs 02/23/19 02/23/19 02/23/19 Range/Units 05:00 04:35 04:35 WBC (4.8-10.8) x10^3/uL RBC (4.20-5.40) 10^6/uL Hgb (12.0-16.0) g/dL Hct (37.0-47.0) % MCV (81.0-99.0) fL MCH (27.0-31.0) pg MCHC (32.0-36.0) g/dL RDW (12.0-15.0) % Plt Count (130-450) 10^3/uL MPV (7.9-10.8) fL Neut # (Auto) (1.5-6.6) 10^3/uL Lymph # (Auto) (1.5-3.5) 10^3/uL Adams # (Auto) (0.0-1.0) 10^3/uL Eos # (Auto) (0.0-0.7) 10^3/uL Baso # (Auto) (0.0-0.1) 10^3/uL Absolute Nucleated RBC x10^3/uL Nucleated RBC % /100WBC Sodium (135-145) mmol/L Potassium (3.5-5.0) mmol/L Chloride (101-111) mmol/L Carbon Dioxide (21-32) mmol/L Anion Gap (6-13) BUN (6-20) mg/dL Creatinine (0.4-1.0) mg/dL Estimated GFR (MDRD) (>89) Glucose (70-100) mg/dL Calcium (8.5-10.3) mg/dL TSH 143.80 H (0.34-5.60) uIU/mL Free T4 < 0.25 L (0.58-1.64) ng/dL Cortisol AM Sample 6.3 ug/dL 02/23/19 02/23/19 Range/Units 04:35 04:35 WBC 7.9 (4.8-10.8) x10^3/uL RBC 2.56 L (4.20-5.40) 10^6/uL Hgb 8.0 L (12.0-16.0) g/dL Hct 26.2 L (37.0-47.0) % MCV 102.3 H (81.0-99.0) fL MCH 31.3 H (27.0-31.0) pg MCHC 30.5 L (32.0-36.0) g/dL RDW 15.9 H (12.0-15.0) % Plt Count 184 (130-450) 10^3/uL MPV 11.1 H (7.9-10.8) fL Neut # (Auto) 5.7 (1.5-6.6) 10^3/uL Lymph # (Auto) 0.8 L (1.5-3.5) 10^3/uL Adams # (Auto) 0.9 (0.0-1.0) 10^3/uL Eos # (Auto) 0.2 (0.0-0.7) 10^3/uL Baso # (Auto) 0.0 (0.0-0.1) 10^3/uL Absolute Nucleated RBC 0.00 x10^3/uL Nucleated RBC % 0.0 /100WBC Sodium 138 (135-145) mmol/L Potassium 4.9 (3.5-5.0) mmol/L Chloride 91 L (101-111) mmol/L Carbon Dioxide 38 H (21-32) mmol/L Anion Gap 9.0 (6-13) BUN 32 H (6-20) mg/dL Creatinine 1.1 H (0.4-1.0) mg/dL Estimated GFR (MDRD) 50 L (>89) Glucose 88 (70-100) mg/dL Calcium 10.1 (8.5-10.3) mg/dL TSH (0.34-5.60) uIU/mL Free T4 (0.58-1.64) ng/dL Cortisol AM Sample ug/dL ABX Reporting Has patient been on IV antibiotics over the past 48 hours?: No Assessment/Plan - Problem List (1) Hypothyroidism Impression: -TSH was checked by prior provider and found to be very high at 143.80 -Free T4 confirms this disease with a T4 level low at less than 0.25 -Patient denies previous thyroid issues including cancer, goiter, or hypothyroidism -No current infection suspected, no severe malnutrition at this time -No chest pain, syncope or electrolyte abnormalities noted Plan: Start Synthroid at 100 mcg, re-check TSH in 4-6 weeks Hypotension-NEW -On 02/22, patient was symptomatic, and found to have blood pressures of 70-80s systolic -Status post NS IV bolus of 500 mL, TSH was very high at 143, cortisol normal -Diuretics were removed several days ago -Normalized B/P- 130s systolic, no dizziness or syncope -This hypotension was due to dehydration since it has normalized since a diuretic holiday and after IVFs -Patient has had good PO intake 75-100% for each meal today Plan: continue to monitor, resume Spironolactone today, add Lasix in the next few days, routine labs every 2-4 days, and monitor vital signs Respiratory failure with hypoxia and hypercapnia-CHRONIC - Contributing factors of moderate to severe COPD -Takes no home inhalers or Singular -Currently on 2-4L nasal cannula - Labs show an elevated carbon dioxide level between 38-40 - Hypercapnia should always be suspected in those who are at risk for hypoventilation (sedatives) or increased physiologic space and limited pulmonary reserve (chronic obstructive pulmonary disease [COPD] exacerbation) who present with shortness of breath, a change in mental status, new hypoxemia, and/or hyper-somnolence. -Patient demonstrates mild to moderate hypercapnia or hypercapnia that develops slowly, anxious, and complains of mild dyspnea, daytime sluggishness, headaches at times Plan: Continue respiratory cares, nebulizers, expectorants, Flonase, anticipate walking oxygen desaturation test prior to discharge Trimalleolar fracture of left ankle- STABLE - Initial reports of the patient walking on street, tripped over her walker, then subsequently had pain to her left ankle and left wrist - Now post-op day #[address] Manjarrez from an ORIF left ankle fracture for her Closed left trimalleolar ankle fracture - NO surgical complications - Orders for non-weight bearing to LLE - PO tramadol with some pain control Plan: Continue daily PT, anticipate discharge to rehab when able Fall- CHRONIC - Multiple falls since being homeless - Continued on fall precautions - Activity restrictions are non-weight bearing to LLE Plan: Continue to treat illnesses and PT for daily sessions UTI (urinary tract infection)- RESOLVED - Initial urinalysis was positive for acute UTI- NGTD for urine culture - Ongoing urinary retention- so remains with an indwelling smith - No hydronephrosis on imaging, but 6.2 mm right stone is likely - Patient admits to prior kidney stones - Status post IV zosyn from 02/10-02/15 Plan: Continue to monitor urine output Pneumonia-RESOLVED - Imaging shows bilateral infiltrates with a chest x-ray - Patient continues to be hypoxic- requiring 2-3L nasal cannula - Underlying COPD- not treated with long acting inhalers at home, no prior oxygen at home - Keep oxygen between 88-90% per orders, PEP therapy - Titrating oxygen based on spot checking oxygen - Status post Zosyn, Azithromycin and Rocephin - Continue expectorants - Still requires oxygen at 2-3L per oxymask verses nasal cannula - Now with an elevated WBC count of 11 on 02/12 - Anticipate transition to oral antibiotics tomorrow Plan: Continue oxygen supplementation, daily nasal sprays, PEP therapy per RT Acute kidney injury superimposed on CKD stage 2-STABLE - Baseline creatinine was 1.2 - Admission creatinine was 3.6, now down to 1.1, current GFR is 50 - Continue PO spironolactone - BNP was 148 Plan: continue to monitor labs, I/O, and IV antibiotics, treat acute illnesses, avoid hypotension, NSAIDs, and nephrotoxins COPD (chronic obstructive pulmonary disease)-STABLE - The patient has had recurrent pneumonia and now has bilateral pneumonia - She is prescribed no long acting inhalers - Status post oral steroids - Status post Zosyn, Azithromycin and Rocephin - Also on scheduled expectorants Plan: Continue respiratory care, monitor for improvement, and anticipate transfer to SNF with supplemental oxygen Constipation by delayed colonic transit-RESOLVED - No recent problems - Daily meds; miralax, senna, Plan: continue to monitor, give suppository if no improvement Edema of both upper extremities-STABLE - 3rd spacing to BUEs on exam - Also with JENNIFER - Was previously on oral lasix/spironolactone, resuming Spironolactone - Echo shows no HF or pulmonary hypertension Plan: Continue spironolactone since JENNIFER is improved, elevate extremities Homelessness-CHRONIC - The patient admits to at least 2 years of homelessness Plan: Anticipate discharge to SNF for this injury, which may lead to permanent placement at a later date Macrocytic anemia-CHRONIC - H/H is stable at 8.0/26.2, MCV 102.3 - Likely JENNIFER is a contributing factor, and due to dilution - Iron studies were done on 02/06 showing low iron, low iron % - Continues on daily iron supplement - Poor PO intake, refusing meals but likely due to slow transit constipation Plan: Continue to trend labs, give iron supplement, and resume spironolactone Urinary retention-RESOLVED - Risk factors include; aging, neurological disorder, and new narcotics being used post-op - Re-started on Flomax ( a grade 2C recommendation), - Also with a known kidney stone - Patient also notes that 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 in the past - This probably contributed to her JENNIFER during this hospital stay - Failed a voiding trial (02/09), has passed void trial, now smith has been removed Plan: Continue to monitor I/O
[2019-02-23] MEDS: SPIRONOLACTONE 25 MG TABLET PO SCH (17:10)
[2019-02-23] MEDS: ACETAMINOPHEN 325 MG TABLET PO PRN (20:29)
[2019-02-24] MEDS: SODIUM CHLORIDE FLUSH 0.9% 10 ML SYRINGE IVP SCH ×3 (01:15→17:12)
[2019-02-24] MEDS: LEVOTHYROXINE 100 MCG TABLET PO SCH (06:02)
[2019-02-24] MEDS: PANTOPRAZOLE 40 MG TABLET PO SCH (06:02)
[2019-02-24] MEDS: traMADol 50 MG TABLET PO PRN ×2 (06:07→13:13)
[2019-02-24] MEDS: FLUTICASONE NASAL SPRAY NAS SCH (09:01)
[2019-02-24] MEDS: TAMSULOSIN 0.4 MG CAPSULE PO SCH (09:02)
[2019-02-24] MEDS: MULTIVITAMIN W/MINERALS TABLET PO SCH (09:03)
[2019-02-24] MEDS: FERROUS GLUCONATE 324 MG TABLET PO SCH (09:03)
[2019-02-24] MEDS: DOCUSATE SODIUM 250 MG CAPSULE PO SCH (09:04)
[2019-02-24] MEDS: SACCHAROMYCES BOULARDII 250 MG CAPSULE PO SCH ×2 (09:04→17:11)
[2019-02-24] MEDS: guaiFENesin 600 MG TABLET PO SCH ×2 (09:05→20:39)
[2019-02-24] MEDS: SENNA 8.6 MG TABLET PO SCH (09:06)
[2019-02-24] MEDS: POLYETHYLENE GLYCOL 3350 17 GM PACKET PO SCH (09:06)
[2019-02-24] MEDS: ENOXAPARIN 40 MG/0.4 ML SYRINGE SUBQ SCH (09:07)
[2019-02-24] MEDS: SPIRONOLACTONE 25 MG TABLET PO SCH ×2 (09:16→17:11)
[2019-02-24] MEDS: MIDODRINE 2.5 MG TABLET PO SCH ×2 (13:12→17:11)
--- NOTE | 2019-02-24 13:34 | PROVIDER PROGRESS NOTE ---
Subjective - Prog Note Date Prog Note Date: 02/24/19 Prog Note Time: 13:33 - Subjective Pt reports feeling: No change Subjective: Bonnie is agreeable to trying the nasal sprays and was minimally interactive today. She seemed to remember me, and states that she worries about the upcoming future with carrying all of her luggage and managing her fractured left ankle. Objective - Vital Signs/Intake & Output Vital Signs: Vital Signs x48h Temp Pulse Resp BP Pulse Ox 02/24/19 07:30 36.3 C L 58 L 16 95/62 90 L Intake & Output: Intake & Output 02/21/19 02/22/19 02/23/19 02/24/19 23:59 23:59 23:59 23:59 Intake Total 1730 2540 710 360 Output Total 1020 2450 1600 900 Balance 710 90 -890 -540 - Lab Results Fish Bones: 02/23/19 04:35 02/23/19 04:35 Sepsis Event Note (H) - Evaluation Current Stage of Sepsis: Ruled out Assessment/Plan - Problem List (1) Hypothyroidism Impression: TSH was checked by prior provider and found to be very high at 143.80 -Free T4 confirms this disease with a T4 level low at less than 0.25 -Patient denies previous thyroid issues including cancer, goiter, or hypothyroidism -No current infection suspected, no severe malnutrition at this time -No chest pain, syncope or electrolyte abnormalities noted Plan: Continue Synthroid at 100 mcg, re-check TSH in 4-6 weeks Hypotension-NEW -On 02/24, patient was symptomatic, and found to have blood pressures of 70-80s systolic -Status post NS IV bolus of 500 mL, TSH was very high at 143, cortisol normal -Patient has had good PO intake 75-100% for each meal today - Could be due to newly diagnosed hypothyroidism or poor PO intake of fluid Plan: continue to monitor, continue Spironolactone , add Lasix in the next few days, start midodrine, routine labs every 2-4 days, and monitor vital signs Respiratory failure with hypoxia and hypercapnia-CHRONIC - Contributing factors of moderate to severe COPD -Takes no home inhalers or Singular -Currently on 2-4L nasal cannula - Labs show an elevated carbon dioxide level between 38-40 - Hypercapnia should always be suspected in those who are at risk for hypoventilation (sedatives) or increased physiologic space and limited pulmonary reserve (chronic obstructive pulmonary disease [COPD] exacerbation) who present with shortness of breath, a change in mental status, new hypoxemia, and/or hyper-somnolence. -Patient demonstrates mild to moderate hypercapnia or hypercapnia that develops slowly, anxious, and complains of mild dyspnea, daytime sluggishness, headaches at times - Still reports desaturation with activity, down to 88% requiring an increase Plan: Continue respiratory cares, nebulizers, expectorants, Flonase, anticipate walking oxygen desaturation test prior to discharge Trimalleolar fracture of left ankle- STABLE - Initial reports of the patient walking on street, tripped over her walker, then subsequently had pain to her left ankle and left wrist - Now post-op day #[address] Mnajarrez from an ORIF left ankle fracture for her Closed left trimalleolar ankle fracture - NO surgical complications - Orders for non-weight bearing to LLE - PO tramadol with some pain control Plan: Continue daily PT, anticipate discharge to rehab when able Fall- CHRONIC - Multiple falls since being homeless - Continued on fall precautions - Activity restrictions are non-weight bearing to LLE Plan: Continue to treat illnesses and PT for daily sessions UTI (urinary tract infection)- RESOLVED - Initial urinalysis was positive for acute UTI- NGTD for urine culture - Ongoing urinary retention- so remains with an indwelling smith - No hydronephrosis on imaging, but 6.2 mm right stone is likely - Patient admits to prior kidney stones - Status post IV zosyn from 02/10-02/15 Plan: Continue to monitor urine output, ordered bladder scans Pneumonia-RESOLVED - Imaging shows bilateral infiltrates with a chest x-ray - Patient continues to be hypoxic- requiring 2-3L nasal cannula - Underlying COPD- not treated with long acting inhalers at home, no prior oxygen at home - Keep oxygen between 88-90% per orders, PEP therapy - Titrating oxygen based on spot checking oxygen - Status post Zosyn, Azithromycin and Rocephin - Continue expectorants - Still requires oxygen at 2-3L per oxymask verses nasal cannula - Now with an elevated WBC count of 11 on 02/12 - Anticipate transition to oral antibiotics tomorrow Plan: Continue oxygen supplementation, daily nasal sprays, PEP therapy per RT Acute kidney injury superimposed on CKD stage 2-STABLE - Baseline creatinine was 1.2 - Admission creatinine was 3.6, now down to 1.1, current GFR is 50 - Continue PO spironolactone - BNP was 148 Plan: continue to monitor labs, I/O, and IV antibiotics, treat acute illnesses, avoid hypotension, NSAIDs, and nephrotoxins COPD (chronic obstructive pulmonary disease)-STABLE - The patient has had recurrent pneumonia and now has bilateral pneumonia - She is prescribed no long acting inhalers - Status post oral steroids - Status post Zosyn, Azithromycin and Rocephin - Also on scheduled expectorants Plan: Continue respiratory care, monitor for improvement, and anticipate transfer to SNF with supplemental oxygen Constipation by delayed colonic transit-RESOLVED - No recent problems - Daily meds; miralax, senna, Plan: continue to monitor, give suppository if no improvement Edema of both upper extremities-STABLE - 3rd spacing to BUEs on exam - Also with JENNIFER - Was previously on oral lasix/spironolactone, resuming Spironolactone - Echo shows no HF or pulmonary hypertension Plan: Continue spironolactone since JENNIFER is improved, elevate extremities Homelessness-CHRONIC - The patient admits to at least 2 years of homelessness Plan: Anticipate discharge to SNF for this injury, which may lead to permanent placement at a later date Macrocytic anemia-CHRONIC - H/H is stable at 8.0/26.2, MCV 102.3 - Likely JENNIFER is a contributing factor, and due to dilution - Iron studies were done on 02/06 showing low iron, low iron % - Continues on daily iron supplement - Poor PO intake, refusing meals but likely due to slow transit constipation Plan: Continue to trend labs, give iron supplement, and resume spironolactone Urinary retention-RESOLVED - Risk factors include; aging, neurological disorder, and new narcotics being used post-op - Re-started on Flomax ( a grade 2C recommendation), - Also with a known kidney stone - Patient also notes that 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 in the past - This probably contributed to her JENNIFER during this hospital stay - Failed a voiding trial (02/09), has passed void trial, now smith has been removed Plan: Continue to monitor I/O
[2019-02-25] MEDS: SODIUM CHLORIDE FLUSH 0.9% 10 ML SYRINGE IVP SCH ×3 (00:34→16:45)
[2019-02-25] MEDS: traMADol 50 MG TABLET PO PRN ×2 (00:38→22:22)
[2019-02-25] MEDS: ENOXAPARIN 40 MG/0.4 ML SYRINGE SUBQ SCH (08:33)
[2019-02-25] MEDS: MULTIVITAMIN W/MINERALS TABLET PO SCH (08:34)
[2019-02-25] MEDS: MIDODRINE 2.5 MG TABLET PO SCH ×3 (08:34→16:44)
[2019-02-25] MEDS: SACCHAROMYCES BOULARDII 250 MG CAPSULE PO SCH ×2 (08:34→16:44)
[2019-02-25] MEDS: LEVOTHYROXINE 100 MCG TABLET PO SCH (08:34)
[2019-02-25] MEDS: PANTOPRAZOLE 40 MG TABLET PO SCH (08:34)
[2019-02-25] MEDS: DOCUSATE SODIUM 250 MG CAPSULE PO SCH (08:35)
[2019-02-25] MEDS: TAMSULOSIN 0.4 MG CAPSULE PO SCH (08:35)
[2019-02-25] MEDS: FERROUS GLUCONATE 324 MG TABLET PO SCH (08:35)
[2019-02-25] MEDS: SENNA 8.6 MG TABLET PO SCH (08:35)
[2019-02-25] MEDS: guaiFENesin 600 MG TABLET PO SCH ×2 (08:39→20:42)
[2019-02-25] MEDS: POLYETHYLENE GLYCOL 3350 17 GM PACKET PO SCH (08:43)
[2019-02-25] MEDS: FLUTICASONE NASAL SPRAY NAS SCH (08:44)
[2019-02-25] MEDS: SPIRONOLACTONE 25 MG TABLET PO SCH ×2 (08:44→16:45)
[2019-02-25] MEDS: IPRATROPIUM/ALBUTEROL 3 ML NEB INH PRN ×3 (09:52→19:41)
--- NOTE | 2019-02-25 15:40 | PROVIDER PROGRESS NOTE ---
Subjective - Prog Note Date Prog Note Date: 02/25/19 Prog Note Time: 15:38 - Subjective Pt reports feeling: No change Subjective: Bonnie has no complaints and is enjoying her meals. She is having no dizziness, and no bloody noses. Current Medications - Current Medications Current Medications: Active Medications: Acetaminophen (Tylenol) 650 - 975 mg PO Q4HR PRN Albuterol 2.5 mg INH RTQ4H PRN Albuterol/Ipratropium (Duoneb) 3 ml INH Q4HR PRN Bisacodyl (Dulcolax Supp) 10 mg AL DAILY PRN Docusate Sodium (Colace 250mg Capsule) 250 - 500 mg PO DAILY ADAN Enoxaparin Sodium (Lovenox) 40 mg SUBQ DAILY ADAN Ferrous Gluconate (Fergon) 324 mg PO DAILYWM ADAN Guaifenesin (Mucinex) 300 mg PO BID ADAN Levothyroxine Sodium (Synthroid) 100 mcg PO QDAC ADAN Multivitamins/Minerals (Theragran M) 1 tab PO DAILYWM ADAN Pantoprazole Sodium (Protonix) 40 mg PO QDAC ADAN Polyethylene Glycol (Miralax) 17 gm PO DAILY ADAN Saccharomyces Boulardii (Florastor) 250 mg PO BIDWM ADAN Senna (Senokot) 8.6 - 17.2 mg PO DAILY ADAN Sodium Chloride ([place]) 2 sprays ELINOR Q4HR PRN Spironolactone 12.5 mg BID PO daily Tramadol HCl (Ultram) 50 mg PO Q4HR PRN Vitamin A/Vitamin D (Vitamin A & D Ointment) 1 applic TOP PRN Midodrine 5 mg PO TID with meals ADAN Flonase spray per nasal QD No Known Home Medications 02/06/19 Objective - Vital Signs/Intake & Output Reviewed Vital Signs: Yes Vital Signs: Vital Signs x48h Temp Pulse Pulse Resp BP Pulse Ox 02/25/19 09:52 59 L 14 02/25/19 08:16 36.3 C L 57 L 16 95/52 L 93 Intake & Output: Intake & Output 02/22/19 02/23/19 02/24/19 02/25/19 23:59 23:59 23:59 23:59 Intake Total 2540 710 1430 840 Output Total 2450 1600 1750 975 Balance 90 -890 -320 -135 - Objective General Appearance: positive: No acute distress, Alert Eyes Bilateral: positive: PERRL, No lid inflammation ENT: positive: Pharynx nml, No signs of dehydration Neck: positive: Thyroid nml, No JVD, Trachea midline Respiratory: positive: Chest non-tender, No respiratory distress, Wheezes, Other (diminished bilaterally- chronic) Cardiovascular: positive: Regular rate & rhythm, No gallop, Systolic murmur, Decreased pulse(s) Peripheral Pulses: 1+ Radial (R), 1+ Radial (L) Abdomen: positive: Non-tender, Nml bowel sounds, Other (rounded, soft) Back: positive: Nml inspection Skin: positive: No rash, Warm, Dry, Other (tanned skin exposed skin, no lesions or bug bites) Extremities: positive: Pedal edema, Joint swelling (LLE swelling and pain- expected with post-op status) Neurologic/Psychiatric: positive: Oriented x3, CN's nml (2-12), Weakness, Sensory loss, Slurred/abnml speech (baseline slurred speech), Depressed mood/affect Reflexes: Bicep (R): 3+, Bicep (L): 3+ - Lab Results Fish Bones: 02/23/19 04:35 02/23/19 04:35 ABX Reporting Has patient been on IV antibiotics over the past 48 hours?: No Assessment/Plan - Problem List (1) Hypothyroidism Impression: - TSH was checked and found to be very high at 143.80 -Free T4 confirms this disease with a T4 level low at less than 0.25 -Patient denies previous thyroid issues including cancer, goiter, or hypothyroidism -No current infection suspected, no severe malnutrition at this time -No chest pain, syncope or electrolyte abnormalities noted Plan: Continue Synthroid at 100 mcg, re-check TSH in 4-6 weeks Hypotension-NEW -On 02/24, patient was symptomatic, and found to have blood pressures of 70-80s systolic -Status post NS IV bolus of 500 mL, TSH was very high at 143, cortisol normal -Patient has had good PO intake 75-100% for each meal today - Could be due to newly diagnosed hypothyroidism or poor PO intake of fluid - Still with light B/Ps, but patient denies dizziness Plan: continue to monitor, continue Spironolactone , add Lasix in the next few days, continue midodrine, routine labs every 2-4 days, and monitor vital signs Respiratory failure with hypoxia and hypercapnia-CHRONIC - Contributing factors of moderate to severe COPD -Takes no home inhalers or Singular -Currently on 2-4L nasal cannula - Labs show an elevated carbon dioxide level between 38-40 - Hypercapnia should always be suspected in those who are at risk for hypoventilation (sedatives) or increased physiologic space and limited pulmonary reserve (chronic obstructive pulmonary disease [COPD] exacerbation) who present with shortness of breath, a change in mental status, new hypoxemia, and/or hyper-somnolence. -Patient demonstrates mild to moderate hypercapnia or hypercapnia that develops slowly, anxious, and complains of mild dyspnea, daytime sluggishness, headaches at times - Still reports desaturation with activity, down to 88% requiring an increase - PEP treatments per RT Plan: Continue respiratory cares, nebulizers, expectorants, Flonase, anticipate walking oxygen desaturation test prior to discharge Trimalleolar fracture of left ankle- STABLE - Initial reports of the patient walking on street, tripped over her walker, then subsequently had pain to her left ankle and left wrist - Now post-op day #[address] Manjarrez from an ORIF left ankle fracture for her Closed left trimalleolar ankle fracture - NO surgical complications - Orders for non-weight bearing to LLE - PO tramadol with some pain control Plan: Continue daily PT, anticipate discharge to rehab when able Fall- CHRONIC - Multiple falls since being homeless - Continued on fall precautions - Activity restrictions are non-weight bearing to LLE Plan: Continue to treat illnesses and PT for daily sessions UTI (urinary tract infection)- RESOLVED - Initial urinalysis was positive for acute UTI- NGTD for urine culture - Ongoing urinary retention- so remains with an indwelling smith - No hydronephrosis on imaging, but 6.2 mm right stone is likely - Patient admits to prior kidney stones - Status post IV zosyn from 02/10-02/15 Plan: Continue to monitor urine output, ordered bladder scans Pneumonia-RESOLVED - Imaging shows bilateral infiltrates with a chest x-ray - Patient continues to be hypoxic- requiring 2-3L nasal cannula - Underlying COPD- not treated with long acting inhalers at home, no prior oxy gen at home - Keep oxygen between 88-90% per orders, PEP therapy - Titrating oxygen based on spot checking oxygen - Status post Zosyn, Azithromycin and Rocephin - Continue expectorants - Still requires oxygen at 2-3L per oxymask verses nasal cannula - Now with an elevated WBC count of 11 on 02/12 - Anticipate transition to oral antibiotics tomorrow Plan: Continue oxygen supplementation, daily nasal sprays, PEP therapy per RT Acute kidney injury superimposed on CKD stage 2-STABLE - Baseline creatinine was 1.2 - Admission creatinine was 3.6, now down to 1.1, current GFR is 50 - Continue PO spironolactone - BNP was 148 Plan: continue to monitor labs, I/O, and IV antibiotics, treat acute illnesses, avoid hypotension, NSAIDs, and nephrotoxins COPD (chronic obstructive pulmonary disease)-STABLE - The patient has had recurrent pneumonia and now has bilateral pneumonia - She is prescribed no long acting inhalers - Status post oral steroids - Status post Zosyn, Azithromycin and Rocephin - Also on scheduled expectorants Plan: Continue respiratory care, monitor for improvement, and anticipate transfer to SNF with supplemental oxygen Constipation by delayed colonic transit-RESOLVED - No recent problems - Daily meds; miralax, senna, Plan: continue to monitor, give suppository if no improvement Edema of both upper extremities-STABLE - 3rd spacing to BUEs on exam - Also with JENNIFER - Was previously on oral lasix/spironolactone, resuming Spironolactone - Echo shows no HF or pulmonary hypertension Plan: Continue spironolactone since JENNIFER is improved, elevate extremities Homelessness-CHRONIC - The patient admits to at least 2 years of homelessness Plan: Anticipate discharge to SNF for this injury, which may lead to permanent placement at a later date Macrocytic anemia-CHRONIC - H/H is stable at 8.0/26.2, MCV 102.3 - Likely JENNIFER is a contributing factor, and due to dilution - Iron studies were done on 02/06 showing low iron, low iron % - Continues on daily iron supplement - Poor PO intake, refusing meals but likely due to slow transit constipation Plan: Continue to trend labs, give iron supplement, and resume spironolactone Urinary retention-RESOLVED - Risk factors include; aging, neurological disorder, and new narcotics being used post-op - Re-started on Flomax ( a grade 2C recommendation), - Also with a known kidney stone - Patient also notes that 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 in the past - This probably contributed to her JENNIFER during this hospital stay - Failed a voiding trial (02/09), has passed void trial, now smith has been r emoved Plan: Continue to monitor I/O
[2019-02-26] MEDS: LEVOTHYROXINE 100 MCG TABLET PO SCH (06:25)
[2019-02-26] MEDS: SODIUM CHLORIDE FLUSH 0.9% 10 ML SYRINGE IVP SCH ×2 (06:25→09:11)
[2019-02-26] MEDS: PANTOPRAZOLE 40 MG TABLET PO SCH (06:25)
[2019-02-26] MEDS: traMADol 50 MG TABLET PO PRN ×4 (06:26→22:23)
--- NOTE | 2019-02-26 07:25 | PROVIDER PROGRESS NOTE ---
Subjective - Prog Note Date Prog Note Date: 02/26/19 Prog Note Time: 07:25 - Subjective Pt reports feeling: No change Subjective: Bonnie was not previously prescribed home inhalers so upon discharge I recommend for COPD maintenance: Spiriva daily, Advair BID, Singular at HS, Proair as needed for rescue inhaler. She will need close follow up for her hypothyroidism with another TSH in about 1 month (03/27/2019). The patient has been taught of her new hypothyroidism. On exam, she denies chest pain, nausea, vomiting, a new rash, new productive cough. Current Medications - Current Medications Current Medications: Active Medications: Acetaminophen (Tylenol) 650 - 975 mg PO Q4HR PRN Albuterol 2.5 mg INH RTQ4H PRN Albuterol/Ipratropium (Duoneb) 3 ml INH Q4HR PRN Bisacodyl (Dulcolax Supp) 10 mg [place] DAILY PRN Docusate Sodium (Colace 250mg Capsule) 250 - 500 mg PO DAILY ADAN Enoxaparin Sodium (Lovenox) 40 mg SUBQ DAILY ADAN Ferrous Gluconate (Fergon) 324 mg PO DAILYWM ADAN Guaifenesin (Mucinex) 300 mg PO BID, PRN Levothyroxine Sodium (Synthroid) 100 mcg PO QDAC ADAN Multivitamins/Minerals (Theragran M) 1 tab PO DAILYWM ADAN Pantoprazole Sodium (Protonix) 40 mg PO QDAC ADAN Polyethylene Glycol (Miralax) 17 gm PO DAILY ADAN Saccharomyces Boulardii (Florastor) 250 mg PO BIDWM ADAN Senna (Senokot) 8.6 - 17.2 mg PO DAILY ADAN Sodium Chloride ([place]) 2 sprays ELINOR Q4HR PRN Spironolactone 12.5 mg BID PO daily Tramadol HCl (Ultram) 50 mg PO Q4HR PRN Vitamin A/Vitamin D (Vitamin A & D Ointment) 1 applic TOP PRN Midodrine 5 mg PO TID with meals ADAN Flonase spray per nasal QD No Known Home Medications 02/06/19 Objective - Vital Signs/Intake & Output Reviewed Vital Signs: Yes Vital Signs: Vital Signs x48h Temp Pulse Resp BP Pulse Ox 02/25/19 23:45 36.3 C L 64 18 102/55 L 92 Intake & Output: Intake & Output 02/23/19 02/24/19 02/25/19 02/26/19 23:59 23:59 23:59 23:59 Intake Total 710 1430 1320 Output Total 1600 1750 1075 Balance -890 -320 245 - Objective General Appearance: positive: No acute distress, Alert Eyes Bilateral: positive: No lid inflammation ENT: positive: Pharynx nml, No signs of dehydration Neck: positive: No JVD, Trachea midline Respiratory: positive: Chest non-tender, No respiratory distress, Wheezes Cardiovascular: positive: Regular rate & rhythm, No gallop, Systolic murmur Peripheral Pulses: 1+ Radial (R), 1+ Radial (L) Abdomen: positive: Non-tender, Nml bowel sounds, Hepatomegaly, Other (rounded, soft) Back: positive: Nml inspection Skin: positive: No rash, Warm, Dry, Other (bronze toned skin) Extremities: positive: Non-tender, Pedal edema, Joint swelling, Other (BUE edema-chronic) Neurologic/Psychiatric: positive: Oriented x3, CN's nml (2-12), Motor nml, Weakness, Sensory loss, Slurred/abnml speech (baseline slurred speech), Depressed mood/affect Reflexes: Bicep (R): 3+, Bicep (L): 3+ - Lab Results Fish Bones: 02/26/19 12:09 02/26/19 12:09 ABX Reporting Has patient been on IV antibiotics over the past 48 hours?: No Assessment/Plan - Problem List (1) Acute respiratory failure with hypoxia and hypercapnia Impression: - Contributing factors of moderate to severe COPD -Takes no home inhalers or Singular -Currently on 2-4L nasal cannula - Labs show an elevated carbon dioxide level between 38-40 - Hypercapnia should always be suspected in those who are at risk for hypoventilation (sedatives) or increased physiologic space and limited pulmonary reserve (chronic obstructive pulmonary disease [COPD] exacerbation) who present with shortness of breath, a change in mental status, new hypoxemia, and/or hyper-somnolence -Patient demonstrates mild to moderate hypercapnia or hypercapnia that develops slowly, anxious, and complains of mild dyspnea, daytime sluggishness, headaches at times - Still reports desaturation with activity, down to 88% requiring an increase - PEP treatments per RT Plan: Continue respiratory cares, nebulizers, expectorants, Flonase, anticipate walking oxygen desaturation test prior to discharge Acute metabolic encephalopathy - Today, patient has had more disorientation, difficulty with following some commands, and has trouble with attention - Although this is baseline, and by this afternoon this has improved - Not obtunded, in a coma or in a stupor & eating well - Contributing factors are due to chronic respiratory failure, anemia, fluid balance, and dysuria - Sometimes her encephalopathy limits her participation in therapies, chronic flat affect, difficult to get her to smile or laugh Plan: Continue to monitor, promote awake/sleep cycles, routine labs every 2-4 days, await discharge Hypothyroidism-STABLE -TSH was checked and found to be very high at 143.80 -Free T4 confirms this disease with a T4 level low at less than 0.25 -Patient denies previous thyroid issues including cancer, goiter, or hypothyroidism -No current infection suspected, no severe malnutrition at this time -No chest pain, syncope or electrolyte abnormalities noted - Patient denies thyroidectomy, malignancy, but does admit to fracturing her neck in the past - She has overall very poor skin condition, orders to remove IV today Plan: Continue Synthroid at 100 mcg, re-check TSH in 4-6 weeks Hypotension-NEW -On 02/24, patient was symptomatic, and found to have blood pressures of 70-80s systolic -Status post NS IV bolus of 500 mL, TSH was very high at 143, cortisol normal -Patient has had good PO intake 75-100% for each meal today - Could be due to newly diagnosed hypothyroidism or poor PO intake of fluid - Still with light B/Ps, but patient denies dizziness - Midodrine can cause urinary retention, so keeping the dose at 5 mg Plan: continue to monitor, continue Spironolactone , add Lasix in the next few days, continue midodrine, routine labs every 2-4 days, and monitor vital signs Trimalleolar fracture of left ankle- STABLE - Initial reports of the patient walking on street, tripped over her walker, then subsequently had pain to her left ankle and left wrist - Now post-op day #[address] Manjarrez from an ORIF left ankle fracture for her Closed left trimalleolar ankle fracture - NO surgical complications - Orders for non-weight bearing to LLE - PO tramadol with some pain control Plan: Continue daily PT, anticipate discharge to rehab when able Fall- CHRONIC - Multiple falls since being homeless - Continued on fall precautions - Activity restrictions are non-weight bearing to LLE Plan: Continue to treat illnesses and PT for daily sessions UTI (urinary tract infection)- RESOLVED - Initial urinalysis was positive for acute UTI- NGTD for urine culture - Ongoing urinary retention- so remains with an indwelling smith - No hydronephrosis on imaging, but 6.2 mm right stone is likely - Patient admits to prior kidney stones - Status post IV zosyn from 02/10-02/15 Plan: Continue to monitor urine output, ordered bladder scans Pneumonia-RESOLVED - Imaging shows bilateral infiltrates with a chest x-ray - Patient continues to be hypoxic- requiring 2-3L nasal cannula - Underlying COPD- not treated with long acting inhalers at home, no prior oxygen at home - Keep oxygen between 88-90% per orders, PEP therapy - Titrating oxygen based on spot checking oxygen - Status post Zosyn, Azithromycin and Rocephin - Continue expectorants, changed to as needed - Elevated WBC count of 11 on 02/12, now normal Plan: Continue oxygen supplementation, daily nasal sprays, PEP therapy per RT Chronic laryngitis - Beyond 3 weeks, present during her last admission prior to her LLE fracture - Possible causes are chronic GERD, post nasal drip (now treated), hypothyroidism (previously un-treated), inhaled toxins (drug use), chronic alcoholism, or carcinoma of the larynx - Patient states that several years ago, she fractured her neck which could have lead to neurologic dysfunction causing permanent vocal cord paralysis - Could be a manifestation of undiagnosed early Parkinson's disease Plan: Continue to monitor and treat symptoms, continue Synthroid Acute kidney injury superimposed on CKD stage 2-STABLE - Baseline creatinine was 1.2 - Admission creatinine was 3.6, now down to 1.2, current GFR is 46 - Continue PO spironolactone - BNP was 148 Plan: continue to monitor labs every 2-4 days, I/O, avoid hypotension, NSAIDs, and nephrotoxins COPD (chronic obstructive pulmonary disease)-STABLE - The patient has had recurrent pneumonia and now has bilateral pneumonia - She is prescribed no long acting inhalers - Status post oral steroids - Status post Zosyn, Azithromycin and Rocephin - Also on as needed expectorants Plan: Continue respiratory care, monitor for improvement, and anticipate transfer to SNF with supplemental oxygen Constipation by delayed colonic transit-RESOLVED - No recent problems - Daily meds; miralax, senna, Plan: continue to monitor, give suppository if no improvement Edema of both upper extremities-STABLE - 3rd spacing to BUEs on exam - Also with JENNIFER - Echo shows no HF or pulmonary hypertension Plan: Continue spironolactone since JENNIFER is improved, elevate extremities Homelessness-CHRONIC - The patient admits to at least 2 years of homelessness Plan: Anticipate discharge to SNF for this injury, which may lead to permanent placement at a later date Macrocytic anemia-CHRONIC - H/H is stable at 7.8/25.4, MCV 103.3 - Likely JENNIFER is a contributing factor, and due to dilution - Iron studies were done on 02/06 showing low iron, low iron % - Continues on daily iron supplement - Poor PO intake, refusing meals but likely due to slow transit constipation Plan: Continue to trend labs, give iron supplement, and continue spironolactone Urinary retention - Risk factors include; aging, neurological disorder, and new narcotics being used post-op - Re-started on Flomax ( a grade 2C recommendation), - Also with a known kidney stone - Patient also notes that 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 in the past - This probably contributed to her JENNIFER during this hospital stay - Failed a voiding trial (02/09), has passed void trial, now smith has been removed - Still with times of elevated post void residuals 300-500 mL - Changed expectorant to PRN to prevent side effects of dysuria Plan: Continue to monitor I/O
[2019-02-26] MEDS: SENNA 8.6 MG TABLET PO SCH (09:10)
[2019-02-26] MEDS: TAMSULOSIN 0.4 MG CAPSULE PO SCH (09:10)
[2019-02-26] MEDS: DOCUSATE SODIUM 250 MG CAPSULE PO SCH (09:10)
[2019-02-26] MEDS: ENOXAPARIN 40 MG/0.4 ML SYRINGE SUBQ SCH (09:11)
[2019-02-26] MEDS: MULTIVITAMIN W/MINERALS TABLET PO SCH (09:11)
[2019-02-26] MEDS: SACCHAROMYCES BOULARDII 250 MG CAPSULE PO SCH ×2 (09:11→18:23)
[2019-02-26] MEDS: FERROUS GLUCONATE 324 MG TABLET PO SCH (09:11)
[2019-02-26] MEDS: guaiFENesin 600 MG TABLET PO SCH (09:12)
[2019-02-26] MEDS: SPIRONOLACTONE 25 MG TABLET PO SCH ×2 (09:12→18:24)
[2019-02-26] MEDS: FLUTICASONE NASAL SPRAY NAS SCH (09:12)
[2019-02-26] MEDS: MIDODRINE 2.5 MG TABLET PO SCH ×3 (09:13→18:23)
[2019-02-26] MEDS: POLYETHYLENE GLYCOL 3350 17 GM PACKET PO SCH (09:13)
[2019-02-26 12:13] LABS: BASOPHILS % (AUTO) 0.6 %; EOSINOPHILS # (AUTO) 0.2 10^3/uL (0.0-0.7); EOSINOPHILS % (AUTO) 3.3 %; HGB - HEMOGLOBIN 7.8 g/dL (12.0-16.0); LYMPHOCYTES # (AUTO) 0.7 10^3/uL (1.5-3.5); LYMPHOCYTES % (AUTO) 10.7 %; MEAN CORPUSCULAR HEMOGLOBIN 31.7 pg (27.0-31.0); MEAN CORPUSCULAR HGB CONC 30.7 g/dL (32.0-36.0); MEAN CORPUSCULAR VOLUME 103.3 fL (81.0-99.0); MEAN PLATELET VOLUME 10.1 fL (7.9-10.8); MONOCYTES # (AUTO) 0.7 10^3/uL (0.0-1.0); MONOCYTES % (AUTO) 11.5 %; NEUTROPHILS # (AUTO) 4.7 10^3/uL (1.5-6.6); NEUTROPHILS % (AUTO) 72.2 %; PLT - PLATELET COUNT 198 10^3/uL (130-450); RED BLOOD COUNT 2.46 10^6/uL (4.20-5.40); RED CELL DISTRIBUTION WIDTH 16.3 % (12.0-15.0); WHITE BLOOD COUNT 6.5 x10^3/uL (4.8-10.8)
[2019-02-26 12:26] LABS: ALBUMIN 3.3 g/dL (3.2-5.5); ALBUMIN/GLOBULIN RATIO 0.8 (1.0-2.2); BILIRUBIN,TOTAL 0.3 mg/dL (0.2-1.0); CALCIUM 9.6 mg/dL (8.5-10.3); CREATININE 1.2 mg/dL (0.4-1.0); MAGNESIUM 2.2 mg/dL (1.7-2.8); TOTAL PROTEIN 7.2 g/dL (6.7-8.2)
[2019-02-26] MEDS ORDERED: guaiFENesin 600 MG TABLET PO PRN (13:23)
[2019-02-26] MEDS: IPRATROPIUM/ALBUTEROL 3 ML NEB INH PRN (17:42)
[2019-02-26] MEDS: FAMOTIDINE 20 MG TABLET PO SCH (21:27)
[2019-02-26] MEDS: ACETAMINOPHEN 325 MG TABLET PO PRN (23:49)
[2019-02-27] MEDS: LEVOTHYROXINE 100 MCG TABLET PO SCH (06:18)
[2019-02-27] MEDS: traMADol 50 MG TABLET PO PRN ×2 (06:32→23:34)
[2019-02-27] MEDS: MULTIVITAMIN W/MINERALS TABLET PO SCH (08:41)
[2019-02-27] MEDS: SENNA 8.6 MG TABLET PO SCH (08:41)
[2019-02-27] MEDS: TAMSULOSIN 0.4 MG CAPSULE PO SCH (08:41)
[2019-02-27] MEDS: SACCHAROMYCES BOULARDII 250 MG CAPSULE PO SCH ×2 (08:41→18:15)
[2019-02-27] MEDS: MIDODRINE 2.5 MG TABLET PO SCH ×3 (08:41→21:02)
[2019-02-27] MEDS: DOCUSATE SODIUM 250 MG CAPSULE PO SCH (08:41)
[2019-02-27] MEDS: FERROUS GLUCONATE 324 MG TABLET PO SCH (08:42)
[2019-02-27] MEDS: FAMOTIDINE 20 MG TABLET PO SCH ×2 (08:42→21:02)
[2019-02-27] MEDS: FLUTICASONE NASAL SPRAY NAS SCH (08:42)
[2019-02-27] MEDS: ENOXAPARIN 40 MG/0.4 ML SYRINGE SUBQ SCH (08:42)
[2019-02-27] MEDS: POLYETHYLENE GLYCOL 3350 17 GM PACKET PO SCH (08:42)
--- NOTE | 2019-02-27 10:51 | PROVIDER PROGRESS NOTE ---
Subjective - Prog Note Date Prog Note Date: 02/27/19 - Subjective Pt reports feeling: Improved Subjective: pt is comfortable sitting up at the bed to eat her breakfast. she denies complaints. pt is pending for placement. Current Medications - Current Medications Current Medications: Active Medications Acetaminophen (Tylenol) 650 - 975 mg PO Q4HR PRN PRN Reason: PAIN Last Admin: 02/26/19 23:49 Dose: 650 mg Albuterol () 2.5 mg INH RTQ4H PRN PRN Reason: Wheezing Albuterol/Ipratropium (Duoneb) 3 ml INH Q4HR PRN PRN Reason: Wheezing Last Admin: 02/26/19 17:42 Dose: 3 ml Bisacodyl (Dulcolax Supp) 10 mg [place] DAILY PRN PRN Reason: Constipation Last Admin: 02/10/19 19:47 Dose: 10 mg Docusate Sodium (Colace 250mg Capsule) 250 - 500 mg PO DAILY [facility] Last Admin: 02/27/19 08:41 Dose: 250 mg Enoxaparin Sodium (Lovenox) 40 mg SUBQ DAILY [facility] Last Admin: 02/27/19 08:42 Dose: 40 mg Famotidine (Pepcid) 20 mg PO BID [facility] Last Admin: 02/27/19 08:42 Dose: 20 mg Ferrous Gluconate (Fergon) 324 mg PO DAILYWM [facility] Last Admin: 02/27/19 08:42 Dose: 324 mg Fluticasone Propionate (Flonase) 2 sprays ELINOR DAILY [facility] Last Admin: 02/27/19 08:42 Dose: 2 sprays Guaifenesin (Mucinex) 300 mg PO BID PRN PRN Reason: Cough Levothyroxine Sodium (Synthroid) 100 mcg PO QDAC [facility] Last Admin: 02/27/19 06:18 Dose: 100 mcg Midodrine () 5 mg PO TIDWM [facility] Last Admin: 02/27/19 08:41 Dose: 5 mg Multivitamins/Minerals (Theragran M) 1 tab PO DAILYWM [facility] Last Admin: 02/27/19 08:41 Dose: 1 tab Polyethylene Glycol (Miralax) 17 gm PO DAILY [facility] Last Admin: 02/27/19 08:42 Dose: 17 gm Saccharomyces Boulardii (Florastor) 250 mg PO BIDWM [facility] Last Admin: 02/27/19 08:41 Dose: 250 mg Senna (Senokot) 8.6 - 17.2 mg PO DAILY [facility] Last Admin: 02/27/19 08:41 Dose: 8.6 mg Sodium Chloride (Davidson) 2 sprays ELINOR Q4HR PRN PRN Reason: Nasal Congestion Tamsulosin HCl (Flomax) 0.4 mg PO DAILY [facility] Last Admin: 02/27/19 08:41 Dose: 0.4 mg Tramadol HCl (Ultram) 50 mg PO Q4HR PRN PRN Reason: PAIN Last Admin: 02/27/19 06:32 Dose: 50 mg Vitamin A/Vitamin D (Vitamin A & D Ointment) 1 applic TOP PRN PRN PRN Reason: Skin Care Last Admin: 02/13/19 16:25 Dose: 1 applic No Known Home Medications 02/06/19 Objective - Vital Signs/Intake & Output Reviewed Vital Signs: Yes Vital Signs: Vital Signs x48h Temp Pulse Resp BP Pulse Ox 02/27/19 08:00 36.2 C L 61 16 91/55 L 90 L Intake & Output: Intake & Output 02/24/19 02/25/19 02/26/19 02/27/19 23:59 23:59 23:59 23:59 Intake Total 1430 1320 670 580 Output Total 1750 1075 1250 500 Balance -320 245 -580 80 - Objective General Appearance: positive: No acute distress, Alert. negative: Lethargic Eyes Bilateral: positive: Normal inspection, PERRL, No lid inflammation, Conjunctivae nml ENT: positive: ENT inspection nml, Pharynx nml, No signs of dehydration. negati ve: Purulent nasal drainage, Pharyngeal erythema, Oral lesions Neck: positive: Nml inspection, Thyroid nml, No JVD, Trachea midline. negative: Thyromegaly, Lymphadenopathy (R), Lymphadenopathy (L), Stiff neck, Swelling/bruising, Tracheal deviation Respiratory: positive: Chest non-tender, No respiratory distress, Breath sounds nml. negative: Wheezes, Rales, Rhonchi Cardiovascular: positive: Regular rate & rhythm, No murmur, No gallop. negative: Irregularly irregular, Extrasystoles, Tachycardia, Bradycardia, JVD present, Systolic murmur, Diastolic murmur Peripheral Pulses: 2+ Radial (R), 2+ Radial (L), 2+ Dorsalis pedis (R), 2+ Dorsalis pedis (L) Abdomen: positive: Non-tender, No organomegaly, Nml bowel sounds, No distention. negative: Tenderness, Guarding, Rebound Back: positive: Nml inspection. negative: CVA tenderness (R), CVA tenderness (L) Skin: positive: Color nml, No rash, Warm, Dry. negative: Cyanosis, Diaphoresis, Pallor Extremities: positive: Non-tender, Nml appearance. negative: Calf tenderness, Joint swelling, Rashaad's sign/cords Neurologic/Psychiatric: positive: Mood/affect nml. negative: Weakness, Sensory loss, Facial droop, Slurred/abnml speech, Depressed mood/affect - Lab Results Fish Bones: 02/26/19 12:09 02/26/19 12:09 Other Labs: Lab Results x24hrs 02/26/19 02/26/19 Range/Units 12:09 12:09 WBC 6.5 (4.8-10.8) x10^3/uL RBC 2.46 L (4.20-5.40) 10^6/uL Hgb 7.8 L (12.0-16.0) g/dL Hct 25.4 L (37.0-47.0) % MCV 103.3 H (81.0-99.0) fL MCH 31.7 H (27.0-31.0) pg MCHC 30.7 L (32.0-36.0) g/dL RDW 16.3 H (12.0-15.0) % Plt Count 198 (130-450) 10^3/uL MPV 10.1 (7.9-10.8) fL Neut # (Auto) 4.7 (1.5-6.6) 10^3/uL Lymph # (Auto) 0.7 L (1.5-3.5) 10^3/uL [place] # (Auto) 0.7 (0.0-1.0) 10^3/uL Eos # (Auto) 0.2 (0.0-0.7) 10^3/uL Baso # (Auto) 0.0 (0.0-0.1) 10^3/uL Absolute Nucleated RBC 0.00 x10^3/uL Nucleated RBC % 0.0 /100WBC Sodium 135 (135-145) mmol/L Potassium 4.9 (3.5-5.0) mmol/L Chloride 89 L (101-111) mmol/L Carbon Dioxide 38 H (21-32) mmol/L Anion Gap 8.0 (6-13) BUN 29 H (6-20) mg/dL Creatinine 1.2 H (0.4-1.0) mg/dL Estimated GFR (MDRD) 46 L (>89) Glucose 102 H (70-100) mg/dL Calcium 9.6 (8.5-10.3) mg/dL Magnesium 2.2 (1.7-2.8) mg/dL Total Bilirubin 0.3 (0.2-1.0) mg/dL AST 31 (10-42) IU/L ALT 32 (10-60) IU/L Alkaline Phosphatase 101 (42-121) IU/L Total Protein 7.2 (6.7-8.2) g/dL Albumin 3.3 (3.2-5.5) g/dL Globulin 3.9 (2.1-4.2) g/dL Albumin/Globulin Ratio 0.8 L (1.0-2.2) ABX Reporting Has patient been on IV antibiotics over the past 48 hours?: No Sepsis Event Note (H) - Evaluation Current Stage of Sepsis: Ruled out Assessment/Plan - Problem List (1) Respiratory failure with hypoxia Impression: stable now. pt has been above 90% on about 3 liter of O2. pt has no respiratory distress. continue consulting with RT, respiratory cares and treatment, nebulizers, expectorants, Flonase. Acute metabolic encephalopathy pt is stable as her baseline today continue monitor closely Hypothyroidism-New -TSH was high at 143.80, Free T4 was significant lower less than 0.25. Patient denies previous thyroid issues including cancer, goiter, or hypothyroidism Continue Synthroid at 100 mcg, re-check TSH in 4-6 weeks Hypotension pt still present low side of SBP at 91 at this morning, but pt was asymptomatic, she denies dizziness, lightheaded, chest pain, palpitations. Cortisol test is normal arrange. hold Spironolactone continue middrive continue vital monitor Trimalleolar fracture of left ankle- STABLE stable, pt denies pain or neurovascular complaints. daily PT, anticipate discharge to rehab when able Fall- CHRONIC Multiple falls since being homeless. Continued on fall precautions continue PT for daily sessions UTI (urinary tract infection)- RESOLVED resolved Pneumonia-RESOLVED resolved Acute kidney injury superimposed on CKD stage 2-STABLE/resolved significant improved, creatinine is around 1.2 now from 3.6 at the admission. avoid NSAIDs, and nephrotoxins lab monitor COPD (chronic obstructive pulmonary disease)-STABLE stable, Continue respiratory care, anticipate transfer to SNF with supplemental oxygen Edema of both upper extremities-STABLE stable, encourage pt safely ambulate and elevate extremities Homelessness-CHRONIC Anticipate discharge to SNF for this injury, which may lead to permanent placement at a later date Macrocytic anemia-CHRONIC H/H is stable at 7.8/25.4, MCV 103.3 B12 and folate were at normal arrange but iron deficiency continue give iron supplement. Urinary retention significant improved. pt can avoid by her own but Still with times of elevated post void residuals 300-500 mL continue Flomax Continue to monitor I/O
[2019-02-27] MEDS: IPRATROPIUM/ALBUTEROL 3 ML NEB INH PRN (14:26)
[2019-02-28] MEDS: LEVOTHYROXINE 100 MCG TABLET PO SCH (06:09)
[2019-02-28 07:44] LABS: BASOPHILS % (AUTO) 0.4 %; EOSINOPHILS # (AUTO) 0.2 10^3/uL (0.0-0.7); EOSINOPHILS % (AUTO) 3.9 %; HGB - HEMOGLOBIN 7.7 g/dL (12.0-16.0); LYMPHOCYTES # (AUTO) 0.6 10^3/uL (1.5-3.5); LYMPHOCYTES % (AUTO) 12.5 %; MEAN CORPUSCULAR HEMOGLOBIN 32.1 pg (27.0-31.0); MEAN CORPUSCULAR HGB CONC 31.2 g/dL (32.0-36.0); MEAN CORPUSCULAR VOLUME 102.9 fL (81.0-99.0); MEAN PLATELET VOLUME 10.1 fL (7.9-10.8); MONOCYTES # (AUTO) 0.5 10^3/uL (0.0-1.0); MONOCYTES % (AUTO) 10.9 %; NEUTROPHILS # (AUTO) 3.5 10^3/uL (1.5-6.6); NEUTROPHILS % (AUTO) 71.1 %; PLT - PLATELET COUNT 200 10^3/uL (130-450); RED CELL DISTRIBUTION WIDTH 16.6 % (12.0-15.0); WHITE BLOOD COUNT 4.9 x10^3/uL (4.8-10.8)
[2019-02-28] MEDS: IPRATROPIUM/ALBUTEROL 3 ML NEB INH PRN ×3 (07:49→19:57)
[2019-02-28 07:54] LABS: CALCIUM 9.7 mg/dL (8.5-10.3); CREATININE 1.2 mg/dL (0.4-1.0)
[2019-02-28] MEDS: ENOXAPARIN 40 MG/0.4 ML SYRINGE SUBQ SCH (08:39)
[2019-02-28] MEDS: POLYETHYLENE GLYCOL 3350 17 GM PACKET PO SCH (08:39)
[2019-02-28] MEDS: DOCUSATE SODIUM 250 MG CAPSULE PO SCH (08:40)
[2019-02-28] MEDS: FAMOTIDINE 20 MG TABLET PO SCH ×2 (08:40→21:35)
[2019-02-28] MEDS: MULTIVITAMIN W/MINERALS TABLET PO SCH (08:40)
[2019-02-28] MEDS: MIDODRINE 2.5 MG TABLET PO SCH ×3 (08:40→17:22)
[2019-02-28] MEDS: SENNA 8.6 MG TABLET PO SCH (08:40)
[2019-02-28] MEDS: FERROUS GLUCONATE 324 MG TABLET PO SCH (08:40)
[2019-02-28] MEDS: TAMSULOSIN 0.4 MG CAPSULE PO SCH (08:40)
[2019-02-28] MEDS: SACCHAROMYCES BOULARDII 250 MG CAPSULE PO SCH ×2 (08:40→17:22)
[2019-02-28] MEDS: FLUTICASONE NASAL SPRAY NAS SCH (08:43)
[2019-02-28] MEDS: traMADol 50 MG TABLET PO PRN ×2 (10:38→15:59)
--- NOTE | 2019-02-28 11:52 | PROVIDER PROGRESS NOTE ---
Subjective - Prog Note Date Prog Note Date: 02/28/19 - Subjective Pt reports feeling: Improved Subjective: Pt's BP is low at the morning. but pt is eating her lunch by herself, answer my question correctly, has no distress. I called Dr. Buck. Nurse did dressing change at surgery site for pt on last night, found pt still had a few charlie. I report this condition to Dr. Buck to see if the charlie can be removed. Dr. Buck called me back and stated nurse can removed the charlie since pt had the surgery three weeks ago, pt can followup orthopedics office in 2-3 weeks. Current Medications - Current Medications Current Medications: Active Medications Acetaminophen (Tylenol) 650 - 975 mg PO Q4HR PRN PRN Reason: PAIN Last Admin: 02/26/19 23:49 Dose: 650 mg Albuterol () 2.5 mg INH RTQ4H PRN PRN Reason: Wheezing Albuterol/Ipratropium (Duoneb) 3 ml INH Q4HR PRN PRN Reason: Wheezing Last Admin: 02/28/19 07:49 Dose: 3 ml Bisacodyl (Dulcolax Supp) 10 mg [place] DAILY PRN PRN Reason: Constipation Last Admin: 02/10/19 19:47 Dose: 10 mg Docusate Sodium (Colace 250mg Capsule) 250 - 500 mg PO DAILY [facility] Last Admin: 02/28/19 08:40 Dose: 250 mg Enoxaparin Sodium (Lovenox) 40 mg SUBQ DAILY [facility] Last Admin: 02/28/19 08:39 Dose: 40 mg Famotidine (Pepcid) 20 mg PO BID [facility] Last Admin: 02/28/19 08:40 Dose: 20 mg Ferrous Gluconate (Fergon) 324 mg PO DAILYWM [facility] Last Admin: 02/28/19 08:40 Dose: 324 mg Fluticasone Propionate (Flonase) 2 sprays ELINOR DAILY [facility] Last Admin: 02/28/19 08:43 Dose: 2 sprays Guaifenesin (Mucinex) 300 mg PO BID PRN PRN Reason: Cough Levothyroxine Sodium (Synthroid) 100 mcg PO QDAC [facility] Last Admin: 02/28/19 06:09 Dose: 100 mcg Midodrine () 5 mg PO TIDWM [facility] Last Admin: 02/28/19 08:40 Dose: 5 mg Multivitamins/Minerals (Theragran M) 1 tab PO DAILYWM [facility] Last Admin: 02/28/19 08:40 Dose: 1 tab Polyethylene Glycol (Miralax) 17 gm PO DAILY [facility] Last Admin: 02/28/19 08:39 Dose: 17 gm Saccharomyces Boulardii (Florastor) 250 mg PO BIDWM [facility] Last Admin: 02/28/19 08:40 Dose: 250 mg Senna (Senokot) 8.6 - 17.2 mg PO DAILY [facility] Last Admin: 02/28/19 08:40 Dose: 8.6 mg Sodium Chloride ([place]) 2 sprays ELINOR Q4HR PRN PRN Reason: Nasal Congestion Tamsulosin HCl (Flomax) 0.4 mg PO DAILY [facility] Last Admin: 02/28/19 08:40 Dose: 0.4 mg Tramadol HCl (Ultram) 50 mg PO Q4HR PRN PRN Reason: PAIN Last Admin: 02/28/19 10:38 Dose: 50 mg Vitamin A/Vitamin D (Vitamin A & D Ointment) 1 applic TOP PRN PRN PRN Reason: Skin Care Last Admin: 02/13/19 16:25 Dose: 1 applic No Known Home Medications 02/06/19 Objective - Vital Signs/Intake & Output Reviewed Vital Signs: Yes Vital Signs: Vital Signs x48h Temp Pulse Pulse Resp BP Pulse Ox 02/28/19 08:00 36.3 C L 63 14 86/53 L 92 02/28/19 07:50 65 15 Intake & Output: Intake & Output 02/25/19 02/26/19 02/27/19 02/28/19 23:59 23:59 23:59 23:59 Intake Total 7086 974 2241 300 Output Total 1075 1250 850 400 Balance 245 -580 290 -100 - Objective General Appearance: positive: No acute distress, Alert. negative: Lethargic Eyes Bilateral: positive: Normal inspection, PERRL, No lid inflammation, Conjunctivae nml ENT: positive: ENT inspection nml, Pharynx nml, No signs of dehydration. negative: Purulent nasal drainage, Pharyngeal erythema, Oral lesions Neck: positive: Nml inspection, Thyroid nml, No JVD. negative: Trachea midline, Thyromegaly, Lymphadenopathy (R), Lymphadenopathy (L), Stiff neck, Swelling/bruising, Tracheal deviation Respiratory: positive: Chest non-tender, No respiratory distress. negative: Wheezes, Rales, Rhonchi Cardiovascular: positive: Regular rate & rhythm, No murmur, No gallop. negative: Irregularly irregular, Extrasystoles, Tachycardia, Bradycardia, PMI displaced laterally, JVD present, Systolic murmur, Diastolic murmur Peripheral Pulses: 2+ Radial (R), 2+ Radial (L), 2+ Dorsalis pedis (R), 2+ Dorsalis pedis (L) Abdomen: positive: Non-tender, No organomegaly, Nml bowel sounds, No distention. negative: Tenderness, Guarding, Rebound Back: positive: Nml inspection. negative: CVA tenderness (R), CVA tenderness (L) Skin: positive: Color nml, No rash, Warm, Dry. negative: Cyanosis, Diaphoresis, Pallor Extremities: positive: Non-tender, Other (left toes with normal capillary refill, intact neurovascluar status). negative: Calf tenderness, Joint swelling, Rashaad's sign/cords Neurologic/Psychiatric: positive: Oriented x3, Sensation nml, Mood/affect nml. negative: Weakness, Sensory loss, Facial droop, Slurred/abnml speech, Depressed mood/affect - Lab Results Fish Bones: 02/28/19 07:37 02/28/19 07:37 Other Labs: Lab Results x24hrs 02/28/19 02/28/19 Range/Units 07:37 07:37 WBC 4.9 (4.8-10.8) x10^3/uL RBC 2.40 L (4.20-5.40) 10^6/uL Hgb 7.7 L (12.0-16.0) g/dL Hct 24.7 L (37.0-47.0) % MCV 102.9 H (81.0-99.0) fL MCH 32.1 H (27.0-31.0) pg MCHC 31.2 L (32.0-36.0) g/dL RDW 16.6 H (12.0-15.0) % Plt Count 200 (130-450) 10^3/uL MPV 10.1 (7.9-10.8) fL Neut # (Auto) 3.5 (1.5-6.6) 10^3/uL Lymph # (Auto) 0.6 L (1.5-3.5) 10^3/uL [place] # (Auto) 0.5 (0.0-1.0) 10^3/uL Eos # (Auto) 0.2 (0.0-0.7) 10^3/uL Baso # (Auto) 0.0 (0.0-0.1) 10^3/uL Absolute Nucleated RBC 0.00 x10^3/uL Nucleated RBC % 0.0 /100WBC Sodium 137 (135-145) mmol/L Potassium 4.6 (3.5-5.0) mmol/L Chloride 89 L (101-111) mmol/L Carbon Dioxide 38 H (21-32) mmol/L Anion Gap 10.0 (6-13) BUN 28 H (6-20) mg/dL Creatinine 1.2 H (0.4-1.0) mg/dL Estimated GFR (MDRD) 46 L (>89) Glucose 83 (70-100) mg/dL Calcium 9.7 (8.5-10.3) mg/dL ABX Reporting Has patient been on IV antibiotics over the past 48 hours?: No Sepsis Event Note (H) - Evaluation Current Stage of Sepsis: Ruled out Assessment/Plan - Problem List (1) Respiratory failure with hypoxia Impression: 02/28 stable, no respiratory distress. pt has 92% sat on 2 liter of O2 continue supplement of O2 stable now. pt has been above 90% on about 3 liter of O2. pt has no respiratory distress. continue consulting with RT, respiratory cares and treatment, nebulizers, expectorants, Flonase. Acute metabolic encephalopathy 02/28 resolved, as pt's baseline pt is stable as her baseline today continue monitor closely Hypothyroidism-New 02/28 stable, continue synthroid at 100 mcg -TSH was high at 143.80, Free T4 was significant lower less than 0.25. Patient denies previous thyroid issues including cancer, goiter, or hypothyroidism Continue Synthroid at 100 mcg, re-check TSH in 4-6 weeks Hypotension 02/28 pt still has lower BP but pt is asymptomatic continue middrive, vital monitor pt still present low side of SBP at 91 at this morning, but pt was asymptomatic, she denies dizziness, lightheaded, chest pain, palpitations. Cortisol test is normal arrange. hold Spironolactone continue middrive continue vital monitor Trimalleolar fracture of left ankle- STABLE 02/[address] Buck, he state pt's charlie can be removed order the dressing change order, per orthopedics recommendation pt has intact normal neurovascular status with normal capillary refill on distal toes of left leg stable, pt denies pain or neurovascular complaints. daily PT, anticipate discharge to rehab when able Fall- CHRONIC Multiple falls since being homeless. Continued on fall precautions continue PT for daily sessions UTI (urinary tract infection)- RESOLVED resolved Pneumonia-RESOLVED resolved Acute kidney injury superimposed on CKD stage 2-STABLE/resolved significant improved, creatinine is around 1.2 now from 3.6 at the admission. avoid NSAIDs, and nephrotoxins lab monitor COPD (chronic obstructive pulmonary disease)-STABLE stable, Continue respiratory care, anticipate transfer to SNF with supplemental oxygen Edema of both upper extremities-STABLE stable, encourage pt safely ambulate and elevate extremities Homelessness-CHRONIC Anticipate discharge to SNF for this injury, which may lead to permanent placement at a later date Macrocytic anemia-CHRONIC H/H is stable at 7.8/25.4, MCV 103.3 B12 and folate were at normal arrange but iron deficiency continue give iron supplement. Urinary retention 02/28 pt urinate by self, stable. significant improved. pt can avoid by her own but Still with times of elevated post void residuals 300-500 mL continue Flomax Continue to monitor I/O
[2019-03-01] MEDS: traMADol 50 MG TABLET PO PRN ×3 (04:46→23:29)
[2019-03-01 05:09] LABS: BASOPHILS % (AUTO) 0.4 %; EOSINOPHILS # (AUTO) 0.2 10^3/uL (0.0-0.7); EOSINOPHILS % (AUTO) 4.6 %; HGB - HEMOGLOBIN 7.5 g/dL (12.0-16.0); LYMPHOCYTES # (AUTO) 0.6 10^3/uL (1.5-3.5); LYMPHOCYTES % (AUTO) 12.6 %; MEAN CORPUSCULAR HEMOGLOBIN 31.8 pg (27.0-31.0); MEAN CORPUSCULAR VOLUME 102.5 fL (81.0-99.0); MEAN PLATELET VOLUME 10.9 fL (7.9-10.8); MONOCYTES # (AUTO) 0.6 10^3/uL (0.0-1.0); MONOCYTES % (AUTO) 12.6 %; NEUTROPHILS # (AUTO) 3.5 10^3/uL (1.5-6.6); NEUTROPHILS % (AUTO) 68.8 %; PLT - PLATELET COUNT 206 10^3/uL (130-450); RED BLOOD COUNT 2.36 10^6/uL (4.20-5.40); RED CELL DISTRIBUTION WIDTH 16.9 % (12.0-15.0)
[2019-03-01 05:17] LABS: CALCIUM 9.7 mg/dL (8.5-10.3); CREATININE 1.1 mg/dL (0.4-1.0)
[2019-03-01] MEDS: LEVOTHYROXINE 100 MCG TABLET PO SCH (06:26)
[2019-03-01] MEDS: FAMOTIDINE 20 MG TABLET PO SCH ×2 (08:05→20:20)
[2019-03-01] MEDS: FERROUS GLUCONATE 324 MG TABLET PO SCH (08:05)
[2019-03-01] MEDS: POLYETHYLENE GLYCOL 3350 17 GM PACKET PO SCH (08:05)
[2019-03-01] MEDS: ENOXAPARIN 40 MG/0.4 ML SYRINGE SUBQ SCH (08:05)
[2019-03-01] MEDS: MULTIVITAMIN W/MINERALS TABLET PO SCH (08:05)
[2019-03-01] MEDS: MIDODRINE 2.5 MG TABLET PO SCH ×3 (08:05→17:24)
[2019-03-01] MEDS: TAMSULOSIN 0.4 MG CAPSULE PO SCH (08:05)
[2019-03-01] MEDS: DOCUSATE SODIUM 250 MG CAPSULE PO SCH (08:05)
[2019-03-01] MEDS: SENNA 8.6 MG TABLET PO SCH (08:05)
[2019-03-01] MEDS: FLUTICASONE NASAL SPRAY NAS SCH (08:06)
[2019-03-01] MEDS: SACCHAROMYCES BOULARDII 250 MG CAPSULE PO SCH ×2 (08:06→17:24)
[2019-03-01] MEDS: IPRATROPIUM/ALBUTEROL 3 ML NEB INH PRN (12:39)
--- NOTE | 2019-03-01 14:53 | PROVIDER PROGRESS NOTE ---
Subjective - Prog Note Date Prog Note Date: 03/01/19 - Subjective Pt reports feeling: No change Subjective: pt has no complaint, and she is comfortable eating her breakfast. Current Medications - Current Medications Current Medications: Active Medications Acetaminophen (Tylenol) 650 - 975 mg PO Q4HR PRN PRN Reason: PAIN Last Admin: 02/26/19 23:49 Dose: 650 mg Albuterol () 2.5 mg INH RTQ4H PRN PRN Reason: Wheezing Albuterol/Ipratropium (Duoneb) 3 ml INH Q4HR PRN PRN Reason: Wheezing Last Admin: 03/01/19 12:39 Dose: 3 ml Bisacodyl (Dulcolax Supp) 10 mg [place] DAILY PRN PRN Reason: Constipation Last Admin: 02/10/19 19:47 Dose: 10 mg Docusate Sodium (Colace 250mg Capsule) 250 - 500 mg PO DAILY [facility] Last Admin: 03/01/19 08:05 Dose: 250 mg Enoxaparin Sodium (Lovenox) 40 mg SUBQ DAILY [facility] Last Admin: 03/01/19 08:05 Dose: 40 mg Famotidine (Pepcid) 20 mg PO BID [facility] Last Admin: 03/01/19 08:05 Dose: 20 mg Ferrous Gluconate (Fergon) 324 mg PO DAILYWM [facility] Last Admin: 03/01/19 08:05 Dose: 324 mg Fluticasone Propionate (Flonase) 2 sprays [place] DAILY [facility] Last Admin: 03/01/19 08:06 Dose: 2 sprays Guaifenesin (Mucinex) 300 mg PO BID PRN PRN Reason: Cough Levothyroxine Sodium (Synthroid) 100 mcg PO QDAC [facility] Last Admin: 03/01/19 06:26 Dose: 100 mcg Midodrine () 5 mg PO TIDWM [facility] Last Admin: 03/01/19 11:47 Dose: 5 mg Multivitamins/Minerals (Theragran M) 1 tab PO DAILYWM [facility] Last Admin: 03/01/19 08:05 Dose: 1 tab Polyethylene Glycol (Miralax) 17 gm PO DAILY [facility] Last Admin: 03/01/19 08:05 Dose: 17 gm Saccharomyces Boulardii (Florastor) 250 mg PO BIDWM [facility] Last Admin: 03/01/19 08:06 Dose: 250 mg Senna (Senokot) 8.6 - 17.2 mg PO DAILY [facility] Last Admin: 03/01/19 08:05 Dose: 8.6 mg Sodium Chloride ([place]) 2 sprays ELINOR Q4HR PRN PRN Reason: Nasal Congestion Tamsulosin HCl (Flomax) 0.4 mg PO DAILY [facility] Last Admin: 03/01/19 08:05 Dose: 0.4 mg Tramadol HCl (Ultram) 50 mg PO Q4HR PRN PRN Reason: PAIN Last Admin: 03/01/19 11:47 Dose: 50 mg Vitamin A/Vitamin D (Vitamin A & D Ointment) 1 applic TOP PRN PRN PRN Reason: Skin Care Last Admin: 02/13/19 16:25 Dose: 1 applic No Known Home Medications 02/06/19 Objective - Vital Signs/Intake & Output Reviewed Vital Signs: Yes Vital Signs: Vital Signs x48h Temp Pulse Pulse Resp BP Pulse Ox 03/01/19 12:46 64 16 03/01/19 08:00 36.3 C L 68 16 84/58 L 90 L Intake & Output: Intake & Output 02/26/19 02/27/19 02/28/19 03/01/19 23:59 23:59 23:59 23:59 Intake Total 670 1140 1080 790 Output Total 1937 581 5570 1150 Balance -580 290 -270 -360 - Objective General Appearance: positive: No acute distress, Alert. negative: Lethargic Eyes Bilateral: positive: Normal inspection, PERRL, No lid inflammation, Conjunctivae nml ENT: positive: ENT inspection nml, Pharynx nml, No signs of dehydration. negative: Purulent nasal drainage, Pharyngeal erythema, Oral lesions Neck: positive: Nml inspection, Thyroid nml, No JVD, Trachea midline. negative: Thyromegaly, Lymphadenopathy (R), Lymphadenopathy (L), Stiff neck, Swelling/bruising, Tracheal deviation Respiratory: positive: Chest non-tender, No respiratory distress, Breath sounds nml. negative: Wheezes, Rales, Rhonchi Cardiovascular: positive: Regular rate & rhythm, No murmur, No gallop. negative: Irregularly irregular, Extrasystoles, Tachycardia, Bradycardia, JVD present, Systolic murmur, Diastolic murmur Peripheral Pulses: 2+ Radial (R), 2+ Radial (L), 2+ Dorsalis pedis (R), 2+ Dorsalis pedis (L) Abdomen: positive: Non-tender, No organomegaly, Nml bowel sounds, No distention. negative: Tenderness, Guarding, Rebound Back: positive: Nml inspection. negative: CVA tenderness (R), CVA tenderness (L ) Skin: positive: Color nml, No rash, Warm, Dry. negative: Cyanosis, Diaphoresis, Pallor Extremities: positive: Non-tender. negative: Calf tenderness, Joint swelling, Rashaad's sign/cords Neurologic/Psychiatric: positive: Oriented x3, Sensation nml. negative: Weakness, Sensory loss, Facial droop, Slurred/abnml speech, Depressed mood/affect - Lab Results Fish Bones: 03/01/19 04:50 03/01/19 04:50 Other Labs: Lab Results x24hrs 03/01/19 03/01/19 Range/Units 04:50 04:50 WBC 5.0 (4.8-10.8) x10^3/uL RBC 2.36 L (4.20-5.40) 10^6/uL Hgb 7.5 L (12.0-16.0) g/dL Hct 24.2 L (37.0-47.0) % MCV 102.5 H (81.0-99.0) fL MCH 31.8 H (27.0-31.0) pg MCHC 31.0 L (32.0-36.0) g/dL RDW 16.9 H (12.0-15.0) % Plt Count 206 (130-450) 10^3/uL MPV 10.9 H (7.9-10.8) fL Neut # (Auto) 3.5 (1.5-6.6) 10^3/uL Lymph # (Auto) 0.6 L (1.5-3.5) 10^3/uL [place] # (Auto) 0.6 (0.0-1.0) 10^3/uL Eos # (Auto) 0.2 (0.0-0.7) 10^3/uL Baso # (Auto) 0.0 (0.0-0.1) 10^3/uL Absolute Nucleated RBC 0.00 x10^3/uL Nucleated RBC % 0.0 /100WBC Sodium 137 (135-145) mmol/L Potassium 4.5 (3.5-5.0) mmol/L Chloride 91 L (101-111) mmol/L Carbon Dioxide 38 H (21-32) mmol/L Anion Gap 8.0 (6-13) BUN 30 H (6-20) mg/dL Creatinine 1.1 H (0.4-1.0) mg/dL Estimated GFR (MDRD) 50 L (>89) Glucose 95 (70-100) mg/dL Calcium 9.7 (8.5-10.3) mg/dL ABX Reporting Has patient been on IV antibiotics over the past 48 hours?: No Sepsis Event Note (H) - Evaluation Current Stage of Sepsis: Ruled out Assessment/Plan - Problem List (1) Respiratory failure with hypoxia Impression: 03/01 pt's respiratory status is stable. continue supplement O2, breath treatment as needed 02/28 stable, no respiratory distress. pt has 92% sat on 2 liter of O2 continue supplement of O2 stable now. pt has been above 90% on about 3 liter of O2. pt has no respiratory distress. continue consulting with RT, respiratory cares and treatment, nebulizers, expectorants, Flonase. Acute metabolic encephalopathy 02/28 resolved, as pt's baseline pt is stable as her baseline today continue monitor closely Hypothyroidism-New 02/28 stable, continue synthroid at 100 mcg -TSH was high at 143.80, Free T4 was significant lower less than 0.25. Patient denies previous thyroid issues including cancer, goiter, or hypothyroidism Continue Synthroid at 100 mcg, re-check TSH in 4-6 weeks Hypotension 02/28 pt still has lower BP but pt is asymptomatic continue middrive, vital monitor pt still present low side of SBP at 91 at this morning, but pt was asymptomatic, she denies dizziness, lightheaded, chest pain, palpitations. Cortisol test is normal arrange. hold Spironolactone continue middrive continue vital monitor Trimalleolar fracture of left ankle- STABLE 03/01 pt had two charlie, nurse removed both charlie, no complications was r eported. continue dressing change as the schedule followup orthopedics pt had an intact neurovascular status with normal capillary refill at distal toes of left leg. 02/[address] Buck, he state pt's charlie can be removed order the dressing change order, per orthopedics recommendation pt has intact normal neurovascular status with normal capillary refill on distal toes of left leg stable, pt denies pain or neurovascular complaints. daily PT, anticipate discharge to rehab when able anemia: 03/01 pt's HGB is 7.5, chronic stable, iron deficiency. pt is asymptomatic for anemia. pt denies shortness of breath, chest pain, fatigued. continue iron, and daily lab monitor Fall- CHRONIC Multiple falls since being homeless. Continued on fall precautions continue PT for daily sessions UTI (urinary tract infection)- RESOLVED resolved Pneumonia-RESOLVED resolved Acute kidney injury superimposed on CKD stage 2-STABLE/resolved significant improved, creatinine is around 1.2 now from 3.6 at the admission. avoid NSAIDs, and nephrotoxins lab monitor COPD (chronic obstructive pulmonary disease)-STABLE stable, Continue respiratory care, anticipate transfer to SNF with supplemental oxygen Edema of both upper extremities-STABLE stable, encourage pt safely ambulate and elevate extremities Homelessness-CHRONIC Anticipate discharge to SNF for this injury, which may lead to permanent placement at a later date Macrocytic anemia-CHRONIC H/H is stable at 7.8/25.4, MCV 103.3 B12 and folate were at normal arrange but iron deficiency continue give iron supplement. Urinary retention 02/28 pt urinate by self, stable. significant improved. pt can avoid by her own but Still with times of elevated post void residuals 300-500 mL continue Flomax Continue to monitor I/O
[2019-03-02] MEDS: traMADol 50 MG TABLET PO PRN ×2 (03:36→17:18)
[2019-03-02 05:29] LABS: BASOPHILS % (AUTO) 0.5 %; EOSINOPHILS # (AUTO) 0.2 10^3/uL (0.0-0.7); EOSINOPHILS % (AUTO) 5.3 %; HGB - HEMOGLOBIN 7.8 g/dL (12.0-16.0); LYMPHOCYTES # (AUTO) 0.7 10^3/uL (1.5-3.5); LYMPHOCYTES % (AUTO) 16.1 %; MEAN CORPUSCULAR HGB CONC 31.1 g/dL (32.0-36.0); MEAN CORPUSCULAR VOLUME 102.9 fL (81.0-99.0); MEAN PLATELET VOLUME 10.7 fL (7.9-10.8); MONOCYTES # (AUTO) 0.5 10^3/uL (0.0-1.0); MONOCYTES % (AUTO) 12.4 %; NEUTROPHILS # (AUTO) 2.8 10^3/uL (1.5-6.6); NEUTROPHILS % (AUTO) 64.3 %; PLT - PLATELET COUNT 216 10^3/uL (130-450); RED BLOOD COUNT 2.44 10^6/uL (4.20-5.40); RED CELL DISTRIBUTION WIDTH 16.8 % (12.0-15.0); WHITE BLOOD COUNT 4.3 x10^3/uL (4.8-10.8)
[2019-03-02 05:37] LABS: CALCIUM 9.7 mg/dL (8.5-10.3); CREATININE 1.1 mg/dL (0.4-1.0)
[2019-03-02] MEDS: DOCUSATE SODIUM 250 MG CAPSULE PO SCH (08:02)
[2019-03-02] MEDS: SACCHAROMYCES BOULARDII 250 MG CAPSULE PO SCH ×2 (08:02→17:18)
[2019-03-02] MEDS: ENOXAPARIN 40 MG/0.4 ML SYRINGE SUBQ SCH (08:02)
[2019-03-02] MEDS: SENNA 8.6 MG TABLET PO SCH (08:02)
[2019-03-02] MEDS: POLYETHYLENE GLYCOL 3350 17 GM PACKET PO SCH (08:02)
[2019-03-02] MEDS: TAMSULOSIN 0.4 MG CAPSULE PO SCH (08:02)
[2019-03-02] MEDS: FAMOTIDINE 20 MG TABLET PO SCH ×2 (08:02→20:37)
[2019-03-02] MEDS: MIDODRINE 2.5 MG TABLET PO SCH ×3 (08:02→17:18)
[2019-03-02] MEDS: FERROUS GLUCONATE 324 MG TABLET PO SCH (08:02)
[2019-03-02] MEDS: FLUTICASONE NASAL SPRAY NAS SCH (08:03)
[2019-03-02] MEDS: MULTIVITAMIN W/MINERALS TABLET PO SCH (08:03)
[2019-03-02] MEDS: IPRATROPIUM/ALBUTEROL 3 ML NEB INH PRN ×2 (08:52→15:18)
[2019-03-02] MEDS: LEVOTHYROXINE 100 MCG TABLET PO SCH (09:54)
--- NOTE | 2019-03-02 13:44 | PROVIDER PROGRESS NOTE ---
Subjective - Prog Note Date Prog Note Date: 03/02/19 - Subjective Pt reports feeling: No change Subjective: pt has no complaint. She denies pain. she is comfortable sitting up the chair to eat her breakfast. Current Medications - Current Medications Current Medications: Active Medications Acetaminophen (Tylenol) 650 - 975 mg PO Q4HR PRN PRN Reason: PAIN Last Admin: 02/26/19 23:49 Dose: 650 mg Albuterol () 2.5 mg INH RTQ4H PRN PRN Reason: Wheezing Albuterol/Ipratropium (Duoneb) 3 ml INH Q4HR PRN PRN Reason: Wheezing Last Admin: 03/02/19 08:52 Dose: 3 ml Bisacodyl (Dulcolax Supp) 10 mg [place] DAILY PRN PRN Reason: Constipation Last Admin: 02/10/19 19:47 Dose: 10 mg Docusate Sodium (Colace 250mg Capsule) 250 - 500 mg PO DAILY [facility] Last Admin: 03/02/19 08:02 Dose: 250 mg Enoxaparin Sodium (Lovenox) 40 mg SUBQ DAILY [facility] Last Admin: 03/02/19 08:02 Dose: 40 mg Famotidine (Pepcid) 20 mg PO BID [facility] Last Admin: 03/02/19 08:02 Dose: 20 mg Ferrous Gluconate (Fergon) 324 mg PO DAILYWM [facility] Last Admin: 03/02/19 08:02 Dose: 324 mg Fluticasone Propionate (Flonase) 2 sprays ELINOR DAILY [facility] Last Admin: 03/02/19 08:03 Dose: 2 sprays Guaifenesin (Mucinex) 300 mg PO BID PRN PRN Reason: Cough Levothyroxine Sodium (Synthroid) 100 mcg PO QDAC [facility] Last Admin: 03/02/19 09:54 Dose: Not Given Midodrine () 5 mg PO TIDWM [facility] Last Admin: 03/02/19 11:46 Dose: 5 mg Multivitamins/Minerals (Theragran M) 1 tab PO DAILYWM [facility] Last Admin: 03/02/19 08:03 Dose: 1 tab Polyethylene Glycol (Miralax) 17 gm PO DAILY [facility] Last Admin: 03/02/19 08:02 Dose: 17 gm Saccharomyces Boulardii (Florastor) 250 mg PO BIDWM [facility] Last Admin: 03/02/19 08:02 Dose: 250 mg Senna (Senokot) 8.6 - 17.2 mg PO DAILY [facility] Last Admin: 03/02/19 08:02 Dose: 8.6 mg Sodium Chloride ([place]) 2 sprays ELINOR Q4HR PRN PRN Reason: Nasal Congestion Tamsulosin HCl (Flomax) 0.4 mg PO DAILY [facility] Last Admin: 03/02/19 08:02 Dose: 0.4 mg Tramadol HCl (Ultram) 50 mg PO Q4HR PRN PRN Reason: PAIN Last Admin: 03/02/19 03:36 Dose: 50 mg Vitamin A/Vitamin D (Vitamin A & D Ointment) 1 applic TOP PRN PRN PRN Reason: Skin Care Last Admin: 02/13/19 16:25 Dose: 1 applic No Known Home Medications 02/06/19 Objective - Vital Signs/Intake & Output Reviewed Vital Signs: Yes Vital Signs: Vital Signs x48h Temp Pulse Pulse Resp BP BP Pulse Ox 03/02/19 08:52 61 14 03/02/19 07:59 36.3 C L 67 16 101/50 L 83/53 L 94 Intake & Output: Intake & Output 02/27/19 02/28/19 03/01/19 03/02/19 23:59 23:59 23:59 23:59 Intake Total 1140 7188 729 0805 Output Total 850 1350 2075 725 Balance 290 -270 -1085 675 - Objective General Appearance: positive: No acute distress, Alert. negative: Lethargic Eyes Bilateral: positive: Normal inspection, PERRL, No lid inflammation, Conjunctivae nml ENT: positive: ENT inspection nml, Pharynx nml, No signs of dehydration. negative: Purulent nasal drainage, Pharyngeal erythema, Oral lesions Neck: positive: Nml inspection, Thyroid nml, No JVD, Trachea midline. negative: Thyromegaly, Lymphadenopathy (R), Lymphadenopathy (L), Stiff neck, Swelling/bruising, Tracheal deviation Respiratory: positive: Chest non-tender, No respiratory distress, Breath sounds nml. negative: Wheezes, Rales, Rhonchi Cardiovascular: positive: Regular rate & rhythm, No murmur, No gallop. negative: Irregularly irregular, Extrasystoles, Tachycardia, Bradycardia, JVD present, Systolic murmur, Diastolic murmur Peripheral Pulses: 2+ Radial (R), 2+ Radial (L), 2+ Dorsalis pedis (R), 2+ Dorsalis pedis (L) Abdomen: positive: Non-tender, No organomegaly, Nml bowel sounds, No distention. negative: Tenderness, Guarding, Rebound Back: positive: Nml inspection. negative: CVA tenderness (R), CVA tenderness (L) Skin: positive: No rash, Warm, Dry. negative: Cyanosis, Diaphoresis, Pallor Extremities: positive: Non-tender, Other (normal neurovascular examination in toes on left lower extremity). negative: Calf tenderness, Joint swelling, Rashaad's sign/cords Neurologic/Psychiatric: positive: Oriented x3, Sensation nml, Mood/affect nml. negative: Weakness, Sensory loss, Facial droop, Slurred/abnml speech, Depressed mood/affect - Lab Results Fish Bones: 03/02/19 04:55 03/02/19 04:55 Other Labs: Lab Results x24hrs 03/02/19 03/02/19 Range/Units 04:55 04:55 WBC 4.3 L (4.8-10.8) x10^3/uL RBC 2.44 L (4.20-5.40) 10^6/uL Hgb 7.8 L (12.0-16.0) g/dL Hct 25.1 L (37.0-47.0) % MCV 102.9 H (81.0-99.0) fL MCH 32.0 H (27.0-31.0) pg MCHC 31.1 L (32.0-36.0) g/dL RDW 16.8 H (12.0-15.0) % Plt Count 216 (130-450) 10^3/uL MPV 10.7 (7.9-10.8) fL Neut # (Auto) 2.8 (1.5-6.6) 10^3/uL Lymph # (Auto) 0.7 L (1.5-3.5) 10^3/uL [place] # (Auto) 0.5 (0.0-1.0) 10^3/uL Eos # (Auto) 0.2 (0.0-0.7) 10^3/uL Baso # (Auto) 0.0 (0.0-0.1) 10^3/uL Absolute Nucleated RBC 0.00 x10^3/uL Nucleated RBC % 0.0 /100WBC Sodium 137 (135-145) mmol/L Potassium 4.3 (3.5-5.0) mmol/L Chloride 92 L (101-111) mmol/L Carbon Dioxide 38 H (21-32) mmol/L Anion Gap 7.0 (6-13) BUN 31 H (6-20) mg/dL Creatinine 1.1 H (0.4-1.0) mg/dL Estimated GFR (MDRD) 50 L (>89) Glucose 96 (70-100) mg/dL Calcium 9.7 (8.5-10.3) mg/dL ABX Reporting Has patient been on IV antibiotics over the past 48 hours?: No Sepsis Event Note (H) - Evaluation Current Stage of Sepsis: Ruled out Assessment/Plan - Problem List (1) Respiratory failure with hypoxia Impression: 03/02. pt has no respiratory distress, continue supplement O2 as needed, RT treatment PRN 03/01 pt's respiratory status is stable. continue supplement O2, breath treatment as needed 02/28 stable, no respiratory distress. pt has 92% sat on 2 liter of O2 continue supplement of O2 stable now. pt has been above 90% on about 3 liter of O2. pt has no respiratory distress. continue consulting with RT, respiratory cares and treatment, nebulizers, expectorants, Flonase. Acute metabolic encephalopathy 02/28 resolved, as pt's baseline pt is stable as her baseline today continue monitor closely Hypothyroidism-New 02/28 stable, continue synthroid at 100 mcg -TSH was high at 143.80, Free T4 was significant lower less than 0.25. Patient denies previous thyroid issues including cancer, goiter, or hypothyroidism Continue Synthroid at 100 mcg, re-check TSH in 4-6 weeks Hypotension 02/28 pt still has lower BP but pt is asymptomatic continue middrive, vital monitor pt still present low side of SBP at 91 at this morning, but pt was asymptomatic, she denies dizziness, lightheaded, chest pain, palpitations. Cortisol test is normal arrange. hold Spironolactone continue middrive continue vital monitor Trimalleolar fracture of left ankle- STABLE 03/02 pt did not complain pain. distal toes neurovasclar examination is normal continue PT/OT 03/01 pt had two charlie, nurse removed both charlie, no complications was reported. continue dressing change as the schedule followup orthopedics pt had an intact neurovascular status with normal capillary refill at distal toes of left leg. 02/[address] Buck, he state pt's charlie can be removed order the dressing change order, per orthopedics recommendation pt has intact normal neurovascular status with normal capillary refill on distal toes of left leg stable, pt denies pain or neurovascular complaints. daily PT, anticipate discharge to rehab when able anemia: 03/01 pt's HGB is 7.5, chronic stable, iron deficiency. pt is asymptomatic for anemia. pt denies shortness of breath, chest pain, fatigued. continue iron, and daily lab monitor Fall- CHRONIC Multiple falls since being homeless. Continued on fall precautions continue PT for daily sessions UTI (urinary tract infection)- RESOLVED resolved Pneumonia-RESOLVED resolved Acute kidney injury superimposed on CKD stage 2-STABLE/resolved significant improved, creatinine is around 1.2 now from 3.6 at the admission. avoid NSAIDs, and nephrotoxins lab monitor COPD (chronic obstructive pulmonary disease)-STABLE stable, Continue respiratory care, anticipate transfer to SNF with supplemental oxygen Edema of both upper extremities-STABLE stable, encourage pt safely ambulate and elevate extremities Homelessness-CHRONIC Anticipate discharge to SNF for this injury, which may lead to permanent placement at a later date Macrocytic anemia-CHRONIC H/H is stable at 7.8/25.4, MCV 103.3 B12 and folate were at normal arrange but iron deficiency continue give iron supplement. Urinary retention 03/02 resolved 02/28 pt urinate by self, stable. significant improved. pt can avoid by her own but Still with times of elevated post void residuals 300-500 mL continue Flomax Continue to monitor I/O
[2019-03-03] MEDS: traMADol 50 MG TABLET PO PRN ×2 (00:14→16:03)
[2019-03-03 05:18] LABS: BASOPHILS % (AUTO) 0.4 %; EOSINOPHILS # (AUTO) 0.3 10^3/uL (0.0-0.7); EOSINOPHILS % (AUTO) 5.7 %; HGB - HEMOGLOBIN 7.6 g/dL (12.0-16.0); LYMPHOCYTES # (AUTO) 0.7 10^3/uL (1.5-3.5); LYMPHOCYTES % (AUTO) 13.6 %; MEAN CORPUSCULAR HEMOGLOBIN 31.8 pg (27.0-31.0); MEAN CORPUSCULAR VOLUME 102.5 fL (81.0-99.0); MEAN PLATELET VOLUME 10.5 fL (7.9-10.8); MONOCYTES # (AUTO) 0.6 10^3/uL (0.0-1.0); MONOCYTES % (AUTO) 11.9 %; NEUTROPHILS # (AUTO) 3.3 10^3/uL (1.5-6.6); NEUTROPHILS % (AUTO) 67.6 %; PLT - PLATELET COUNT 215 10^3/uL (130-450); RED BLOOD COUNT 2.39 10^6/uL (4.20-5.40); WHITE BLOOD COUNT 4.9 x10^3/uL (4.8-10.8)
[2019-03-03 05:27] LABS: CALCIUM 9.8 mg/dL (8.5-10.3); CREATININE 1.2 mg/dL (0.4-1.0)
[2019-03-03] MEDS: LEVOTHYROXINE 100 MCG TABLET PO SCH (06:32)
[2019-03-03] MEDS: FAMOTIDINE 20 MG TABLET PO SCH ×2 (08:58→20:14)
[2019-03-03] MEDS: MIDODRINE 2.5 MG TABLET PO SCH ×3 (08:58→17:19)
[2019-03-03] MEDS: FERROUS GLUCONATE 324 MG TABLET PO SCH (08:58)
[2019-03-03] MEDS: MULTIVITAMIN W/MINERALS TABLET PO SCH (08:58)
[2019-03-03] MEDS: ENOXAPARIN 40 MG/0.4 ML SYRINGE SUBQ SCH (08:59)
[2019-03-03] MEDS: SACCHAROMYCES BOULARDII 250 MG CAPSULE PO SCH (09:01)
[2019-03-03] MEDS: POLYETHYLENE GLYCOL 3350 17 GM PACKET PO SCH (09:02)
[2019-03-03] MEDS: FLUTICASONE NASAL SPRAY NAS SCH (09:02)
[2019-03-03] MEDS: DOCUSATE SODIUM 250 MG CAPSULE PO SCH (09:02)
[2019-03-03] MEDS: SENNA 8.6 MG TABLET PO SCH (09:02)
[2019-03-03] MEDS: TAMSULOSIN 0.4 MG CAPSULE PO SCH (09:09)
--- NOTE | 2019-03-03 12:26 | PROVIDER PROGRESS NOTE ---
Subjective - Prog Note Date Prog Note Date: 03/03/19 - Subjective Pt reports feeling: No change Subjective: stable. consulted with Dr. Manjarrez again for s/p left ankle surgery care. Order Xray of left ankle. pt has no complaints. Current Medications - Current Medications Current Medications: Active Medications Acetaminophen (Tylenol) 650 - 975 mg PO Q4HR PRN PRN Reason: PAIN Last Admin: 02/26/19 23:49 Dose: 650 mg Albuterol () 2.5 mg INH RTQ4H PRN PRN Reason: Wheezing Albuterol/Ipratropium (Duoneb) 3 ml INH Q4HR PRN PRN Reason: Wheezing Last Admin: 03/02/19 15:18 Dose: 3 ml Bisacodyl (Dulcolax Supp) 10 mg [place] DAILY PRN PRN Reason: Constipation Last Admin: 02/10/19 19:47 Dose: 10 mg Docusate Sodium (Colace 250mg Capsule) 250 - 500 mg PO DAILY [facility] Last Admin: 03/03/19 09:02 Dose: Not Given Enoxaparin Sodium (Lovenox) 40 mg SUBQ DAILY [facility] Last Admin: 03/03/19 08:59 Dose: 40 mg Famotidine (Pepcid) 20 mg PO BID [facility] Last Admin: 03/03/19 08:58 Dose: 20 mg Ferrous Gluconate (Fergon) 324 mg PO DAILYWM [facility] Last Admin: 03/03/19 08:58 Dose: 324 mg Fluticasone Propionate (Flonase) 2 sprays ELINOR DAILY [facility] Last Admin: 03/03/19 09:02 Dose: 2 sprays Guaifenesin (Mucinex) 300 mg PO BID PRN PRN Reason: Cough Levothyroxine Sodium (Synthroid) 100 mcg PO QDAC [facility] Last Admin: 03/03/19 06:32 Dose: 100 mcg Midodrine () 5 mg PO TIDWM [facility] Last Admin: 03/03/19 11:58 Dose: 5 mg Multivitamins/Minerals (Theragran M) 1 tab PO DAILYWM [facility] Last Admin: 03/03/19 08:58 Dose: 1 tab Polyethylene Glycol (Miralax) 17 gm PO DAILY [facility] Last Admin: 03/03/19 09:02 Dose: Not Given Senna (Senokot) 8.6 - 17.2 mg PO DAILY [facility] Last Admin: 03/03/19 09:02 Dose: Not Given Sodium Chloride ([place]) 2 sprays ELINOR Q4HR PRN PRN Reason: Nasal Congestion Tamsulosin HCl (Flomax) 0.4 mg PO DAILY [facility] Last Admin: 03/03/19 09:09 Dose: 0.4 mg Tramadol HCl (Ultram) 50 mg PO Q4HR PRN PRN Reason: PAIN Last Admin: 03/03/19 00:14 Dose: 50 mg Vitamin A/Vitamin D (Vitamin A & D Ointment) 1 applic TOP PRN PRN PRN Reason: Skin Care Last Admin: 02/13/19 16:25 Dose: 1 applic No Known Home Medications 02/06/19 Objective - Vital Signs/Intake & Output Reviewed Vital Signs: Yes Vital Signs: Vital Signs x48h Temp Pulse Resp BP Pulse Ox 03/03/19 08:00 36.5 C 79 14 91/44 L 93 Intake & Output: Intake & Output 02/28/19 03/01/19 03/02/19 03/03/19 23:59 23:59 23:59 23:59 Intake Total 7435 431 8238 550 Output Total 1350 2075 1150 400 Balance -270 -1085 930 150 - Objective General Appearance: positive: No acute distress, Alert. negative: Lethargic Eyes Bilateral: positive: Normal inspection, PERRL, No lid inflammation, Conjunctivae nml ENT: positive: ENT inspection nml, Pharynx nml, No signs of dehydration. negative: Purulent nasal drainage, Pharyngeal erythema, Oral lesions Neck: positive: Nml inspection, Thyroid nml, No JVD, Trachea midline. negative: Thyromegaly, Lymphadenopathy (R), Lymphadenopathy (L), Stiff neck, Swelling/bruising, Tracheal deviation Respiratory: positive: Chest non-tender, No respiratory distress. negative: Wheezes, Rales, Rhonchi Cardiovascular: positive: Regular rate & rhythm, No murmur, No gallop. negative: Irregularly irregular, Extrasystoles, Tachycardia, Bradycardia, JVD present, Systolic murmur, Diastolic murmur Peripheral Pulses: 2+ Radial (R), 2+ Radial (L), 2+ Dorsalis pedis (R), 2+ Dorsalis pedis (L) Abdomen: positive: Non-tender, No organomegaly, Nml bowel sounds, No distention. negative: Tenderness, Guarding, Rebound Back: positive: Nml inspection. negative: CVA tenderness (R), CVA tenderness (L) Skin: positive: Color nml, No rash, Warm, Dry. negative: Cyanosis, Diaphoresis, Pallor Extremities: positive: Non-tender. negative: Calf tenderness, Rashaad's sign/cords Neurologic/Psychiatric: positive: Oriented x3, Sensation nml, Mood/affect nml. negative: Weakness, Sensory loss, Facial droop, Slurred/abnml speech, Depressed mood/affect - Lab Results Fish Bones: 03/03/19 04:59 03/03/19 04:59 Other Labs: Lab Results x24hrs 03/03/19 03/03/19 Range/Units 04:59 04:59 WBC 4.9 (4.8-10.8) x10^3/uL RBC 2.39 L (4.20-5.40) 10^6/uL Hgb 7.6 L (12.0-16.0) g/dL Hct 24.5 L (37.0-47.0) % MCV 102.5 H (81.0-99.0) fL MCH 31.8 H (27.0-31.0) pg MCHC 31.0 L (32.0-36.0) g/dL RDW 17.0 H (12.0-15.0) % Plt Count 215 (130-450) 10^3/uL MPV 10.5 (7.9-10.8) fL Neut # (Auto) 3.3 (1.5-6.6) 10^3/uL Lymph # (Auto) 0.7 L (1.5-3.5) 10^3/uL [place] # (Auto) 0.6 (0.0-1.0) 10^3/uL Eos # (Auto) 0.3 (0.0-0.7) 10^3/uL Baso # (Auto) 0.0 (0.0-0.1) 10^3/uL Absolute Nucleated RBC 0.00 x10^3/uL Nucleated RBC % 0.0 /100WBC Sodium 137 (135-145) mmol/L Potassium 4.5 (3.5-5.0) mmol/L Chloride 92 L (101-111) mmol/L Carbon Dioxide 36 H (21-32) mmol/L Anion Gap 9.0 (6-13) BUN 32 H (6-20) mg/dL Creatinine 1.2 H (0.4-1.0) mg/dL Estimated GFR (MDRD) 46 L (>89) Glucose 88 (70-100) mg/dL Calcium 9.8 (8.5-10.3) mg/dL ABX Reporting Has patient been on IV antibiotics over the past 48 hours?: No Sepsis Event Note (H) - Evaluation Current Stage of Sepsis: Ruled out Assessment/Plan - Problem List (1) Respiratory failure with hypoxia Impression: 03/03. pt is stable, no respiratory distress 03/02. pt has no respiratory distress, continue supplement O2 as needed, RT treatment PRN 03/01 pt's respiratory status is stable. continue supplement O2, breath treatment as needed 02/28 stable, no respiratory distress. pt has 92% sat on 2 liter of O2 continue supplement of O2 stable now. pt has been above 90% on about 3 liter of O2. pt has no respiratory distress. continue consulting with RT, respiratory cares and treatment, nebulizers, expectorants, Flonase. pt is pending for placement. Acute metabolic encephalopathy 02/28 resolved, as pt's baseline pt is stable as her baseline today continue monitor closely Hypothyroidism-New 02/28 stable, continue synthroid at 100 mcg -TSH was high at 143.80, Free T4 was significant lower less than 0.25. Patient denies previous thyroid issues including cancer, goiter, or hypothyroidism Continue Synthroid at 100 mcg, re-check TSH in 4-6 weeks Hypotension 02/28 pt still has lower BP but pt is asymptomatic continue middrive, vital monitor pt still present low side of SBP at 91 at this morning, but pt was asymptomatic, she denies dizziness, lightheaded, chest pain, palpitations. Cortisol test is normal arrange. hold Spironolactone continue middrive continue vital monitor Trimalleolar fracture of left ankle- STABLE 03/03 put new consult for orthopedics. called Dr. Manjarrez to check pt's healing status of s/p left ankle surgery. Dr. Manjarrez recommend pt has Xray for her left ankle Xray for left ankle to check the healing will followup orthopedics consult 03/02 pt did not complain pain. distal toes neurovasclar examination is normal continue PT/OT 03/01 pt had two charlie, nurse removed both charlie, no complications was reported. continue dressing change as the schedule followup orthopedics pt had an intact neurovascular status with normal capillary refill at distal toes of left leg. 02/[address] Buck, he state pt's charlie can be removed order the dressing change order, per orthopedics recommendation pt has intact normal neurovascular status with normal capillary refill on distal toes of left leg stable, pt denies pain or neurovascular complaints. daily PT, anticipate discharge to rehab when able anemia: 03/01 pt's HGB is 7.5, chronic stable, iron deficiency. pt is asymptomatic for a nemia. pt denies shortness of breath, chest pain, fatigued. continue iron, and daily lab monitor Fall- CHRONIC Multiple falls since being homeless. Continued on fall precautions continue PT for daily sessions UTI (urinary tract infection)- RESOLVED resolved Pneumonia-RESOLVED resolved Acute kidney injury superimposed on CKD stage 2-STABLE/resolved significant improved, creatinine is around 1.2 now from 3.6 at the admission. avoid NSAIDs, and nephrotoxins lab monitor COPD (chronic obstructive pulmonary disease)-STABLE stable, Continue respiratory care, anticipate transfer to SNF with supplemental oxygen Edema of both upper extremities-STABLE stable, encourage pt safely ambulate and elevate extremities Homelessness-CHRONIC Anticipate discharge to SNF for this injury, which may lead to permanent placement at a later date Macrocytic anemia-CHRONIC H/H is stable at 7.8/25.4, MCV 103.3 B12 and folate were at normal arrange but iron deficiency continue give iron supplement. Urinary retention 03/02 resolved 02/28 pt urinate by self, stable. significant improved. pt can avoid by her own but Still with times of elevated post void residuals 300-500 mL continue Flomax Continue to monitor I/O
[2019-03-03] MEDS: IPRATROPIUM/ALBUTEROL 3 ML NEB INH PRN (13:03)
--- NOTE | 2019-03-03 13:51 | XRAY Report ---
Reason: s/p surgery of left ankle, review Procedure Date: 03/03/2019 Accession Number: [id number] / [id number] Procedure: XR - Ankle 3 View LT CPT Code: FULL RESULT: EXAM: LEFT ANKLE RADIOGRAPHY EXAM DATE: 03/03/2019 12:31 PM. CLINICAL HISTORY: S/p surgery of left ankle, review. COMPARISON: ANKLE 2 VIEW LT 02/07/2019 1:01 PM. TECHNIQUE: 3 views. FINDINGS: Bones: Fixation hardware at left distal fibula/lateral malleolus and a screw fixation device at right medial malleolus. Well-positioned hardware. Joints: Normal. No effusion. No subluxations. The ankle mortise is normally aligned. Soft Tissues: Moderate postsurgical soft tissue swelling. IMPRESSION: Moderate post surgical soft tissue swelling with well-positioned hardware. No acute displaced fracture or malalignment. RADIA
[2019-03-03] MEDS: ACETAMINOPHEN 325 MG TABLET PO PRN (20:14)
[2019-03-04 05:52] LABS: BASOPHILS % (AUTO) 0.2 %; EOSINOPHILS # (AUTO) 0.3 10^3/uL (0.0-0.7); EOSINOPHILS % (AUTO) 6.1 %; HGB - HEMOGLOBIN 7.6 g/dL (12.0-16.0); LYMPHOCYTES # (AUTO) 0.7 10^3/uL (1.5-3.5); LYMPHOCYTES % (AUTO) 16.4 %; MEAN CORPUSCULAR HEMOGLOBIN 31.5 pg (27.0-31.0); MEAN CORPUSCULAR HGB CONC 30.5 g/dL (32.0-36.0); MEAN CORPUSCULAR VOLUME 103.3 fL (81.0-99.0); MONOCYTES # (AUTO) 0.6 10^3/uL (0.0-1.0); MONOCYTES % (AUTO) 14.1 %; NEUTROPHILS # (AUTO) 2.7 10^3/uL (1.5-6.6); NEUTROPHILS % (AUTO) 62.3 %; PLT - PLATELET COUNT 202 10^3/uL (130-450); RED BLOOD COUNT 2.41 10^6/uL (4.20-5.40); RED CELL DISTRIBUTION WIDTH 17.1 % (12.0-15.0); WHITE BLOOD COUNT 4.3 x10^3/uL (4.8-10.8)
[2019-03-04 06:07] LABS: CALCIUM 9.8 mg/dL (8.5-10.3)
[2019-03-04] MEDS: LEVOTHYROXINE 100 MCG TABLET PO SCH (06:41)
--- NOTE | 2019-03-04 07:35 | PROVIDER PROGRESS NOTE ---
Subjective - Prog Note Date Prog Note Date: 03/04/19 Prog Note Time: 07:32 - Subjective Pt reports feeling: Improved (No complaints) Objective - Vital Signs/Intake & Output Vital Signs: Vital Signs x48h Temp Pulse Resp BP Pulse Ox 03/03/19 23:45 36.3 C L 69 16 116/71 94 Intake & Output: Intake & Output 03/01/19 03/02/19 03/03/19 03/04/19 23:59 23:59 23:59 23:59 Intake Total 990 2080 1150 Output Total 2075 1150 550 Balance -1085 930 600 - Lab Results Fish Bones: 03/04/19 04:59 03/04/19 04:59 Other Labs: Lab Results x24hrs 03/04/19 03/04/19 Range/Units 04:59 04:59 WBC 4.3 L (4.8-10.8) x10^3/uL RBC 2.41 L (4.20-5.40) 10^6/uL Hgb 7.6 L (12.0-16.0) g/dL Hct 24.9 L (37.0-47.0) % MCV 103.3 H (81.0-99.0) fL MCH 31.5 H (27.0-31.0) pg MCHC 30.5 L (32.0-36.0) g/dL RDW 17.1 H (12.0-15.0) % Plt Count 202 (130-450) 10^3/uL MPV 11.0 H (7.9-10.8) fL Neut # (Auto) 2.7 (1.5-6.6) 10^3/uL Lymph # (Auto) 0.7 L (1.5-3.5) 10^3/uL [place] # (Auto) 0.6 (0.0-1.0) 10^3/uL Eos # (Auto) 0.3 (0.0-0.7) 10^3/uL Baso # (Auto) 0.0 (0.0-0.1) 10^3/uL Absolute Nucleated RBC 0.00 x10^3/uL Nucleated RBC % 0.0 /100WBC Sodium 138 (135-145) mmol/L Potassium 4.3 (3.5-5.0) mmol/L Chloride 94 L (101-111) mmol/L Carbon Dioxide 37 H (21-32) mmol/L Anion Gap 7.0 (6-13) BUN 29 H (6-20) mg/dL Creatinine 1.0 (0.4-1.0) mg/dL Estimated GFR (MDRD) 56 L (>89) Glucose 90 (70-100) mg/dL Calcium 9.8 (8.5-10.3) mg/dL - Other Results/Comments Other Results/Comments: EXAM: Dressings intact. Moves toes well. Sensation intact. Good cap filling XRT: Fracture position stable. Hardware ok. Some early callous seen. Mortise intact Sepsis Event Note (H) - Evaluation Current Stage of Sepsis: Ruled out Assessment/Plan - Problem List (1) Trimalleolar fracture of left ankle Impression: Satis post op PLAN: PT for walker ambulation-TTWB on left in CAM walker Qualifiers: Encounter type: initial encounter Fracture type: closed Qualified Code(s): S82.852A - Displaced trimalleolar fracture of left lower leg, initial encounter for closed fracture
[2019-03-04] MEDS: ENOXAPARIN 40 MG/0.4 ML SYRINGE SUBQ SCH (08:49)
[2019-03-04] MEDS: DOCUSATE SODIUM 250 MG CAPSULE PO SCH (08:49)
[2019-03-04] MEDS: FAMOTIDINE 20 MG TABLET PO SCH ×2 (08:49→08:50)
[2019-03-04] MEDS: FERROUS GLUCONATE 324 MG TABLET PO SCH (08:49)
[2019-03-04] MEDS: MIDODRINE 2.5 MG TABLET PO SCH ×3 (08:49→16:30)
[2019-03-04] MEDS: SENNA 8.6 MG TABLET PO SCH (08:49)
[2019-03-04] MEDS: MULTIVITAMIN W/MINERALS TABLET PO SCH (08:49)
[2019-03-04] MEDS: POLYETHYLENE GLYCOL 3350 17 GM PACKET PO SCH (08:49)
[2019-03-04] MEDS: TAMSULOSIN 0.4 MG CAPSULE PO SCH (08:50)
[2019-03-04] MEDS: FLUTICASONE NASAL SPRAY NAS SCH (08:50)
[2019-03-04] MEDS: traMADol 50 MG TABLET PO PRN ×2 (08:56→16:30)
[2019-03-04] MEDS: IPRATROPIUM/ALBUTEROL 3 ML NEB INH PRN ×2 (09:02→17:07)
--- NOTE | 2019-03-04 10:58 | PROVIDER PROGRESS NOTE ---
Subjective - Prog Note Date Prog Note Date: 03/04/19 - Subjective Pt reports feeling: Improved Subjective: pt report she is doing well, she denies pain. Dr. Manjarrez saw pt, reviewed the Xray of left ankle, pt had the new PT/OT order: walker ambulation - toe touch weight bearing on left in CAM walker/boot. Current Medications - Current Medications Current Medications: Active Medications Acetaminophen (Tylenol) 650 - 975 mg PO Q4HR PRN PRN Reason: PAIN Last Admin: 03/03/19 20:14 Dose: 650 mg Albuterol () 2.5 mg INH RTQ4H PRN PRN Reason: Wheezing Albuterol/Ipratropium (Duoneb) 3 ml INH Q4HR PRN PRN Reason: Wheezing Last Admin: 03/04/19 09:02 Dose: 3 ml Bisacodyl (Dulcolax Supp) 10 mg [place] DAILY PRN PRN Reason: Constipation Last Admin: 02/10/19 19:47 Dose: 10 mg Docusate Sodium (Colace 250mg Capsule) 250 - 500 mg PO DAILY [facility] Last Admin: 03/04/19 08:49 Dose: Not Given Enoxaparin Sodium (Lovenox) 40 mg SUBQ DAILY [facility] Last Admin: 03/04/19 08:49 Dose: 40 mg Famotidine (Pepcid) 20 mg PO BID [facility] Last Admin: 03/04/19 08:50 Dose: 20 mg Ferrous Gluconate (Fergon) 324 mg PO DAILYWM [facility] Last Admin: 03/04/19 08:49 Dose: 324 mg Fluticasone Propionate (Flonase) 2 sprays ELINOR DAILY [facility] Last Admin: 03/04/19 08:50 Dose: 2 sprays Guaifenesin (Mucinex) 300 mg PO BID PRN PRN Reason: Cough Levothyroxine Sodium (Synthroid) 100 mcg PO QDAC [facility] Last Admin: 03/04/19 06:41 Dose: 100 mcg Midodrine () 5 mg PO TIDWM [facility] Last Admin: 03/04/19 08:49 Dose: 5 mg Multivitamins/Minerals (Theragran M) 1 tab PO DAILYWM [facility] Last Admin: 03/04/19 08:49 Dose: 1 tab Polyethylene Glycol (Miralax) 17 gm PO DAILY [facility] Last Admin: 03/04/19 08:49 Dose: Not Given Senna (Senokot) 8.6 - 17.2 mg PO DAILY [facility] Last Admin: 03/04/19 08:49 Dose: Not Given Sodium Chloride ([place]) 2 sprays ELINOR Q4HR PRN PRN Reason: Nasal Congestion Tamsulosin HCl (Flomax) 0.4 mg PO DAILY [facility] Last Admin: 03/04/19 08:50 Dose: 0.4 mg Tramadol HCl (Ultram) 50 mg PO Q4HR PRN PRN Reason: PAIN Last Admin: 03/04/19 08:56 Dose: 50 mg Vitamin A/Vitamin D (Vitamin A & D Ointment) 1 applic TOP PRN PRN PRN Reason: Skin Care Last Admin: 02/13/19 16:25 Dose: 1 applic No Known Home Medications 02/06/19 Objective - Vital Signs/Intake & Output Reviewed Vital Signs: Yes Vital Signs: Vital Signs x48h Temp Pulse Pulse Resp BP Pulse Ox 03/04/19 09:04 70 20 03/04/19 08:00 36.4 C L 71 14 87/61 L 93 Intake & Output: Intake & Output 03/01/19 03/02/19 03/03/19 03/04/19 23:59 23:59 23:59 23:59 Intake Total 990 2080 1150 200 Output Total 2075 1150 550 Balance -1085 930 600 200 - Objective General Appearance: positive: No acute distress, Alert. negative: Lethargic Eyes Bilateral: positive: Normal inspection, PERRL, No lid inflammation, Conjunctivae nml ENT: positive: ENT inspection nml, Pharynx nml, No signs of dehydration. negative: Purulent nasal drainage, Pharyngeal erythema, Oral lesions Neck: positive: Nml inspection, Thyroid nml, No JVD, Trachea midline. negative: Thyromegaly, Lymphadenopathy (R), Lymphadenopathy (L), Stiff neck, Swelling/bruising, Tracheal deviation Respiratory: positive: Chest non-tender, No respiratory distress, Breath sounds nml. negative: Wheezes, Rales, Rhonchi Cardiovascular: positive: Regular rate & rhythm, No murmur, No gallop. negative: Irregularly irregular, Extrasystoles, Tachycardia, Bradycardia, JVD present, Systolic murmur, Diastolic murmur Peripheral Pulses: 2+ Radial (R), 2+ Radial (L), 2+ Dorsalis pedis (R), 2+ Dorsalis pedis (L) Abdomen: positive: Non-tender, No organomegaly, Nml bowel sounds, No distention. negative: Tenderness, Guarding, Rebound Back: positive: Nml inspection. negative: CVA tenderness (R), CVA tenderness (L) Skin: positive: Color nml, No rash, Warm, Dry. negative: Cyanosis, Diaphoresis, Pallor Extremities: positive: Non-tender. negative: Calf tenderness, Rashaad's sign/cords Neurologic/Psychiatric: positive: Oriented x3, Sensation nml, Mood/affect nml. negative: Weakness, Sensory loss, Facial droop, Slurred/abnml speech, Depressed mood/affect - Lab Results Fish Bones: 03/04/19 04:59 03/04/19 04:59 Other Labs: Lab Results x24hrs 03/04/19 03/04/19 Range/Units 04:59 04:59 WBC 4.3 L (4.8-10.8) x10^3/uL RBC 2.41 L (4.20-5.40) 10^6/uL Hgb 7.6 L (12.0-16.0) g/dL Hct 24.9 L (37.0-47.0) % MCV 103.3 H (81.0-99.0) fL MCH 31.5 H (27.0-31.0) pg MCHC 30.5 L (32.0-36.0) g/dL RDW 17.1 H (12.0-15.0) % Plt Count 202 (130-450) 10^3/uL MPV 11.0 H (7.9-10.8) fL Neut # (Auto) 2.7 (1.5-6.6) 10^3/uL Lymph # (Auto) 0.7 L (1.5-3.5) 10^3/uL [place] # (Auto) 0.6 (0.0-1.0) 10^3/uL Eos # (Auto) 0.3 (0.0-0.7) 10^3/uL Baso # (Auto) 0.0 (0.0-0.1) 10^3/uL Absolute Nucleated RBC 0.00 x10^3/uL Nucleated RBC % 0.0 /100WBC Sodium 138 (135-145) mmol/L Potassium 4.3 (3.5-5.0) mmol/L Chloride 94 L (101-111) mmol/L Carbon Dioxide 37 H (21-32) mmol/L Anion Gap 7.0 (6-13) BUN 29 H (6-20) mg/dL Creatinine 1.0 (0.4-1.0) mg/dL Estimated GFR (MDRD) 56 L (>89) Glucose 90 (70-100) mg/dL Calcium 9.8 (8.5-10.3) mg/dL ABX Reporting Has patient been on IV antibiotics over the past 48 hours?: No Sepsis Event Note (H) - Evaluation Current Stage of Sepsis: Ruled out Assessment/Plan - Problem List (1) Respiratory failure with hypoxia Impression: 03/04 stable. pt has no respiratory distress. pt has 93% sats on 2 liter of O2 03/03. pt is stable, no respiratory distress 03/02. pt has no respiratory distress, continue supplement O2 as needed, RT treatment PRN 03/01 pt's respiratory status is stable. continue supplement O2, breath treatment as needed 02/28 stable, no respiratory distress. pt has 92% sat on 2 liter of O2 continue supplement of O2 stable now. pt has been above 90% on about 3 liter of O2. pt has no respiratory distress. continue consulting with RT, respiratory cares and treatment, nebulizers, expectorants, Flonase. pt is pending for placement. Acute metabolic encephalopathy 02/28 resolved, as pt's baseline pt is stable as her baseline today continue monitor closely Hypothyroidism-New 02/28 stable, continue synthroid at 100 mcg -TSH was high at 143.80, Free T4 was significant lower less than 0.25. Patient denies previous thyroid issues including cancer, goiter, or hypothyroidism Continue Synthroid at 100 mcg, re-check TSH in 4-6 weeks Hypotension 02/28 pt still has lower BP but pt is asymptomatic continue middrive, vital monitor pt still present low side of SBP at 91 at this morning, but pt was asymptomatic, she denies dizziness, lightheaded, chest pain, palpitations. Cortisol test is normal arrange. hold Spironolactone continue middrive continue vital monitor Trimalleolar fracture of left ankle- STABLE 03/[address] Manjarrez, Dr. Manjarrez recommended PT for walker ambulation-TTWB on left in CAM walker continue PT/OT, pain controlled 03/03 put new consult for orthopedics. called Dr. Manjarrez to check pt's healing status of s/p left ankle surgery. Dr. Manjarrez recommend pt has Xray for her left ankle Xray for left ankle to check the healing will followup orthopedics consult 03/02 pt did not complain pain. distal toes neurovasclar examination is normal continue PT/OT 03/01 pt had two charlie, nurse removed both charlie, no complications was reported. continue dressing change as the schedule followup orthopedics pt had an intact neurovascular status with normal capillary refill at distal toes of left leg. 02/[address] Buck, he state pt's charlie can be removed order the dressing change order, per orthopedics recommendation pt has intact normal neurovascular status with normal capillary refill on distal toes of left leg stable, pt denies pain or neurovascular complaints. daily PT, anticipate discharge to rehab when able anemia: 03/01 pt's HGB is 7.5, chronic stable, iron deficiency. pt is asymptomatic for anemia. pt denies shortness of breath, chest pain, fatigued. continue iron, and daily lab monitor Fall- CHRONIC Multiple falls since being homeless. Continued on fall precautions continue PT for daily sessions UTI (urinary tract infection)- RESOLVED resolved Pneumonia-RESOLVED resolved Acute kidney injury superimposed on CKD stage 2-STABLE/resolved significant improved, creatinine is around 1.2 now from 3.6 at the admission. avoid NSAIDs, and nephrotoxins lab monitor COPD (chronic obstructive pulmonary disease)-STABLE stable, Continue respiratory care, anticipate transfer to SNF with supplemental oxygen Edema of both upper extremities-STABLE stable, encourage pt safely ambulate and elevate extremities Homelessness-CHRONIC Anticipate discharge to SNF for this injury, which may lead to permanent placement at a later date Macrocytic anemia-CHRONIC H/H is stable at 7.8/25.4, MCV 103.3 B12 and folate were at normal arrange but iron deficiency continue give iron supplement. Urinary retention 03/02 resolved 02/28 pt urinate by self, stable. significant improved. pt can avoid by her own but Still with times of elevated post void residuals 300-500 mL continue Flomax Continue to monitor I/O
[2019-03-04] MEDS: ACETAMINOPHEN 325 MG TABLET PO PRN (21:01)
[2019-03-05 05:42] LABS: BASOPHILS % (AUTO) 0.3 %; EOSINOPHILS # (AUTO) 0.3 10^3/uL (0.0-0.7); EOSINOPHILS % (AUTO) 8.4 %; HGB - HEMOGLOBIN 7.8 g/dL (12.0-16.0); LYMPHOCYTES # (AUTO) 0.6 10^3/uL (1.5-3.5); LYMPHOCYTES % (AUTO) 16.6 %; MEAN CORPUSCULAR HEMOGLOBIN 30.8 pg (27.0-31.0); MEAN CORPUSCULAR HGB CONC 30.2 g/dL (32.0-36.0); MONOCYTES # (AUTO) 0.6 10^3/uL (0.0-1.0); MONOCYTES % (AUTO) 14.8 %; NEUTROPHILS # (AUTO) 2.2 10^3/uL (1.5-6.6); NEUTROPHILS % (AUTO) 58.6 %; PLT - PLATELET COUNT 229 10^3/uL (130-450); RED BLOOD COUNT 2.53 10^6/uL (4.20-5.40); WHITE BLOOD COUNT 3.8 x10^3/uL (4.8-10.8)
[2019-03-05 05:44] LABS: CALCIUM 9.7 mg/dL (8.5-10.3); CREATININE 1.1 mg/dL (0.4-1.0)
[2019-03-05] MEDS: LEVOTHYROXINE 100 MCG TABLET PO SCH (06:25)
[2019-03-05] MEDS: FERROUS GLUCONATE 324 MG TABLET PO SCH (08:27)
[2019-03-05] MEDS: MULTIVITAMIN W/MINERALS TABLET PO SCH (08:27)
[2019-03-05] MEDS: MIDODRINE 2.5 MG TABLET PO SCH ×3 (08:27→17:30)
[2019-03-05] MEDS: TAMSULOSIN 0.4 MG CAPSULE PO SCH (08:28)
[2019-03-05] MEDS: FAMOTIDINE 20 MG TABLET PO SCH ×2 (08:28→21:28)
[2019-03-05] MEDS: SENNA 8.6 MG TABLET PO SCH (08:28)
[2019-03-05] MEDS: DOCUSATE SODIUM 250 MG CAPSULE PO SCH (08:29)
[2019-03-05] MEDS: POLYETHYLENE GLYCOL 3350 17 GM PACKET PO SCH (08:29)
[2019-03-05] MEDS: ENOXAPARIN 40 MG/0.4 ML SYRINGE SUBQ SCH (08:29)
[2019-03-05] MEDS: FLUTICASONE NASAL SPRAY NAS SCH (08:29)
[2019-03-05] MEDS: IPRATROPIUM/ALBUTEROL 3 ML NEB INH PRN ×2 (09:44→19:43)
--- NOTE | 2019-03-05 10:58 | PROVIDER PROGRESS NOTE ---
Subjective - Prog Note Date Prog Note Date: 03/05/19 - Subjective Pt reports feeling: No change Subjective: pt has no complaint. pt is stable, pt is pending for placement. Current Medications - Current Medications Current Medications: Active Medications Acetaminophen (Tylenol) 650 - 975 mg PO Q4HR PRN PRN Reason: PAIN Last Admin: 03/04/19 21:01 Dose: 650 mg Albuterol () 2.5 mg INH RTQ4H PRN PRN Reason: Wheezing Albuterol/Ipratropium (Duoneb) 3 ml INH Q4HR PRN PRN Reason: Wheezing Last Admin: 03/05/19 09:44 Dose: 3 ml Bisacodyl (Dulcolax Supp) 10 mg MI DAILY PRN PRN Reason: Constipation Last Admin: 02/10/19 19:47 Dose: 10 mg Docusate Sodium (Colace 250mg Capsule) 250 - 500 mg PO DAILY [facility] Last Admin: 03/05/19 08:29 Dose: Not Given Enoxaparin Sodium (Lovenox) 40 mg SUBQ DAILY [facility] Last Admin: 03/05/19 08:29 Dose: 40 mg Famotidine (Pepcid) 20 mg PO BID [facility] Last Admin: 03/05/19 08:28 Dose: 20 mg Ferrous Gluconate (Fergon) 324 mg PO DAILYWM [facility] Last Admin: 03/05/19 08:27 Dose: 324 mg Fluticasone Propionate (Flonase) 2 sprays ELINOR DAILY [facility] Last Admin: 03/05/19 08:29 Dose: 2 sprays Guaifenesin (Mucinex) 300 mg PO BID PRN PRN Reason: Cough Levothyroxine Sodium (Synthroid) 100 mcg PO QDAC [facility] Last Admin: 03/05/19 06:25 Dose: 100 mcg Midodrine () 5 mg PO TIDWM [facility] Last Admin: 03/05/19 08:27 Dose: 5 mg Multivitamins/Minerals (Theragran M) 1 tab PO DAILYWM [facility] Last Admin: 03/05/19 08:27 Dose: 1 tab Polyethylene Glycol (Miralax) 17 gm PO DAILY [facility] Last Admin: 03/05/19 08:29 Dose: Not Given Senna (Senokot) 8.6 - 17.2 mg PO DAILY [facility] Last Admin: 03/05/19 08:28 Dose: Not Given Sodium Chloride ([place]) 2 sprays ELINOR Q4HR PRN PRN Reason: Nasal Congestion Tamsulosin HCl (Flomax) 0.4 mg PO DAILY [facility] Last Admin: 03/05/19 08:28 Dose: 0.4 mg Tramadol HCl (Ultram) 50 mg PO Q4HR PRN PRN Reason: PAIN Last Admin: 03/04/19 16:30 Dose: 50 mg Vitamin A/Vitamin D (Vitamin A & D Ointment) 1 applic TOP PRN PRN PRN Reason: Skin Care Last Admin: 02/13/19 16:25 Dose: 1 applic No Known Home Medications 02/06/19 Objective - Vital Signs/Intake & Output Reviewed Vital Signs: Yes Vital Signs: Vital Signs x48h Temp Pulse Pulse Resp BP Pulse Ox 03/05/19 09:50 76 12 03/05/19 08:00 36.3 C L 70 17 102/59 L 85 L Intake & Output: Intake & Output 03/02/19 03/03/19 03/04/19 03/05/19 23:59 23:59 23:59 23:59 Intake Total 2080 1150 910 240 Output Total 1150 550 500 450 Balance 930 600 410 -210 - Objective General Appearance: positive: No acute distress, Alert. negative: Lethargic Eyes Bilateral: positive: Normal inspection, PERRL, No lid inflammation, Conjunctivae nml ENT: positive: ENT inspection nml, Pharynx nml, No signs of dehydration. negative: Purulent nasal drainage, Pharyngeal erythema, Oral lesions Neck: positive: Nml inspection, Thyroid nml, No JVD, Trachea midline. negative: Thyromegaly, Lymphadenopathy (R), Lymphadenopathy (L), Stiff neck, Swelling/bruising, Tracheal deviation Respiratory: positive: Chest non-tender, No respiratory distress, Breath sounds nml. negative: Wheezes, Rales, Rhonchi Cardiovascular: positive: Regular rate & rhythm, No murmur, No gallop. negative: Irregularly irregular, Extrasystoles, Tachycardia, Bradycardia, JVD present, Systolic murmur, Diastolic murmur Peripheral Pulses: 2+ Radial (R), 2+ Radial (L), 2+ Dorsalis pedis (R), 2+ Dorsalis pedis (L) Abdomen: positive: Non-tender, No organomegaly, Nml bowel sounds, No distention. negative: Tenderness, Guarding, Rebound Back: positive: Nml inspection. negative: CVA tenderness (R), CVA tenderness (L) Skin: positive: Color nml, No rash, Warm, Dry. negative: Cyanosis, Diaphoresis, Pallor Extremities: positive: Non-tender. negative: Calf tenderness, Rashaad's sign/cords Neurologic/Psychiatric: positive: Sensation nml, Mood/affect nml. negative: Weakness, Sensory loss, Facial droop, Slurred/abnml speech, Depressed mood/affect - Lab Results Fish Bones: 03/05/19 05:26 03/05/19 05:26 Other Labs: Lab Results x24hrs 03/05/19 03/05/19 Range/Units 05:26 05:26 WBC 3.8 L (4.8-10.8) x10^3/uL RBC 2.53 L (4.20-5.40) 10^6/uL Hgb 7.8 L (12.0-16.0) g/dL Hct 25.8 L (37.0-47.0) % MCV 102.0 H (81.0-99.0) fL MCH 30.8 (27.0-31.0) pg MCHC 30.2 L (32.0-36.0) g/dL RDW 17.0 H (12.0-15.0) % Plt Count 229 (130-450) 10^3/uL MPV 10.0 (7.9-10.8) fL Neut # (Auto) 2.2 (1.5-6.6) 10^3/uL Lymph # (Auto) 0.6 L (1.5-3.5) 10^3/uL [place] # (Auto) 0.6 (0.0-1.0) 10^3/uL Eos # (Auto) 0.3 (0.0-0.7) 10^3/uL Baso # (Auto) 0.0 (0.0-0.1) 10^3/uL Absolute Nucleated RBC 0.00 x10^3/uL Nucleated RBC % 0.0 /100WBC Sodium 138 (135-145) mmol/L Potassium 4.4 (3.5-5.0) mmol/L Chloride 93 L (101-111) mmol/L Carbon Dioxide 38 H (21-32) mmol/L Anion Gap 7.0 (6-13) BUN 28 H (6-20) mg/dL Creatinine 1.1 H (0.4-1.0) mg/dL Estimated GFR (MDRD) 50 L (>89) Glucose 88 (70-100) mg/dL Calcium 9.7 (8.5-10.3) mg/dL ABX Reporting Has patient been on IV antibiotics over the past 48 hours?: No Sepsis Event Note (H) - Evaluation Current Stage of Sepsis: Ruled out Assessment/Plan - Problem List (1) Respiratory failure with hypoxia Impression: 03/05 pt is stable, has no respiratory distress. 03/04 stable. pt has no respiratory distress. pt has 93% sats on 2 liter of O2 03/03. pt is stable, no respiratory distress 03/02. pt has no respiratory distress, continue supplement O2 as needed, RT treatment PRN 03/01 pt's respiratory status is stable. continue supplement O2, breath treatment as needed 02/28 stable, no respiratory distress. pt has 92% sat on 2 liter of O2 continue supplement of O2 stable now. pt has been above 90% on about 3 liter of O2. pt has no respiratory distress. continue consulting with RT, respiratory cares and treatment, nebulizers, expectorants, Flonase. pt is pending for placement. Acute metabolic encephalopathy 02/28 resolved, as pt's baseline pt is stable as her baseline today continue monitor closely Hypothyroidism-New 02/28 stable, continue synthroid at 100 mcg -TSH was high at 143.80, Free T4 was significant lower less than 0.25. Patient denies previous thyroid issues including cancer, goiter, or hypothyroidism Continue Synthroid at 100 mcg, re-check TSH in 4-6 weeks Hypotension 02/28 pt still has lower BP but pt is asymptomatic continue middrive, vital monitor pt still present low side of SBP at 91 at this morning, but pt was asymptomatic, she denies dizziness, lightheaded, chest pain, palpitations. Cortisol test is normal arrange. hold Spironolactone continue middrive continue vital monitor Trimalleolar fracture of left ankle- STABLE 03/05 continue PT/OT 03/[address] Manjarrez, Dr. Manjarrez recommended PT for walker ambulation-TTWB on left in CAM walker continue PT/OT, pain controlled 03/03 put new consult for orthopedics. called Dr. Manjarrez to check pt's healing status of s/p left ankle surgery. Dr. Manjarrez recommend pt has Xray for her left ankle Xray for left ankle to check the healing will followup orthopedics consult 03/02 pt did not complain pain. distal toes neurovasclar examination is normal continue PT/OT 03/01 pt had two charlie, nurse removed both charlie, no complications was reported. continue dressing change as the schedule followup orthopedics pt had an intact neurovascular status with normal capillary refill at distal toes of left leg. 02/[address] Buck, he state pt's charlie can be removed order the dressing change order, per orthopedics recommendation pt has intact normal neurovascular status with normal capillary refill on distal toes of left leg stable, pt denies pain or neurovascular complaints. daily PT, anticipate discharge to rehab when able anemia: 03/01 pt's HGB is 7.5, chronic stable, iron deficiency. pt is asymptomatic for anemia. pt denies shortness of breath, chest pain, fatigued. continue iron, and daily lab monitor Fall- CHRONIC Multiple falls since being homeless. Continued on fall precautions continue PT for daily sessions UTI (urinary tract infection)- RESOLVED resolved Pneumonia-RESOLVED resolved Acute kidney injury superimposed on CKD stage 2-STABLE/resolved significant improved, creatinine is around 1.2 now from 3.6 at the admission. avoid NSAIDs, and nephrotoxins lab monitor COPD (chronic obstructive pulmonary disease)-STABLE stable, Continue respiratory care, anticipate transfer to SNF with supplemental oxygen Edema of both upper extremities-STABLE stable, encourage pt safely ambulate and elevate extremities Homelessness-CHRONIC Anticipate discharge to SNF for this injury, which may lead to permanent placement at a later date Macrocytic anemia-CHRONIC 03/05 HGB is stable, continue iron pill H/H is stable at 7.8/25.4, MCV 103.3 B12 and folate were at normal arrange but iron deficiency continue give iron supplement. Urinary retention 03/02 resolved 02/28 pt urinate by self, stable. significant improved. pt can avoid by her own but Still with times of elevated post void residuals 300-500 mL continue Flomax Continue to monitor I/O
[2019-03-05] MEDS: traMADol 50 MG TABLET PO PRN (17:32)
[2019-03-06] MEDS: traMADol 50 MG TABLET PO PRN ×3 (00:32→16:05)
[2019-03-06 05:24] LABS: CALCIUM 9.8 mg/dL (8.5-10.3)
[2019-03-06] MEDS: LEVOTHYROXINE 100 MCG TABLET PO SCH (06:19)
[2019-03-06] MEDS: IPRATROPIUM/ALBUTEROL 3 ML NEB INH PRN ×2 (07:47→19:40)
[2019-03-06] MEDS: FERROUS GLUCONATE 324 MG TABLET PO SCH (08:53)
[2019-03-06] MEDS: FAMOTIDINE 20 MG TABLET PO SCH ×2 (08:54→20:13)
[2019-03-06] MEDS: SENNA 8.6 MG TABLET PO SCH (08:54)
[2019-03-06] MEDS: TAMSULOSIN 0.4 MG CAPSULE PO SCH (08:54)
[2019-03-06] MEDS: MIDODRINE 2.5 MG TABLET PO SCH ×3 (08:54→16:58)
[2019-03-06] MEDS: MULTIVITAMIN W/MINERALS TABLET PO SCH (08:54)
[2019-03-06] MEDS: ENOXAPARIN 40 MG/0.4 ML SYRINGE SUBQ SCH (08:54)
[2019-03-06] MEDS: FLUTICASONE NASAL SPRAY NAS SCH (08:55)
[2019-03-06] MEDS: DOCUSATE SODIUM 250 MG CAPSULE PO SCH (08:55)
[2019-03-06] MEDS: POLYETHYLENE GLYCOL 3350 17 GM PACKET PO SCH (08:55)
--- NOTE | 2019-03-06 14:31 | PROVIDER PROGRESS NOTE ---
Subjective - Prog Note Date Prog Note Date: 03/06/19 Prog Note Time: 14:31 - Subjective Pt reports feeling: No change Subjective: Patient has no new issues. Medically stable for discharge. Current Medications - Current Medications Current Medications: Active Medications: Acetaminophen (Tylenol) 650 - 975 mg PO Q4HR PRN Albuterol 2.5 mg INH RTQ4H PRN Albuterol/Ipratropium (Duoneb) 3 ml INH Q4HR PRN Bisacodyl (Dulcolax Supp) 10 mg MI DAILY PRN Docusate Sodium (Colace 250mg Capsule) 250 - 500 mg PO DAILY [facility] Enoxaparin Sodium (Lovenox) 40 mg SUBQ DAILY [facility] Famotidine (Pepcid) 20 mg PO BID [facility] Ferrous Gluconate (Fergon) 324 mg PO DAILYWM [facility] Fluticasone Propionate (Flonase) 2 sprays ELINOR DAILY [facility] Guaifenesin (Mucinex) 300 mg PO BID PRN Levothyroxine Sodium (Synthroid) 100 mcg PO QDAC [facility] Midodrine 5 mg PO TIDWM [facility] Multivitamins/Minerals (Theragran M) 1 tab PO DAILYWM [facility] Polyethylene Glycol (Miralax) 17 gm PO DAILY [facility] Senna (Senokot) 8.6 - 17.2 mg PO DAILY [facility] Sodium Chloride ([place]) 2 sprays ELINOR Q4HR PRN Tamsulosin HCl (Flomax) 0.4 mg PO DAILY [facility] Tramadol HCl (Ultram) 50 mg PO Q4HR PRN Vitamin A/Vitamin D (Vitamin A & D Ointment) 1 applic TOP PRN PRN No Known Home Medications 02/06/19 Objective - Vital Signs/Intake & Output Reviewed Vital Signs: Yes Vital Signs: Vital Signs x48h Temp Pulse Pulse Resp BP BP BP 03/06/19 12:19 75 101/58 L 03/06/19 08:34 75 90/50 L 03/06/19 08:00 36.5 C 74 80/50 L 77/50 L 03/06/19 07:47 77 12 Intake & Output: Intake & Output 03/03/19 03/04/19 03/05/19 03/06/19 23:59 23:59 23:59 23:59 Intake Total 1878 169 4144 1420 Output Total 550 500 450 150 Balance 600 502 287 3707 - Objective General Appearance: positive: No acute distress, Alert Eyes Bilateral: positive: PERRL Eyes: OU Conjunctivae pale ENT: positive: Pharynx nml, No signs of dehydration Neck: positive: Thyroid nml, No JVD, Trachea midline Respiratory: positive: Chest non-tender, No respiratory distress, Wheezes, Other (chronic crackles) Cardiovascular: positive: Regular rate & rhythm, No gallop, Systolic murmur, Decreased pulse(s) Peripheral Pulses: 1+ Radial (R), 1+ Radial (L) Abdomen: positive: Non-tender, Nml bowel sounds, Hepatomegaly, Other (chronic rounded, soft) Back: positive: Nml inspection Skin: positive: No rash, Warm, Dry, Other (bronze toned skin) Extremities: positive: Non-tender, Full ROM, Pedal edema, Joint swelling (LLR swelling, brace in place) Neurologic/Psychiatric: positive: Oriented x3, CN's nml (2-12), Motor nml, Sensation nml, Weakness, Depressed mood/affect Reflexes: Bicep (R): 2+, Bicep (L): 2+ - Lab Results Fish Bones: 03/05/19 05:26 03/06/19 04:54 Other Labs: Lab Results x24hrs 03/06/19 Range/Units 04:54 Sodium 139 (135-145) mmol/L Potassium 4.2 (3.5-5.0) mmol/L Chloride 94 L (101-111) mmol/L Carbon Dioxide 35 H (21-32) mmol/L Anion Gap 10.0 (6-13) BUN 28 H (6-20) mg/dL Creatinine 1.0 (0.4-1.0) mg/dL Estimated GFR (MDRD) 56 L (>89) Glucose 98 (70-100) mg/dL Calcium 9.8 (8.5-10.3) mg/dL ABX Reporting Has patient been on IV antibiotics over the past 48 hours?: No Assessment/Plan - Problem List (1) Acute respiratory failure with hypoxia and hypercapnia Impression: - Contributing factors of moderate to severe COPD -Takes no home inhalers or Singular -Currently on 2-4L nasal cannula - Labs show an elevated carbon dioxide level between 38-40 - Hypercapnia should always be suspected in those who are at risk for hypoventilation (sedatives) or increased physiologic space and limited pulmonary reserve (chronic obstructive pulmonary disease [COPD] exacerbation) who present with shortness of breath, a change in mental status, new hypoxemia, and/or hyper-somnolence -Patient demonstrates mild to moderate hypercapnia or hypercapnia that develops slowly, anxious, and complains of mild dyspnea, daytime sluggishness, headaches at times - Still reports desaturation with activity, down to 88% requiring an increase - PEP treatments per RT Plan: Continue respiratory cares, nebulizers, expectorants, Flonase, anticipate walking oxygen desaturation test prior to discharge Acute metabolic encephalopathy - Not obtunded, in a coma or in a stupor & eating well - Contributing factors are due to chronic respiratory failure, anemia, fluid balance, and dysuria - Sometimes her encephalopathy limits her participation in therapies, chronic flat affect, difficult to get her to smile or laugh Plan: Continue to monitor, promote awake/sleep cycles, routine labs every 2-4 days, await discharge Hypothyroidism-STABLE -TSH was checked and found to be very high at 143.80 -Free T4 confirms this disease with a T4 level low at less than 0.25 -Patient denies previous thyroid issues including cancer, goiter, or hypothyroidism -No current infection suspected, no severe malnutrition at this time -No chest pain, syncope or electrolyte abnormalities noted - Patient denies thyroidectomy, malignancy, but does admit to fracturing her neck in the past - She has overall very poor skin condition, orders to remove IV today Plan: Continue Synthroid at 100 mcg, re-check TSH in 4-6 weeks Hypotension-NEW - patient was symptomatic, and found to have blood pressures of 70-80s systolic -Status post NS IV bolus of 500 mL, TSH was very high at 143, cortisol normal -Patient has had good PO intake 75-100% for each meal - Could be due to newly diagnosed hypothyroidism or poor PO intake of fluid - Still with light B/Ps, but patient denies dizziness - Midodrine can cause urinary retention, so keeping the dose at 5 mg Plan: continue to monitor, continue midodrine, routine labs every 2-4 days, and monitor vital signs Trimalleolar fracture of left ankle- STABLE - Initial reports of the patient walking on street, tripped over her walker, then subsequently had pain to her left ankle and left wrist - Now post-op day #[address] Manjarrez from an ORIF left ankle fracture for her Closed left trimalleolar ankle fracture - NO surgical complications - Orders for non-weight bearing to LLE - PO tramadol with some pain control Plan: Continue daily PT, anticipate discharge to rehab when able Fall- CHRONIC - Multiple falls since being homeless - Continued on fall precautions - Activity restrictions are non-weight bearing to LLE Plan: Continue to treat illnesses and PT for daily sessions UTI (urinary tract infection)- RESOLVED - Initial urinalysis was positive for acute UTI- NGTD for urine culture - Ongoing urinary retention- so remains with an indwelling smith - No hydronephrosis on imaging, but 6.2 mm right stone is likely - Patient admits to prior kidney stones - Status post IV zosyn from 02/10-02/15 Plan: Continue to monitor urine output Pneumonia-RESOLVED - Imaging shows bilateral infiltrates with a chest x-ray - Patient continues to be hypoxic- requiring 2-3L nasal cannula - Underlying COPD- not treated with long acting inhalers at home, no prior oxygen at home - Keep oxygen between 88-90% per orders, PEP therapy - Titrating oxygen based on spot checking oxygen - Status post Zosyn, Azithromycin and Rocephin - Continue expectorants, changed to as needed - Elevated WBC count of 11 on 02/12, now normal Plan: Continue oxygen supplementation, daily nasal sprays, PEP therapy per RT Chronic laryngitis - Beyond 3 weeks, present during her last admission prior to her LLE fracture - Possible causes are chronic GERD, post nasal drip (now treated), hypothyroidi sm (previously un-treated), inhaled toxins (drug use), chronic alcoholism, or carcinoma of the larynx - Patient states that several years ago, she fractured her neck which could have lead to neurologic dysfunction causing permanent vocal cord paralysis - Could be a manifestation of undiagnosed early Parkinson's disease Plan: Continue to monitor and treat symptoms, continue Synthroid Acute kidney injury superimposed on CKD stage 2-STABLE - Baseline creatinine was 1.2 - Admission creatinine was 3.6, now down to 1.0, current GFR is 56 - BNP was 148 Plan: continue to monitor labs every 2-4 days, I/O, avoid hypotension, NSAIDs, and nephrotoxins COPD (chronic obstructive pulmonary disease)-STABLE - The patient has had recurrent pneumonia and now has bilateral pneumonia - She is prescribed no long acting inhalers - Status post oral steroids - Status post Zosyn, Azithromycin and Rocephin - Also on as needed expectorants Plan: Continue respiratory care, monitor for improvement, and anticipate transfer to SNF with supplemental oxygen Constipation by delayed colonic transit-ONGOING - No recent problems - Daily meds; miralax, senna, Plan: continue to monitor, give suppository if no improvement Edema of both upper extremities-STABLE - 3rd spacing to BUEs on exam - Also with JENNIFER - Echo shows no HF or pulmonary hypertension Plan: Continue to elevate extremities Homelessness-CHRONIC - The patient admits to at least 2 years of homelessness Plan: Anticipate discharge to SNF for this injury, which may lead to permanent placement at a later date Macrocytic anemia-CHRONIC - H/H is stable at 7.8/25.4, MCV 103.3 - Likely JENNIFER is a contributing factor, and due to dilution - Iron studies were done on 02/06 showing low iron, low iron % - Continues on daily iron supplement - Poor PO intake, refusing meals but likely due to slow transit constipation Plan: Continue to trend labs, give iron supplement Urinary retention- RESOLVED - Risk factors include; aging, neurological disorder, and new narcotics being used post-op - Re-started on Flomax ( a grade 2C recommendation), - Also with a known kidney stone - Patient also notes that 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 in the past - This probably contributed to her JENNIFER during this hospital stay - Failed a voiding trial (02/09), has passed void trial, now smith has been removed - Changed expectorant to PRN to prevent side effects of dysuria Plan: Continue to monitor I/O
[2019-03-07] MEDS: ACETAMINOPHEN 325 MG TABLET PO PRN ×2 (00:38→20:17)
[2019-03-07] MEDS: LEVOTHYROXINE 100 MCG TABLET PO SCH (05:29)
--- NOTE | 2019-03-07 07:17 | PROVIDER PROGRESS NOTE ---
Subjective - Prog Note Date Prog Note Date: 03/07/19 Prog Note Time: 07:17 - Subjective Pt reports feeling: No change Subjective: Bonnie complains of feeling tired most days, crampy legs, and does not like taking as many pills each day. She denies any new symptoms and is medically stable. Current Medications - Current Medications Current Medications: Active Medications: Acetaminophen (Tylenol) 650 - 975 mg PO Q4HR PRN Albuterol 2.5 mg INH RTQ4H PRN Albuterol/Ipratropium (Duoneb) 3 ml INH Q4HR PRN Bisacodyl (Dulcolax Supp) 10 mg [place] DAILY PRN Enoxaparin Sodium (Lovenox) 40 mg SUBQ DAILY ADAN Famotidine (Pepcid) 20 mg PO BID ADAN Ferrous Gluconate (Fergon) 324 mg PO DAILYWM ADAN Fluticasone Propionate (Flonase) 2 sprays ELINOR DAILY ADAN Guaifenesin (Mucinex) 300 mg PO BID PRN Levothyroxine Sodium (Synthroid) 112.5 mcg PO QDAC ADAN Midodrine 5 mg PO TIDWM ADAN Multivitamins/Minerals (Theragran M) 1 tab PO DAILYWM ADAN Polyethylene Glycol (Miralax) 17 gm PO DAILY ADAN Sodium Chloride ([place]) 2 sprays ELINOR Q4HR PRN Tramadol HCl (Ultram) 50 mg PO Q4HR PRN Vitamin A/Vitamin D (Vitamin A & D Ointment) 1 applic TOP PRN Lactulose 10 mg PO daily No Known Home Medications 02/06/19 Objective - Vital Signs/Intake & Output Reviewed Vital Signs: Yes Vital Signs: Vital Signs x48h Temp Pulse Resp BP Pulse Ox 03/07/19 00:16 36.6 C 74 18 97/52 L 90 L Intake & Output: Intake & Output 03/04/19 03/05/19 03/06/19 03/07/19 23:59 23:59 23:59 23:59 Intake Total 910 1360 1928 200 Output Total 500 450 725 400 Balance 313 183 3360 -200 - Objective General Appearance: positive: No acute distress, Alert, Lethargic Eyes Bilateral: positive: PERRL Eyes: OU Conjunctivae pale, OU Scleral icterus (mild, chronic) ENT: positive: No signs of dehydration, Pharyngeal erythema, Other (chronic hoarseness) Neck: positive: Thyroid nml, No JVD, Stiff neck Respiratory: positive: Chest non-tender, No respiratory distress, Wheezes, Rhonchi Cardiovascular: positive: Regular rate & rhythm, No gallop, Systolic murmur, Decreased pulse(s) Peripheral Pulses: 1+ Radial (R), 1+ Radial (L) Abdomen: positive: Non-tender, Nml bowel sounds, Hepatomegaly, Other (rounded, soft) Back: positive: Nml inspection Skin: positive: No rash, Warm, Dry, Other (bronzed skin) Extremities: positive: Pedal edema, Joint swelling (LLE swelling, brace in place) Neurologic/Psychiatric: positive: Oriented x3, CN's nml (2-12), Motor nml, Weakness, Sensory loss, Slurred/abnml speech (poor speaking ability, chronically hoarse voice), Depressed mood/affect Reflexes: Bicep (R): 3+, Bicep (L): 3+ - Lab Results Fish Bones: 03/05/19 05:26 03/06/19 04:54 ABX Reporting Has patient been on IV antibiotics over the past 48 hours?: No Assessment/Plan - Problem List (1) Acute respiratory failure with hypoxia and hypercapnia Impression: - Contributing factors of moderate to severe COPD -Takes no home inhalers or Singular -Currently on 2-4L nasal cannula - Labs show an elevated carbon dioxide level between 38-40 - Hypercapnia should always be suspected in those who are at risk for hypoventilation (sedatives) or increased physiologic space and limited pulmonary reserve (chronic obstructive pulmonary disease [COPD] exacerbation) who present with shortness of breath, a change in mental status, new hypoxemia, and/or hyper-somnolence -Patient demonstrates mild to moderate hypercapnia or hypercapnia that develops slowly, anxious, and complains of mild dyspnea, daytime sluggishness, headaches at times - Still reports desaturation with activity, down to 88% requiring an increase - PEP treatments per RT Plan: Continue respiratory cares, nebulizers, expectorants, Flonase, anticipate walking oxygen desaturation test prior to discharge Acute metabolic encephalopathy - Not obtunded, in a coma or in a stupor & eating well - Contributing factors are due to chronic respiratory failure, anemia, fluid balance, and dysuria - Sometimes her encephalopathy limits her participation in therapies, chronic flat affect, difficult to get her to smile or laugh Plan: Continue to monitor, promote awake/sleep cycles, routine labs every 2-4 days, await discharge Hypothyroidism-STABLE -TSH was checked and found to be very high at 143.80 -Free T4 confirms this disease with a T4 level low at less than 0.25 -Patient denies previous thyroid issues including cancer, goiter, or hypothyroidism -No current infection suspected, no severe malnutrition at this time -No chest pain, syncope or electrolyte abnormalities noted - Patient denies thyroidectomy, malignancy, but does admit to fracturing her neck in the past - She has overall very poor skin condition, no IV access - Patient continues to complain of profound fatigue, so will adjust synthroid up Plan: Continue Synthroid at 112.5 mcg, re-check TSH in 4-6 weeks Hypotension-NEW - patient was symptomatic, and found to have blood pressures of 70-80s systolic -Status post NS IV bolus of 500 mL, TSH was very high at 143, cortisol normal -Patient has had good PO intake 75-100% for each meal - Could be due to newly diagnosed hypothyroidism or poor PO intake of fluid - Still with light B/Ps, but patient denies dizziness - Midodrine can cause urinary retention, so keeping the dose at 5 mg Plan: continue to monitor, continue midodrine, routine labs every 2-4 days, and monitor vital signs Trimalleolar fracture of left ankle- STABLE - Initial reports of the patient walking on street, tripped over her walker, then subsequently had pain to her left ankle and left wrist - Now post-op day #[address] Manjarrez from an ORIF left ankle fracture for her Closed left trimalleolar ankle fracture - NO surgical complications - Orders for non-weight bearing to LLE - PO tramadol with some pain control Plan: Continue daily PT, anticipate discharge to rehab when able Fall- CHRONIC - Multiple falls since being homeless - Continued on fall precautions - Activity restrictions are non-weight bearing to LLE Plan: Continue to treat illnesses and PT for daily sessions UTI (urinary tract infection)- RESOLVED - Initial urinalysis was positive for acute UTI- NGTD for urine culture - Ongoing urinary retention- so remains with an indwelling smith - No hydronephrosis on imaging, but 6.2 mm right stone is likely - Patient admits to prior kidney stones - Status post IV zosyn from 02/10-02/15 Plan: Continue to monitor urine output Pneumonia-RESOLVED - Imaging shows bilateral infiltrates with a chest x-ray - Patient continues to be hypoxic- requiring 2-3L nasal cannula - Underlying COPD- not treated with long acting inhalers at home, no prior oxygen at home - Keep oxygen between 88-90% per orders, PEP therapy - Titrating oxygen based on spot checking oxygen - Status post Zosyn, Azithromycin and Rocephin - Continue expectorants, changed to as needed - Elevated WBC count of 11 on 02/12, now normal Plan: Continue oxygen supplementation, daily nasal sprays, PEP therapy per RT Chronic laryngitis - Beyond 3 weeks, present during her last admission prior to her LLE fracture - Possible causes are chronic GERD, post nasal drip (now treated), hypothyroidism (previously un-treated), inhaled toxins (drug use), chronic alcoholism, or carcinoma of the larynx - Patient states that several years ago, she fractured her neck which could have lead to neurologic dysfunction causing permanent vocal cord paralysis - Could be a manifestation of undiagnosed early Parkinson's disease Plan: Continue to monitor and treat symptoms, continue Synthroid Acute kidney injury superimposed on CKD stage 2-STABLE - Baseline creatinine was 1.2 - Admission creatinine was 3.6, now down to 1.0, current GFR is 56 - BNP was 148 Plan: continue to monitor labs every 2-4 days, I/O, avoid hypotension, NSAIDs, and nephrotoxins COPD (chronic obstructive pulmonary disease)-STABLE - The patient has had recurrent pneumonia and now has bilateral pneumonia - She is prescribed no long acting inhalers - Status post oral steroids - Status post Zosyn, Azithromycin and Rocephin - Also on as needed expectorants - Desaturations with movement are ongoing Plan: Continue respiratory care, monitor for improvement, and anticipate transfer to SNF with supplemental oxygen Constipation by delayed colonic transit-ONGOING - No recent problems - Daily meds; miralax, patient refuses all others Plan: continue to monitor, give suppository as needed Edema of both upper extremities-STABLE - 3rd spacing to BUEs on exam - Also with JENNIFER - Echo shows no HF or pulmonary hypertension Plan: Continue to elevate extremities Homelessness-CHRONIC - The patient admits to at least 2 years of homelessness Plan: Anticipate discharge to SNF for this injury, which may lead to permanent placement at a later date Macrocytic anemia-CHRONIC - H/H is stable at 7.8/25.4, MCV 103.3 - Likely JENNIFER is a contributing factor, and due to dilution - Iron studies were done on 02/06 showing low iron, low iron % - Continues on daily iron supplement - Poor PO intake, refusing meals but likely due to slow transit constipation Plan: Continue to trend labs, give iron supplement Urinary retention- RESOLVED - Risk factors include; aging, neurological disorder, and new narcotics being used post-op - Re-started on Flomax ( a grade 2C recommendation), now stopped per patient request to cut back on medications - Also with a known kidney stone - Patient also notes that 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 in the past - This probably contributed to her JENNIFER during this hospital stay - Failed a voiding trial (02/09), has passed void trial, now smith has been removed - Changed expectorant to PRN to prevent side effects of dysuria Plan: Continue to monitor I/O
[2019-03-07] MEDS: IPRATROPIUM/ALBUTEROL 3 ML NEB INH PRN ×2 (07:27→14:40)
[2019-03-07] MEDS: FERROUS GLUCONATE 324 MG TABLET PO SCH (09:00)
[2019-03-07] MEDS: SENNA 8.6 MG TABLET PO SCH (09:00)
[2019-03-07] MEDS: MULTIVITAMIN W/MINERALS TABLET PO SCH (09:00)
[2019-03-07] MEDS: DOCUSATE SODIUM 250 MG CAPSULE PO SCH (09:00)
[2019-03-07] MEDS: TAMSULOSIN 0.4 MG CAPSULE PO SCH (09:01)
[2019-03-07] MEDS: FAMOTIDINE 20 MG TABLET PO SCH ×2 (09:01→20:18)
[2019-03-07] MEDS: MIDODRINE 2.5 MG TABLET PO SCH ×3 (09:01→16:56)
[2019-03-07] MEDS: POLYETHYLENE GLYCOL 3350 17 GM PACKET PO SCH (09:01)
[2019-03-07] MEDS: ENOXAPARIN 40 MG/0.4 ML SYRINGE SUBQ SCH (09:01)
[2019-03-07] MEDS: FLUTICASONE NASAL SPRAY NAS SCH (09:02)
[2019-03-07] MEDS: LACTULOSE 10 GM /15 ML UDC PO SCH (13:16)
[2019-03-07] MEDS: traMADol 50 MG TABLET PO PRN (16:15)
[2019-03-08] MEDS: LEVOTHYROXINE 75 MCG TABLET PO SCH (06:11)
--- NOTE | 2019-03-08 07:28 | PROVIDER PROGRESS NOTE ---
Subjective - Prog Note Date Prog Note Date: 03/08/19 Prog Note Time: 07:28 - Subjective Pt reports feeling: No change Subjective: Bonnie has no complaints and has been working with PT as appropriate. No changes in overall condition. Vital signs daily or as needed. Current Medications - Current Medications Current Medications: Active Medications: Acetaminophen (Tylenol) 650 - 975 mg PO Q4HR PRN Albuterol 2.5 mg INH RTQ4H PRN Albuterol/Ipratropium (Duoneb) 3 ml INH Q4HR PRN Bisacodyl (Dulcolax Supp) 10 mg [place] DAILY PRN Enoxaparin Sodium (Lovenox) 40 mg SUBQ DAILY ADAN Famotidine (Pepcid) 20 mg PO BID ADAN Ferrous Gluconate (Fergon) 324 mg PO DAILYWM ADAN Fluticasone Propionate (Flonase) 2 sprays [place]IN[place] DAILY ADAN Guaifenesin (Mucinex) 300 mg PO BID PRN Levothyroxine Sodium (Synthroid) 112.5 mcg PO QDAC ADAN Midodrine 5 mg PO TIDWM ADAN Multivitamins/Minerals (Theragran M) 1 tab PO DAILYWM ADAN Polyethylene Glycol (Miralax) 17 gm PO DAILY ADAN Sodium Chloride ([place]) 2 sprays [place]IN[place] Q4HR PRN Tramadol HCl (Ultram) 50 mg PO Q4HR PRN Vitamin A/Vitamin D (Vitamin A & D Ointment) 1 applic TOP PRN Lactulose 10 mg PO daily No Known Home Medications 02/06/19 Objective - Vital Signs/Intake & Output Reviewed Vital Signs: Yes Vital Signs: Vital Signs x48h Temp Pulse Resp BP Pulse Ox 03/07/19 23:53 36.1 C L 69 18 104/53 L 95 Intake & Output: Intake & Output 03/05/19 03/06/19 03/07/19 03/08/19 23:59 23:59 23:59 23:59 Intake Total 1360 1928 800 Output Total 315 625 2575 700 Balance 910 1203 -950 -700 - Objective General Appearance: positive: No acute distress, Alert, Lethargic Eyes Bilateral: positive: PERRL Eyes: OU Lid inflammation ENT: positive: Pharynx nml, Dry mucous membranes, Other (voice hoarseness) Neck: positive: Thyroid nml, No JVD, Trachea midline Respiratory: positive: Chest non-tender, No respiratory distress, Breath sounds nml Cardiovascular: positive: Regular rate & rhythm, No gallop, Systolic murmur, Decreased pulse(s) Peripheral Pulses: 1+ Radial (R), 1+ Radial (L) Abdomen: positive: Non-tender, Nml bowel sounds, Hepatomegaly, Other (rounded, soft) Back: positive: Nml inspection Skin: positive: No rash, Warm, Dry, Other (tanned sun exposed skin, forehead skin is peeling) Extremities: positive: Non-tender, Pedal edema, Joint swelling, Other (BUE edema, chronic and unchanged) Neurologic/Psychiatric: positive: Oriented x3, CN's nml (2-12), Weakness, Sensory loss, Slurred/abnml speech (baseline voice hoarseness), Depressed mood/affect Reflexes: Bicep (R): 3+, Bicep (L): 3+ - Lab Results Fish Bones: 03/05/19 05:26 03/06/19 04:54 ABX Reporting Has patient been on IV antibiotics over the past 48 hours?: No Assessment/Plan - Problem List (1) Acute respiratory failure with hypoxia and hypercapnia Impression: - Contributing factors of moderate to severe COPD -Takes no home inhalers or Singular -Currently on 2-4L nasal cannula - Labs show an elevated carbon dioxide level between 38-40 - Hypercapnia should always be suspected in those who are at risk for hypoventilation (sedatives) or increased physiologic space and limited pulmonary reserve (chronic obstructive pulmonary disease [COPD] exacerbation) wh o present with shortness of breath, a change in mental status, new hypoxemia, and/or hyper-somnolence -Patient demonstrates mild to moderate hypercapnia or hypercapnia that develops slowly, anxious, and complains of mild dyspnea, daytime sluggishness, headaches at times - Still reports desaturation with activity, down to 88% requiring an increase - PEP treatments per RT Plan: Continue respiratory cares, nebulizers, expectorants, Flonase, anticipate walking oxygen desaturation test prior to discharge Acute metabolic encephalopathy - Not obtunded, in a coma or in a stupor & eating well - Contributing factors are due to chronic respiratory failure, anemia, fluid balance, and dysuria - Sometimes her encephalopathy limits her participation in therapies, chronic flat affect, difficult to get her to smile or laugh Plan: Continue to monitor, promote awake/sleep cycles, routine labs every 2-4 days, await discharge Hypothyroidism-STABLE -TSH was checked and found to be very high at 143.80 -Free T4 confirms this disease with a T4 level low at less than 0.25 -Patient denies previous thyroid issues including cancer, goiter, or hypothyroidism -No current infection suspected, no severe malnutrition at this time -No chest pain, syncope or electrolyte abnormalities noted - Patient denies thyroidectomy, malignancy, but does admit to fracturing her neck in the past - She has overall very poor skin condition, no IV access - Patient continued to complain of profound fatigue, so dose has been adjusted up Plan: Continue Synthroid at 112.5 mcg, re-check TSH in 4-6 weeks Hypotension-NEW - patient was symptomatic, and found to have blood pressures of 70-80s systolic -Status post NS IV bolus of 500 mL, TSH was very high at 143, cortisol normal -Patient has had good PO intake 75-100% for each meal - Could be due to newly diagnosed hypothyroidism or poor PO intake of fluid - Still with light B/Ps, but patient denies dizziness - Midodrine can cause urinary retention, so keeping the dose at 5 mg Plan: continue to monitor, continue midodrine, routine labs every 2-4 days, and monitor vital signs Trimalleolar fracture of left ankle- STABLE - Initial reports of the patient walking on street, tripped over her walker, then subsequently had pain to her left ankle and left wrist - Now post-op day #[address] Manjarrez from an ORIF left ankle fracture for her Cl osed left trimalleolar ankle fracture - NO surgical complications - Orders for non-weight bearing to LLE - PO tramadol with some pain control Plan: Continue daily PT, anticipate discharge to rehab when able Fall- CHRONIC - Multiple falls since being homeless - Continued on fall precautions - Activity restrictions are non-weight bearing to LLE Plan: Continue to treat illnesses and PT for daily sessions UTI (urinary tract infection)- RESOLVED - Initial urinalysis was positive for acute UTI- NGTD for urine culture - Ongoing urinary retention- so remains with an indwelling smith - No hydronephrosis on imaging, but 6.2 mm right stone is likely - Patient admits to prior kidney stones - Status post IV zosyn from 02/10-02/15 Plan: Continue to monitor urine output Pneumonia-RESOLVED - Imaging shows bilateral infiltrates with a chest x-ray - Patient continues to be hypoxic- requiring 2-3L nasal cannula - Underlying COPD- not treated with long acting inhalers at home, no prior oxygen at home - Keep oxygen between 88-90% per orders, PEP therapy - Titrating oxygen based on spot checking oxygen - Status post Zosyn, Azithromycin and Rocephin - Continue expectorants, changed to as needed - Elevated WBC count of 11 on 02/12, now normal Plan: Continue oxygen supplementation, daily nasal sprays, PEP therapy per RT Chronic laryngitis - Beyond 3 weeks, present during her last admission prior to her LLE fracture - Possible causes are chronic GERD, post nasal drip (now treated), hypothyroidism (previously un-treated), inhaled toxins (drug use), chronic alcoholism, or carcinoma of the larynx - Patient states that several years ago, she fractured her neck which could have lead to neurologic dysfunction causing permanent vocal cord paralysis - Could be a manifestation of undiagnosed early Parkinson's disease Plan: Continue to monitor and treat symptoms, continue Synthroid Acute kidney injury superimposed on CKD stage 2-STABLE - Baseline creatinine was 1.2 - Admission creatinine was 3.6, now down to 1.0, current GFR is 56 - BNP was 148 Plan: continue to monitor labs every 2-4 days, I/O, avoid hypotension, NSAIDs, and nephrotoxins COPD (chronic obstructive pulmonary disease)-STABLE - The patient has had recurrent pneumonia and now has bilateral pneumonia - She is prescribed no long acting inhalers - Status post oral steroids - Status post Zosyn, Azithromycin and Rocephin - Also on as needed expectorants - Desaturations with movement are ongoing Plan: Continue respiratory care, monitor for improvement, and anticipate transfer to SNF with supplemental oxygen Constipation by delayed colonic transit-ONGOING - No recent problems - Daily meds; miralax, patient refuses all others Plan: continue to monitor, give suppository as needed Edema of both upper extremities-STABLE - 3rd spacing to BUEs on exam - Also with JENNIFER - Echo shows no HF or pulmonary hypertension Plan: Continue to elevate extremities Homelessness-CHRONIC - The patient admits to at least 2 years of homelessness Plan: Anticipate discharge to SNF for this injury, which may lead to permanent placement at a later date Macrocytic anemia-CHRONIC - H/H is stable at 7.8/25.4, MCV 103.3 - Likely JENNIFER is a contributing factor, and due to dilution - Iron studies were done on 02/06 showing low iron, low iron % - Continues on daily iron supplement - Poor PO intake, refusing meals but likely due to slow transit constipation Plan: Continue to trend labs, give iron supplement Urinary retention- RESOLVED - Risk factors include; aging, neurological disorder, and new narcotics being used post-op - Re-started on Flomax ( a grade 2C recommendation), now stopped per patient request to cut back on medications - Also with a known kidney stone - Patient also notes that 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 in the past - This probably contributed to her JENNIFER during this hospital stay - Failed a voiding trial (02/09), has passed void trial, now smith has been removed - Changed expectorant to PRN to prevent side effects of dysuria Plan: Continue to monitor I/O
[2019-03-08] MEDS: MIDODRINE 2.5 MG TABLET PO SCH ×3 (08:21→16:59)
[2019-03-08] MEDS: ENOXAPARIN 40 MG/0.4 ML SYRINGE SUBQ SCH (08:21)
[2019-03-08] MEDS: POLYETHYLENE GLYCOL 3350 17 GM PACKET PO SCH (08:21)
[2019-03-08] MEDS: traMADol 50 MG TABLET PO PRN ×2 (08:21→16:59)
[2019-03-08] MEDS: FAMOTIDINE 20 MG TABLET PO SCH ×2 (08:22→20:59)
[2019-03-08] MEDS: MULTIVITAMIN W/MINERALS TABLET PO SCH (08:22)
[2019-03-08] MEDS: LACTULOSE 10 GM /15 ML UDC PO SCH (08:22)
[2019-03-08] MEDS: FERROUS GLUCONATE 324 MG TABLET PO SCH (08:22)
[2019-03-08] MEDS: FLUTICASONE NASAL SPRAY NAS SCH (08:26)
[2019-03-08] MEDS: IPRATROPIUM/ALBUTEROL 3 ML NEB INH PRN (12:35)
[2019-03-09] MEDS: LEVOTHYROXINE 75 MCG TABLET PO SCH (06:38)
[2019-03-09] MEDS: IPRATROPIUM/ALBUTEROL 3 ML NEB INH PRN ×2 (07:36→13:57)
[2019-03-09] MEDS: ENOXAPARIN 40 MG/0.4 ML SYRINGE SUBQ SCH (08:25)
[2019-03-09] MEDS: LACTULOSE 10 GM /15 ML UDC PO SCH ×2 (08:25→08:55)
[2019-03-09] MEDS: POLYETHYLENE GLYCOL 3350 17 GM PACKET PO SCH (08:25)
[2019-03-09] MEDS: MIDODRINE 2.5 MG TABLET PO SCH ×3 (08:26→17:49)
[2019-03-09] MEDS: MULTIVITAMIN W/MINERALS TABLET PO SCH (08:26)
[2019-03-09] MEDS: FERROUS GLUCONATE 324 MG TABLET PO SCH (08:26)
[2019-03-09] MEDS: FAMOTIDINE 20 MG TABLET PO SCH ×2 (08:26→21:27)
[2019-03-09] MEDS: FLUTICASONE NASAL SPRAY NAS SCH (08:27)
[2019-03-09] MEDS: traMADol 50 MG TABLET PO PRN ×3 (09:02→17:54)
--- NOTE | 2019-03-09 10:10 | PROVIDER PROGRESS NOTE ---
Subjective - Prog Note Date Prog Note Date: 03/09/19 Prog Note Time: 10:10 - Subjective Pt reports feeling: No change Subjective: Bonnie has no complaints, and has been sleeping well. She is happy to be taking less medications. Current Medications - Current Medications Current Medications: Active Medications: Acetaminophen (Tylenol) 650 - 975 mg PO Q4HR PRN Albuterol 2.5 mg INH RTQ4H PRN Albuterol/Ipratropium (Duoneb) 3 ml INH Q4HR PRN Bisacodyl (Dulcolax Supp) 10 mg [place] DAILY PRN Enoxaparin Sodium (Lovenox) 40 mg SUBQ DAILY [facility] Famotidine (Pepcid) 20 mg PO BID ADAN Ferrous Gluconate (Fergon) 324 mg PO DAILYWM [facility] Fluticasone Propionate (Flonase) 2 sprays ELINOR DAILY [facility]AN Guaifenesin (Mucinex) 300 mg PO BID PRN Levothyroxine Sodium (Synthroid) 112.5 mcg PO QDAC ADAN Midodrine 5 mg PO TIDWM [facility] Multivitamins/Minerals (Theragran M) 1 tab PO DAILYWM [facility]AN Polyethylene Glycol (Miralax) 17 gm PO DAILY ADAN Sodium Chloride ([place]) 2 sprays ELINOR Q4HR PRN Tramadol HCl (Ultram) 50 mg PO Q4HR PRN Vitamin A/Vitamin D (Vitamin A & D Ointment) 1 applic TOP PRN Lactulose 10 mg PO daily No Known Home Medications 02/06/19 Objective - Vital Signs/Intake & Output Reviewed Vital Signs: Yes Vital Signs: Vital Signs x48h Pulse Resp 03/09/19 07:37 73 14 Intake & Output: Intake & Output 03/06/19 03/07/19 03/08/19 03/09/19 23:59 23:59 23:59 23:59 Intake Total 7310 457 0227 610 Output Total 725 1750 700 400 Balance 1203 -950 760 210 - Objective General Appearance: positive: No acute distress, Alert, Lethargic Eyes Bilateral: positive: PERRL Eyes: OU Lid inflammation ENT: positive: Pharynx nml, Dry mucous membranes Neck: positive: No JVD, Trachea midline, Stiff neck Respiratory: positive: Chest non-tender, No respiratory distress, Rhonchi Cardiovascular: positive: Regular rate & rhythm, No gallop, Systolic murmur, Decreased pulse(s) Peripheral Pulses: 1+ Radial (R), 1+ Radial (L) Abdomen: positive: Non-tender, Nml bowel sounds, Hepatomegaly, Other (rounded, soft) Back: positive: Nml inspection Skin: positive: No rash, Warm, Dry, Other (bronzed, sun exposed skin, facial peeling) Neurologic/Psychiatric: positive: Oriented x3, CN's nml (2-12), Motor nml, Weakness, Sensory loss, Slurred/abnml speech (baseline garbled speech), Depressed mood/affect Reflexes: Bicep (R): 2+, Bicep (L): 2+ - Lab Results Fish Bones: 03/05/19 05:26 03/06/19 04:54 ABX Reporting Has patient been on IV antibiotics over the past 48 hours?: No Assessment/Plan - Problem List (1) Acute respiratory failure with hypoxia and hypercapnia Impression: - Contributing factors of moderate to severe COPD -Takes no home inhalers or Singular -Currently on 2-4L nasal cannula - Labs show an elevated carbon dioxide level between 38-40 - Hypercapnia should always be suspected in those who are at risk for hypoventilation (sedatives) or increased physiologic space and limited pulmonary reserve (chronic obstructive pulmonary disease [COPD] exacerbation) who present with shortness of breath, a change in mental status, new hypoxemia, and/or hyper-somnolence -Patient demonstrates mild to moderate hypercapnia or hypercapnia that develops slowly, anxious, and complains of mild dyspnea, daytime sluggishness, headaches at times - Still reports desaturation with activity, down to 88% requiring an increase - PEP treatments per RT Plan: Continue respiratory cares, nebulizers, expectorants, Flonase, anticipate walking oxygen desaturation test prior to discharge Hypothyroidism-STABLE -TSH was checked and found to be very high at 143.80 -Free T4 confirms this disease with a T4 level low at less than 0.25 -Patient denies previous thyroid issues including cancer, goiter, or hypothyroidism -Chronic hoarseness noted on exam, poor oral dentition -No current infection suspected, no severe malnutrition at this time -No chest pain, syncope or electrolyte abnormalities noted - Patient denies thyroidectomy, malignancy, but does admit to fracturing her neck in the past - She has overall very poor skin condition, no IV access - Patient continued to complain of profound fatigue, so dose has been adjusted up Plan: Continue Synthroid at 112.5 mcg, re-check TSH in 4-6 weeks Hypotension-STABLE - patient was symptomatic, and found to have blood pressures of 70-80s systolic -Status post NS IV bolus of 500 mL, TSH was very high at 143, cortisol normal -Patient has had good PO intake 75-100% for each meal - Could be due to newly diagnosed hypothyroidism or poor PO intake of fluid - Still with light B/Ps, but patient denies dizziness - Midodrine can cause urinary retention, so keeping the dose at 5 mg Plan: continue to monitor, continue midodrine, routine labs every 2-4 days, and monitor vital signs Trimalleolar fracture of left ankle- STABLE - Initial reports of the patient walking on street, tripped over her walker, then subsequently had pain to her left ankle and left wrist - Now post-op day #[address] Manjarrez from an ORIF left ankle fracture for her Closed left trimalleolar ankle fracture - NO surgical complications - Orders for non-weight bearing to LLE - PO tramadol with some pain control Plan: Continue daily PT, anticipate discharge to rehab when able Fall- CHRONIC - Multiple falls since being homeless - Continued on fall precautions - Activity restrictions are non-weight bearing to LLE Plan: Continue to treat illnesses and PT for daily sessions UTI (urinary tract infection)- RESOLVED - Initial urinalysis was positive for acute UTI- NGTD for urine culture - Ongoing urinary retention- so remains with an indwelling smith - No hydronephrosis on imaging, but 6.2 mm right stone is likely - Patient admits to prior kidney stones - Status post IV zosyn from 02/10-02/15 Plan: Continue to monitor urine output Pneumonia-RESOLVED - Imaging shows bilateral infiltrates with a chest x-ray - Patient continues to be hypoxic- requiring 2-3L nasal cannula - Underlying COPD- not treated with long acting inhalers at home, no prior oxygen at home - Keep oxygen between 88-90% per orders, PEP therapy - Titrating oxygen based on spot checking oxygen - Status post Zosyn, Azithromycin and Rocephin - Continue expectorants, changed to as needed - Elevated WBC count of 11 on 02/12, now normal Plan: Continue oxygen supplementation, daily nasal sprays, PEP therapy per RT Chronic laryngitis-CHRONIC - Beyond 3 weeks, present during her last admission prior to her LLE fracture - Possible causes are chronic GERD, post nasal drip (now treated), hypothyroidism (previously un-treated), inhaled toxins (drug use), chronic alcoholism, or carcinoma of the larynx - Patient states that several years ago, she fractured her neck which could have lead to neurologic dysfunction causing permanent vocal cord paralysis - Could be a manifestation of undiagnosed early Parkinson's disease Plan: Continue to monitor and treat symptoms, continue Synthroid Acute kidney injury superimposed on CKD stage 2-STABLE - Baseline creatinine was 1.2 - Admission creatinine was 3.6, now down to 1.0, current GFR is 56 - BNP was 148 Plan: continue to monitor labs every 2-4 days, I/O, avoid hypotension, NSAIDs, and nephrotoxins COPD (chronic obstructive pulmonary disease)-STABLE - The patient has had recurrent pneumonia and now has bilateral pneumonia - She is prescribed no long acting inhalers - Status post oral steroids - Status post Zosyn, Azithromycin and Rocephin - Also on as needed expectorants - Desaturations with movement are ongoing Plan: Continue respiratory care, monitor for improvement, and anticipate transfer to SNF with supplemental oxygen Constipation by delayed colonic transit-ONGOING - No recent problems - Daily meds; miralax, patient refuses all others Plan: continue to monitor, give suppository as needed Edema of both upper extremities-STABLE - 3rd spacing to BUEs on exam - Also with JENNIFER - Echo shows no HF or pulmonary hypertension Plan: Continue to elevate extremities Homelessness-CHRONIC - The patient admits to at least 2 years of homelessness Plan: Anticipate discharge to SNF for this injury, which may lead to permanent placement at a later date Macrocytic anemia-CHRONIC - H/H is stable at 7.8/25.4, MCV 103.3 - Likely JENNIFER is a contributing factor, and due to dilution - Iron studies were done on 02/06 showing low iron, low iron % - Continues on daily iron supplement - Poor PO intake, refusing meals but likely due to slow transit constipation Plan: Continue to trend labs, give iron supplement Urinary retention- RESOLVED - Risk factors include; aging, neurological disorder, and new narcotics being used post-op - Re-started on Flomax ( a grade 2C recommendation), now stopped per patient request to cut back on medications - Also with a known kidney stone - Patient also notes that 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 in the past - This probably contributed to her JENNIFER during this hospital stay - Failed a voiding trial (02/09), has passed void trial, now smith has been removed - Changed expectorant to PRN to prevent side effects of dysuria Plan: Continue to monitor I/O Acute metabolic encephalopathy- RESOLVED - Not obtunded, in a coma or in a stupor & eating well - Contributing factors are due to chronic respiratory failure, anemia, fluid balance, and dysuria - Sometimes her encephalopathy limits her participation in therapies, chronic flat affect, difficult to get her to smile or laugh Plan: Continue to monitor, promote awake/sleep cycles, routine labs every 2-4 days, await discharge
[2019-03-10] MEDS: traMADol 50 MG TABLET PO PRN ×4 (01:01→20:47)
[2019-03-10] MEDS: LEVOTHYROXINE 75 MCG TABLET PO SCH (06:31)
[2019-03-10] MEDS: MULTIVITAMIN W/MINERALS TABLET PO SCH (08:24)
[2019-03-10] MEDS: ENOXAPARIN 40 MG/0.4 ML SYRINGE SUBQ SCH (08:24)
[2019-03-10] MEDS: POLYETHYLENE GLYCOL 3350 17 GM PACKET PO SCH (08:24)
[2019-03-10] MEDS: FERROUS GLUCONATE 324 MG TABLET PO SCH (08:24)
[2019-03-10] MEDS: MIDODRINE 2.5 MG TABLET PO SCH ×3 (08:24→16:24)
[2019-03-10] MEDS: FAMOTIDINE 20 MG TABLET PO SCH ×2 (08:25→20:47)
[2019-03-10] MEDS: LACTULOSE 10 GM /15 ML UDC PO SCH (08:25)
[2019-03-10] MEDS: FLUTICASONE NASAL SPRAY NAS SCH (08:25)
[2019-03-10] MEDS: IPRATROPIUM/ALBUTEROL 3 ML NEB INH PRN ×2 (11:03→20:13)
--- NOTE | 2019-03-10 12:26 | PROVIDER PROGRESS NOTE ---
Subjective - Prog Note Date Prog Note Date: 03/10/19 - Subjective Pt reports feeling: Improved Subjective: pt report her upper arm has some pain at the previous IV site, report she has a lump at the previous IV site. Otherwise, she has no other complaints Current Medications - Current Medications Current Medications: Active Medications Acetaminophen (Tylenol) 650 - 975 mg PO Q4HR PRN PRN Reason: PAIN Last Admin: 03/07/19 20:17 Dose: 650 mg Albuterol () 2.5 mg INH RTQ4H PRN PRN Reason: Wheezing Albuterol/Ipratropium (Duoneb) 3 ml INH Q4HR PRN PRN Reason: Wheezing Last Admin: 03/10/19 11:03 Dose: 3 ml Bisacodyl (Dulcolax Supp) 10 mg [place] DAILY PRN PRN Reason: Constipation Last Admin: 02/10/19 19:47 Dose: 10 mg Enoxaparin Sodium (Lovenox) 40 mg SUBQ DAILY [facility] Last Admin: 03/10/19 08:24 Dose: 40 mg Famotidine (Pepcid) 20 mg PO BID [facility] Last Admin: 03/10/19 08:25 Dose: 20 mg Ferrous Gluconate (Fergon) 324 mg PO DAILYWM [facility] Last Admin: 03/10/19 08:24 Dose: 324 mg Fluticasone Propionate (Flonase) 2 sprays ELINOR DAILY [facility] Last Admin: 03/10/19 08:25 Dose: 2 sprays Guaifenesin (Mucinex) 300 mg PO BID PRN PRN Reason: Cough Lactulose (Enulose) 10 gm PO DAILY [facility] Last Admin: 03/10/19 08:25 Dose: Not Given Levothyroxine Sodium (Synthroid) 112.5 mcg PO QDAC [facility] Last Admin: 03/10/19 06:31 Dose: 112.5 mcg Midodrine () 5 mg PO TIDWM [facility] Last Admin: 03/10/19 12:53 Dose: 5 mg Multivitamins/Minerals (Theragran M) 1 tab PO DAILYWM [facility] Last Admin: 03/10/19 08:24 Dose: 1 tab Polyethylene Glycol (Miralax) 17 gm PO DAILY [facility] Last Admin: 03/10/19 08:24 Dose: 17 gm Sodium Chloride ([place]) 2 sprays ELINOR Q4HR PRN PRN Reason: Nasal Congestion Last Admin: 03/07/19 05:22 Dose: 2 sprays Tramadol HCl (Ultram) 50 mg PO Q4HR PRN PRN Reason: PAIN Last Admin: 03/10/19 08:33 Dose: 50 mg Vitamin A/Vitamin D (Vitamin A & D Ointment) 1 applic TOP PRN PRN PRN Reason: Skin Care Last Admin: 02/13/19 16:25 Dose: 1 applic No Known Home Medications 02/06/19 Objective - Vital Signs/Intake & Output Reviewed Vital Signs: Yes Vital Signs: Vital Signs x48h Temp Pulse Pulse Resp BP Pulse Ox 03/10/19 11:03 66 16 03/10/19 08:11 36.4 C L 66 15 94/69 92 Intake & Output: Intake & Output 03/07/19 03/08/19 03/09/19 03/10/19 23:59 23:59 23:59 23:59 Intake Total 800 1460 1280 480 Output Total 1750 700 700 Balance -950 760 580 480 - Objective General Appearance: positive: No acute distress, Alert. negative: Lethargic Eyes Bilateral: positive: Normal inspection, PERRL, No lid inflammation, Conjunc tivae nml ENT: positive: ENT inspection nml, Pharynx nml, No signs of dehydration. negative: Purulent nasal drainage, Pharyngeal erythema, Oral lesions Neck: positive: Nml inspection, Thyroid nml, No JVD, Trachea midline. negative: Thyromegaly, Lymphadenopathy (L), Stiff neck, Swelling/bruising, Tracheal deviation Respiratory: positive: Chest non-tender, No respiratory distress, Breath sounds nml. negative: Wheezes, Rales, Rhonchi Cardiovascular: positive: Regular rate & rhythm, No murmur, No gallop. negative: Irregularly irregular, Extrasystoles, Tachycardia, Bradycardia, JVD present, Systolic murmur, Diastolic murmur Peripheral Pulses: 2+ Radial (R), 2+ Radial (L), 2+ Dorsalis pedis (R), 2+ Dorsalis pedis (L) Abdomen: positive: Non-tender, No organomegaly, Nml bowel sounds, No distention. negative: Tenderness, Guarding, Rebound Back: positive: Nml inspection. negative: CVA tenderness (R), CVA tenderness (L) Skin: positive: Color nml, No rash, Warm, Dry. negative: Cyanosis, Diaphoresis, Pallor Extremities: positive: Non-tender. negative: Calf tenderness, Joint swelling, Rashaad's sign/cords Neurologic/Psychiatric: positive: Sensation nml, Mood/affect nml. negative: Weakness, Sensory loss, Facial droop, Slurred/abnml speech, Depressed mood/affect - Lab Results Fish Bones: 03/05/19 05:26 03/06/19 04:54 ABX Reporting Has patient been on IV antibiotics over the past 48 hours?: No Sepsis Event Note (H) - Evaluation Current Stage of Sepsis: Ruled out Assessment/Plan - Problem List (1) Respiratory failure with hypoxia Impression: 03/10 stable. pt remain 92% sat on 1.5-2 liter of O2. pt has hx of COPD. pt currently has no respiratory distress. continue respiratory care, continue albuterol and duoneb PRN supplement of O2 as needed by [place] Hypothyroidism-STABLE 03/10 pt had a new diagnosis of hypothyroidism on 02/23/19 and start on synthyroid on the day. 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 Continue to monitor pt and pt's urine output Pneumonia-RESOLVED resolved. Continue oxygen supplementation as needed, daily nasal sprays, PEP therapy per RT Chronic laryngitis-CHRONIC stable, Continue to monitor and treat symptoms as needed Acute kidney injury superimposed on CKD stage 2-STABLE stable, avoid nephrotoxins, continue lab monitor as needed COPD (chronic obstructive pulmonary disease)-STABLE stable, Continue respiratory care, continue supplement of O2 as needed Constipation by delayed colonic transit-stable stable, no new complaint. continue monitor pt Edema of both upper extremities-STABLE stable, Continue to elevate extremities Homelessness-CHRONIC continue seek placement for pt's alf care Macrocytic anemia-CHRONIC stable, give iron supplement Urinary retention- RESOLVED resolved. Acute metabolic encephalopathy- RESOLVED resolved left arm pain 03/10 pt complain of left arm pain. pt state she developed a new lump at the left upper arm and feels painful. pt state it was at the IV site to have lump. There is about 3X1X1 cm lumpt at the upper left arm, palpable. pt did not complain of pain when palpitation to the lump. There is no erythema, swelling, or tenderness. order US to r/o other possible cause, will followup pain control with ultram as needed
--- NOTE | 2019-03-10 13:56 | Ultrasound Report ---
Reason: left arm has a acute lump, complain of pain Procedure Date: 03/10/2019 Accession Number: [id number] / [id number] Procedure: US - Ext Limited Non Vascular CPT Code: FULL RESULT: EXAM: LEFT UPPER EXTREMITY ULTRASOUND - LIMITED EXAM DATE: 03/10/2019 12:43 PM. CLINICAL HISTORY: Left arm has a acute lump, complain of pain. Recent injection at area of concern. COMPARISON: None available. TECHNIQUE: Real-time scanning was performed with static images obtained. FINDINGS: Targeted ultrasound imaging was performed at the left upper extremity near the deltoid. At this location, there is a complex collection measuring 1.3 x 1.0 x 0.8 cm there is a central cystic component within this lesion measuring approximately 0.8 x 0.6 x 0.2 cm. Possible septation within this collection. There is mild peripheral vascularity on color Doppler. IMPRESSION: Complex collection in the left upper arm at the area of clinical concern with central cystic component, as described above. Differential considerations include a seroma, developing abscess, or other complication related to recent injection. RADIA
[2019-03-11] MEDS: traMADol 50 MG TABLET PO PRN ×2 (00:42→08:38)
[2019-03-11 05:42] LABS: FREE T4 (FREE THYROXINE) 0.46 ng/dL (0.58-1.64)
[2019-03-11 06:13] LABS: THYROID STIMULATING HORMONE 64.81 uIU/mL (0.34-5.60)
[2019-03-11] MEDS: LEVOTHYROXINE 75 MCG TABLET PO SCH (06:49)
[2019-03-11] MEDS: ENOXAPARIN 40 MG/0.4 ML SYRINGE SUBQ SCH (08:33)
[2019-03-11] MEDS: MULTIVITAMIN W/MINERALS TABLET PO SCH (08:33)
[2019-03-11] MEDS: LACTULOSE 10 GM /15 ML UDC PO SCH ×2 (08:33→08:40)
[2019-03-11] MEDS: MIDODRINE 2.5 MG TABLET PO SCH ×3 (08:33→16:54)
[2019-03-11] MEDS: POLYETHYLENE GLYCOL 3350 17 GM PACKET PO SCH (08:33)
[2019-03-11] MEDS: FERROUS GLUCONATE 324 MG TABLET PO SCH (08:34)
[2019-03-11] MEDS: FAMOTIDINE 20 MG TABLET PO SCH ×2 (08:34→20:20)
[2019-03-11] MEDS: FLUTICASONE NASAL SPRAY NAS SCH (08:34)
--- NOTE | 2019-03-11 10:35 | PROVIDER PROGRESS NOTE ---
Subjective - Prog Note Date Prog Note Date: 03/11/19 - Subjective Pt reports feeling: No change Subjective: pt is comfort eating her breakfast, she has no complaints Current Medications - Current Medications Current Medications: Active Medications Acetaminophen (Tylenol) 650 - 975 mg PO Q4HR PRN PRN Reason: PAIN Last Admin: 03/07/19 20:17 Dose: 650 mg Albuterol () 2.5 mg INH RTQ4H PRN PRN Reason: Wheezing Albuterol/Ipratropium (Duoneb) 3 ml INH Q4HR PRN PRN Reason: Wheezing Last Admin: 03/10/19 20:13 Dose: 3 ml Bisacodyl (Dulcolax Supp) 10 mg [place] DAILY PRN PRN Reason: Constipation Last Admin: 02/10/19 19:47 Dose: 10 mg Enoxaparin Sodium (Lovenox) 40 mg SUBQ DAILY [facility] Last Admin: 03/11/19 08:33 Dose: 40 mg Famotidine (Pepcid) 20 mg PO BID [facility] Last Admin: 03/11/19 08:34 Dose: 20 mg Ferrous Gluconate (Fergon) 324 mg PO DAILYWM [facility] Last Admin: 03/11/19 08:34 Dose: 324 mg Fluticasone Propionate (Flonase) 2 sprays ELINOR DAILY [facility] Last Admin: 03/11/19 08:34 Dose: 2 sprays Guaifenesin (Mucinex) 300 mg PO BID PRN PRN Reason: Cough Lactulose (Enulose) 10 gm PO DAILY [facility] Last Admin: 03/11/19 08:40 Dose: Not Given Levothyroxine Sodium (Synthroid) 112.5 mcg PO QDAC [facility] Last Admin: 03/11/19 06:49 Dose: 112.5 mcg Midodrine () 5 mg PO TIDWM [facility] Last Admin: 03/11/19 08:33 Dose: 5 mg Multivitamins/Minerals (Theragran M) 1 tab PO DAILYWM [facility] Last Admin: 03/11/19 08:33 Dose: 1 tab Polyethylene Glycol (Miralax) 17 gm PO DAILY [facility] Last Admin: 03/11/19 08:33 Dose: 17 gm Sodium Chloride ([place]) 2 sprays ELINOR Q4HR PRN PRN Reason: Nasal Congestion Last Admin: 03/07/19 05:22 Dose: 2 sprays Tramadol HCl (Ultram) 50 mg PO Q4HR PRN PRN Reason: PAIN Last Admin: 03/11/19 08:38 Dose: 50 mg Vitamin A/Vitamin D (Vitamin A & D Ointment) 1 applic TOP PRN PRN PRN Reason: Skin Care Last Admin: 02/13/19 16:25 Dose: 1 applic No Known Home Medications 02/06/19 Objective - Vital Signs/Intake & Output Reviewed Vital Signs: Yes Vital Signs: Vital Signs x48h Temp Pulse Resp BP Pulse Ox 03/11/19 07:59 36.4 C L 66 16 90/51 L 95 03/11/19 06:52 67 16 92 Intake & Output: Intake & Output 03/08/19 03/09/19 03/10/19 03/11/19 23:59 23:59 23:59 23:59 Intake Total 1460 1280 1400 610 Output Total 700 700 950 350 Balance 760 580 450 260 - Objective General Appearance: positive: No acute distress, Alert. negative: Lethargic Eyes Bilateral: positive: Normal inspection, PERRL, No lid inflammation, Conjunctivae nml ENT: positive: ENT inspection nml, Pharynx nml, No signs of dehydration. negative: Purulent nasal drainage, Pharyngeal erythema, Oral lesions Neck: positive: Nml inspection, Thyroid nml, No JVD. negative: Trachea midline, Thyromegaly, Lymphadenopathy (R), Lymphadenopathy (L), Stiff neck, Swelling/bruising, Tracheal deviation Respiratory: positive: Chest non-tender, No respiratory distress, Breath sounds nml. negative: Wheezes, Rales, Rhonchi Cardiovascular: positive: Regular rate & rhythm, No murmur, No gallop. negative: Irregularly irregular, Extrasystoles, Tachycardia, Bradycardia, JVD present, Systolic murmur, Diastolic murmur Peripheral Pulses: 2+ Radial (R), 2+ Radial (L), 2+ Dorsalis pedis (R), 2+ Dorsalis pedis (L) Abdomen: positive: Non-tender, No organomegaly, Nml bowel sounds, No distention. negative: Tenderness, Guarding, Rebound Back: positive: Nml inspection. negative: CVA tenderness (R), CVA tenderness (L) Skin: positive: Color nml, No rash, Warm, Dry. negative: Cyanosis, Diaphoresis, Pallor Extremities: positive: Non-tender, Nml appearance. negative: Calf tenderness, Joint swelling, Rashaad's sign/cords Neurologic/Psychiatric: positive: Oriented x3, Sensation nml, Mood/affect nml. negative: Weakness, Sensory loss, Facial droop, Slurred/abnml speech, Depressed mood/affect - Lab Results Fish Bones: 03/05/19 05:26 03/06/19 04:54 Other Labs: Lab Results x24hrs 03/11/19 Range/Units 04:55 TSH 64.81 H (0.34-5.60) uIU/mL Free T4 0.46 L (0.58-1.64) ng/dL ABX Reporting Has patient been on IV antibiotics over the past 48 hours?: No Sepsis Event Note (H) - Evaluation Current Stage of Sepsis: Ruled out Assessment/Plan - Problem List (1) Respiratory failure with hypoxia Impression: 03/11 stable, pt has no respiratory distress 03/10 stable. pt remain 92% sat on 1.5-2 liter of O2. pt has hx of COPD. pt currently has no respiratory distress. continue respiratory care, continue albuterol and duoneb PRN supplement of O2 as needed by PR Hypothyroidism-STABLE 03/11 pt's TSH is down to 65 from 144 in two weeks, Free T4 is 0.46 from less 0.25 two weeks. agree increase synthyoid to 112.5 mcg daily 03/10 pt had a new diagnosis of hypothyroidism on 02/23/19 and start on synthyroid on the day. 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 Continue to monitor pt and pt's urine output Pneumonia-RESOLVED resolved. Continue oxygen supplementation as needed, daily nasal sprays, PEP therapy per RT Chronic laryngitis-CHRONIC stable, Continue to monitor and treat symptoms as needed Acute kidney injury superimposed on CKD stage 2-STABLE stable, avoid nephrotoxins, continue lab monitor as needed COPD (chronic obstructive pulmonary disease)-STABLE stable, Continue respiratory care, continue supplement of O2 as needed Constipation by delayed colonic transit-stable stable, no new complaint. 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 Acute metabolic encephalopathy- RESOLVED resolved left arm pain 03/11 pt report her left arm pain is better. US reveals centric cystic component. discussed with pt about her test result and answered her questions. 03/10 pt complain of left arm pain. pt state she developed a new lump at the left upper arm and feels painful. pt state it was at the IV site to have lump. There is about 3X1X1 cm lumpt at the upper left arm, palpable. pt did not complain of pain when palpitation to the lump. There is no erythema, swelling, or tenderness. order US to r/o other possible cause, will followup pain control with ultram as needed
[2019-03-11] MEDS: IPRATROPIUM/ALBUTEROL 3 ML NEB INH PRN ×2 (12:28→15:36)
[2019-03-12] MEDS: ACETAMINOPHEN 325 MG TABLET PO PRN (01:12)
[2019-03-12] MEDS: LEVOTHYROXINE 75 MCG TABLET PO SCH (06:34)
[2019-03-12] MEDS: IPRATROPIUM/ALBUTEROL 3 ML NEB INH PRN (07:37)
[2019-03-12] MEDS: LACTULOSE 10 GM /15 ML UDC PO SCH (08:10)
[2019-03-12] MEDS: FERROUS GLUCONATE 324 MG TABLET PO SCH (08:16)
[2019-03-12] MEDS: ENOXAPARIN 40 MG/0.4 ML SYRINGE SUBQ SCH (08:16)
[2019-03-12] MEDS: POLYETHYLENE GLYCOL 3350 17 GM PACKET PO SCH (08:16)
[2019-03-12] MEDS: MULTIVITAMIN W/MINERALS TABLET PO SCH (08:16)
[2019-03-12] MEDS: MIDODRINE 2.5 MG TABLET PO SCH ×3 (08:16→16:29)
[2019-03-12] MEDS: FAMOTIDINE 20 MG TABLET PO SCH ×2 (08:16→20:17)
[2019-03-12] MEDS: FLUTICASONE NASAL SPRAY NAS SCH (08:17)
--- NOTE | 2019-03-12 10:29 | PROVIDER PROGRESS NOTE ---
Subjective - Prog Note Date Prog Note Date: 03/12/19 - Subjective Pt reports feeling: No change Subjective: pt has no complaint, she is comfortable eating her breakfast. Current Medications - Current Medications Current Medications: Active Medications Acetaminophen (Tylenol) 650 - 975 mg PO Q4HR PRN PRN Reason: PAIN Last Admin: 03/12/19 01:12 Dose: 650 mg Albuterol () 2.5 mg INH RTQ4H PRN PRN Reason: Wheezing Albuterol/Ipratropium (Duoneb) 3 ml INH Q4HR PRN PRN Reason: Wheezing Last Admin: 03/12/19 07:37 Dose: 3 ml Bisacodyl (Dulcolax Supp) 10 mg [place] DAILY PRN PRN Reason: Constipation Last Admin: 02/10/19 19:47 Dose: 10 mg Enoxaparin Sodium (Lovenox) 40 mg SUBQ DAILY [facility] Last Admin: 03/12/19 08:16 Dose: 40 mg Famotidine (Pepcid) 20 mg PO BID [facility] Last Admin: 03/12/19 08:16 Dose: 20 mg Ferrous Gluconate (Fergon) 324 mg PO DAILYWM [facility] Last Admin: 03/12/19 08:16 Dose: 324 mg Fluticasone Propionate (Flonase) 2 sprays ELINOR DAILY [facility] Last Admin: 03/12/19 08:17 Dose: 2 sprays Guaifenesin (Mucinex) 300 mg PO BID PRN PRN Reason: Cough Lactulose (Enulose) 10 gm PO DAILY [facility] Last Admin: 03/12/19 08:10 Dose: Not Given Levothyroxine Sodium (Synthroid) 112.5 mcg PO QDAC [facility] Last Admin: 03/12/19 06:34 Dose: 112.5 mcg Midodrine () 5 mg PO TIDWM [facility] Last Admin: 03/12/19 08:16 Dose: 5 mg Multivitamins/Minerals (Theragran M) 1 tab PO DAILYWM [facility] Last Admin: 03/12/19 08:16 Dose: 1 tab Polyethylene Glycol (Miralax) 17 gm PO DAILY [facility] Last Admin: 03/12/19 08:16 Dose: 17 gm Sodium Chloride ([place]) 2 sprays ELINOR Q4HR PRN PRN Reason: Nasal Congestion Last Admin: 03/07/19 05:22 Dose: 2 sprays Tramadol HCl (Ultram) 50 mg PO Q4HR PRN PRN Reason: PAIN Last Admin: 03/11/19 08:38 Dose: 50 mg Vitamin A/Vitamin D (Vitamin A & D Ointment) 1 applic TOP PRN PRN PRN Reason: Skin Care Last Admin: 02/13/19 16:25 Dose: 1 applic No Known Home Medications 02/06/19 Objective - Vital Signs/Intake & Output Vital Signs: Vital Signs x48h Pulse Resp 03/12/19 07:38 72 12 Intake & Output: Intake & Output 03/09/19 03/10/19 03/11/19 03/12/19 23:59 23:59 23:59 23:59 Intake Total 1280 1400 1520 240 Output Total 700 950 350 250 Balance 461 661 1514 -10 - Objective General Appearance: positive: No acute distress, Alert. negative: Lethargic Eyes Bilateral: positive: Normal inspection, PERRL, No lid inflammation, Conjunctivae nml ENT: positive: ENT inspection nml, Pharynx nml, No signs of dehydration. negative: Purulent nasal drainage, Pharyngeal erythema, Oral lesions Neck: positive: Nml inspection, Thyroid nml, No JVD, Trachea midline. negative: Thyromegaly, Lymphadenopathy (R), Lymphadenopathy (L), Stiff neck, Swelling/bruising, Tracheal deviation Respiratory: positive: Chest non-tender, No respiratory distress. negative: Wheezes, Rales, Rhonchi Cardiovascular: positive: Regular rate & rhythm, No murmur, No gallop. negative: Irregularly irregular, Extrasystoles, Tachycardia, Bradycardia, JVD present, Systolic murmur, Diastolic murmur Peripheral Pulses: 2+ Radial (R), 2+ Radial (L), 2+ Dorsalis pedis (R), 2+ Dorsalis pedis (L) Abdomen: positive: Non-tender, No organomegaly, Nml bowel sounds, No distention. negative: Tenderness, Guarding, Rebound Back: positive: Nml inspection. negative: CVA tenderness (R), CVA tenderness (L) Skin: positive: Color nml, No rash, Warm, Dry. negative: Cyanosis, Diaphoresis, Pallor Extremities: positive: Non-tender, Nml appearance. negative: Calf tenderness, Joint swelling, Rashaad's sign/cords Neurologic/Psychiatric: positive: Oriented x3, Sensation nml, Mood/affect nml. negative: Weakness, Sensory loss, Facial droop, Slurred/abnml speech, Depressed mood/affect - Lab Results Fish Bones: 03/05/19 05:26 03/06/19 04:54 ABX Reporting Has patient been on IV antibiotics over the past 48 hours?: No Sepsis Event Note (H) - Evaluation Current Stage of Sepsis: Ruled out Assessment/Plan - Problem List (1) Respiratory failure with hypoxia Impression: 03/12 stable. 03/11 stable, pt has no respiratory distress 03/10 stable. pt remain 92% sat on 1.5-2 liter of O2. pt has hx of COPD. pt currently has no respiratory distress. continue respiratory care, continue albuterol and duoneb PRN supplement of O2 as needed by NC Pt is clinically stable, is pending for placement Hypothyroidism-STABLE 03/11 pt's TSH is down to 65 from 144 in two weeks, Free T4 is 0.46 from less 0.25 two weeks. agree increase synthyoid to 112.5 mcg daily 03/10 pt had a new diagnosis of hypothyroidism on 02/23/19 and start on synthyroid on the day. 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 Continue to monitor pt and pt's urine output Pneumonia-RESOLVED resolved. Continue oxygen supplementation as needed, daily nasal sprays, PEP therapy per RT Chronic laryngitis-CHRONIC stable, Continue to monitor and treat symptoms as needed Acute kidney injury superimposed on CKD stage 2-STABLE stable, avoid nephrotoxins, continue lab monitor as needed COPD (chronic obstructive pulmonary disease)-STABLE stable, Continue respiratory care, continue supplement of O2 as needed Constipation by delayed colonic transit-stable stable, no new complaint. 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 Acute metabolic encephalopathy- RESOLVED resolved left arm pain 03/11 pt report her left arm pain is better. US reveals centric cystic component. discussed with pt about her test result and answered her questions. 03/10 pt complain of left arm pain. pt state she developed a new lump at the left upper arm and feels painful. pt state it was at the IV site to have lump. There is about 3X1X1 cm lumpt at the upper left arm, palpable. pt did not complain of pain when palpitation to the lump. There is no erythema, swelling, or tenderness. order US to r/o other possible cause, will followup pain control with ultram as needed
[2019-03-12] MEDS: traMADol 50 MG TABLET PO PRN (16:30)
[2019-03-13] MEDS: traMADol 50 MG TABLET PO PRN ×4 (00:03→17:28)
[2019-03-13] MEDS: LEVOTHYROXINE 75 MCG TABLET PO SCH (06:29)
[2019-03-13] MEDS: IPRATROPIUM/ALBUTEROL 3 ML NEB INH PRN ×2 (07:53→16:27)
--- NOTE | 2019-03-13 08:00 | PROVIDER PROGRESS NOTE ---
Subjective - Prog Note Date Prog Note Date: 03/13/19 - Subjective Pt reports feeling: No change Subjective: pt has no complaint. pt is pending for placement. Current Medications - Current Medications Current Medications: Active Medications Acetaminophen (Tylenol) 650 - 975 mg PO Q4HR PRN PRN Reason: PAIN Last Admin: 03/12/19 01:12 Dose: 650 mg Albuterol () 2.5 mg INH RTQ4H PRN PRN Reason: Wheezing Albuterol/Ipratropium (Duoneb) 3 ml INH Q4HR PRN PRN Reason: Wheezing Last Admin: 03/13/19 07:53 Dose: 3 ml Bisacodyl (Dulcolax Supp) 10 mg [place] DAILY PRN PRN Reason: Constipation Last Admin: 02/10/19 19:47 Dose: 10 mg Enoxaparin Sodium (Lovenox) 40 mg SUBQ DAILY [facility] Last Admin: 03/13/19 08:45 Dose: 40 mg Famotidine (Pepcid) 20 mg PO BID [facility] Last Admin: 03/13/19 08:45 Dose: 20 mg Ferrous Gluconate (Fergon) 324 mg PO DAILYWM [facility] Last Admin: 03/13/19 08:45 Dose: 324 mg Fluticasone Propionate (Flonase) 2 sprays ELINOR DAILY [facility] Last Admin: 03/13/19 08:46 Dose: 2 sprays Guaifenesin (Mucinex) 300 mg PO BID PRN PRN Reason: Cough Lactulose (Enulose) 10 gm PO DAILY [facility] Last Admin: 03/13/19 08:46 Dose: Not Given Levothyroxine Sodium (Synthroid) 112.5 mcg PO QDAC [facility] Last Admin: 03/13/19 06:29 Dose: 112.5 mcg Midodrine () 5 mg PO TIDWM [facility] Last Admin: 03/13/19 08:44 Dose: 5 mg Multivitamins/Minerals (Theragran M) 1 tab PO DAILYWM [facility] Last Admin: 03/13/19 08:45 Dose: 1 tab Polyethylene Glycol (Miralax) 17 gm PO DAILY [facility] Last Admin: 03/13/19 08:43 Dose: 17 gm Sodium Chloride ([place]) 2 sprays ELINOR Q4HR PRN PRN Reason: Nasal Congestion Last Admin: 03/07/19 05:22 Dose: 2 sprays Tramadol HCl (Ultram) 50 mg PO Q4HR PRN PRN Reason: PAIN Last Admin: 03/13/19 08:44 Dose: 50 mg Vitamin A/Vitamin D (Vitamin A & D Ointment) 1 applic TOP PRN PRN PRN Reason: Skin Care Last Admin: 02/13/19 16:25 Dose: 1 applic No Known Home Medications 02/06/19 Objective - Vital Signs/Intake & Output Reviewed Vital Signs: Yes Vital Signs: Vital Signs x48h Temp Pulse Pulse Resp BP Pulse Ox 03/13/19 07:55 78 16 03/13/19 00:09 36.6 C 112 H 18 110/73 90 L Intake & Output: Intake & Output 03/10/19 03/11/19 03/12/19 03/13/19 23:59 23:59 23:59 23:59 Intake Total 1400 1520 630 50 Output Total 950 350 500 300 Balance 450 1170 130 -250 - Objective General Appearance: positive: No acute distress, Alert. negative: Lethargic Eyes Bilateral: positive: Normal inspection, PERRL, No lid inflammation, Conjunctivae nml ENT: positive: ENT inspection nml, Pharynx nml, No signs of dehydration. negative: Purulent nasal drainage, Pharyngeal erythema, Oral lesions, Dry mucous membranes Neck: positive: Nml inspection, Thyroid nml, No JVD, Trachea midline. negative: Thyromegaly, Lymphadenopathy (R), Lymphadenopathy (L), Stiff neck, Swelling/bruising, Tracheal deviation Respiratory: positive: Chest non-tender, No respiratory distress. negative: Wheezes, Rales, Rhonchi Cardiovascular: positive: Regular rate & rhythm, No murmur, No gallop. negative: Irregularly irregular, Extrasystoles, Tachycardia, Bradycardia, JVD present, Systolic murmur, Diastolic murmur Peripheral Pulses: 2+ Radial (R), 2+ Radial (L), 2+ Dorsalis pedis (R), 2+ Dorsalis pedis (L) Abdomen: positive: Non-tender, No organomegaly, Nml bowel sounds, No distention. negative: Tenderness, Guarding, Rebound Back: positive: Nml inspection. negative: CVA tenderness (R), CVA tenderness (L) Skin: positive: Color nml, No rash, Warm, Dry. negative: Cyanosis, Diaphoresis, Pallor Extremities: positive: Non-tender. negative: Calf tenderness, Joint swelling, Rashaad's sign/cords Neurologic/Psychiatric: positive: Oriented x3, Sensation nml, Mood/affect nml. negative: Weakness, Sensory loss, Facial droop, Slurred/abnml speech, Depressed mood/affect - Lab Results Fish Bones: 03/05/19 05:26 03/06/19 04:54 ABX Reporting Has patient been on IV antibiotics over the past 48 hours?: No Sepsis Event Note (H) - Evaluation Current Stage of Sepsis: Ruled out Assessment/Plan - Problem List (1) Respiratory failure with hypoxia Impression: 03/13 stable. pt has no complaints. pt did not present respiratory distress 03/12 stable. 03/11 stable, pt has no respiratory distress 03/10 stable. pt remain 92% sat on 1.5-2 liter of O2. pt has hx of COPD. pt currently has no respiratory distress. continue respiratory care, continue albuterol and duoneb PRN supplement of O2 as needed by NC Pt is clinically stable, is pending for placement Hypothyroidism-STABLE 03/13 continue synthyoid 112.5 mcg daily 03/11 pt's TSH is down to 65 from 144 in two weeks, Free T4 is 0.46 from less 0.25 two weeks. agree increase synthyoid to 112.5 mcg daily 03/10 pt had a new diagnosis of hypothyroidism on 02/23/19 and start on synthyroid on the day. 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 Continue to monitor pt and pt's urine output Pneumonia-RESOLVED resolved. Continue oxygen supplementation as needed, daily nasal sprays, PEP therapy per RT Chronic laryngitis-CHRONIC stable, Continue to monitor and treat symptoms as needed Acute kidney injury superimposed on CKD stage 2-STABLE stable, avoid nephrotoxins, continue lab monitor as needed COPD (chronic obstructive pulmonary disease)-STABLE stable, Continue respiratory care, continue supplement of O2 as needed Constipation by delayed colonic transit-stable stable, no new complaint. continue monitor pt Edema of both upper extremities-STABLE stable, Continue to elevate extremities Homelessness-CHRONIC continue seek placement for pt's terminal carman care Macrocytic anemia-CHRONIC stable, give iron supplement Urinary retention- RESOLVED resolved. Acute metabolic encephalopathy- RESOLVED resolved left arm pain 03/13 resolved. pt report she has no more pain on her left upper arm 03/11 pt report her left arm pain is better. US reveals centric cystic component. discussed with pt about her test result and answered her questions. 03/10 pt complain of left arm pain. pt state she developed a new lump at the left upper arm and feels painful. pt state it was at the IV site to have lump. There is about 3X1X1 cm lumpt at the upper left arm, palpable. pt did not complain of pain when palpitation to the lump. There is no erythema, swelling, or tend erness. order US to r/o other possible cause, will followup pain control with ultram as needed
[2019-03-13] MEDS: POLYETHYLENE GLYCOL 3350 17 GM PACKET PO SCH (08:43)
[2019-03-13] MEDS: MIDODRINE 2.5 MG TABLET PO SCH ×3 (08:44→17:28)
[2019-03-13] MEDS: ENOXAPARIN 40 MG/0.4 ML SYRINGE SUBQ SCH (08:45)
[2019-03-13] MEDS: MULTIVITAMIN W/MINERALS TABLET PO SCH (08:45)
[2019-03-13] MEDS: FAMOTIDINE 20 MG TABLET PO SCH ×2 (08:45→21:23)
[2019-03-13] MEDS: FERROUS GLUCONATE 324 MG TABLET PO SCH (08:45)
[2019-03-13] MEDS: FLUTICASONE NASAL SPRAY NAS SCH (08:46)
[2019-03-13] MEDS: LACTULOSE 10 GM /15 ML UDC PO SCH (08:46)
[2019-03-14] MEDS: traMADol 50 MG TABLET PO PRN ×4 (00:32→23:41)
[2019-03-14] MEDS: LEVOTHYROXINE 75 MCG TABLET PO SCH (06:44)
[2019-03-14] MEDS: IPRATROPIUM/ALBUTEROL 3 ML NEB INH PRN ×3 (08:58→20:20)
[2019-03-14] MEDS: FAMOTIDINE 20 MG TABLET PO SCH ×2 (09:14→20:28)
[2019-03-14] MEDS: POLYETHYLENE GLYCOL 3350 17 GM PACKET PO SCH (09:14)
[2019-03-14] MEDS: ENOXAPARIN 40 MG/0.4 ML SYRINGE SUBQ SCH (09:14)
[2019-03-14] MEDS: LACTULOSE 10 GM /15 ML UDC PO SCH (09:14)
[2019-03-14] MEDS: FERROUS GLUCONATE 324 MG TABLET PO SCH (09:14)
[2019-03-14] MEDS: MIDODRINE 2.5 MG TABLET PO SCH ×3 (09:15→17:19)
[2019-03-14] MEDS: FLUTICASONE NASAL SPRAY NAS SCH (09:15)
[2019-03-14] MEDS: MULTIVITAMIN W/MINERALS TABLET PO SCH (09:15)
--- NOTE | 2019-03-14 10:28 | PROVIDER PROGRESS NOTE ---
Subjective - Prog Note Date Prog Note Date: 03/14/19 - Subjective Pt reports feeling: No change Subjective: pt has no complaint. pt is waiting for placement. Current Medications - Current Medications Current Medications: Active Medications Acetaminophen (Tylenol) 650 - 975 mg PO Q4HR PRN PRN Reason: PAIN Last Admin: 03/12/19 01:12 Dose: 650 mg Albuterol () 2.5 mg INH RTQ4H PRN PRN Reason: Wheezing Albuterol/Ipratropium (Duoneb) 3 ml INH Q4HR PRN PRN Reason: Wheezing Last Admin: 03/14/19 08:58 Dose: 3 ml Bisacodyl (Dulcolax Supp) 10 mg [place] DAILY PRN PRN Reason: Constipation Last Admin: 02/10/19 19:47 Dose: 10 mg Enoxaparin Sodium (Lovenox) 40 mg SUBQ DAILY [facility] Last Admin: 03/14/19 09:14 Dose: 40 mg Famotidine (Pepcid) 20 mg PO BID [facility] Last Admin: 03/14/19 09:14 Dose: 20 mg Ferrous Gluconate (Fergon) 324 mg PO DAILYWM ADAN Last Admin: 03/14/19 09:14 Dose: 324 mg Fluticasone Propionate (Flonase) 2 sprays ELINOR DAILY [facility] Last Admin: 03/14/19 09:15 Dose: 2 sprays Guaifenesin (Mucinex) 300 mg PO BID PRN PRN Reason: Cough Lactulose (Enulose) 10 gm PO DAILY [facility] Last Admin: 03/14/19 09:14 Dose: 10 gm Levothyroxine Sodium (Synthroid) 112.5 mcg PO QDAC ADAN Last Admin: 03/14/19 06:44 Dose: 112.5 mcg Midodrine () 5 mg PO TIDWM ADAN Last Admin: 03/14/19 09:15 Dose: 5 mg Multivitamins/Minerals (Theragran M) 1 tab PO DAILYWM ADAN Last Admin: 03/14/19 09:15 Dose: 1 tab Polyethylene Glycol (Miralax) 17 gm PO DAILY ADAN Last Admin: 03/14/19 09:14 Dose: 17 gm Sodium Chloride ([place]) 2 sprays ELINOR Q4HR PRN PRN Reason: Nasal Congestion Last Admin: 03/07/19 05:22 Dose: 2 sprays Tramadol HCl (Ultram) 50 mg PO Q4HR PRN PRN Reason: PAIN Last Admin: 03/14/19 09:24 Dose: 50 mg Vitamin A/Vitamin D (Vitamin A & D Ointment) 1 applic TOP PRN PRN PRN Reason: Skin Care Last Admin: 02/13/19 16:25 Dose: 1 applic No Known Home Medications 02/06/19 Objective - Vital Signs/Intake & Output Reviewed Vital Signs: Yes Vital Signs: Vital Signs x48h Temp Pulse Pulse Resp BP Pulse Ox 03/14/19 09:00 36.4 C L 70 15 93/64 90 L 03/14/19 08:55 70 16 Intake & Output: Intake & Output 03/11/19 03/12/19 03/13/19 03/14/19 23:59 23:59 23:59 23:59 Intake Total 1520 630 630 200 Output Total 350 500 500 650 Balance 1170 130 130 -450 - Objective General Appearance: positive: No acute distress, Alert. negative: Lethargic Eyes Bilateral: positive: Normal inspection, PERRL, No lid inflammation, Conju nctivae nml ENT: positive: ENT inspection nml, Pharynx nml, No signs of dehydration. negative: Purulent nasal drainage, Pharyngeal erythema, Oral lesions Neck: positive: Nml inspection, Thyroid nml, No JVD, Trachea midline. negative: Thyromegaly, Lymphadenopathy (R), Lymphadenopathy (L), Stiff neck, Swelling/bruising, Tracheal deviation Respiratory: positive: Chest non-tender, No respiratory distress. negative: Wheezes, Rales, Rhonchi Cardiovascular: positive: Regular rate & rhythm, No murmur, No gallop. negative: Irregularly irregular, Extrasystoles, Tachycardia, Bradycardia, JVD present, Systolic murmur, Diastolic murmur Peripheral Pulses: 2+ Radial (R), 2+ Radial (L), 2+ Dorsalis pedis (R), 2+ Dorsalis pedis (L) Abdomen: positive: Non-tender, No organomegaly, Nml bowel sounds, No distention. negative: Tenderness, Guarding, Rebound Back: positive: Nml inspection. negative: CVA tenderness (R), CVA tenderness (L) Skin: positive: Color nml, No rash, Warm, Dry. negative: Cyanosis, Diaphoresis, Pallor Extremities: positive: Non-tender. negative: Calf tenderness, Joint swelling, Rashaad's sign/cords Neurologic/Psychiatric: positive: Oriented x3, Sensation nml, Mood/affect nml. negative: Weakness, Sensory loss, Facial droop, Slurred/abnml speech, Depressed mood/affect - Lab Results Fish Bones: 03/05/19 05:26 03/06/19 04:54 ABX Reporting Has patient been on IV antibiotics over the past 48 hours?: No Sepsis Event Note (H) - Evaluation Current Stage of Sepsis: Ruled out Assessment/Plan - Problem List (1) Respiratory failure with hypoxia Impression: 03/14, pt is stable, pt is pending for placement 03/13 stable. pt has no complaints. pt did not present respiratory distress 03/12 stable. 03/11 stable, pt has no respiratory distress 03/10 stable. pt remain 92% sat on 1.5-2 liter of O2. pt has hx of COPD. pt currently has no respiratory distress. continue respiratory care, continue albuterol and duoneb PRN supplement of O2 as needed by NC Pt is clinically stable, is pending for placement Hypothyroidism-STABLE 03/13 continue synthyoid 112.5 mcg daily 03/11 pt's TSH is down to 65 from 144 in two weeks, Free T4 is 0.46 from less 0.25 two weeks. agree increase synthyoid to 112.5 mcg daily 03/10 pt had a new diagnosis of hypothyroidism on 02/23/19 and start on synthyroid on the day. 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 Continue to monitor pt and pt's urine output Pneumonia-RESOLVED resolved. Continue oxygen supplementation as needed, daily nasal sprays, PEP the rapy per RT Chronic laryngitis-CHRONIC stable, Continue to monitor and treat symptoms as needed Acute kidney injury superimposed on CKD stage 2-STABLE stable, avoid nephrotoxins, continue lab monitor as needed COPD (chronic obstructive pulmonary disease)-STABLE stable, Continue respiratory care, continue supplement of O2 as needed Constipation by delayed colonic transit-stable stable, no new complaint. continue monitor pt Edema of both upper extremities-STABLE stable, Continue to elevate extremities Homelessness-CHRONIC continue seek placement for pt's retirement care Macrocytic anemia-CHRONIC stable, give iron supplement Urinary retention- RESOLVED resolved. Acute metabolic encephalopathy- RESOLVED resolved left arm pain 03/13 resolved. pt report she has no more pain on her left upper arm 03/11 pt report her left arm pain is better. US reveals centric cystic component. discussed with pt about her test result and answered her questions. 03/10 pt complain of left arm pain. pt state she developed a new lump at the left upper arm and feels painful. pt state it was at the IV site to have lump. There is about 3X1X1 cm lumpt at the upper left arm, palpable. pt did not complain of pain when palpitation to the lump. There is no erythema, swelling, or tenderness. order US to r/o other possible cause, will followup pain control with ultram as needed
[2019-03-15] MEDS: IPRATROPIUM/ALBUTEROL 3 ML NEB INH PRN ×2 (07:31→15:15)
[2019-03-15] MEDS: MULTIVITAMIN W/MINERALS TABLET PO SCH (08:47)
[2019-03-15] MEDS: FERROUS GLUCONATE 324 MG TABLET PO SCH (08:47)
[2019-03-15] MEDS: ENOXAPARIN 40 MG/0.4 ML SYRINGE SUBQ SCH (08:47)
[2019-03-15] MEDS: MIDODRINE 2.5 MG TABLET PO SCH ×3 (08:47→19:12)
[2019-03-15] MEDS: LACTULOSE 10 GM /15 ML UDC PO SCH (08:47)
[2019-03-15] MEDS: FAMOTIDINE 20 MG TABLET PO SCH ×2 (08:47→20:42)
[2019-03-15] MEDS: traMADol 50 MG TABLET PO PRN ×2 (08:47→16:02)
[2019-03-15] MEDS: LEVOTHYROXINE 75 MCG TABLET PO SCH (08:47)
[2019-03-15] MEDS: FLUTICASONE NASAL SPRAY NAS SCH (08:48)
[2019-03-15] MEDS: POLYETHYLENE GLYCOL 3350 17 GM PACKET PO SCH (08:48)
--- NOTE | 2019-03-15 10:19 | PROVIDER PROGRESS NOTE ---
Subjective - Subjective Pt reports feeling: No change Subjective: pt has no complaint. she is comfortable siting at the bed for breakfast. Current Medications - Current Medications Current Medications: Active Medications Acetaminophen (Tylenol) 650 - 975 mg PO Q4HR PRN PRN Reason: PAIN Last Admin: 03/12/19 01:12 Dose: 650 mg Albuterol () 2.5 mg INH RTQ4H PRN PRN Reason: Wheezing Albuterol/Ipratropium (Duoneb) 3 ml INH Q4HR PRN PRN Reason: Wheezing Last Admin: 03/15/19 07:31 Dose: 3 ml Bisacodyl (Dulcolax Supp) 10 mg [place] DAILY PRN PRN Reason: Constipation Last Admin: 02/10/19 19:47 Dose: 10 mg Enoxaparin Sodium (Lovenox) 40 mg SUBQ DAILY [facility] Last Admin: 03/15/19 08:47 Dose: 40 mg Famotidine (Pepcid) 20 mg PO BID [facility] Last Admin: 03/15/19 08:47 Dose: 20 mg Ferrous Gluconate (Fergon) 324 mg PO DAILYWM [facility] Last Admin: 03/15/19 08:47 Dose: 324 mg Fluticasone Propionate (Flonase) 2 sprays ELINOR DAILY [facility] Last Admin: 03/15/19 08:48 Dose: 2 sprays Guaifenesin (Mucinex) 300 mg PO BID PRN PRN Reason: Cough Lactulose (Enulose) 10 gm PO DAILY [facility] Last Admin: 03/15/19 08:47 Dose: 10 gm Levothyroxine Sodium (Synthroid) 112.5 mcg PO QDAC [facility] Last Admin: 03/15/19 08:47 Dose: 112.5 mcg Midodrine () 5 mg PO TIDWM [facility] Last Admin: 03/15/19 08:47 Dose: 5 mg Multivitamins/Minerals (Theragran M) 1 tab PO DAILYWM [facility] Last Admin: 03/15/19 08:47 Dose: 1 tab Polyethylene Glycol (Miralax) 17 gm PO DAILY [facility] Last Admin: 03/15/19 08:48 Dose: Not Given Sodium Chloride ([place]) 2 sprays ELINOR Q4HR PRN PRN Reason: Nasal Congestion Last Admin: 03/07/19 05:22 Dose: 2 sprays Tramadol HCl (Ultram) 50 mg PO Q4HR PRN PRN Reason: PAIN Last Admin: 03/15/19 08:47 Dose: 50 mg Vitamin A/Vitamin D (Vitamin A & D Ointment) 1 applic TOP PRN PRN PRN Reason: Skin Care Last Admin: 02/13/19 16:25 Dose: 1 applic No Known Home Medications 02/06/19 Objective - Vital Signs/Intake & Output Reviewed Vital Signs: Yes Vital Signs: Vital Signs x48h Temp Pulse Pulse Resp BP Pulse Ox 03/15/19 09:00 36.6 C 69 17 129/72 96 03/15/19 07:33 78 14 Intake & Output: Intake & Output 03/12/19 03/13/19 03/14/19 03/15/19 23:59 23:59 23:59 23:59 Intake Total 709 193 4186 400 Output Total 500 500 725 Balance 130 130 415 400 - Objective General Appearance: positive: No acute distress, Alert. negative: Lethargic Eyes Bilateral: positive: Normal inspection, PERRL, No lid inflammation, Conjunctivae nml ENT: positive: ENT inspection nml, Pharynx nml, No signs of dehydration. negative: Purulent nasal drainage, Pharyngeal erythema, Oral lesions Neck: positive: Nml inspection, Thyroid nml, No JVD, Trachea midline. negative: Thyromegaly, Lymphadenopathy (R), Lymphadenopathy (L), Stiff neck, Swelling /bruising, Tracheal deviation Respiratory: positive: Chest non-tender, No respiratory distress. negative: Wheezes, Rales, Rhonchi Cardiovascular: positive: Regular rate & rhythm, No murmur, No gallop. negative: Irregularly irregular, Extrasystoles, Tachycardia, Bradycardia, JVD present, Systolic murmur, Diastolic murmur Peripheral Pulses: 2+ Radial (R), 2+ Radial (L), 2+ Dorsalis pedis (R), 2+ Dorsalis pedis (L) Abdomen: positive: Non-tender, No organomegaly, Nml bowel sounds, No distention. negative: Tenderness, Guarding, Rebound Back: positive: Nml inspection. negative: CVA tenderness (R), CVA tenderness (L) Skin: positive: Color nml, No rash, Warm, Dry. negative: Cyanosis, Diaphoresis, Pallor Extremities: positive: Non-tender. negative: Calf tenderness, Joint swelling, Rashaad's sign/cords Neurologic/Psychiatric: positive: Oriented x3, Sensation nml, Mood/affect nml. negative: Weakness, Sensory loss, Facial droop, Slurred/abnml speech, Depressed mood/affect - Lab Results Fish Bones: 03/05/19 05:26 03/06/19 04:54 ABX Reporting Has patient been on IV antibiotics over the past 48 hours?: No Sepsis Event Note (H) - Evaluation Current Stage of Sepsis: Ruled out Assessment/Plan - Problem List (1) Respiratory failure with hypoxia Impression: 03/15 pt's respiratory is stable. pt is pending for placement. Nurse facility will come to evaluate pt today, will followup 03/14, pt is stable, pt is pending for placement 03/13 stable. pt has no complaints. pt did not present respiratory distress 03/12 stable. 03/11 stable, pt has no respiratory distress 03/10 stable. pt remain 92% sat on 1.5-2 liter of O2. pt has hx of COPD. pt currently has no respiratory distress. continue respiratory care, continue albuterol and duoneb PRN supplement of O2 as needed by NC Pt is clinically stable, is pending for placement Hypothyroidism-STABLE 03/13 continue synthyoid 112.5 mcg daily 03/11 pt's TSH is down to 65 from 144 in two weeks, Free T4 is 0.46 from less 0.25 two weeks. agree increase synthyoid to 112.5 mcg daily 03/10 pt had a new diagnosis of hypothyroidism on 02/23/19 and start on synthyroid on the day. 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 Continue to monitor pt and pt's urine output Pneumonia-RESOLVED resolved. Continue oxygen supplementation as needed, daily nasal sprays, PEP therapy per RT Chronic laryngitis-CHRONIC stable, Continue to monitor and treat symptoms as needed Acute kidney injury superimposed on CKD stage 2-STABLE stable, avoid nephrotoxins, continue lab monitor as needed COPD (chronic obstructive pulmonary disease)-STABLE stable, Continue respiratory care, continue supplement of O2 as needed Constipation by delayed colonic transit-stable stable, no new complaint. continue monitor pt Edema of both upper extremities-STABLE stable, Continue to elevate extremities Homelessness-CHRONIC continue seek placement for pt's [facility] care Macrocytic anemia-CHRONIC stable, give iron supplement Urinary retention- RESOLVED resolved. Acute metabolic encephalopathy- RESOLVED resolved left arm pain 03/13 resolved. pt report she has no more pain on her left upper arm 03/11 pt report her left arm pain is better. US reveals centric cystic component. discussed with pt about her test result and answered her questions. 03/10 pt complain of left arm pain. pt state she developed a new lump at the left upper arm and feels painful. pt state it was at the IV site to have lump. There is about 3X1X1 cm lumpt at the upper left arm, palpable. pt did not complain of pain when palpitation to the lump. There is no erythema, swelling, or tenderness. order US to r/o other possible cause, will followup pain control with ultram as needed
[2019-03-16] MEDS: traMADol 50 MG TABLET PO PRN ×3 (00:24→21:24)
[2019-03-16] MEDS: ACETAMINOPHEN 325 MG TABLET PO PRN ×2 (03:47→08:01)
[2019-03-16] MEDS: LEVOTHYROXINE 75 MCG TABLET PO SCH (06:18)
[2019-03-16] MEDS: IPRATROPIUM/ALBUTEROL 3 ML NEB INH PRN ×2 (07:33→15:38)
[2019-03-16] MEDS: MIDODRINE 2.5 MG TABLET PO SCH ×3 (08:01→16:50)
[2019-03-16] MEDS: MULTIVITAMIN W/MINERALS TABLET PO SCH (08:01)
[2019-03-16] MEDS: FERROUS GLUCONATE 324 MG TABLET PO SCH (08:02)
[2019-03-16] MEDS: LACTULOSE 10 GM /15 ML UDC PO SCH (08:38)
[2019-03-16] MEDS: ENOXAPARIN 40 MG/0.4 ML SYRINGE SUBQ SCH (08:38)
[2019-03-16] MEDS: FLUTICASONE NASAL SPRAY NAS SCH (08:39)
[2019-03-16] MEDS: FAMOTIDINE 20 MG TABLET PO SCH ×2 (08:39→21:26)
[2019-03-16] MEDS: POLYETHYLENE GLYCOL 3350 17 GM PACKET PO SCH (08:40)
--- NOTE | 2019-03-16 15:47 | PROVIDER PROGRESS NOTE ---
Subjective - Prog Note Date Prog Note Date: 03/16/19 - Subjective Pt reports feeling: No change Subjective: pt is stable, she is pending on placement Current Medications - Current Medications Current Medications: Active Medications Acetaminophen (Tylenol) 650 - 975 mg PO Q4HR PRN PRN Reason: PAIN Last Admin: 03/16/19 08:01 Dose: 975 mg Albuterol () 2.5 mg INH RTQ4H PRN PRN Reason: Wheezing Albuterol/Ipratropium (Duoneb) 3 ml INH Q4HR PRN PRN Reason: Wheezing Last Admin: 03/16/19 15:38 Dose: 3 ml Bisacodyl (Dulcolax Supp) 10 mg [place] DAILY PRN PRN Reason: Constipation Last Admin: 02/10/19 19:47 Dose: 10 mg Enoxaparin Sodium (Lovenox) 40 mg SUBQ DAILY [facility] Last Admin: 03/16/19 08:38 Dose: 40 mg Famotidine (Pepcid) 20 mg PO BID [facility] Last Admin: 03/16/19 08:39 Dose: 20 mg Ferrous Gluconate (Fergon) 324 mg PO DAILYWM [facility] Last Admin: 03/16/19 08:02 Dose: 324 mg Fluticasone Propionate (Flonase) 2 sprays ELINOR DAILY [facility] Last Admin: 03/16/19 08:39 Dose: 2 sprays Guaifenesin (Mucinex) 300 mg PO BID PRN PRN Reason: Cough Lactulose (Enulose) 10 gm PO DAILY [facility] Last Admin: 03/16/19 08:38 Dose: 10 gm Levothyroxine Sodium (Synthroid) 112.5 mcg PO QDAC ADAN Last Admin: 03/16/19 06:18 Dose: 112.5 mcg Midodrine () 5 mg PO TIDWM [facility] Last Admin: 03/16/19 11:29 Dose: 5 mg Multivitamins/Minerals (Theragran M) 1 tab PO DAILYWM [facility] Last Admin: 03/16/19 08:01 Dose: 1 tab Polyethylene Glycol (Miralax) 17 gm PO DAILY [facility] Last Admin: 03/16/19 08:40 Dose: Not Given Sodium Chloride ([place]) 2 sprays ELINOR Q4HR PRN PRN Reason: Nasal Congestion Last Admin: 03/07/19 05:22 Dose: 2 sprays Tramadol HCl (Ultram) 50 mg PO Q4HR PRN PRN Reason: PAIN Last Admin: 03/16/19 00:24 Dose: 50 mg Vitamin A/Vitamin D (Vitamin A & D Ointment) 1 applic TOP PRN PRN PRN Reason: Skin Care Last Admin: 02/13/19 16:25 Dose: 1 applic No Known Home Medications 02/06/19 Objective - Vital Signs/Intake & Output Reviewed Vital Signs: Yes Vital Signs: Vital Signs x48h Temp Pulse Resp BP BP Pulse Ox 03/16/19 15:40 36.9 C 71 16 101/49 L 95 03/16/19 08:07 36.6 C 73 16 100/57 L 92 Intake & Output: Intake & Output 03/13/19 03/14/19 03/15/19 03/16/19 23:59 23:59 23:59 23:59 Intake Total 630 1140 1320 750 Output Total 500 725 75 Balance 301 175 2158 750 - Objective General Appearance: positive: No acute distress, Alert. negative: Lethargic Eyes Bilateral: positive: Normal inspection, PERRL, No lid inflammation, Conjunctivae nml ENT: positive: ENT inspection nml, Pharynx nml, No signs of dehydration. negative: Purulent nasal drainage, Pharyngeal erythema, Oral lesions Neck: positive: Nml inspection, Thyroid nml, No JVD, Trachea midline. negative: Thyromegaly, Lymphadenopathy (R), Lymphadenopathy (L), Stiff neck, Swelling/bruising, Tracheal deviation Respiratory: positive: Chest non-tender, No respiratory distress, Breath sounds nml. negative: Wheezes, Rales, Rhonchi Cardiovascular: positive: Regular rate & rhythm, No murmur, No gallop. negative: Irregularly irregular, Extrasystoles, Tachycardia, Bradycardia, JVD present, Systolic murmur, Diastolic murmur Peripheral Pulses: 2+ Radial (R), 2+ Radial (L), 2+ Dorsalis pedis (R), 2+ Dorsalis pedis (L) Abdomen: positive: Non-tender, No organomegaly, Nml bowel sounds, No distention. negative: Tenderness, Guarding, Rebound Back: positive: Nml inspection. negative: CVA tenderness (R), CVA tenderness (L) Skin: positive: Color nml, No rash, Warm, Dry. negative: Cyanosis, Diaphoresis, Pallor Extremities: positive: Non-tender. negative: Pedal edema, Calf tenderness, Rashaad's sign/cords Neurologic/Psychiatric: positive: Oriented x3, Sensation nml, Mood/affect nml. negative: Weakness, Sensory loss, Facial droop, Slurred/abnml speech, Depressed mood/affect - Lab Results Fish Bones: 03/05/19 05:26 03/06/19 04:54 ABX Reporting Has patient been on IV antibiotics over the past 48 hours?: No Sepsis Event Note (H) - Evaluation Current Stage of Sepsis: Ruled out Assessment/Plan - Problem List (1) Respiratory failure with hypoxia Impression: 03/16 pt is stable, is pending on placement 03/15 pt's respiratory is stable. pt is pending for placement. Nurse facility wi ll come to evaluate pt today, will followup 03/14, pt is stable, pt is pending for placement 03/13 stable. pt has no complaints. pt did not present respiratory distress 03/12 stable. 03/11 stable, pt has no respiratory distress 03/10 stable. pt remain 92% sat on 1.5-2 liter of O2. pt has hx of COPD. pt currently has no respiratory distress. continue respiratory care, continue albuterol and duoneb PRN supplement of O2 as needed by NC Pt is clinically stable, is pending for placement Hypothyroidism-STABLE 03/13 continue synthyoid 112.5 mcg daily 03/11 pt's TSH is down to 65 from 144 in two weeks, Free T4 is 0.46 from less 0.25 two weeks. agree increase synthyoid to 112.5 mcg daily 03/10 pt had a new diagnosis of hypothyroidism on 02/23/19 and start on synthyroid on the day. 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 Continue to monitor pt and pt's urine output Pneumonia-RESOLVED resolved. Continue oxygen supplementation as needed, daily nasal sprays, PEP therapy per RT Chronic laryngitis-CHRONIC stable, Continue to monitor and treat symptoms as needed Acute kidney injury superimposed on CKD stage 2-STABLE stable, avoid nephrotoxins, continue lab monitor as needed COPD (chronic obstructive pulmonary disease)-STABLE stable, Continue respiratory care, continue supplement of O2 as needed Constipation by delayed colonic transit-stable stable, no new complaint. 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 Acute metabolic encephalopathy- RESOLVED resolved left arm pain 03/13 resolved. pt report she has no more pain on her left upper arm 03/11 pt report her left arm pain is better. US reveals centric cystic component. discussed with pt about her test result and answered her questions. 03/10 pt complain of left arm pain. pt state she developed a new lump at the left upper arm and feels painful. pt state it was at the IV site to have lump. There is about 3X1X1 cm lumpt at the upper left arm, palpable. pt did not complain of pain when palpitation to the lump. There is no erythema, swelling, or tenderness. order US to r/o other possible cause, will followup pain control with ultram as needed
[2019-03-17] MEDS: traMADol 50 MG TABLET PO PRN ×3 (01:45→20:15)
[2019-03-17] MEDS: LEVOTHYROXINE 75 MCG TABLET PO SCH (06:13)
[2019-03-17] MEDS: FERROUS GLUCONATE 324 MG TABLET PO SCH (08:22)
[2019-03-17] MEDS: MULTIVITAMIN W/MINERALS TABLET PO SCH (08:22)
[2019-03-17] MEDS: LACTULOSE 10 GM /15 ML UDC PO SCH (08:23)
[2019-03-17] MEDS: ENOXAPARIN 40 MG/0.4 ML SYRINGE SUBQ SCH (08:23)
[2019-03-17] MEDS: FAMOTIDINE 20 MG TABLET PO SCH ×2 (08:23→20:15)
[2019-03-17] MEDS: MIDODRINE 2.5 MG TABLET PO SCH ×3 (08:23→17:11)
[2019-03-17] MEDS: FLUTICASONE NASAL SPRAY NAS SCH (08:27)
[2019-03-17] MEDS: POLYETHYLENE GLYCOL 3350 17 GM PACKET PO SCH (08:28)
[2019-03-17] MEDS: ONDANSETRON ODT 4 MG TABLET TL PRN (09:52)
[2019-03-17] MEDS: IPRATROPIUM/ALBUTEROL 3 ML NEB INH PRN (10:56)
--- NOTE | 2019-03-17 11:39 | PROVIDER PROGRESS NOTE ---
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 Zofran was given to pt. after treatment, recheck pt, pt state she feel good, no more N/V reported. pt denies abdominal pain, vomiting, diarrhea. she ate and has good appetite as her usually. Current Medications - Current Medications Current Medications: Active Medications Acetaminophen (Tylenol) 650 - 975 mg PO Q4HR PRN PRN Reason: PAIN Last Admin: 03/16/19 08:01 Dose: 975 mg Albuterol () 2.5 mg INH RTQ4H PRN PRN Reason: Wheezing Albuterol/Ipratropium (Duoneb) 3 ml INH Q4HR PRN PRN Reason: Wheezing Last Admin: 03/17/19 10:56 Dose: 3 ml Bisacodyl (Dulcolax Supp) 10 mg NM DAILY PRN PRN Reason: Constipation Last Admin: 02/10/19 19:47 Dose: 10 mg Enoxaparin Sodium (Lovenox) 40 mg SUBQ DAILY [facility] Last Admin: 03/17/19 08:23 Dose: 40 mg Famotidine (Pepcid) 20 mg PO BID [facility] Last Admin: 03/17/19 08:23 Dose: 20 mg Ferrous Gluconate (Fergon) 324 mg PO DAILYWM [facility] Last Admin: 03/17/19 08:22 Dose: 324 mg Fluticasone Propionate (Flonase) 2 sprays ELINOR DAILY [facility] Last Admin: 03/17/19 08:27 Dose: 2 sprays Guaifenesin (Mucinex) 300 mg PO BID PRN PRN Reason: Cough Lactulose (Enulose) 10 gm PO DAILY [facility] Last Admin: 03/17/19 08:23 Dose: 10 gm Levothyroxine Sodium (Synthroid) 112.5 mcg PO QDAC [facility] Last Admin: 03/17/19 06:13 Dose: 112.5 mcg Midodrine () 5 mg PO TIDWM [facility] Last Admin: 03/17/19 08:23 Dose: 5 mg Multivitamins/Minerals (Theragran M) 1 tab PO DAILYWM [facility] Last Admin: 03/17/19 08:22 Dose: 1 tab Ondansetron HCl (Zofran Odt) 4 mg TL Q6HR PRN PRN Reason: Nausea / Vomiting Last Admin: 03/17/19 09:52 Dose: 4 mg Polyethylene Glycol (Miralax) 17 gm PO DAILY [facility] Last Admin: 03/17/19 08:28 Dose: Not Given Sodium Chloride ([place]) 2 sprays ELINOR Q4HR PRN PRN Reason: Nasal Congestion Last Admin: 03/07/19 05:22 Dose: 2 sprays Tramadol HCl (Ultram) 50 mg PO Q4HR PRN PRN Reason: PAIN Last Admin: 03/17/19 01:45 Dose: 50 mg Vitamin A/Vitamin D (Vitamin A & D Ointment) 1 applic TOP PRN PRN PRN Reason: Skin Care Last Admin: 02/13/19 16:25 Dose: 1 applic No Known Home Medications 02/06/19 Objective - Vital Signs/Intake & Output Reviewed Vital Signs: Yes Vital Signs: Vital Signs x48h Temp Pulse Resp BP BP Pulse Ox 03/17/19 09:37 100/53 L 03/17/19 08:09 88 L 03/17/19 08:06 36.7 C 89 17 91/45 L 84 L Intake & Output: Intake & Output 03/14/19 03/15/19 03/16/19 03/17/19 23:59 23:59 23:59 23:59 Intake Total 1140 1320 900 140 Output Total 725 75 Balance 415 1245 900 140 - Objective General Appearance: positive: No acute distress, Alert. negative: Lethargic Eyes Bilateral: positive: Normal inspection, PERRL, No lid inflammation, Conjunctivae nml ENT: positive: ENT inspection nml, Pharynx nml, No signs of dehydration. negative: Purulent nasal drainage, Pharyngeal erythema, Oral lesions Neck: positive: Nml inspection, Thyroid nml, No JVD. negative: Trachea midline, Thyromegaly, Lymphadenopathy (R), Lymphadenopathy (L), Stiff neck, Swelling/bruising, Tracheal deviation Respiratory: positive: Chest non-tender, No respiratory distress, Breath sounds nml. negative: Wheezes, Rales, Rhonchi Cardiovascular: positive: Regular rate & rhythm, No murmur, No gallop. ne gative: Irregularly irregular, Extrasystoles, Tachycardia, Bradycardia, JVD present, Systolic murmur, Diastolic murmur Peripheral Pulses: 2+ Radial (R), 2+ Radial (L), 2+ Dorsalis pedis (R), 2+ Dorsalis pedis (L) Abdomen: positive: Non-tender, No organomegaly, Nml bowel sounds, No distention. negative: Tenderness, Guarding, Rebound Back: positive: Nml inspection. negative: CVA tenderness (R), CVA tenderness (L) Skin: positive: Color nml, No rash, Warm, Dry. negative: Cyanosis, Diaphoresis, Pallor Extremities: positive: Non-tender, Nml appearance. negative: Calf tenderness, Joint swelling, Rashaad's sign/cords Neurologic/Psychiatric: positive: Oriented x3, Sensation nml, Mood/affect nml. negative: Weakness, Sensory loss, Facial droop, Slurred/abnml speech, Depressed mood/affect - Lab Results Fish Bones: 03/05/19 05:26 03/06/19 04:54 ABX Reporting Has patient been on IV antibiotics over the past 48 hours?: No Sepsis Event Note (H) - Evaluation Current Stage of Sepsis: Ruled out Assessment/Plan - Problem List (1) Respiratory failure with hypoxia Impression: 03/17 pt has no respiratory distress, and stable 03/16 pt is stable, is pending on placement 03/15 pt's respiratory is stable. pt is pending for placement. Nurse facility will come to evaluate pt today, will followup 03/14, pt is stable, pt is pending for placement 03/13 stable. pt has no complaints. pt did not present respiratory distress 03/12 stable. 03/11 stable, pt has no respiratory distress 03/10 stable. pt remain 92% sat on 1.5-2 liter of O2. pt has hx of COPD. pt currently has no respiratory distress. continue respiratory care, continue albuterol and duoneb PRN supplement of O2 as needed by NC Pt is clinically stable, is pending for placement Hypothyroidism-STABLE 03/13 continue synthyoid 112.5 mcg daily 03/11 pt's TSH is down to 65 from 144 in two weeks, Free T4 is 0.46 from less 0.25 two weeks. agree increase synthyoid to 112.5 mcg daily 03/10 pt had a new diagnosis of hypothyroidism on 02/23/19 and start on synthyroid on the day. 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 Continue to monitor pt and pt's urine output Pneumonia-RESOLVED resolved. Continue oxygen supplementation as needed, daily nasal sprays, PEP therapy per RT Chronic laryngitis-CHRONIC stable, Continue to monitor and treat symptoms as needed Acute kidney injury superimposed on CKD stage 2-STABLE stable, avoid nephrotoxins, continue lab monitor as needed COPD (chronic obstructive pulmonary disease)-STABLE stable, Continue respiratory care, continue supplement of O2 as needed Constipation by delayed colonic transit-stable stable, no new complaint. continue monitor pt Edema of both upper extremities-STABLE stable, Continue to elevate extremities Homelessness-CHRONIC continue seek placement for pt's [facility] care Macrocytic anemia-CHRONIC stable, give iron supplement Urinary retention- RESOLVED resolved. Acute metabolic encephalopathy- RESOLVED resolved left arm pain 03/13 resolved. pt report she has no more pain on her left upper arm 03/11 pt report her left arm pain is better. US reveals centric cystic component. discussed with pt about her test result and answered her questions. 03/10 pt complain of left arm pain. pt state she developed a new lump at the left upper arm and feels painful. pt state it was at the IV site to have lump. There is about 3X1X1 cm lumpt at the upper left arm, palpable. pt did not complain of pain when palpitation to the lump. There is no erythema, swelling, or tenderness. order US to r/o other possible cause, will followup pain control with ultram as needed
[2019-03-17] MEDS: ACETAMINOPHEN 325 MG TABLET PO PRN (17:15)
[2019-03-18] MEDS: traMADol 50 MG TABLET PO PRN ×3 (03:23→20:31)
[2019-03-18] MEDS: LEVOTHYROXINE 75 MCG TABLET PO SCH (07:47)
[2019-03-18 08:06] LABS: BASOPHILS % (AUTO) 0.6 %; EOSINOPHILS # (AUTO) 0.2 10^3/uL (0.0-0.7); EOSINOPHILS % (AUTO) 3.7 %; HGB - HEMOGLOBIN 8.4 g/dL (12.0-16.0); LYMPHOCYTES # (AUTO) 0.8 10^3/uL (1.5-3.5); LYMPHOCYTES % (AUTO) 15.7 %; MEAN CORPUSCULAR HEMOGLOBIN 32.1 pg (27.0-31.0); MEAN CORPUSCULAR HGB CONC 30.4 g/dL (32.0-36.0); MEAN CORPUSCULAR VOLUME 105.3 fL (81.0-99.0); MEAN PLATELET VOLUME 9.9 fL (7.9-10.8); MONOCYTES # (AUTO) 0.9 10^3/uL (0.0-1.0); MONOCYTES % (AUTO) 17.6 %; NEUTROPHILS # (AUTO) 3.2 10^3/uL (1.5-6.6); NEUTROPHILS % (AUTO) 61.8 %; PLT - PLATELET COUNT 193 10^3/uL (130-450); RED BLOOD COUNT 2.62 10^6/uL (4.20-5.40); RED CELL DISTRIBUTION WIDTH 16.1 % (12.0-15.0); WHITE BLOOD COUNT 5.1 x10^3/uL (4.8-10.8)
[2019-03-18 08:32] LABS: ALBUMIN 3.5 g/dL (3.2-5.5); BILIRUBIN,TOTAL 0.3 mg/dL (0.2-1.0); CALCIUM 9.4 mg/dL (8.5-10.3); CREATININE 1.1 mg/dL (0.4-1.0); PHOSPHORUS 4.8 mg/dL (2.5-4.6); TOTAL PROTEIN 7.1 g/dL (6.7-8.2)
[2019-03-18] MEDS: IPRATROPIUM/ALBUTEROL 3 ML NEB INH PRN ×2 (09:03→15:24)
--- NOTE | 2019-03-18 10:25 | PROVIDER PROGRESS NOTE ---
Subjective - Prog Note Date Prog Note Date: 03/18/19 - Subjective Pt reports feeling: No change Subjective: pt report she feel good. she has no more nausea. she has no complaints. [facility] order blood work today to check pt before d/c. 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 Discussed with RT, plan to have desat study on tomorrow, hopefully pt's insurance can provide O2 tank for pt if pt is qualified. Current Medications - Current Medications Current Medications: Active Medications Acetaminophen (Tylenol) 650 - 975 mg PO Q4HR PRN PRN Reason: PAIN Last Admin: 03/17/19 17:15 Dose: 650 mg Albuterol () 2.5 mg INH RTQ4H PRN PRN Reason: Wheezing Albuterol/Ipratropium (Duoneb) 3 ml INH Q4HR PRN PRN Reason: Wheezing Last Admin: 03/18/19 09:03 Dose: 3 ml Bisacodyl (Dulcolax Supp) 10 mg AL DAILY PRN PRN Reason: Constipation Last Admin: 02/10/19 19:47 Dose: 10 mg Enoxaparin Sodium (Lovenox) 40 mg SUBQ DAILY [facility] Last Admin: 03/17/19 08:23 Dose: 40 mg Famotidine (Pepcid) 20 mg PO BID [facility] Last Admin: 03/17/19 20:15 Dose: 20 mg Ferrous Gluconate (Fergon) 324 mg PO DAILYWM [facility] Last Admin: 03/17/19 08:22 Dose: 324 mg Fluticasone Propionate (Flonase) 2 sprays ELINOR DAILY [facility] Last Admin: 03/17/19 08:27 Dose: 2 sprays Guaifenesin (Mucinex) 300 mg PO BID PRN PRN Reason: Cough Lactulose (Enulose) 10 gm PO DAILY [facility] Last Admin: 03/17/19 08:23 Dose: 10 gm Levothyroxine Sodium (Synthroid) 112.5 mcg PO QDAC [facility] Last Admin: 03/18/19 07:47 Dose: 112.5 mcg Midodrine () 5 mg PO TIDWM [facility] Last Admin: 03/17/19 17:11 Dose: 5 mg Multivitamins/Minerals (Theragran M) 1 tab PO DAILYWM [facility] Last Admin: 03/17/19 08:22 Dose: 1 tab Ondansetron HCl (Zofran Odt) 4 mg TL Q6HR PRN PRN Reason: Nausea / Vomiting Last Admin: 03/17/19 09:52 Dose: 4 mg Polyethylene Glycol (Miralax) 17 gm PO DAILY [facility] Last Admin: 03/17/19 08:28 Dose: Not Given Sodium Chloride ([place]) 2 sprays ELINOR Q4HR PRN PRN Reason: Nasal Congestion Last Admin: 03/07/19 05:22 Dose: 2 sprays Tramadol HCl (Ultram) 50 mg PO Q4HR PRN PRN Reason: PAIN Last Admin: 03/18/19 03:23 Dose: 50 mg Vitamin A/Vitamin D (Vitamin A & D Ointment) 1 applic TOP PRN PRN PRN Reason: Skin Care Last Admin: 02/13/19 16:25 Dose: 1 applic No Known Home Medications 02/06/19 Objective - Vital Signs/Intake & Output Reviewed Vital Signs: Yes Vital Signs: Vital Signs x48h Temp Pulse Pulse Resp BP Pulse Ox 03/18/19 09:03 76 16 03/18/19 08:02 37.1 C 82 18 93/52 L 88 L 03/18/19 03:18 89 L Intake & Output: Intake & Output 03/15/19 03/16/19 03/17/19 03/18/19 23:59 23:59 23:59 23:59 Intake Total 1320 900 860 730 Output Total 75 50 Balance 1245 900 810 730 - Objective General Appearance: positive: No acute distress, Alert. negative: Lethargic Eyes Bilateral: positive: Normal inspection, PERRL, No lid inflammation, Conjunctivae nml ENT: positive: ENT inspection nml, Pharynx nml, No signs of dehydration. negative: Purulent nasal drainage, Pharyngeal erythema, Oral lesions Neck: positive: Nml inspection, Thyroid nml, No JVD, Trachea midline. negative: Thyromegaly, Lymphadenopathy (R), Lymphadenopathy (L), Stiff neck, Swe lling/bruising, Tracheal deviation Respiratory: positive: Chest non-tender, No respiratory distress, Breath sounds nml. negative: Wheezes, Rales, Rhonchi Cardiovascular: positive: Regular rate & rhythm, No murmur, No gallop. negative: Irregularly irregular, Extrasystoles, Tachycardia, Bradycardia, JVD present, Systolic murmur, Diastolic murmur Peripheral Pulses: 2+ Radial (R), 2+ Radial (L), 2+ Dorsalis pedis (R), 2+ Do rsalis pedis (L) Abdomen: positive: Non-tender, No organomegaly, Nml bowel sounds, No distention. negative: Tenderness, Guarding, Rebound Back: positive: Nml inspection. negative: CVA tenderness (R), CVA tenderness (L) Extremities: positive: Non-tender. negative: Calf tenderness, Joint swelling, Rashaad's sign/cords Neurologic/Psychiatric: positive: Oriented x3, Sensation nml, Mood/affect nml. negative: Weakness, Sensory loss, Facial droop, Slurred/abnml speech, Depressed mood/affect - Lab Results Fish Bones: 03/18/19 07:45 03/18/19 07:45 Other Labs: Lab Results x24hrs 03/18/19 03/18/19 Range/Units 07:45 07:45 WBC 5.1 (4.8-10.8) x10^3/uL RBC 2.62 L (4.20-5.40) 10^6/uL Hgb 8.4 L (12.0-16.0) g/dL Hct 27.6 L (37.0-47.0) % MCV 105.3 H (81.0-99.0) fL MCH 32.1 H (27.0-31.0) pg MCHC 30.4 L (32.0-36.0) g/dL RDW 16.1 H (12.0-15.0) % Plt Count 193 (130-450) 10^3/uL MPV 9.9 (7.9-10.8) fL Neut # (Auto) 3.2 (1.5-6.6) 10^3/uL Lymph # (Auto) 0.8 L (1.5-3.5) 10^3/uL [place] # (Auto) 0.9 (0.0-1.0) 10^3/uL Eos # (Auto) 0.2 (0.0-0.7) 10^3/uL Baso # (Auto) 0.0 (0.0-0.1) 10^3/uL Absolute Nucleated RBC 0.00 x10^3/uL Nucleated RBC % 0.0 /100WBC Sodium 139 (135-145) mmol/L Potassium 4.6 (3.5-5.0) mmol/L Chloride 92 L (101-111) mmol/L Carbon Dioxide 38 H (21-32) mmol/L Anion Gap 9.0 (6-13) BUN 32 H (6-20) mg/dL Creatinine 1.1 H (0.4-1.0) mg/dL Estimated GFR (MDRD) 50 L (>89) Glucose 93 (70-100) mg/dL Calcium 9.4 (8.5-10.3) mg/dL Phosphorus 4.8 H (2.5-4.6) mg/dL Magnesium 2.0 (1.7-2.8) mg/dL Total Bilirubin 0.3 (0.2-1.0) mg/dL AST 21 (10-42) IU/L ALT 23 (10-60) IU/L Alkaline Phosphatase 94 (42-121) IU/L Total Protein 7.1 (6.7-8.2) g/dL Albumin 3.5 (3.2-5.5) g/dL Globulin 3.6 (2.1-4.2) g/dL Albumin/Globulin Ratio 1.0 (1.0-2.2) ABX Reporting Has patient been on IV antibiotics over the past 48 hours?: No Sepsis Event Note (H) - Evaluation Current Stage of Sepsis: Ruled out Assessment/Plan - Problem List (1) Respiratory failure with hypoxia Impression: 03/18, pt has no respiratory distress, pt still need supplement of O2 by NC. will do desat study before pt is d/c 03/17 pt has no respiratory distress, and stable 03/16 pt is stable, is pending on placement 03/15 pt's respiratory is stable. pt is pending for placement. Nurse facility will come to evaluate pt today, will followup 03/14, pt is stable, pt is pending for placement 03/13 stable. pt has no complaints. pt did not present respiratory distress 03/12 stable. 03/11 stable, pt has no respiratory distress 03/10 stable. pt remain 92% sat on 1.5-2 liter of O2. pt has hx of COPD. pt currently has no respiratory distress. continue respiratory care, continue albuterol and duoneb PRN supplement of O2 as needed by NC Pt is clinically stable, is pending for placement Hypothyroidism-STABLE 03/13 continue synthyoid 112.5 mcg daily 03/11 pt's TSH is down to 65 from 144 in two weeks, Free T4 is 0.46 from less 0.2 5 two weeks. agree increase synthyoid to 112.5 mcg daily 03/10 pt had a new diagnosis of hypothyroidism on 02/23/19 and start on synthyroid on the day. 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 Continue to monitor pt and pt's urine output Pneumonia-RESOLVED resolved. Continue oxygen supplementation as needed, daily nasal sprays, PEP therapy per RT Chronic laryngitis-CHRONIC stable, Continue to monitor and treat symptoms as needed Acute kidney injury superimposed on CKD stage 2-STABLE stable, avoid nephrotoxins, continue lab monitor as needed COPD (chronic obstructive pulmonary disease)-STABLE stable, Continue respiratory care, continue supplement of O2 as needed Constipation by delayed colonic transit-stable stable, no new complaint. 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 Acute metabolic encephalopathy- RESOLVED resolved left arm pain 03/13 resolved. pt report she has no more pain on her left upper arm 03/11 pt report her left arm pain is better. US reveals centric cystic component. discussed with pt about her test result and answered her questions. 03/10 pt complain of left arm pain. pt state she developed a new lump at the left upper arm and feels painful. pt state it was at the IV site to have lump. There is about 3X1X1 cm lumpt at the upper left arm, palpable. pt did not complain of pain when palpitation to the lump. There is no erythema, swelling, or tenderness. order US to r/o other possible cause, will followup pain control with ultram as needed
[2019-03-18] MEDS: FERROUS GLUCONATE 324 MG TABLET PO SCH (10:30)
[2019-03-18] MEDS: ENOXAPARIN 40 MG/0.4 ML SYRINGE SUBQ SCH (10:31)
[2019-03-18] MEDS: MIDODRINE 2.5 MG TABLET PO SCH ×3 (10:31→17:30)
[2019-03-18] MEDS: MULTIVITAMIN W/MINERALS TABLET PO SCH (10:31)
[2019-03-18] MEDS: FAMOTIDINE 20 MG TABLET PO SCH ×2 (10:31→20:31)
[2019-03-18] MEDS: LACTULOSE 10 GM /15 ML UDC PO SCH (10:31)
[2019-03-18] MEDS: FLUTICASONE NASAL SPRAY NAS SCH (10:32)
[2019-03-18] MEDS: POLYETHYLENE GLYCOL 3350 17 GM PACKET PO SCH (10:32)
[2019-03-18] MEDS: ONDANSETRON ODT 4 MG TABLET TL PRN (10:36)
[2019-03-19] MEDS: LEVOTHYROXINE 75 MCG TABLET PO SCH (06:09)
[2019-03-19] MEDS: ENOXAPARIN 40 MG/0.4 ML SYRINGE SUBQ SCH (08:21)
[2019-03-19] MEDS: FERROUS GLUCONATE 324 MG TABLET PO SCH (08:21)
[2019-03-19] MEDS: MULTIVITAMIN W/MINERALS TABLET PO SCH (08:21)
[2019-03-19] MEDS: traMADol 50 MG TABLET PO PRN ×2 (08:21→12:14)
[2019-03-19] MEDS: MIDODRINE 2.5 MG TABLET PO SCH ×2 (08:21→12:09)
[2019-03-19] MEDS: LACTULOSE 10 GM /15 ML UDC PO SCH (08:21)
[2019-03-19] MEDS: POLYETHYLENE GLYCOL 3350 17 GM PACKET PO SCH (08:21)
[2019-03-19] MEDS: FAMOTIDINE 20 MG TABLET PO SCH (08:21)
[2019-03-19] MEDS: FLUTICASONE NASAL SPRAY NAS SCH (08:24)
[2019-03-19] MEDS: IPRATROPIUM/ALBUTEROL 3 ML NEB INH PRN (10:25)
--- NOTE | 2019-03-19 14:36 | Discharge Plan ---
"Discharge Plan for SNF / GROUP HOME - Discharge Plan And Transition Orders Problem Reviewed?: Yes Disposition: 03 SNF DC/Xfer Condition: Poor Allergies and Adverse Reactions: Allergies Allergy/AdvReac Type Severity Reaction Status Date / Time cefazolin Allergy Hives Verified 01/16/19 19:28 codeine Allergy Unknown Verified 01/16/19 19:28 Health Concerns: COPD with O2-dependent, Trimalleolar fracture of left ankle, new diagnosis of hypothyroidism Plan of Treatment: continue RT treatment as needed and continue supplement of O2 as needed. followup orthopedics and out-pt care. continue synthroid, check TSH in one month, continue management. Care Goals: stabilization and improvement. Assessment: assessment as the above. - SNF / GROUP HOME Transition Orders Admit to (Facility): [facility] Under the care of (Name): health provider of [facility] Discharge Diagnosis: respiratory failure with hypoxia, hypothyroidism, trimalleolar fracture of left ankle, COPD, hypotension Medicare Certification Statement: I certify that [facility] half-way care is medically necessary on a continuing basis for any of the conditions for which she/he is receiving care during hospitalization. Notify PCP of admission and forward orders to primary provider for signature. Weight on admission and: Daily Call PCP immediately if weight increases by: 2 kg Other Notification Orders: Call PCP immediately if patient develops dyspnea, chest pain/tightness or edema. House Bowel Program: Yes Additional Bowel Program Orders: If no BM after 2 days, nurse may give M.O.M. 30ml PO PRN and/or ducolax Supp 1 FL and/or MORENO 250mg P.O., and/or senna 1-2 tabs PO. On day 3 nurse may give repeat above order until residents constipation is resolved. Annual Influenza Vaccine (between Feb 25 and September 24): Yes Two-step PPD per [facility] [phone] or approved exception documents: Yes Treatments & Other Orders: pt may followup health provider of Critical access [facility] when pt is arrival, followup orthopedics in 2-4 weeks or as needed Oxygen Orders: 1-2 liter of O2 by [place], [place]ow[place] RT instrucition Medication Orders: PLEASE REFER TO THE DISCHARGE MEDICATION LIST. Insulin Orders?: No - Medications New Prescriptions: Ipratropium/Albuterol [Duoneb] 3 ml INH Q4HR PRN #10 neb PRN Reason: Wheezing traMADol [Ultram] 50 mg PO Q4HR PRN #20 tablet PRN Reason: Pain Albuterol 2.5 mg INH RTQ4H PRN #10 neb PRN Reason: Wheezing Ferrous Sulfate 324 mg PO DAILY #15 tablet. Levothyroxine [Synthroid] 112.5 mcg PO QDAC #20 tablet Midodrine 5 mg PO TIDWM #30 tablet - Diet Type: Geriatric Texture: Regular Liquids: Thin May have monthly special meal: Yes - Therapies | Activity Therapy: Evaluation | Treat if indicated: PT Rehabilitation Potential: Maximize functional status Activity: Activity as Tolerated Additional Instructions: pt may followup health provider of Critical access hospital when pt is arrival, followup orthopedics in 2-4 weeks or as needed"
--- NOTE | 2019-03-19 15:02 | DISCHARGE SUMMARY ---
"Discharge Summary Discharge Date: 03/19/19 Discharging Provider: FONTANA Condition at Discharge: Poor Discharge Disposition: SNF DC/Xfer Discharge Facility Name: [facility] - DIAGNOSES Admission Diagnoses: (1) Hypoxia (2) Acute kidney injury (3) Trimalleolar fracture of left ankle (4) COPD (chronic obstructive pulmonary disease) (5) History of scabies (6) Macrocytic anemia Discharge Diagnoses with Status of Each Condition: (1) Respiratory failure with hypoxia stable. pt supplied with home O2 Hypothyroidism STABLE, new diagnosis, continue synthroid, continue managed by PCP Hypotension STABLE, pt is prescribed Midodrive Trimalleolar fracture of left ankle stable. followup orthopedics in 2-4 weeks or as needed, nurse dressing change for surgery site is as needed. Fall stable UTI resolved Pneumonia resolved Chronic laryngitis stable Acute kidney injury superimposed on CKD stage 2 stable COPD (chronic obstructive pulmonary disease) pt is prescribed Albuterol and Duenob PRN stable. pt required Home O2 I am ordering home O2 supplement for: room air at rest, pt's O2 sat is 87% with 2 liter of O2 and Ambulation, pt's O2 sats is 85%, heart rate 80 with 3 liter of O2 and Ambulation, pt's O2 sats is 86%, heart rate 85 with 4 liter of O2 and Ambulation, pt's O2 sats is 89%, heart rate 72 Constipation by delayed colonic transit stable Edema of both upper extremities stable Homelessness d/c to [facility] Macrocytic anemia stable, give iron supplement Urinary retention resolved. Acute metabolic encephalopathy resolved left arm pain resolved - HPI History of Present Illness: refer from Dr. Turk's HPI on 02/06/19 Patient seen on 02/06/19 at 0215am Patient is a 63 y/o female who presented to the ED via EMS with left ankle pain. She is homeless and was trying to get to [facility] today when her walker tipped over causing her to twist her ankle and fall. She denied hitting her head or passing out. She had images done in the ED which confirmed a left trimalleolar fracture. In the ED she was found to be hypoxic with and O2Sat as low as 77% on room air. As a result further work up was done. CXR raised concern for opacities. She has been afebrile and did not have an elevated WBC. She was also founfd to have a creatinine of 3.6. During her las admission on 01/13/19 it was 1.2. She denies chest pain, abd pain, n/v/d. She is homeless. Her skin has a leathery/ waxy appearance. She has history of scabies. She was recently on bactrim for a left elbow bursitis and had 2 days to complete it. As a result of the hypoxia, she was presented for admission. - CONSULTS | PROCEDURES Consultations: Dr. Manjarrez Procedures: left ankle fracture repair - HOSPITAL COURSE Hospital Course: pt was admitted for left ankle pain after she had fall. pt was homeless and had frequent fall. pt was found to have left ankle fracture. Dr. manjarrez did fracture repaired for pt. pt continued to be evaluated and treated by PT/OT. pt was also found to have pneumonia with hx of COPD. pt was treated by antibiotics. pt continue required O2 supplement. pt also was found to have acute urinary retention but resolved by her own. pt was also found to have hypothyroidism. pt was treated with synthroid. [facility] the detail home course is as the below (1) Respiratory failure with hypoxia stable. pt supplied with home O2 Hypothyroidism STABLE, new diagnosis, continue synthroid, continue managed by PCP Hypotension STABLE, pt is prescribed Midodrive Trimalleolar fracture of left ankle stable. followup orthopedics in 2-4 weeks or as needed, nurse dressing change for surgery site as needed. Fall stable UTI resolved Pneumonia resolved Chronic laryngitis stable Acute kidney injury superimposed on CKD stage 2 stable COPD (chronic obstructive pulmonary disease) pt is prescribed Albuterol and Duenob PRN stable. pt required Home O2 I am ordering home O2 supplement for: room air at rest, pt's O2 sat is 87% with 2 liter of O2 and Ambulation, pt's O2 sats is 85%, heart rate 80 with 3 liter of O2 and Ambulation, pt's O2 sats is 86%, heart rate 85 with 4 liter of O2 and Ambulation, pt's O2 sats is 89%, heart rate 72 Constipation by delayed colonic transit stable Edema of both upper extremities stable [facility] Macrocytic anemia stable, give iron supplement Urinary retention resolved. Acute metabolic encephalopathy resolved left arm pain resolved - ALLERGIES Allergies/Adverse Reactions: Allergies Allergy/AdvReac Type Severity Reaction Status Date / Time cefazolin Allergy Hives Verified 01/16/19 19:28 codeine Allergy Unknown Verified 01/16/19 19:28 - MEDICATIONS Home Medications: Ambulatory Orders Medication Instructions Recorded Confirmed Albuterol 2.5 mg INH RTQ4H PRN #10 [facility] 03/19/19 Ferrous Sulfate 324 mg PO DAILY #15 tablet. 03/19/19 Ipratropium/Albuterol [Duoneb] 3 ml INH Q4HR PRN #10 neb 03/19/19 Levothyroxine [Synthroid] 112.5 mcg PO QDAC #20 tablet 03/19/19 Midodrine 5 mg PO TIDWM #30 tablet 03/19/19 traMADol [Ultram] 50 mg PO Q4HR PRN #20 tablet 03/19/19 - PHYSICAL EXAM AT DISCHARGE General Appearance: positive: No acute distress, Alert. negative: Lethargic Eyes Bilateral: positive: Normal inspection, PERRL, No lid inflammation, Conjunctivae nml ENT: positive: ENT inspection nml, Pharynx nml, No signs of dehydration. negative: Purulent nasal drainage, Pharyngeal erythema, Oral lesions Neck: positive: Nml inspection, Thyroid nml, No JVD, Trachea midline. negative: Thyromegaly, Lymphadenopathy (R), Lymphadenopathy (L), Stiff neck, Swelling/bruising, Tracheal deviation Respiratory: positive: Chest non-tender, No respiratory distress, Breath sounds nml. negative: Wheezes, Rales, Rhonchi Cardiovascular: positive: Regular rate & rhythm, No murmur, No gallop. negative: Irregularly irregular, Extrasystoles, Tachycardia, Bradycardia, JVD present, Systolic murmur, Diastolic murmur Peripheral Pulses: positive: 2+ Abdomen: positive: Non-tender, No organomegaly, Nml bowel sounds, No distention. negative: Tenderness, Guarding, Rebound Back: positive: Nml inspection. negative: CVA tenderness (R), CVA tenderness (L) Skin: positive: Color nml, No rash, Warm, Dry. negative: Cyanosis, Diaphoresis, Pallor Extremities: positive: Non-tender. negative: Calf tenderness, Joint swelling, Rashaad's sign/cords Neurologic/Psychiatric: positive: Oriented x3, Sensation nml, Mood/affect nml. negative: Weakness, Sensory loss, Facial droop, Slurred/abnml speech, Depressed mood/affect - LABS Result Diagrams: 03/18/19 07:45 03/18/19 07:45 - SEPSIS Current Stage of Sepsis: Ruled out - FOLLOW UP Follow Up: continue RT treatment as needed and continue supplement of O2 as needed. followup orthopedics and out-pt care, nurse dressing change for surgery site is as needed. continue synthroid, check TSH in one month, continue management. pt may followup health provider of [facility] when pt is arrival, followup orthopedics in 2-4 weeks or as needed - TIME SPENT Time Spent in Discharge (Minutes): 60"
[2019-03-19 17:18] VITALS: BP 104/62
== END 2019-03-19 16:10 | disposition home or self-care (01) | DRG 981 ==
LOC: EDUNIT# → ED 18:49 → MS2 02-06 02:53 → OBSVTOIN 02-08 13:09
PROVIDERS: ADMIT Internal Medicine; ATTEND Nurse Practitioner Gerontology
PROC: 0QSH04Z Reposition Left Tibia with Internal Fixation Device, Open Approach (ICD-10-PCS; 2019-02-07)
PROC: 0QSK04Z Reposition Left Fibula with Internal Fixation Device, Open Approach (ICD-10-PCS; principal; 2019-02-07 11:30)
DX: J96.21 Acute and chronic respiratory failure with hypoxia (principal); J18.1 Lobar pneumonia, unspecified organism; G93.41 Metabolic encephalopathy; N17.9 Acute kidney failure, unspecified; J44.0 Chronic obstructive pulmonary disease with (acute) lower respiratory infection; N39.0 Urinary tract infection, site not specified; J96.22 Acute and chronic respiratory failure with hypercapnia; S82.852A Displaced trimalleolar fracture of left lower leg, initial encounter for closed fracture; S69.92XA Unspecified injury of left wrist, hand and finger(s), initial encounter; W18.09XA Striking against other object with subsequent fall, initial encounter; Y92.410 Unspecified street and highway as the place of occurrence of the external cause; E03.9 Hypothyroidism, unspecified; I95.9 Hypotension, unspecified; J37.0 Chronic laryngitis; N18.2 Chronic kidney disease, stage 2 (mild); K59.01 Slow transit constipation; R60.0 Localized edema; R33.9 Retention of urine, unspecified; M79.602 Pain in left arm; M70.32 Other bursitis of elbow, left elbow; I12.9 Hypertensive chronic kidney disease with stage 1 through stage 4 chronic kidney disease, or unspecified chronic kidney disease; J32.9 Chronic sinusitis, unspecified; N20.0 Calculus of kidney; D50.9 Iron deficiency anemia, unspecified; E86.0 Dehydration; R30.0 Dysuria; T48.4X5A Adverse effect of expectorants, initial encounter; Y92.230 Patient room in hospital as the place of occurrence of the external cause; R22.32 Localized swelling, mass and lump, left upper limb; R11.2 Nausea with vomiting, unspecified; I25.10 Atherosclerotic heart disease of native coronary artery without angina pectoris; I73.9 Peripheral vascular disease, unspecified; K21.9 Gastro-esophageal reflux disease without esophagitis; F31.9 Bipolar disorder, unspecified; F41.9 Anxiety disorder, unspecified; F17.200 Nicotine dependence, unspecified, uncomplicated; F10.21 Alcohol dependence, in remission; F03.90 Unspecified dementia, unspecified severity, without behavioral disturbance, psychotic disturbance, mood disturbance, and anxiety; Z86.19 Personal history of other infectious and parasitic diseases; Z88.0 Allergy status to penicillin; Z59.0 Homelessness; Z88.5 Allergy status to narcotic agent; Z91.81 History of falling; Z86.69 Personal history of other diseases of the nervous system and sense organs; Z87.81 Personal history of (healed) traumatic fracture
CPT/HCPCS: 29515; 36415; 36430; 36600; 71045; 73110; 73600; 73610; 76770; 76882; 80048; 80053; 81001; 82274; 82533; 82607; 82746; 82803; 83540; 83605; 83735; 83880; 84100; 84439; 84443; 84466; 84484; 85025; 86850; 86900; 86901; 86920; 87040; 87086; 93005; 93306; 94640; 94761; 96361; 96365; 96367; 96372; 97110; 97116; 97161; 97166; 97530; 97535; 99284; 99285; A9270; G0378; J1650; J3490; J7120; J7512; P9016; Q0162

== ENCOUNTER 2019-06-08 14:43 | Outpatient (CLI) | payer MEDICAID ==
[2019-06-08 18:54] LABS: BASOPHILS % (AUTO) 0.5 %; EOSINOPHILS # (AUTO) 0.1 10^3/uL (0.0-0.7); EOSINOPHILS % (AUTO) 1.1 %; HGB - HEMOGLOBIN 12.1 g/dL (12.0-16.0); LYMPHOCYTES # (AUTO) 1.2 10^3/uL (1.5-3.5); LYMPHOCYTES % (AUTO) 17.5 %; MEAN CORPUSCULAR HEMOGLOBIN 29.5 pg (27.0-31.0); MEAN CORPUSCULAR HGB CONC 30.9 g/dL (32.0-36.0); MEAN CORPUSCULAR VOLUME 95.6 fL (81.0-99.0); MEAN PLATELET VOLUME 11.3 fL (7.9-10.8); MONOCYTES # (AUTO) 0.6 10^3/uL (0.0-1.0); MONOCYTES % (AUTO) 8.9 %; NEUTROPHILS # (AUTO) 4.7 10^3/uL (1.5-6.6); NEUTROPHILS % (AUTO) 71.7 %; PLT - PLATELET COUNT 305 10^3/uL (130-450); RED CELL DISTRIBUTION WIDTH 14.7 % (12.0-15.0); WHITE BLOOD COUNT 6.6 x10^3/uL (4.8-10.8)
[2019-06-08 19:22] LABS: ALBUMIN 4.2 g/dL (3.2-5.5); ALBUMIN/GLOBULIN RATIO 1.1 (1.0-2.2); BILIRUBIN,TOTAL 0.7 mg/dL (0.2-1.0); CALCIUM 10.1 mg/dL (8.5-10.3); CREATININE 0.7 mg/dL (0.4-1.0)
== END 2019-06-08 23:59 | disposition home or self-care (01) ==
LOC: LAB.WCP 14:43
PROVIDERS: ATTEND Physician Assistant
DX: D64.9 Anemia, unspecified (principal)
CPT/HCPCS: 36415; 80053; 83540; 84466; 85025

== ENCOUNTER 2019-06-29 08:00 | Outpatient (CLI) | payer MEDICAID ==
[2019-06-29 19:37] LABS: FREE T4 (FREE THYROXINE) 0.7 ng/dL (0.58-1.64)
== END 2019-06-29 23:59 | disposition home or self-care (01) ==
LOC: LAB.WCP 08:00
PROVIDERS: ATTEND Physician Assistant
DX: E03.9 Hypothyroidism, unspecified (principal)
CPT/HCPCS: 36415; 84439; 84443

== ENCOUNTER 2019-09-11 08:00 | Outpatient (CLI) | payer MEDICAID ==
[2019-09-11 18:35] LABS: BASOPHILS % (AUTO) 0.4 %; EOSINOPHILS # (AUTO) 0.1 10^3/uL (0.0-0.7); EOSINOPHILS % (AUTO) 1.6 %; HGB - HEMOGLOBIN 12.9 g/dL (12.0-16.0); LYMPHOCYTES # (AUTO) 1.4 10^3/uL (1.5-3.5); LYMPHOCYTES % (AUTO) 18.4 %; MEAN CORPUSCULAR HEMOGLOBIN 29.5 pg (27.0-31.0); MEAN CORPUSCULAR HGB CONC 30.8 g/dL (32.0-36.0); MEAN CORPUSCULAR VOLUME 95.7 fL (81.0-99.0); MEAN PLATELET VOLUME 11.2 fL (7.9-10.8); MONOCYTES # (AUTO) 0.6 10^3/uL (0.0-1.0); MONOCYTES % (AUTO) 8.4 %; NEUTROPHILS # (AUTO) 5.2 10^3/uL (1.5-6.6); NEUTROPHILS % (AUTO) 70.7 %; PLT - PLATELET COUNT 277 10^3/uL (130-450); RED BLOOD COUNT 4.38 10^6/uL (4.20-5.40); RED CELL DISTRIBUTION WIDTH 14.3 % (12.0-15.0); WHITE BLOOD COUNT 7.4 x10^3/uL (4.8-10.8)
[2019-09-11 19:51] LABS: FREE T4 (FREE THYROXINE) 0.87 ng/dL (0.58-1.64)
== END 2019-09-11 23:59 | disposition home or self-care (01) ==
LOC: LAB.WCP 08:00
PROVIDERS: ATTEND Physician Assistant
DX: E03.9 Hypothyroidism, unspecified (principal); D64.9 Anemia, unspecified
CPT/HCPCS: 36415; 84439; 84443; 85025

== ENCOUNTER 2020-10-17 08:00 | Outpatient (CLI) | payer MEDICAID ==
[2020-10-17 17:40] LABS: BASOPHILS % (AUTO) 0.6 %; EOSINOPHILS # (AUTO) 0.2 10^3/uL (0.0-0.7); EOSINOPHILS % (AUTO) 2.9 %; HCT - HEMATOCRIT 42.9 % (37.0-47.0); HGB - HEMOGLOBIN 13.9 g/dL (12.0-16.0); LYMPHOCYTES # (AUTO) 1.5 10^3/uL (1.5-3.5); LYMPHOCYTES % (AUTO) 22.6 %; MEAN CORPUSCULAR HEMOGLOBIN 30.6 pg (27.0-31.0); MEAN CORPUSCULAR HGB CONC 32.4 g/dL (32.0-36.0); MEAN CORPUSCULAR VOLUME 94.5 fL (81.0-99.0); MEAN PLATELET VOLUME 11.7 fL (7.9-10.8); MONOCYTES # (AUTO) 0.6 10^3/uL (0.0-1.0); MONOCYTES % (AUTO) 8.8 %; NEUTROPHILS # (AUTO) 4.3 10^3/uL (1.5-6.6); NEUTROPHILS % (AUTO) 64.8 %; PLT - PLATELET COUNT 215 10^3/uL (130-450); RED BLOOD COUNT 4.54 10^6/uL (4.20-5.40); RED CELL DISTRIBUTION WIDTH 12.3 % (12.0-15.0); WHITE BLOOD COUNT 6.6 x10^3/uL (4.8-10.8)
[2020-10-17 18:01] LABS: ALBUMIN 4.4 g/dL (3.2-5.5); ALBUMIN/GLOBULIN RATIO 1.5 (1.0-2.2); ALKALINE PHOSPHATASE 82 IU/L (42-121); ALT ALANINE AMINOTRANSFERASE 17 IU/L (10-60); AST ASPARTATE AMINOTRANSFERASE 15 IU/L (10-42); BILIRUBIN,TOTAL 0.6 mg/dL (0.2-1.0); BUN - BLOOD UREA NITROGEN 20 mg/dL (6-20); CALCIUM 9.5 mg/dL (8.5-10.3); CARBON DIOXIDE - CO2 26 mmol/L (21-32); CHLORIDE 102 mmol/L (101-111); CHOL/HDL RATIO 3.6 (<4.4); CHOLESTEROL 268 mg/dL; CREATININE 0.7 mg/dL (0.4-1.0); GFR - MDRD 85 (>89); GLUCOSE 104 mg/dL (70-100); HDL CHOLESTEROL 74 mg/dL; LDL CHOLESTEROL,CALCULATED 176 mg/dL; LDL/HDL RATIO 2.4 (<4.4); POTASSIUM 4.1 mmol/L (3.5-5.0); SODIUM 138 mmol/L (135-145); TOTAL PROTEIN 7.4 g/dL (6.7-8.2); TRIGLYCERIDES 90 mg/dL; VLDL CHOLESTEROL 18 mg/dL
[2020-10-17 18:16] LABS: THYROID STIMULATING HORMONE 4.65 uIU/mL (0.34-5.60)
== END 2020-10-17 23:59 | disposition home or self-care (01) ==
LOC: LAB.WCP 08:00
PROVIDERS: ATTEND Nurse Practitioner Family
DX: I95.9 Hypotension, unspecified (principal); J44.9 Chronic obstructive pulmonary disease, unspecified; E03.9 Hypothyroidism, unspecified; D64.9 Anemia, unspecified
CPT/HCPCS: 36415; 80053; 80061; 83721; 84443; 85025

== ENCOUNTER 2021-07-24 08:00 | Outpatient (CLI) | payer MEDICAID ==
[2021-07-24 18:23] LABS: CHOL/HDL RATIO 3.8 (<4.4); CHOLESTEROL 276 mg/dL; HDL CHOLESTEROL 72 mg/dL; LDL CHOLESTEROL,CALCULATED 181 mg/dL; LDL/HDL RATIO 2.5 (<4.4); TRIGLYCERIDES 115 mg/dL; VLDL CHOLESTEROL 23 mg/dL
[2021-07-24 18:28] LABS: THYROID STIMULATING HORMONE 1.4 uIU/mL (0.34-5.60)
== END 2021-07-24 23:59 | disposition home or self-care (01) ==
LOC: LAB.WCP 08:00
PROVIDERS: ATTEND Nurse Practitioner Family
DX: E03.9 Hypothyroidism, unspecified (principal); E78.5 Hyperlipidemia, unspecified
CPT/HCPCS: 36415; 80061; 83721; 84443

== ENCOUNTER 2023-01-10 08:37 | Outpatient (CLI) | payer MEDICAID ==
[2023-01-10 12:44] LABS: BASOPHILS % (AUTO) 0.4 %; EOSINOPHILS # (AUTO) 0.2 10^3/uL (0.0-0.7); EOSINOPHILS % (AUTO) 3.1 %; HCT - HEMATOCRIT 42.8 % (37.0-47.0); HGB - HEMOGLOBIN 13.5 g/dL (12.0-16.0); LYMPHOCYTES # (AUTO) 1.9 10^3/uL (1.5-3.5); LYMPHOCYTES % (AUTO) 26.1 %; MEAN CORPUSCULAR HGB CONC 31.5 g/dL (32.0-36.0); MEAN CORPUSCULAR VOLUME 98.2 fL (81.0-99.0); MEAN PLATELET VOLUME 11.4 fL (7.9-10.8); MONOCYTES # (AUTO) 0.6 10^3/uL (0.0-1.0); MONOCYTES % (AUTO) 8.9 %; NEUTROPHILS # (AUTO) 4.3 10^3/uL (1.5-6.6); NEUTROPHILS % (AUTO) 61.2 %; PLT - PLATELET COUNT 236 10^3/uL (130-450); RED BLOOD COUNT 4.36 10^6/uL (4.20-5.40); RED CELL DISTRIBUTION WIDTH 12.8 % (12.0-15.0); WHITE BLOOD COUNT 7.1 x10^3/uL (4.8-10.8)
[2023-01-10 13:53] LABS: THYROID STIMULATING HORMONE 80.22 uIU/mL (0.34-5.60)
[2023-01-10 14:03] LABS: ALBUMIN 4.3 g/dL (3.2-5.5); ALBUMIN/GLOBULIN RATIO 1.2 (1.0-2.2); ALKALINE PHOSPHATASE 60 IU/L (42-121); ALT ALANINE AMINOTRANSFERASE 13 IU/L (10-60); AST ASPARTATE AMINOTRANSFERASE 18 IU/L (10-42); BILIRUBIN,TOTAL 0.4 mg/dL (0.2-1.0); BUN - BLOOD UREA NITROGEN 16 mg/dL (6-20); CALCIUM 9.9 mg/dL (8.5-10.3); CARBON DIOXIDE - CO2 30 mmol/L (21-32); CHLORIDE 105 mmol/L (101-111); CHOL/HDL RATIO 3.6 (<4.4); CHOLESTEROL 300 mg/dL; GFR - MDRD 56 (>89); GLUCOSE 100 mg/dL (70-100); HDL CHOLESTEROL 84 mg/dL; LDL CHOLESTEROL,CALCULATED 197 mg/dL; LDL/HDL RATIO 2.3 (<4.4); POTASSIUM 4.5 mmol/L (3.5-5.0); SODIUM 141 mmol/L (135-145); TOTAL PROTEIN 7.8 g/dL (6.7-8.2); TRIGLYCERIDES 94 mg/dL; VLDL CHOLESTEROL 19 mg/dL
[2023-01-10 14:27] LABS: FREE T4 (FREE THYROXINE) 0.5 ng/dL (0.58-1.64)
== END 2023-01-10 08:38 | disposition home or self-care (01) ==
LOC: LAB.N 08:37
PROVIDERS: ATTEND Nurse Practitioner Family
DX: D64.9 Anemia, unspecified (principal); E78.5 Hyperlipidemia, unspecified; E03.9 Hypothyroidism, unspecified
CPT/HCPCS: 36415; 80053; 80061; 83721; 84439; 84443; 85025

== ENCOUNTER 2023-07-27 12:34 | Outpatient (CLI) | payer MEDICAID ==
[2023-07-27 18:21] LABS: CHOL/HDL RATIO 2.1 (<4.4); CHOLESTEROL 173 mg/dL; HDL CHOLESTEROL 82 mg/dL; LDL CHOLESTEROL,CALCULATED 69 mg/dL; LDL/HDL RATIO 0.8 (<4.4); TRIGLYCERIDES 111 mg/dL (48-352); VLDL CHOLESTEROL 22 mg/dL
[2023-07-27 18:32] LABS: THYROID STIMULATING HORMONE 0.53 uIU/mL (0.34-5.60)
== END 2023-07-27 12:35 | disposition home or self-care (01) ==
LOC: LAB.N 12:34
PROVIDERS: ATTEND Nurse Practitioner Family
DX: E78.5 Hyperlipidemia, unspecified (principal); F17.200 Nicotine dependence, unspecified, uncomplicated; E03.9 Hypothyroidism, unspecified
CPT/HCPCS: 36415; 80061; 83721; 84443

== ENCOUNTER 2023-09-27 10:31 | Outpatient (CLI) | payer MEDICAID ==
--- NOTE | 2023-09-27 12:07 | DEXA Report ---
PROCEDURE: Dexa Spine and/or Hip INDICATIONS: POST MENOPAUSAL TECHNIQUE: Dual energy x-ray absorptiometry (DXA) was performed on a [employer] System. Regions measur ed are the AP Spine, femoral neck, and if needed forearm. COMPARISON: None FINDINGS: Lumbar Spine: Bone Mineral Density: 1.291 g/cm/cm,T score: 0.9. Left Femoral Neck: Bone Mineral Density: 0.720 g/cm/cm, T score: -2.3. Left Hip: Bone Mineral Density: 0.720 g/cm/cm,T score: -2.3. (T score greater or equal to -1.0: NORMAL) (T score from -1.1 to -2.4: OSTEOPENIA) (T score less than or equal to -2.5 to: OSTEOPOROSIS) Impression: By WHO criteria, this patient has low bone density (osteopenia). Patients with diagnosis of osteoporosis or osteopenia should have regular bone mineral density assess ment. For those eligible for Medicare, routine testing is allowed once every 2 years. Testing frequ ency can be increased for patients who have rapidly progressing disease or for those who are receivin g medical therapy to restore bone mass. Reviewed by: Fiorella Bui MD on 09/27/2023 12:06 PM PDT Approved by: Fiorella Bui MD on 09/27/2023 12:06 PM PDT Station ID: [id number]
== END 2023-09-27 10:32 | disposition home or self-care (01) ==
LOC: DI 10:31
PROVIDERS: ATTEND Nurse Practitioner Family
DX: M85.89 Other specified disorders of bone density and structure, multiple sites (principal); Z78.0 Asymptomatic menopausal state